=== PATIENT | female | born 1970 | race Caucasian/White ===

== ENCOUNTER → 2017-04-27 | Day surgery (SDC) | payer MEDICAID ==
[2017-04-17 12:41] VITALS: Ht 156.2 cm; Wt 89.8 kg
[~2017-04-27] VITALS: Ht 156.2 cm; Wt 89.8 kg
[~2017-04-27] MED LIST: AA/A14DR7 OT; ACE3 PO; ACET-1966 PO; ACET-3017 PO; ACY200L PO; ACYC-58 PO; ALBL; ALBU0.636 IH; ALBU2.5V36 INH; ALBU8.5H IH; ALBU8.5H12 IH; ALP25 PO; ALP5 PO; ALPR-429 PO; AMO250 PO; AMO500 PO; AMO875 PO; AMOX-359 PO; AMOX-362 PO; AMOX-559 PO; AMOX500T10 PO; AMOXICILLIN; ANTI10DR13 OT; ANTI15DR29 OT; APIX5TAB PO; ARIP10TA4 PO; ARIP20TA11 PO; ARIP30TA10 PO; ATEN-1 PO; ATOR-1 PO; ATOR40TA24 PO; ATR80PT PO; AUG500 PO; AUG875 PO; AURALGAN EACH EAR; AZI250 PO; AZIT-1 PO; AZIT-17 PO; AZIT-18 PO; AZIT500T47 PO; AZIT600T13 PO; BACITRACIN OINT 15 GM TUBE TP ONE; BACL-1 PO; BENZ100C4 PO; BENZ200C15 PO; BENZ200C38 PO; BLOO-1775 MC; BLOO1STR16 MC; BUPIV/EPI 0.25% 1:200,000 50ML INFIL ONE; BUS5 PO; BUSP7.5T7 PO; BUTA-324 PO; CARB100O7 PO; CARI-1 PO; CEPH500C24 PO; CHOL500016 PO; CIP500 PO; CIPHCO OT; CIPR-326 PO; CIT20 PO; CITA-157 PO; CLAR-1 PO; CLINDAMYCIN 900 MG/6 ML 900 MG in NS(*) 0.9% 100 ML BAG 100 ML IVPB ONE; CLO1 PO; CLO30T TOP; CLON-303 PO; CLOT15CR63 TP; CODE118S5 PO; CYC10 PO; CYCL-332 PO; CYCL10TA29 PO; DEXAMETHASONE SOD 4 MG/ML VIAL ONE; DEXL60CA6 PO; DIA5 PO; DIAZ-308 PO; DICL100G39 TOP; DIP25 PO; DIV500 PO; DIV500ER PO; DIVA-1 PO; DIVA250T84 PO; DOC100 PO; DOCU-416 PO; DOCU240C84 PO; DOCU50CA8; DON PO; DOXE150C7 PO; DOXE50CA46 PO; DOXY-179 PO; DOXY150T6 PO; DOXY50SY2 PO; DUL20 PO; DUL30 PO; EPIN0.3P15 IM; ERY250 PO; ESOM40CA42 PO; ESTR2TAB26 PO; EUCT TOP; FAM20 PO; FAMO20TA28 PO; FLU150 PO; FLUT16SP19 NS; GAB300 PO; GABA-1 PO; GLY25 PO; GUAI-334 PO; GUAI120L3 PO; HEPA100D58 IV; HYD2 PO; HYDR-2966 PO; HYDR-3083 PO; HYDR-3724 PO; HYDR-385 PO; HYDR-4225; HYDR-4309 PO; HYDR115S2 PO; HYDR1TAB PO; HYDR2TAB4 PO; HYDR2TAB41 PO; HYDR2TAB42; HYDR2TAB42 PO; HYDR473S4 PO; IBPROFEN; IBU800 PO; IBUP-1618 PO; IBUP200C71 PO; IBUP400T13 PO; IBUP800T37 PO; IMITREX; INSU100C12 SQ; INSU100C14 SQ; INSU100I28 SQ; INSU100I30 SQ; INSU100I30 SUBQ; INSU100V24 SQ; KET10 PO; KET200 PO; LANC-1295 MC; LANC-648 ASDIRECTED; LANI SQ; LANI SUBQ; LEV175 PO; LEV500 PO; LEVO125T77; LEVO175T37 PO; LEVO175T38 PO; LEVO200T50 PO; LEVO250T37 PO; LEVO25TA56 PO; LEVO300T31 PO; LEVO50TA86 PO; LEVO750T27 PO; LEVO75TA73 PO; LIDO700A19 TP; LIDOCAINE MPF 1% 5 ML VIAL ONE; LIDOCAINE/SOD BICARB 8.4% SYR ID ONE; LISI-355 PO; LISI-362 PO; LISI-368 PO; LISI-374 PO; LISI20TA29 PO; LOM PO; LOR05 PO; LOR5 PO; LOR5/325 PO; LOR75 PO; LORA-1456 PO; LORA-630 PO; LORA-802 PO; LORA10CA3 PO; LOV20 PO; MAG-156 PO; MAGIC PO; MAGN400C PO; MEC25 PO; MECL12.5 PO; MEL3 PO; MES400 PO; MET10 FT; MET500 PO; METF-1 PO; METF-420 PO; METH-543 PO; METO-218 PO; METO-221 PO; METO-566 PO; METO-734 PO; METO25TA93 PO; METOCLOPRAMIDE 10 MG/2 ML SDV ONE; METXR500 PO; MID PO; MIDAZOLAM 2 MG/2 ML VIAL IVP PRN; MINIPRESS PO; MOMR NS; MULT-865 PO; MUP2T TOP; MVM PO; NAL50 PO; NAP250 PO; NAP500 PO; NAPR-724 PO; NAPR500T75 PO; NIT100 PO; NIT50 PO; NITR50CA2 GT; NOR25 PO; NOR5/325 PO; NORMOSOL R SOLN(*) 1000 ML BAG 1,000 ML IV PRN; NS(*) 0.9% 1000 ML BAG 1,000 ML ONE; OFLO5DRO38 OP; OMEP-218 PO; OMEP40CA79 PO; OND4 PO; ONDA-2 PO; ONDA4TAB PO; ONDA4TAB9 PO; ONDA4TAB97 PO; ONDA8TAB94 PO; ONDANSETRON 4 MG/2 ML VIAL ONE; ORP100 PO; ORPH1TAB PO; OSE75 PO; OXAP-1 PO; OXC300 PO; OXCA300T44 PO; OXCA600T30 PO; OXYC-717 PO; OXYC-823 PO; OXYC-865 PO; OXYC-866 PO; OXYC1TAB54 GT; OXYC1TAB54 PO; OXYC5CAP21 PO; Oxygen NS; PAN20 PO; PANT40TA65 PO; PARO-243 PO; PARO10OR PO; PARO30TA71 PO; PARO40TA88 PO; PER PO; PHEN118S56 PO; PHEN120S16 PO; PHEN200T32 PO; PHENA100 PO; PHENA200 PO; POTA20TA94 PO; POTT20 PO; PRAV20TA66 PO; PRAZ1CAP25 PO; PRAZ2CAP26 PO; PRE10 PO; PRE20 PO; PRE5 PO; PRE50 PO; PRED20TA6 PO; PREG150C33 PO; PREG50CA48 PO; PREPH PR; PRO20 PO; PRO25 PO; PRO25I IV; PRO5 PO; PROCHLORPERAZINE; PROM-110 PO; PROM12.546 PO; PROM25S PR; PROM25SU61 RC; PROM25SU9 RC; PROM5SYR PO; PROMETHAZINE 25 MG/ML 1 ML AMP ONE; PROP10TA58 PO; PROP20TA56 PO; PROPANOLOL PO; PROPOFOL EMUL(*) 10MG/ML 20 ML 20 ML ONE; QUET100T29 PO; QUET200T29 PO; RAM8 PO; RANI-324 PO; RANI150C17 PO; RIZA10 PO; RIZA10TA22 PO; RIZA5TAB15 PO; ROBC PO; ROCURONIUM BROM 10 MG/ML 10 ML ONE; ROCURONIUM BROM 10 MG/ML 5 ML ONE; ROPIVACAINE 0.2% 20 ML VIAL ONE; ROPIVACAINE 0.5% 20 ML VIAL ONE; ROSU40TA18 PO; SILV20CR2 TP; SUGAMMADEX SOD 200 MG/2 ML SDV ONE; SUM25 PO; SUMA100T32 PO; SUMA100T33 PO; SUMA50TA34 PO; SUMA6CAR SQ; SUMA6PEN SQ; TAMS0.4C25 PO; TEMA-1 PO; TIZ4 PO; TIZA-128 PO; TIZA2CAP3 PO; TIZA4CAP3 PO; TIZA4CAP6 PO; TIZA6CAP3 PO; TOBOO OS; TOBR5DRO OP; TOBR5DRO43 OD; TOBROD OS; TOP25 PO; TOPI-23 PO; TOPI-75 PO; TOPI25TA3 PO; TOPI50TA99 PO; TRA50 GT; TRA50 PO; TRAM-420 PO; TRAM-625 PO; TRAM-627 PO; TRAM100T22 PO; TRAZ-156 PO; TRAZ150T61 PO; TRAZ150T8 PO; TRAZ50 PO; TRIA0.2597 PO; VAL500 PO; VAR05PT PO; VEN375 PO; VENL100T21 PO; VERA240T84 PO; ZOL5 PO; ZOLP-1 PO; ZOLP-358; [UNRECOGNIZED DRUG - CODE]; [UNRECOGNIZED DRUG - CODE] IVF; [UNRECOGNIZED DRUG - CODE] IVF; [UNRECOGNIZED DRUG - CODE] MM; [UNRECOGNIZED DRUG - CODE] PO; [UNRECOGNIZED DRUG - CODE] PO; [UNRECOGNIZED DRUG - CODE] PO; [UNRECOGNIZED DRUG - CODE] RC; [UNRECOGNIZED DRUG - CODE] TOP; [UNRECOGNIZED DRUG - CODE] TOP; [UNRECOGNIZED DRUG - OTHER]; [UNRECOGNIZED DRUG - OTHER] PO; ePHEDrine 25 MG/5 ML DISP.SYR IVP ONE; fentaNYL CITR 100 MCG/2 ML AMP IVP ONE; fentaNYL CITR 100 MCG/2 ML AMP IVP PRN; fentaNYL CITR 100 MCG/2 ML AMP ONE; omnicef PO; oxyCODONE HCL 5 MG CAP ONE
[2017-04-27 10:47] VITALS: BP 111/79
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
== END ==
LOC: OR 08:00
PROVIDERS: ATTEND Orthopaedic Surgery
DX: S82.832A Other fracture of upper and lower end of left fibula, initial encounter for closed fracture (principal); S02.2XXA Fracture of nasal bones, initial encounter for closed fracture
CPT/HCPCS: 76000; C1713; J1100; J2001; J2250; J2405; J2550; J2704; J2765; J2795; J3010; J3490; J7030; J7050

== ENCOUNTER 2017-06-06 16:10 | Emergency (ER) | payer MEDICAID ==
[2017-04-17 12:41] VITALS: Wt 86.2 kg
[~2017-06-06 16:10] MED LIST changes: -ATOR40TA24 PO; -BACITRACIN OINT 15 GM TUBE TP ONE; -BUPIV/EPI 0.25% 1:200,000 50ML INFIL ONE; -CLINDAMYCIN 900 MG/6 ML 900 MG in NS(*) 0.9% 100 ML BAG 100 ML IVPB ONE; -DEXAMETHASONE SOD 4 MG/ML VIAL ONE; -LIDOCAINE MPF 1% 5 ML VIAL ONE; -LIDOCAINE/SOD BICARB 8.4% SYR ID ONE; -METOCLOPRAMIDE 10 MG/2 ML SDV ONE; -MIDAZOLAM 2 MG/2 ML VIAL IVP PRN; -NORMOSOL R SOLN(*) 1000 ML BAG 1,000 ML IV PRN; -NS(*) 0.9% 1000 ML BAG 1,000 ML ONE; -ONDANSETRON 4 MG/2 ML VIAL ONE; -PROMETHAZINE 25 MG/ML 1 ML AMP ONE; -PROPOFOL EMUL(*) 10MG/ML 20 ML 20 ML ONE; -ROCURONIUM BROM 10 MG/ML 10 ML ONE; -ROCURONIUM BROM 10 MG/ML 5 ML ONE; -ROPIVACAINE 0.2% 20 ML VIAL ONE; -ROPIVACAINE 0.5% 20 ML VIAL ONE; -SUGAMMADEX SOD 200 MG/2 ML SDV ONE; -ePHEDrine 25 MG/5 ML DISP.SYR IVP ONE; -fentaNYL CITR 100 MCG/2 ML AMP IVP ONE; -fentaNYL CITR 100 MCG/2 ML AMP IVP PRN; -fentaNYL CITR 100 MCG/2 ML AMP ONE; -oxyCODONE HCL 5 MG CAP ONE
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
[2017-06-06] MEDS ORDERED: PROMETHAZINE 25 MG/ML 1 ML AMP IM ONE (16:25)
[2017-06-06] MEDS ORDERED: diphenhydrAMINE 50 MG/ML VIAL IM ONE (16:25)
[2017-06-06] MEDS ORDERED: KETOROLAC 60 MG/2 ML VIAL IM ONE (16:25)
[2017-06-06] MEDS ORDERED: SUMAtriptan SUCC 6MG/0.5ML VL SUBQ ONE (16:25)
[2017-06-06] MEDS ORDERED: ORPHENADRINE 60MG/2ML INJ IM ONE (16:25)
[2017-06-06] MEDS ORDERED: WATER STERILE 10 ML VIAL IM ONLY ONE (17:35)
[2017-06-06] MEDS ORDERED: OLANZapine 10 MG VIAL IM ONLY ONE (17:35)
[2017-06-06 18:00] VITALS: BP 170/85
[2017-06-06] MEDS ORDERED: PROM-110 PO (18:49)
[2017-06-06] MEDS ORDERED: PROMETHAZINE HCL 25 MG TAB TH 2 TAB/BOTTLE PO ONE (18:55)
[2017-06-10] MEDS ORDERED: ATOR40TA24 PO (11:24)
== END 2017-06-06 19:11 | disposition home or self-care (01) ==
LOC: ER 16:19
DX: R51 Headache (principal)
CPT/HCPCS: 87502; 96372; 99284; A4216; J1200; J1885; J2360; J2550; J3490; J3030

== ENCOUNTER 2017-06-24 07:49 | Emergency (ER) | payer MEDICAID ==
[2017-04-17 12:41] VITALS: Ht 154.9 cm; Wt 84.4 kg
[~2017-06-24] VITALS: Ht 154.9 cm; Wt 84.4 kg
[~2017-06-24 07:49] MED LIST changes: +ATOR40TA24 PO
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
--- NOTE | 2017-06-24 08:40 | RADIOLOGY IMAGING REPORT ---
FACILITY: [facility] PATIENT NAME: Yesy Mccracken : 1970 MR: [id number] V: [id number] EXAM DATE: ORDERING PHYSICIAN: CONNIE SWENSON TECHNOLOGIST: Location: [facility] Patient: Yesy Mccracken : 1970 Visit/Account:[id number] Date of Sevice: 06/24/2017 Exam type: ANKLE 3 VIEW MIN LEFT History: Fractured ankle eight weeks ago with pain Comparison: April 15, 2017. Findings: Since the prior study there has been open reduction internal fixation of the fracture dislocation of the left ankle. Sideplate and screws transfix the distal left fibular fracture which appears in a re latively good anatomic alignment. There is a small amount of new cortical bone. Orthopedic screws a lso traverse the distal left fibula and tibia with ankle mortise appearing in good anatomic alignment .. A small well-corticated bony density projects just posterior to the tibiotalar joint. There is m ild soft tissue swelling about the left ankle. Small left calcaneal spur and small osteophyte insert ion the Achilles tendon IMPRESSION: 1. Post surgical changes from open reduction internal fixation of the previous described fracture di slocation of the left ankle which appears to be healing in good anatomic alignment. If further bony detail is desired CT may be helpful for further evaluation. Report Dictated By: Angle Meléndez MD at 06/24/2017 8:29 AM Report E-Signed By: Angle Meléndez MD at 06/24/2017 8:36 AM WSN:JUSTIN
[2017-06-24 09:02] VITALS: BP 117/99
== END 2017-06-24 09:08 | disposition home or self-care (01) ==
LOC: ER 08:03
DX: S93.401A Sprain of unspecified ligament of right ankle, initial encounter (principal)
CPT/HCPCS: 99283

== ENCOUNTER 2017-07-09 12:35 | Emergency (ER) | payer MEDICAID ==
[2017-04-17 12:41] VITALS: Ht 154.9 cm; Wt 84.6 kg
[~2017-07-09] VITALS: Ht 154.9 cm; Wt 84.6 kg
[~2017-07-09 12:35] MED LIST changes: +KETO30CA16 IM
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
[2017-07-09] MEDS ORDERED: MELO-205 PO (12:53)
[2017-07-09] MEDS ORDERED: ORPHENADRINE 60MG/2ML INJ IM ONE (12:55)
[2017-07-09] MEDS ORDERED: diphenhydrAMINE 50 MG/ML VIAL IM ONE (12:55)
[2017-07-09] MEDS ORDERED: KETOROLAC 60 MG/2 ML VIAL IM ONE (12:55)
[2017-07-09] MEDS ORDERED: PROMETHAZINE 25 MG/ML 1 ML AMP IM ONE (12:55)
[2017-07-09 13:42] VITALS: BP 117/98
[2017-07-09] MEDS ORDERED: PROM-110 PO (13:44)
== END 2017-07-09 13:46 | disposition home or self-care (01) ==
LOC: ER 12:53
DX: G43.909 Migraine, unspecified, not intractable, without status migrainosus (principal)
CPT/HCPCS: 96372; 99283; J1200; J1885; J2360; J2550

== ENCOUNTER 2017-07-29 09:08 | Emergency (ER) | payer MEDICAID ==
[2017-04-17 12:41] VITALS: Ht 154.9 cm; Wt 87.1 kg
[~2017-07-29] VITALS: Ht 154.9 cm; Wt 87.1 kg
[~2017-07-29 09:08] MED LIST changes: -ALBL; +ALBU2SYR19; +MELO-205 PO; -NAPR-724 PO; +NAPR500T31 PO
[2017-07-29] MEDS ORDERED: NS(*) 0.9% 1000 ML BAG 1,000 ML IV ONE ×2 (09:24)
--- NOTE | 2017-07-29 09:27 | ER Report ---
History and Physical Time Seen By MD: 09:20 Hx. of Stated Complaint: pt presents with a multitude of complaints including n/v/d, cough, chest congestion, fever, pain with urination, low back pain. HPI/ROS CHIEF COMPLAINT: Vomiting diarrhea nonspecific abdominal pain cough HISTORY OF PRESENT ILLNESS: 46-year-old female frequent visitor to the emergency department returns today with a complaint of 3-4 days of diarrhea vomiting since she had a brother who had recently expresses similar symptoms in addition that she is also describing a nonproductive cough and some mild chest congestion. Patient says the pain in her abdomen is nonlocalized not primarily in the periumbilical area comes and goes dull and aching cramping in nature associated primarily with the diarrhea. Patient describes the diarrhea and the vomiting is nonbloody nonbilious. Patient denies any chest pain shortness of breath she is a pack to pack and half a day smoker she said she quit 3 weeks ago says her cough is also nonproductive. Patient has no additional complaints at this time. REVIEW OF SYSTEMS: Respiratory: Cough no shortness of breath Cardiovascular: No chest pain, no palpitations. Gastrointestinal: Vomiting diarrhea nonspecific abdominal pain Musculoskeletal: No back pain. Remainder of the 14 system rev: Yes Allergies: Coded Allergies: Nitrofurantoin Macrocrystal (Verified Allergy, Severe, HIVES, 07/29/17) aspirin (Verified Allergy, Severe, ANAPHYLAXIS, 07/29/17) chlorpromazine (Verified Allergy, Severe, ANAPHYLAXIS, 07/29/17) hydroxyzine (Verified Allergy, Severe, AIRWAY OBSTRUCTION, 07/29/17) varenicline (Verified Allergy, Severe, anxiety, 07/29/17) venom-wasp (Verified Allergy, Severe, ANAPHYLAXIS, 07/29/17) Sulfa (Sulfonamide Antibiotics) (Verified Allergy, Intermediate, HIVES, ) albuterol (Verified Allergy, Intermediate, itching, hives, 07/29/17) cephalexin (Verified Allergy, Intermediate, HIVES, 07/29/17) ciprofloxacin (Verified Allergy, Intermediate, "feels like I'm going inasne", 07/29/17) droperidol (Verified Allergy, Intermediate, DELUSIONS, 07/29/17) Pt states her reaction as, "I become psychotic". latex (Verified Allergy, Intermediate, RASH, SWELLING, 2/21/18) ondansetron (Verified Adverse Reaction, Severe, TACHYCARDIA, 07/29/17) dexamethasone (Verified Adverse Reaction, Intermediate, ITCHING, 07/29/17) haloperidol (Verified Adverse Reaction, Intermediate, "MAKES ME JUMPY", ) Uncoded Allergies: Inhaled medication propelant (Allergy, Intermediate, HIVES, 10/07/14) Home Meds Active Scripts Promethazine Hcl (PROMETHAZINE HCL) 25 Mg Tablet, 25 MG PO Q8H Y for NAUSEA/ VOMITING, #12 TAB Prov:DEISY DURBIN [facility] 07/09/17 Pregabalin (LYRICA) 150 Mg Capsule, 1 TAB PO BID, #60 CAPSULE 0 Refills Prov:POPPY SANCHEZ DNP [facility] 06/16/17 Atorvastatin Calcium (LIPITOR) 40 Mg Tablet, 1 TAB PO QDAY, #90 TAB Prov:POPPY SANCHEZ DNP [facility] 06/10/17 Baclofen (BACLOFEN) 10 Mg Tablet, 1 TAB PO TID Y for MUSCLE SPASMS, #90 TAB 2 Refills Prov:POPPY SANCHEZ DNP [facility] 05/29/17 Sumatriptan Succinate (SUMATRIPTAN SUCCINATE) 6 Mg/0.5 Ml Pen.injctr, 6 MG SQ ONCE Y for MIGRAINE, #1 BOX 6 Refills May repeat dose x1 after 1 hour, if needed. Do not exceed maximum of 12mg/24h. Prov:POPPY SANCHEZ DNP [facility] 05/29/17 Sumatriptan Succinate (SUMATRIPTAN SUCCINATE) 100 Mg Tablet, 1 TAB PO ONCE Y for MIGRAINE, #9 TAB 6 Refills Prov:POPPY SANCHEZ DNP [facility] 05/29/17 Ranitidine Hcl (RANITIDINE HCL) 150 Mg Capsule, 1 TAB PO BID, #180 CAPSULE 3 Refills Prov:POPPY SANCHEZ DNP [facility] 05/29/17 Esomeprazole Magnesium (NEXIUM) 40 Mg Capsule.dr, 1 CAP PO BID, #180 CAP 3 Refills Prov:POPPY SANCHEZ DNP [facility] 05/29/17 Levothyroxine Sodium (LEVOTHYROXINE SODIUM) 50 Mcg Tablet, 1 TAB PO QDAY, #90 TAB 0 Refills Take along with 200mcg tablet for a total of 250mcg daily. Prov:POPPY SANCHEZ DNP, FNP-BC 05/29/17 Levothyroxine Sodium (LEVOTHYROXINE SODIUM) 200 Mcg Tablet, 200 MCG PO QDAY, # 90 TAB 0 Refills Take with 50mcg tablet for a total of 250mcg daily Prov:POPPY SANCHEZ DNP, FNP-BC 05/29/17 Insulin Lispro 3 Ml Prefilled (HUMALOG 3 ML PEN) 100 Unit/1 Ml Insuln.pen, 5-8 UNIT SQ TID, #2 DIS.SYR 6 Refills Take per sliding scale. Prov:POPPY SANCHEZ DNP, FNP-BC 05/29/17 Insulin Glargine,Hum.rec.anlog (LANTUS SOLOSTAR) 100 Unit/1 Ml Insuln.pen, 35 UNIT SUBQ BID, #1 BOX Prov:EVELINA MONSIVAIS MD 05/06/17 Buspirone Hcl (BUSPIRONE HCL) 7.5 Mg Tablet, 30 MG PO BID, #60 TAB Prov:EVELINA MONSIVAIS MD 03/14/17 Albuterol Sulfate 0.083% (ALBUTEROL SULFATE 0.083%) 2.5 Mg/3 Ml Vial.neb, 2.5 MG INH Q4H Y for WHEEZING, #1 BOX 0 Refills Prov:HILDA THORNE MD 02/22/17 Epinephrine (EPIPEN 2-TUCKER) 0.3 Mg/0.3 Ml Pen.injctr, 0.3 MG IM ONCE, #1 CART Prov:POPPY SANCHEZ DNP, FNP-BC 02/17/17 Diclofenac Sodium 1% Gel (VOLTAREN 1% GEL) 100 Gm Gel..gram., 1 DEMETRIS TOP QID Y for PAIN, #1 TUBE 0 Refills Prov:POPPY SANCHEZ DNP, FNP-BC 01/19/17 Blood-Glucose Meter (FREESTYLE LITE METER) 1 Each Kit, 1 [facility] ONCE, #1 Prov:POPPY SANCHEZ DNP, FNP-BC 09/15/16 Reported Medications Meloxicam (MELOXICAM) 7.5 Mg Tablet, 7.5 MG PO BID 07/09/17 Aripiprazole (ABILIFY) 20 Mg Tablet, 20 MG PO QDAY, TAB 03/14/17 Prazosin Hcl (PRAZOSIN HCL) 2 Mg Capsule, 2 CAP PO QHS, CAPSULE 01/26/17 Zolpidem Tartrate (AMBIEN) 5 Mg Tablet, 1 TAB PO QHS, TAB 05/19/16 Reviewed Nurses Notes: Yes Old Medical Records Reviewed: Yes Hx Smoking: Yes Smoking Status: Former Smoker Exposure to Second Hand Smoke?: Yes Hx Substance Use Disorder: No ("Years ago") Hx Alcohol Use: No Constitutional Vital Sign - Last 24 Hours 07/29/17 09:12 Temp 97.2 Pulse 102 Resp 20 B/P (MAP) 148/109 Pulse Ox 90 O2 Delivery Room Air Physical Exam General Appearance: The patient is alert, has no immediate need for airway protection and no current signs of toxicity. [ ] Eyes: Pupils equal and round no injection. Respiratory: Chest is non tender, lungs are clear to auscultation. Cardiac: regular rate and rhythm [ ] Gastrointestinal: Abdomen is soft and non tender, no masses, bowel sounds normal. Musculoskeletal: Neck: Neck is supple and non tender. Extremities have full range of motion and are non tender. Skin: No rashes or lesions. [ ] DIFFERENTIAL DIAGNOSIS: After history and physical exam differential diagnosis was considered for enteritis gastroenteritis diverticulitis diverticulosis influenza upper respiratory infection bronchitis pneumonia Medical Decision Making Data Points Result Diagram: 07/29/1792707/29/17927 Laboratory Hematology Test 07/29/17 09:28 Red Blood Count 6.32 M/uL (4.17-5.56) Mean Corpuscular Volume 77.4 fL (80.0-96.0) Mean Corpuscular Hemoglobin 26.1 pg (26.0-33.0) Mean Corpuscular Hemoglobin Concent 33.8 g/dL (32.0-36.0) Red Cell Distribution Width 15.0 % (11.5-14.5) Mean Platelet Volume 8.4 fL (7.2-11.1) Neutrophils (%) (Auto) 45.2 % (39.4-72.5) Lymphocytes (%) (Auto) 44.1 % (17.6-49.6) Monocytes (%) (Auto) 9.2 % (4.1-12.4) Eosinophils (%) (Auto) 0.3 % (0.4-6.7) Basophils (%) (Auto) 1.2 % (0.3-1.4) Nucleated RBC Relative Count (auto) 0.1 /100WBC Neutrophils # (Auto) 1.9 K/uL (2.0-7.4) Lymphocytes # (Auto) 1.9 K/uL (1.3-3.6) Monocytes # (Auto) 0.4 K/uL (0.3-1.0) Eosinophils # (Auto) 0.0 K/uL (0.0-0.5) Basophils # (Auto) 0.0 K/uL (0.0-0.1) Nucleated RBC Absolute Count (auto) 0.01 K/uL Sodium Level 131 mmol/L (137-145) Potassium Level 3.5 mmol/L (3.5-5.0) Chloride Level 93 mmol/L (98-107) Carbon Dioxide Level 22 mmol/L (22-31) Blood Urea Nitrogen 6 mg/dl (7-18) Creatinine 0.60 mg/dl (0.52-1.04) Glomerular Filtration Rate Calc > 60.0 Random Glucose 413 mg/dl (75-110) Calcium Level 9.4 mg/dl (8.4-10.2) Total Bilirubin 0.5 mg/dl (0.2-1.3) Aspartate Amino Transf (AST/SGOT) 17 U/L (0-35) Alanine Aminotransferase (ALT/SGPT) 33 U/L (0-56) Alkaline Phosphatase 158 U/L (0-126) Total Protein 8.4 gm/dl (6.3-8.2) Albumin 4.4 g/dl (3.5-5.0) Lipase 290 U/L (23-300) Influenza Virus Type A (PCR) Negative (NEGATIVE) Influenza Virus Type B (PCR) Negative (NEGATIVE) Chemistry Test 07/29/17 09:28 White Blood Count 4.2 k/uL (4.5-11.0) Red Blood Count 6.32 M/uL (4.17-5.56) Hemoglobin 16.5 g/dL (12.0-16.0) Hematocrit 48.9 % (34.0-47.0) Mean Corpuscular Volume 77.4 fL (80.0-96.0) Mean Corpuscular Hemoglobin 26.1 pg (26.0-33.0) Mean Corpuscular Hemoglobin Concent 33.8 g/dL (32.0-36.0) Red Cell Distribution Width 15.0 % (11.5-14.5) Platelet Count 193 K/uL (150-450) Mean Platelet Volume 8.4 fL (7.2-11.1) Neutrophils (%) (Auto) 45.2 % (39.4-72.5) Lymphocytes (%) (Auto) 44.1 % (17.6-49.6) Monocytes (%) (Auto) 9.2 % (4.1-12.4) Eosinophils (%) (Auto) 0.3 % (0.4-6.7) Basophils (%) (Auto) 1.2 % (0.3-1.4) Nucleated RBC Relative Count (auto) 0.1 /100WBC Neutrophils # (Auto) 1.9 K/uL (2.0-7.4) Lymphocytes # (Auto) 1.9 K/uL (1.3-3.6) Monocytes # (Auto) 0.4 K/uL (0.3-1.0) Eosinophils # (Auto) 0.0 K/uL (0.0-0.5) Basophils # (Auto) 0.0 K/uL (0.0-0.1) Nucleated RBC Absolute Count (auto) 0.01 K/uL Glomerular Filtration Rate Calc > 60.0 Calcium Level 9.4 mg/dl (8.4-10.2) Total Bilirubin 0.5 mg/dl (0.2-1.3) Aspartate Amino Transf (AST/SGOT) 17 U/L (0-35) Alanine Aminotransferase (ALT/SGPT) 33 U/L (0-56) Alkaline Phosphatase 158 U/L (0-126) Total Protein 8.4 gm/dl (6.3-8.2) Albumin 4.4 g/dl (3.5-5.0) Lipase 290 U/L (23-300) Influenza Virus Type A (PCR) Negative (NEGATIVE) Influenza Virus Type B (PCR) Negative (NEGATIVE) ED Course/Re-evaluation ED Course ED clinical course medical decision-making 46-year-old female with diarrhea vomiting or cough x-ray was negative lab show time depletion we resuscitated with fluids given antiemetics and low-dose anti-narcotic for pain she is on a care plan patient was diagnosed with gastroenteritis Decision to Disposition Date: Jul 29, 2017 Decision to Disposition Time: 10:51 Depart Departure Latest Vital Signs Vital Signs Date Time Temp Pulse Resp B/P (MAP) Pulse Ox O2 Delivery O2 Flow Rate FiO2 07/29/17 09:12 97.2 102 20 148/109 90 Room Air Core Temperature (Celsius): 36.73 Impression: Primary Impression: Gastroenteritis Condition: Improved Disposition: HOME OR SELF-CARE Referrals: POPPY SANCHEZ DNP, RISK CONTROL MANAGER-BC (PCP) 10 Days Patient Instructions: Gastritis (GEN), Gastroenteritis (DC) CONNIE SWENSON MD Jul 29, 2017 09:27
[2017-07-29 09:56] LABS: PLATELET COUNT, AUTOMATED 193 K/uL (150-450)
[2017-07-29] MEDS ORDERED: INSU HUM REG 100 U/ML(ER ONLY) 10 ML VIAL SUBQ ONE (10:15)
[2017-07-29] MEDS ORDERED: KETOROLAC 30 MG/ML VIAL IVP ONE (10:25)
[2017-07-29] MEDS ORDERED: METOCLOPRAMIDE 10 MG/2 ML SDV IVP ONE (10:25)
[2017-07-29] MEDS ORDERED: PROMETHAZINE 25 MG/ML 1 ML AMP IVP ONE (10:30)
--- NOTE | 2017-07-29 10:46 | RADIOLOGY IMAGING REPORT ---
FACILITY: [facility] PATIENT NAME: Yesy Mccracken : 1970 MR: [id number] V: [id number] EXAM DATE: ORDERING PHYSICIAN: CONNIE SWENSON TECHNOLOGIST: Location: [facility] Patient: Yesy Mccracken : 1970 Visit/Account:[id number] Date of Sevice: 07/29/2017 Exam type: CHEST PA AND LAT History: cough Comparison: March 31, 2017. Findings: The lungs are free of acute effusions, infiltrates or edema. The cardiac silhouette is normal in siz e. No evidence of a pneumothorax or pneumomediastinum. The trachea is in midline. IMPRESSION: 1. No acute cardiopulmonary process is seen Report Dictated By: Angle Meléndez MD at 07/29/2017 10:41 AM Report E-Signed By: Angle Meléndez MD at 07/29/2017 10:42 AM WSN:[email or web address]
[2017-07-29 11:30] VITALS: BP 137/82
[2017-07-31] MEDS ORDERED: PREG150C33 PO (10:50)
== END 2017-07-29 11:55 | disposition home or self-care (01) ==
LOC: ER 09:21
DX: K52.9 Noninfective gastroenteritis and colitis, unspecified (principal)
CPT/HCPCS: 71046; 81001; 83690; 85025; 87502; 96361; 96372; 96374; 96375; 99284; J1815; J1885; J2550; J7030; 82040; 82247; 82310; 82374; 82435; 82565; 82947; 84075; 84132; 84155; 84295; 84450; 84460; 84520

== ENCOUNTER → 2017-08-11 | Outpatient (CLI) | payer MEDICAID ==
[2017-04-17 12:41] VITALS: BMI 34.0
[~2017-08-11] MED LIST changes: +NEED-931 MC
[2017-08-11 09:56] LABS: PLATELET COUNT, AUTOMATED 297 K/uL (150-450)
== END ==
LOC: LAB 09:28
PROVIDERS: ATTEND Nurse Practitioner Primary Care
DX: E11.9 Type 2 diabetes mellitus without complications (principal); E78.00 Pure hypercholesterolemia, unspecified; E03.9 Hypothyroidism, unspecified; I10 Essential (primary) hypertension
CPT/HCPCS: 36415; 82040; 82247; 82310; 82374; 82435; 82465; 82565; 82947; 83036; 83718; 84075; 84132; 84155; 84295; 84443; 84450; 84460; 84478; 84520; 85025

== ENCOUNTER → 2017-08-12 | Outpatient (CLI) | payer MEDICAID ==
[2017-04-17 12:41] VITALS: BMI 34.0
[2017-08-12 17:37] LABS: PLATELET COUNT, AUTOMATED 237 K/uL (150-450)
== END ==
LOC: LAB 16:18
PROVIDERS: ATTEND Nurse Practitioner Primary Care
DX: R30.0 Dysuria (principal); R10.11 Right upper quadrant pain
CPT/HCPCS: 36415; 81001; 82040; 82150; 82247; 82310; 82374; 82435; 82565; 82947; 83690; 84075; 84132; 84155; 84295; 84450; 84460; 84520; 85025

== ENCOUNTER 2017-08-13 09:59 | Emergency (ER) | payer MEDICAID ==
[2017-04-17 12:41] VITALS: Wt 87.3 kg
--- NOTE | 2017-08-13 10:18 | ER Report ---
History and Physical Time Seen By MD: 10:17 Hx. of Stated Complaint: Right upper quadrant abdominal pain, vomitting, high blood sugar HPI/ROS CHIEF COMPLAINT: high blood sugar. Abdominal pain HISTORY OF PRESENT ILLNESS: This is a 46 year old female. She is having abdominal pain. Several days worsening. Right upper quadrant mainly, with some in the epigastric area as well. Nausea and vomiting. Having some diarrhea. Poor appetite. Eating seems to make the pain worse. Worsens with movement as well. Also with elevated blood sugars recently, reading 'hi' on the glucose monitor. Having subjective fevers and chills. Denies dysuria. Having some shortness of breath as well. REVIEW OF SYSTEMS: Constitutional: As above. Eyes: No vision changes. ENT: No sore throat. No congestion. Cardiovascular: No chest pain. Respiratory: As above. Gastrointestinal: As above. Genitourinary: As above. Musculoskeletal: Diffuse muscle and joint aches. Skin: No rashes. Neurological: No numbness. No weakness. Mild headache. Allergies: Coded Allergies: Nitrofurantoin Macrocrystal (Verified Allergy, Severe, HIVES, 08/14/17) aspirin (Verified Allergy, Severe, ANAPHYLAXIS, 08/14/17) chlorpromazine (Verified Allergy, Severe, ANAPHYLAXIS, 08/14/17) hydroxyzine (Verified Allergy, Severe, AIRWAY OBSTRUCTION, 08/14/17) varenicline (Verified Allergy, Severe, anxiety, 08/14/17) venom-wasp (Verified Allergy, Severe, ANAPHYLAXIS, 08/14/17) Sulfa (Sulfonamide Antibiotics) (Verified Allergy, Intermediate, HIVES, 08/14/17) albuterol (Verified Allergy, Intermediate, itching, hives, 08/14/17) cephalexin (Verified Allergy, Intermediate, HIVES, 08/14/17) ciprofloxacin (Verified Allergy, Intermediate, "feels like I'm going inasne", 08/14/17) droperidol (Verified Allergy, Intermediate, DELUSIONS, 08/14/17) Pt states her reaction as, "I become psychotic". latex (Verified Allergy, Intermediate, RASH, SWELLING, 08/14/17) ondansetron (Verified Adverse Reaction, Severe, TACHYCARDIA, 08/14/17) dexamethasone (Verified Adverse Reaction, Intermediate, ITCHING, 08/14/17) haloperidol (Verified Adverse Reaction, Intermediate, "MAKES ME JUMPY", 08/14/17) Uncoded Allergies: Inhaled medication propelant (Allergy, Intermediate, HIVES, 10/07/14) Home Meds Active Scripts Meclizine Hcl (MECLIZINE HCL) 12.5 Mg Tablet, 1 TAB PO BID Y for DIZZINESS, #10 TAB 0 Refills Prov:POPPY SANCHEZ DNP, FNP-YVETTE 08/14/17 Promethazine Hcl (PROMETHAZINE HCL) 25 Mg Tablet, 1 TAB PO Q8H Y for nausea, # 12 TAB 0 Refills Prov:POPPY SANCHEZ DNP, FNP-BC 08/12/17 [place], Insulin Disposable (PEN NEEDLES) 1 Each Dis.needle, BOX MC QDAY, #1 9 Refills Prov:POPPY SANCHEZ DNP, FNP-YVETTE 08/11/17 Blood-Glucose Meter (FREESTYLE LITE METER) 1 Each Kit, 1 [facility] ONCE, #1 Prov:POPPY SANCHEZ DNP, FNP-YVETTE 08/11/17 Baclofen (BACLOFEN) 10 Mg Tablet, 1 TAB PO TID Y for MUSCLE SPASMS, #90 TAB 2 Refills Prov:POPPY SANCHEZ DNP, FNP-YVETTE 08/07/17 Pregabalin (LYRICA) 150 Mg Capsule, 1 TAB PO BID, #60 CAPSULE 0 Refills Prov:POPPY SANCHEZ DNP, FNP-BC 07/31/17 Promethazine Hcl (PROMETHAZINE HCL) 25 Mg Tablet, 25 MG PO Q8H Y for NAUSEA/ VOMITING, #12 TAB Prov:DEISY DURBIN 07/09/17 Atorvastatin Calcium (LIPITOR) 40 Mg Tablet, 1 TAB PO QDAY, #90 TAB Prov:POPPY SANCHEZ DNP, FNP-BC 06/10/17 Sumatriptan Succinate (SUMATRIPTAN SUCCINATE) 6 Mg/0.5 Ml Pen.injctr, 6 MG SQ ONCE Y for MIGRAINE, #1 BOX 6 Refills May repeat dose x1 after 1 hour, if needed. Do not exceed maximum of 12mg/24h. Prov:POPPY SANCHEZ DNP, FNP-BC 05/29/17 Sumatriptan Succinate (SUMATRIPTAN SUCCINATE) 100 Mg Tablet, 1 TAB PO ONCE Y for MIGRAINE, #9 TAB 6 Refills Prov:[facility] 05/29/17 Ranitidine Hcl (RANITIDINE HCL) 150 Mg Capsule, 1 TAB PO BID, #180 CAPSULE 3 Refills Prov:POPPY SANCHEZ [facility]NP[facility] 05/29/17 Esomeprazole Magnesium (NEXIUM) 40 Mg Capsule.dr, 1 CAP PO BID, #180 CAP 3 Refills Prov:POPPY SANCHEZ [facility]NP[facility] 05/29/17 Levothyroxine Sodium (LEVOTHYROXINE SODIUM) 50 Mcg Tablet, 1 TAB PO QDAY, #90 TAB 0 Refills Take along with 200mcg tablet for a total of 250mcg daily. Prov:POPPY SANCHEZ [facility]NP[facility] 05/29/17 Levothyroxine Sodium (LEVOTHYROXINE SODIUM) 200 Mcg Tablet, 200 MCG PO QDAY, # 90 TAB 0 Refills Take with 50mcg tablet for a total of 250mcg daily Prov:POPPY SANCHEZ [facility]NP[facility] 05/29/17 Insulin Lispro 3 Ml Prefilled (HUMALOG 3 ML PEN) 100 Unit/1 Ml Insuln.pen, 5-8 UNIT SQ TID, #2 DIS.SYR 6 Refills Take per sliding scale. Prov:POPPY SANCHEZ DNP[facility] 05/29/17 Insulin Glargine,Hum.rec.anlog (LANTUS SOLOSTAR) 100 Unit/1 Ml Insuln.pen, 35 UNIT SUBQ BID, #1 BOX Prov:EVELINA MONSIVAIS MD 05/06/17 Buspirone Hcl (BUSPIRONE HCL) 7.5 Mg Tablet, 30 MG PO BID, #60 TAB Prov:EVELINA MONSIVAIS MD 03/14/17 Albuterol Sulfate 0.083% (ALBUTEROL SULFATE 0.083%) 2.5 Mg/3 Ml Vial.neb, 2.5 MG INH Q4H Y for WHEEZING, #1 BOX 0 Refills Prov:HILDA THORNE MD 02/22/17 Epinephrine (EPIPEN 2-TUCKER) 0.3 Mg/0.3 Ml Pen.injctr, 0.3 MG IM ONCE, #1 CART Prov:POPPY SANCHEZ Machelle CORNELL, RISK INVESTIGATOR-BC 02/17/17 Diclofenac Sodium 1% Gel (VOLTAREN 1% GEL) 100 Gm Gel..gram., 1 DEMETRIS TOP QID Y for PAIN, #1 TUBE 0 Refills Prov:POPPY SANCHEZ ANETA, RISK INVESTIGATOR- 01/19/17 Reported Medications Meloxicam (MELOXICAM) 7.5 Mg Tablet, 7.5 MG PO BID 07/09/17 Aripiprazole (ABILIFY) 20 Mg Tablet, 20 MG PO QDAY, TAB 03/14/17 Prazosin Hcl (PRAZOSIN HCL) 2 Mg Capsule, 2 CAP PO QHS, CAPSULE 01/26/17 Zolpidem Tartrate (AMBIEN) 5 Mg Tablet, 1 TAB PO QHS, TAB 05/19/16 Reviewed Nurses Notes: Yes Hx Smoking: Yes Smoking Status: Former Smoker Exposure to Second Hand Smoke?: Yes Hx Substance Use Disorder: No ("Years ago") Hx Alcohol Use: No Constitutional Vital Sign - Last 24 Hours 08/13/17 08/13/17 08/13/17 08/13/17 10:00 10:09 10:10 10:15 Temp 98.0 Pulse ??? 94 92 Resp 20 B/P (MAP) 141/101 (114) 141/101 Pulse Ox 95 94 08/13/17 08/13/17 08/13/17 08/13/17 10:30 10:35 10:38 10:45 Pulse 89 91 B/P (MAP) 151/101 (118) Pulse Ox 93 90 O2 Flow Rate 2.0 08/13/17 08/13/17 08/13/17 08/13/17 11:00 11:15 11:30 11:45 Pulse 92 89 87 99 B/P (MAP) 142/91 (108) 133/97 (109) Pulse Ox 90 94 95 95 08/13/17 08/13/17 08/13/17 08/13/17 12:15 12:30 12:45 13:00 Pulse 101 89 89 90 B/P (MAP) 150/101 (117) 142/97 (112) Pulse Ox 92 91 92 Physical Exam General Appearance: The patient is alert. No acute distress. Eyes: Pupils are equal, round. No pallor, injection or icterus. ENT: Mucous membranes are moist. Normal oral mucosa. Posterior oropharynx is normal. Neck: Supple and non tender. Respiratory: Lungs are clear to auscultation. Cardiovascular: Regular rate and rhythm. No murmurs, gallops or rubs. Normal capillary refill. Trace edema. Gastrointestinal: Abdomen is very tender in the right upper quadrant. And somewhat in epigastric area. Other areas of the abdomen are non-tender. Nondistended. Guarding present. Normal active bowel sounds. No costovertebral angle tenderness with percussion. Neurological: Alert and oriented x3. No focal neurologic deficits Skin: Warm and dry. Musculoskeletal: Extremities are nontender. Full range of motion. DIFFERENTIAL DIAGNOSIS: After history and physical exam, differential diagnosis was considered for abdominal pain including but not limited to cholecystitis, colitis, gastroenteritis and urinary tract infection or stone. Concern for the elevated blood glucoses well. Worry about diabetic ketoacidosis or blood sugar being elevated from other problems. Medical Decision Making Data Points Result Diagram: 08/13/17 1030 08/13/17 1030 Laboratory Hematology Test 08/13/17 10:07 08/13/17 10:30 08/13/17 10:32 Urine Color Yellow Urine Clarity Clear Urine pH 6.0 pH (4.8-9.5) Urine Specific [place] 1.036 Urine Protein Negative mg/dL (NEGATIVE) Urine Glucose (UA) 500 mg/dL (NEGATIVE) Urine Ketones Negative mg/dL (NEGATIVE) Urine Blood Negative (NEGATIVE) Urine Nitrite Negative (NEGATIVE) Urine Bilirubin Negative (NEGATIVE) Urine Urobilinogen Negative mg/dL (0.2-1.9) Urine Leukocyte Esterase Negative (NEGATIVE) Urine RBC 1 /HPF (0-2/HPF) Urine WBC 1 /HPF (0-5/HPF) Urine Squamous Epithelial Cells Many /LPF (</=FEW) Urine Bacteria Few /HPF (NONE-FEW) Urine Mucus None /HPF (NONE-FEW) Red Blood Count 5.80 M/uL (4.17-5.56) Mean Corpuscular Volume 77.8 fL (80.0-96.0) Mean Corpuscular Hemoglobin 26.6 pg (26.0-33.0) Mean Corpuscular Hemoglobin Concent 34.1 g/dL (32.0-36.0) Red Cell Distribution Width 15.4 % (11.5-14.5) Mean Platelet Volume 8.8 fL (7.2-11.1) Neutrophils (%) (Auto) 70.5 % (39.4-72.5) Lymphocytes (%) (Auto) 21.9 % (17.6-49.6) Monocytes (%) (Auto) 4.1 % (4.1-12.4) Eosinophils (%) (Auto) 2.4 % (0.4-6.7) Basophils (%) (Auto) 1.1 % (0.3-1.4) Nucleated RBC Relative Count (auto) 0.0 /100WBC Neutrophils # (Auto) 5.2 K/uL (2.0-7.4) Lymphocytes # (Auto) 1.6 K/uL (1.3-3.6) Monocytes # (Auto) 0.3 K/uL (0.3-1.0) Eosinophils # (Auto) 0.2 K/uL (0.0-0.5) Basophils # (Auto) 0.1 K/uL (0.0-0.1) Nucleated RBC Absolute Count (auto) 0.00 K/uL Sodium Level 132 mmol/L (137-145) Potassium Level 3.4 mmol/L (3.5-5.0) Chloride Level 95 mmol/L (98-107) Carbon Dioxide Level 24 mmol/L (22-31) Blood Urea Nitrogen 7 mg/dl (7-18) Creatinine 0.60 mg/dl (0.52-1.04) Glomerular Filtration Rate Calc > 60.0 Random Glucose 400 mg/dl (75-110) Lactate 3.1 mmol/L (0.7-2.1) Calcium Level 9.2 mg/dl (8.4-10.2) Total Bilirubin 0.6 mg/dl (0.2-1.3) Aspartate Amino Transf (AST/SGOT) 18 U/L (0-35) Alanine Aminotransferase (ALT/SGPT) 26 U/L (0-56) Alkaline Phosphatase 135 U/L (0-126) Total Protein 7.6 gm/dl (6.3-8.2) Albumin 4.4 g/dl (3.5-5.0) Amylase Level 74 U/L (0-110) Lipase 144 U/L (23-300) Acetone, Qualitative Negative Whole Blood Glucose 391 mg/DL (75-110) Chemistry Test 08/13/17 10:07 08/13/17 10:30 08/13/17 10:32 Urine Color Yellow Urine Clarity Clear Urine pH 6.0 pH (4.8-9.5) Urine Specific [place] 1.036 Urine Protein Negative mg/dL (NEGATIVE) Urine Glucose (UA) 500 mg/dL (NEGATIVE) Urine Ketones Negative mg/dL (NEGATIVE) Urine Blood Negative (NEGATIVE) Urine Nitrite Negative (NEGATIVE) Urine Bilirubin Negative (NEGATIVE) Urine Urobilinogen Negative mg/dL (0.2-1.9) Urine Leukocyte Esterase Negative (NEGATIVE) Urine RBC 1 /HPF (0-2/HPF) Urine WBC 1 /HPF (0-5/HPF) Urine Squamous Epithelial Cells Many /LPF (</=FEW) Urine Bacteria Few /HPF (NONE-FEW) Urine Mucus None /HPF (NONE-FEW) White Blood Count 7.4 k/uL (4.5-11.0) Red Blood Count 5.80 M/uL (4.17-5.56) Hemoglobin 15.4 g/dL (12.0-16.0) Hematocrit 45.1 % (34.0-47.0) Mean Corpuscular Volume 77.8 fL (80.0-96.0) Mean Corpuscular Hemoglobin 26.6 pg (26.0-33.0) Mean Corpuscular Hemoglobin Concent 34.1 g/dL (32.0-36.0) Red Cell Distribution Width 15.4 % (11.5-14.5) Platelet Count 233 K/uL (150-450) Mean Platelet Volume 8.8 fL (7.2-11.1) Neutrophils (%) (Auto) 70.5 % (39.4-72.5) Lymphocytes (%) (Auto) 21.9 % (17.6-49.6) Monocytes (%) (Auto) 4.1 % (4.1-12.4) Eosinophils (%) (Auto) 2.4 % (0.4-6.7) Basophils (%) (Auto) 1.1 % (0.3-1.4) Nucleated RBC Relative Count (auto) 0.0 /100WBC Neutrophils # (Auto) 5.2 K/uL (2.0-7.4) Lymphocytes # (Auto) 1.6 K/uL (1.3-3.6) Monocytes # (Auto) 0.3 K/uL (0.3-1.0) Eosinophils # (Auto) 0.2 K/uL (0.0-0.5) Basophils # (Auto) 0.1 K/uL (0.0-0.1) Nucleated RBC Absolute Count (auto) 0.00 K/uL Glomerular Filtration Rate Calc > 60.0 Lactate 3.1 mmol/L (0.7-2.1) Calcium Level 9.2 mg/dl (8.4-10.2) Total Bilirubin 0.6 mg/dl (0.2-1.3) Aspartate Amino Transf (AST/SGOT) 18 U/L (0-35) Alanine Aminotransferase (ALT/SGPT) 26 U/L (0-56) Alkaline Phosphatase 135 U/L (0-126) Total Protein 7.6 gm/dl (6.3-8.2) Albumin 4.4 g/dl (3.5-5.0) Amylase Level 74 U/L (0-110) Lipase 144 U/L (23-300) Acetone, Qualitative Negative Whole Blood Glucose 391 mg/DL (75-110) Toxicology Test 08/13/17 10:30 Acetone, Qualitative Negative Urinalysis Test 08/13/17 10:07 Urine Color Yellow Urine Clarity Clear Urine pH 6.0 pH (4.8-9.5) Urine Specific [place] 1.036 Urine Protein Negative mg/dL (NEGATIVE) Urine Glucose (UA) 500 mg/dL (NEGATIVE) Urine Ketones Negative mg/dL (NEGATIVE) Urine Blood Negative (NEGATIVE) Urine Nitrite Negative (NEGATIVE) Urine Bilirubin Negative (NEGATIVE) Urine Urobilinogen Negative mg/dL (0.2-1.9) Urine Leukocyte Esterase Negative (NEGATIVE) Urine RBC 1 /HPF (0-2/HPF) Urine WBC 1 /HPF (0-5/HPF) Urine Squamous Epithelial Cells Many /LPF (</=FEW) Urine Bacteria Few /HPF (NONE-FEW) Urine Mucus None /HPF (NONE-FEW) EKG/Imaging Imaging ABDOMEN/PELVIS WITH CONTRAST HISTORY: ruq abd pain TECHNIQUE: Following administration of IV contrast contiguous axial images acquired through the abdomen/pelvis. Coronal and sagittal reformatting also performed. Dose Lowering Technique One of the following dose optimization techniques was utilized in the performance of this exam: Automated exposure control; adjustment of the mA and/ or kV according to the patient's size; or use of an iterative reconstruction technique. Specific details can be referenced in the facility's radiology CT exam operational policy. CONTRAST: 75 mL Isovue-370 COMPARISON: April 15, 2017 FINDINGS: Visualized lung bases: Negative. Hepatobiliary: There is hepatomegaly and diffuse hepatic steatosis Spleen: Negative. Adrenals: Negative Pancreas: Negative. Kidneys ureters or bladder: There are nonobstructing calculi in the left renal collecting system. There is a small subcentimeter hypodensity midpole left kidney which is too small to characterize Genitalia: Uterus not identified GI: There are several nonspecific negative Vessels/spaces/nodes: There are several nonspecific nonenlarged lymph nodes in the right lower quadrant. There are mild vascular calcifications in the abdomen and pelvis Bones/soft tissues: There are mild spondylotic changes in the lumbar spine. A small sclerotic focus in the right sacrum appears stable likely an incidental bone island Additional findings: None pertinent. IMPRESSION: There are nonobstructing calculi in the left renal collecting system. Hepatomegaly with diffuse hepatic steatosis There are several nonspecific nonenlarged lymph nodes the right lower quadrant Report Dictated By: Angle Meléndez MD at 08/13/2017 12:13 PM GALLBLADDER HISTORY: ruq abd pain COMPARISON: None. FINDINGS: Gallbladder: Unremarkable; no stones or sludge. Liver: 21.3 cm. No parenchymal mass lesions. Mild fatty infiltrative changes within the liver. Common duct: Normal, 3.7 mm diameter. Pancreas: Normal where visualized Right kidney: 11.8 x 5.4 x 5.1 cm. No hydronephrosis. No cortical mass lesions Upper abdominal aorta and IVC: Patent. Ascites: None visualized. IMPRESSION: 1. Negative abdominal ultrasound. Report Dictated By: Alejandro Ortiz MD at 08/13/2017 11:57 AM ED Course/Re-evaluation Clinical Indication for ER IV: Hydration, IV Access ED Course After the initial evaluation, the patient was given a liter of normal saline, Pantoprazole, and Promethazine. Labs obtained and blood sugar is elevated, but better than in the outpatient office earlier. Serum acetone negative. Mild decrease in Sodium and potassium. Otherwise labs unremarkable. Imaging negative on both CT and ultrasound. Patient given Ketamine 0.5mg/kg IV prior to CT for complaints of pain. She is on a care plan for no narcotics. Reviewed labs and imaging results with the patient after everything was available. See instructions below. Decision to Disposition Date: Aug 13, 2017 Decision to Disposition Time: 12:57 Depart Departure Latest Vital Signs Vital Signs Date Time Temp Pulse Resp B/P (MAP) Pulse Ox O2 Delivery O2 Flow Rate FiO2 08/13/17 13:00 90 142/97 (112) 92 08/13/17 10:38 2.0 08/13/17 10:10 98.0 20 Core Temperature (Celsius): 36.73 Impression: Primary Impression: Abdominal pain Additional Impression: Hyperglycemia due to type 2 diabetes mellitus Condition: Improved Disposition: HOME OR SELF-CARE Referrals: POPPY SANCHEZ DNP, RISK INVESTIGATOR-BC (PCP) Patient Instructions: Abdominal Pain (ED), Diabetic Hyperglycemia (ED) Additional Instructions: Abdominal pain likely due to gastroenteritis and pain from vomiting. No problems were noted on labs or imaging other than slightly low potassium and sodium. Increase fluid intake at home. Your blood sugars were also high. Keep taking your Lantus insulin. You may be a little more aggressive with your sliding scale insulin, increasing each step by 1 unit and see how this works for you. Follow-up with your doctor for further instructions on you insulin use. 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
[2017-08-13] MEDS ORDERED: NS(*) 0.9% 1000 ML BAG 1,000 ML IV ONE (10:23)
[2017-08-13] MEDS ORDERED: PROMETHAZINE 25 MG/ML 1 ML AMP IVP ONE (10:25)
[2017-08-13] MEDS ORDERED: PANTOPRAZOLE SOD 40 MG IV VIAL IVP ONE (10:25)
[2017-08-13 10:50] LABS: PLATELET COUNT, AUTOMATED 233 K/uL (150-450)
[2017-08-13] MEDS ORDERED: KETAMINE HCL 500 MG/5 ML VIAL IVP ONE (11:45)
[2017-08-13] MEDS ORDERED: IOPAMIDOL 76% 75 ML INFUS BTL 75 ML ONE (11:52)
[2017-08-13] MEDS ORDERED: INS HUM LISPRO 100U/ML (ER ONLY) 10 ML VIAL SUBQ ONE (11:55)
--- NOTE | 2017-08-13 12:06 | RADIOLOGY IMAGING REPORT ---
FACILITY: [facility] [place] PATIENT NAME: Yesy Mccracken : 1970 MR: [id number] V: [id number] EXAM DATE: ORDERING PHYSICIAN: KARMA MCCLENDON TECHNOLOGIST: Location: [facility] Patient: Yesy Mccracken : 1970 Visit/Account:[id number] Date of Sevice: 08/13/2017 GALLBLADDER HISTORY: ruq abd pain COMPARISON: None. FINDINGS: Gallbladder: Unremarkable; no stones or sludge. Liver: 21.3 cm. No parenchymal mass lesions. Mild fatty infiltrative changes within the liver. Common duct: Normal, 3.7 mm diameter. Pancreas: Normal where visualized Right kidney: 11.8 x 5.4 x 5.1 cm. No hydronephrosis. No cortical mass lesions Upper abdominal aorta and IVC: Patent. Ascites: None visualized. IMPRESSION: 1. Negative abdominal ultrasound. Report Dictated By: Alejandro Ortiz MD at 08/13/2017 11:57 AM Report E-Signed By: Alejandro Ortiz MD at 08/13/2017 12:02 PM WSN:[id number]
--- NOTE | 2017-08-13 12:26 | RADIOLOGY IMAGING REPORT ---
FACILITY: [facility] PATIENT NAME: Yesy Mccracken : 1970 MR: [id number] V: [id number] EXAM DATE: ORDERING PHYSICIAN: KARMA MCCLENDON TECHNOLOGIST: [place] [facility] [place] Yesy Mccracken : 1970 Visit/Account:[id number] Date of Sevice: 08/13/2017 ABDOMEN/PELVIS WITH CONTRAST HISTORY: ruq abd pain TECHNIQUE: Following administration of IV contrast contiguous axial images acquired through the abdom en/pelvis. Coronal and sagittal reformatting also performed. Dose Lowering Technique One of the following dose optimization techniques was utilized in the performance of this exam: Autom ated exposure control; adjustment of the mA and/or kV according to the patient's size; or use of an i terative reconstruction technique. Specific details can be referenced in the facility's radiology C T exam operational policy. CONTRAST: 75 mL Isovue-370 COMPARISON: April 15, 2017 FINDINGS: Visualized lung bases: Negative. Hepatobiliary: There is hepatomegaly and diffuse hepatic steatosis Spleen: Negative. Adrenals: Negative Pancreas: Negative. Kidneys ureters or bladder: There are nonobstructing calculi in the left renal collecting system. Th ere is a small subcentimeter hypodensity midpole left kidney which is too small to characterize Genitalia: Uterus not identified GI: There are several nonspecific negative Vessels/spaces/nodes: There are several nonspecific nonenlarged lymph nodes in the right lower quadr ant. There are mild vascular calcifications in the abdomen and pelvis Bones/soft tissues: There are mild spondylotic changes in the lumbar spine. A small sclerotic focus in the right sacrum appears stable likely an incidental bone island Additional findings: None pertinent. IMPRESSION: There are nonobstructing calculi in the left renal collecting system. Hepatomegaly with diffuse hepatic steatosis There are several nonspecific nonenlarged lymph nodes the right lower quadrant Report Dictated By: Angle Meléndez MD at 08/13/2017 12:13 PM Report E-Signed By: Angle Meléndez MD at 08/13/2017 12:24 PM WSN:[id number]
[2017-08-13 13:00] VITALS: BP 142/97
[2017-08-14] MEDS ORDERED: MECL12.5 PO (13:25)
== END 2017-08-13 13:10 | disposition home or self-care (01) ==
LOC: ER 10:11
DX: E11.65 Type 2 diabetes mellitus with hyperglycemia (principal); R10.11 Right upper quadrant pain
CPT/HCPCS: 36415; 36416; 74177; 76705; 81001; 82009; 82150; 82948; 83605; 83690; 85025; 96361; 96372; 96374; 96375; 99284; C9113; J1815; J2550; J7030; Q9967; 82040; 82247; 82310; 82374; 82435; 82565; 82947; 84075; 84132; 84155; 84295; 84450; 84460; 84520

== ENCOUNTER 2017-08-14 12:00 | Emergency (ER) | payer MEDICAID ==
[2017-04-17 12:41] VITALS: Wt 87.1 kg
--- NOTE | 2017-08-14 12:13 | ER Report ---
History and Physical Time Seen By MD: 12:12 Hx. of Stated Complaint: patient has been having abd pain, nausea, vomiting and diarrhea since yesterday. patient was seen in ER yesterday for same thing. patient states pain is a stabbing pain, mostly on the right side. HPI/ROS CHIEF COMPLAINT: Abdominal pain HISTORY OF PRESENT ILLNESS: 46-year-old female patient presents to emergency room with complaint of abdominal pain. Patient states that she's been having abdominal pain with nausea, vomiting and diarrhea since yesterday. Patient states she was seen here in the emergency room yesterday when she was referred by her primary care provider. She states that they evaluated her and then discharge her with Phenergan. She states that she has had persistent pain. She currently rates it a 9 out of 10. She denies having anything that seems to help with the pain. She states that she has eaten some crackers as well as had water and Gatorade but is not been able to keep anything down. She denies having any improvement with pain. She states that she did have the diarrhea seemed slowdown yesterday but has recurred today. She states is currently pleasantly every 30 minutes. REVIEW OF SYSTEMS: Respiratory: No cough, no dyspnea. Cardiovascular: No chest pain, no palpitations. Gastrointestinal: As noted above Musculoskeletal: No back pain. Allergies: Coded Allergies: Nitrofurantoin Macrocrystal (Verified Allergy, Severe, HIVES, 08/14/17) aspirin (Verified Allergy, Severe, ANAPHYLAXIS, 08/14/17) chlorpromazine (Verified Allergy, Severe, ANAPHYLAXIS, 08/14/17) hydroxyzine (Verified Allergy, Severe, AIRWAY OBSTRUCTION, 08/14/17) varenicline (Verified Allergy, Severe, anxiety, 08/14/17) venom-wasp (Verified Allergy, Severe, ANAPHYLAXIS, 08/14/17) Sulfa (Sulfonamide Antibiotics) (Verified Allergy, Intermediate, HIVES, 08/14/17) albuterol (Verified Allergy, Intermediate, itching, hives, 08/14/17) cephalexin (Verified Allergy, Intermediate, HIVES, 08/14/17) ciprofloxacin (Verified Allergy, Intermediate, "feels like I'm going inasne", 08/14/17) droperidol (Verified Allergy, Intermediate, DELUSIONS, 08/14/17) Pt states her reaction as, "I become psychotic". latex (Verified Allergy, Intermediate, RASH, SWELLING, 08/14/17) ondansetron (Verified Adverse Reaction, Severe, TACHYCARDIA, 08/14/17) dexamethasone (Verified Adverse Reaction, Intermediate, ITCHING, 08/14/17) haloperidol (Verified Adverse Reaction, Intermediate, "MAKES ME JUMPY", 08/14/17) Uncoded Allergies: Inhaled medication propelant (Allergy, Intermediate, HIVES, 10/07/14) Home Meds Active Scripts Meclizine Hcl (MECLIZINE HCL) 12.5 Mg Tablet, 1 TAB PO BID Y for DIZZINESS, #10 TAB 0 Refills Prov:POPPY SANCHEZ DNP, [facility] 08/14/17 Promethazine Hcl (PROMETHAZINE HCL) 25 Mg Tablet, 1 TAB PO Q8H Y for nausea, # 12 TAB 0 Refills Prov:POPPY SANCHEZ DNP, [facility] 08/12/17 [place], Insulin Disposable (PEN NEEDLES) 1 Each Dis.needle, BOX MC QDAY, #1 9 Refills Prov:POPPY SANCHEZ DNP, [facility] 08/11/17 Blood-Glucose Meter (FREESTYLE LITE METER) 1 Each Kit, 1 [facility] ONCE, #1 Prov:POPPY SANCHEZ DNP, [facility] 08/11/17 Baclofen (BACLOFEN) 10 Mg Tablet, 1 TAB PO TID Y for MUSCLE SPASMS, #90 TAB 2 Refills Prov:POPPY SANCHEZ DNP, [facility] 08/07/17 Pregabalin (LYRICA) 150 Mg Capsule, 1 TAB PO BID, #60 CAPSULE 0 Refills Prov:POPPY SANCHEZ DNP, [facility] 07/31/17 Promethazine Hcl (PROMETHAZINE HCL) 25 Mg Tablet, 25 MG PO Q8H Y for NAUSEA/ VOMITING, #12 TAB Prov:DEISY DURBINP 07/09/17 Atorvastatin Calcium (LIPITOR) 40 Mg Tablet, 1 TAB PO QDAY, #90 TAB Prov:POPPY SANCHEZ DNP, [facility] 06/10/17 Sumatriptan Succinate (SUMATRIPTAN SUCCINATE) 6 Mg/0.5 Ml Pen.injctr, 6 MG SQ ONCE Y for MIGRAINE, #1 BOX 6 Refills May repeat dose x1 after 1 hour, if needed. Do not exceed maximum of 12mg/24h. Prov:[facility] 05/29/17 Sumatriptan Succinate (SUMATRIPTAN SUCCINATE) 100 Mg Tablet, 1 TAB PO ONCE Y for MIGRAINE, #9 TAB 6 Refills Prov:[facility] 05/29/17 Ranitidine Hcl (RANITIDINE HCL) 150 Mg Capsule, 1 TAB PO BID, #180 CAPSULE 3 Refills Prov:[facility] 05/29/17 Esomeprazole Magnesium (NEXIUM) 40 Mg Capsule.dr, 1 CAP PO BID, #180 CAP 3 Refills Prov:[facility] 05/29/17 Levothyroxine Sodium (LEVOTHYROXINE SODIUM) 50 Mcg Tablet, 1 TAB PO QDAY, #90 TAB 0 Refills Take along with 200mcg tablet for a total of 250mcg daily. Prov:[facility] 05/29/17 Levothyroxine Sodium (LEVOTHYROXINE SODIUM) 200 Mcg Tablet, 200 MCG PO QDAY, # 90 TAB 0 Refills Take with 50mcg tablet for a total of 250mcg daily Prov:[facility] 05/29/17 Insulin Lispro 3 Ml Prefilled (HUMALOG 3 ML PEN) 100 Unit/1 Ml Insuln.pen, 5-8 UNIT SQ TID, #2 DIS.SYR 6 Refills Take per sliding scale. Prov:[facility] 05/29/17 Insulin Glargine,Hum.rec.anlog (LANTUS SOLOSTAR) 100 Unit/1 Ml Insuln.pen, 35 UNIT SUBQ BID, #1 BOX Prov:EVELINA MONSIVAIS MD 05/06/17 Buspirone Hcl (BUSPIRONE HCL) 7.5 Mg Tablet, 30 MG PO BID, #60 TAB Prov:EVELINA MONSIVAIS MD 03/14/17 Albuterol Sulfate 0.083% (ALBUTEROL SULFATE 0.083%) 2.5 Mg/3 Ml Vial.neb, 2.5 MG INH Q4H Y for WHEEZING, #1 BOX 0 Refills Prov:HILDA THORNE MD 02/22/17 Epinephrine (EPIPEN 2-TUCKER) 0.3 Mg/0.3 Ml Pen.injctr, 0.3 MG IM ONCE, #1 CART Prov:POPPY SANCHEZ DNP, [facility]- 02/17/17 Diclofenac Sodium 1% Gel (VOLTAREN 1% GEL) 100 Gm Gel..gram., 1 DEMETRIS TOP QID Y for PAIN, #1 TUBE 0 Refills Prov:POPPY SANCHEZ DNP, [facility]- 01/19/17 Reported Medications Meloxicam (MELOXICAM) 7.5 Mg Tablet, 7.5 MG PO BID 07/09/17 Aripiprazole (ABILIFY) 20 Mg Tablet, 20 MG PO QDAY, TAB 03/14/17 Prazosin Hcl (PRAZOSIN HCL) 2 Mg Capsule, 2 CAP PO QHS, CAPSULE 01/26/17 Zolpidem Tartrate (AMBIEN) 5 Mg Tablet, 1 TAB PO QHS, TAB 05/19/16 Past Medical/Surgical History Patient has a past medical history of migraines, angina, irregular heartbeat, DVT, hypertension, hyperlipidemia, asthma, pneumonia, reflux, cholecystitis, enlarged liver, pancreatitis, kidney stones, frequent UTIs, endometriosis, ovarian cysts, arthritis, fractures, back pain, ear infections, type 2 diabetes , hypothyroidism, substance abuse, bipolar, depression, suicide attempt, thyroid cancer, uterine cancer, breast cancer, large intestine cancer. Patient has a surgical history of eye surgery, tonsillectomy, sinus surgery, right ankle surgery, right wrist, nose, right-sided jaw, right knee, tubal ligation, hysterectomy, cystoscopy, renal stent, colonoscopy, appendectomy. Patient has a family medical history of cancer, CAD, stroke, diabetes, psychiatric problems. Reviewed Nurses Notes: Yes Hx Smoking: Yes Smoking Status: Former Smoker Exposure to Second Hand Smoke?: Yes Hx Substance Use Disorder: No ("Years ago") Hx Alcohol Use: No Constitutional Vital Sign - Last 24 Hours 08/14/17 08/14/17 08/14/17 08/14/17 12:05 12:15 12:30 12:32 Temp 97.6 Pulse 99 97 89 Resp 24 B/P (MAP) 144/101 Pulse Ox 91 88 92 O2 Flow Rate 2.0 08/14/17 08/14/17 08/14/17 08/14/17 12:35 12:50 13:00 13:05 Pulse 87 90 86 Resp 19 12 19 B/P (MAP) 146/96 (113) Pulse Ox 91 94 90 08/14/17 08/14/17 08/14/17 13:20 13:30 13:35 Pulse 89 88 Resp 26 34 B/P (MAP) 124/95 (105) Pulse Ox 96 97 Intake and Output 08/14/17 08/14/17 08/15/17 15:00 23:00 07:00 Intake Total 1000 ml Balance 1000 ml Physical Exam General Appearance: The patient is alert, has no immediate need for airway protection and no current signs of toxicity. ENT: Tympanic membranes are pearly-medina, auditory canals are patent, mucous membranes are moist. Respiratory: Chest is non tender, lungs are clear to auscultation. Cardiac: regular rate and rhythm Gastrointestinal: Abdomen is soft and tender in the right lower quadrant, no masses, bowel sounds normal. Musculoskeletal: Neck: Neck is supple and non tender. Extremities have full range of motion and are non tender. Skin: No rashes or lesions. DIFFERENTIAL DIAGNOSIS: After history and physical exam differential diagnosis was considered for abdominal pain including but not limited to appendicitis, cholecystitis, gastritis and urinary tract infection. Medical Decision Making Data Points Result Diagram: 08/14/17 1211 08/14/17 1211 Laboratory Hematology Test 08/14/17 12:11 08/14/17 12:12 08/14/17 13:00 Red Blood Count 5.91 M/uL (4.17-5.56) Mean Corpuscular Volume 78.6 fL (80.0-96.0) Mean Corpuscular Hemoglobin 26.5 pg (26.0-33.0) Mean Corpuscular Hemoglobin Concent 33.7 g/dL (32.0-36.0) Red Cell Distribution Width 15.4 % (11.5-14.5) Mean Platelet Volume 8.5 fL (7.2-11.1) Neutrophils (%) (Auto) 68.2 % (39.4-72.5) Lymphocytes (%) (Auto) 25.5 % (17.6-49.6) Monocytes (%) (Auto) 3.9 % (4.1-12.4) Eosinophils (%) (Auto) 1.3 % (0.4-6.7) Basophils (%) (Auto) 1.1 % (0.3-1.4) Nucleated RBC Relative Count (auto) 0.0 /100WBC Neutrophils # (Auto) 4.9 K/uL (2.0-7.4) Lymphocytes # (Auto) 1.8 K/uL (1.3-3.6) Monocytes # (Auto) 0.3 K/uL (0.3-1.0) Eosinophils # (Auto) 0.1 K/uL (0.0-0.5) Basophils # (Auto) 0.1 K/uL (0.0-0.1) Nucleated RBC Absolute Count (auto) 0.00 K/uL Sodium Level 132 mmol/L (137-145) Potassium Level 3.2 mmol/L (3.5-5.0) Chloride Level 94 mmol/L (98-107) Carbon Dioxide Level 22 mmol/L (22-31) Blood Urea Nitrogen 8 mg/dl (7-18) Creatinine 0.60 mg/dl (0.52-1.04) Glomerular Filtration Rate Calc > 60.0 Random Glucose 318 mg/dl (75-110) Osmolality 285 mOSM/K (275-295) Calcium Level 8.9 mg/dl (8.4-10.2) Total Bilirubin 0.6 mg/dl (0.2-1.3) Aspartate Amino Transf (AST/SGOT) 23 U/L (0-35) Alanine Aminotransferase (ALT/SGPT) 27 U/L (0-56) Alkaline Phosphatase 115 U/L (0-126) Total Protein 7.8 gm/dl (6.3-8.2) Albumin 4.3 g/dl (3.5-5.0) Amylase Level 72 U/L (0-110) Lipase 141 U/L (23-300) Acetone, Qualitative Negative Whole Blood Glucose 302 mg/DL (75-110) Blood Gas Puncture Site Left radial Blood Gas Patient Temperature 98.6 DEGREES Arterial Blood pH 7.49 (7.35-7.45) Arterial Blood Partial Pressure CO2 28 mmHg (32-37) Arterial Blood Partial Pressure O2 68 mmHg (60-80) Arterial Blood HCO3 22 mmol/L (20-26) Arterial Blood Oxygen Saturation 95 % (92-100) Arterial Blood Base Excess -2.0 mmol/L Lance Test Acceptable Oxygen Liters/Minute 92 on 2 l Chemistry Test 08/14/17 12:11 08/14/17 12:12 08/14/17 13:00 White Blood Count 7.2 k/uL (4.5-11.0) Red Blood Count 5.91 M/uL (4.17-5.56) Hemoglobin 15.6 g/dL (12.0-16.0) Hematocrit 46.4 % (34.0-47.0) Mean Corpuscular Volume 78.6 fL (80.0-96.0) Mean Corpuscular Hemoglobin 26.5 pg (26.0-33.0) Mean Corpuscular Hemoglobin Concent 33.7 g/dL (32.0-36.0) Red Cell Distribution Width 15.4 % (11.5-14.5) Platelet Count 238 K/uL (150-450) Mean Platelet Volume 8.5 fL (7.2-11.1) Neutrophils (%) (Auto) 68.2 % (39.4-72.5) Lymphocytes (%) (Auto) 25.5 % (17.6-49.6) Monocytes (%) (Auto) 3.9 % (4.1-12.4) Eosinophils (%) (Auto) 1.3 % (0.4-6.7) Basophils (%) (Auto) 1.1 % (0.3-1.4) Nucleated RBC Relative Count (auto) 0.0 /100WBC Neutrophils # (Auto) 4.9 K/uL (2.0-7.4) Lymphocytes # (Auto) 1.8 K/uL (1.3-3.6) Monocytes # (Auto) 0.3 K/uL (0.3-1.0) Eosinophils # (Auto) 0.1 K/uL (0.0-0.5) Basophils # (Auto) 0.1 K/uL (0.0-0.1) Nucleated RBC Absolute Count (auto) 0.00 K/uL Glomerular Filtration Rate Calc > 60.0 Osmolality 285 mOSM/K (275-295) Calcium Level 8.9 mg/dl (8.4-10.2) Total Bilirubin 0.6 mg/dl (0.2-1.3) Aspartate Amino Transf (AST/SGOT) 23 U/L (0-35) Alanine Aminotransferase (ALT/SGPT) 27 U/L (0-56) Alkaline Phosphatase 115 U/L (0-126) Total Protein 7.8 gm/dl (6.3-8.2) Albumin 4.3 g/dl (3.5-5.0) Amylase Level 72 U/L (0-110) Lipase 141 U/L (23-300) Acetone, Qualitative Negative Whole Blood Glucose 302 mg/DL (75-110) Blood Gas Puncture Site Left radial Blood Gas Patient Temperature 98.6 DEGREES Arterial Blood pH 7.49 (7.35-7.45) Arterial Blood Partial Pressure CO2 28 mmHg (32-37) Arterial Blood Partial Pressure O2 68 mmHg (60-80) Arterial Blood HCO3 22 mmol/L (20-26) Arterial Blood Oxygen Saturation 95 % (92-100) Arterial Blood Base Excess -2.0 mmol/L Lance Test Acceptable Oxygen Liters/Minute 92 on 2 l Toxicology Test 08/14/17 12:11 Acetone, Qualitative Negative ED Course/Re-evaluation ED Course Patient was admitted to exam room, history and physical were obtained. Differential diagnoses were considered. On examination patient did have some tenderness in the right lower quadrant. Patient had been seen yesterday for the same complaint. I reviewed the lab results as well as the imaging. She had a negative gallbladder ultrasound as well as a negative CT scan. CT scan did show some nonspecific lymphadenopathy in the right lower quadrant of the abdomen. I did repeat the labs today. A CBC, CMP, amylase, lipase, acetone, ABG, osmolality. Lab results were unremarkable. I discussed the findings with the patient. We will go ahead and discharge patient home at this time. She is to take her medication she has at home for her nausea. She is follow-up with her primary care provider on Thursday. Patient verbalized understanding and agreement with plan. Decision to Disposition Date: Aug 14, 2017 Decision to Disposition Time: 13:19 Depart Departure Latest Vital Signs Vital Signs Date Time Temp Pulse Resp B/P (MAP) Pulse Ox O2 Delivery O2 Flow Rate FiO2 08/14/17 13:35 88 34 97 3/9/18 13:30 124/95 (105) 08/14/17 12:32 2.0 08/14/17 12:05 97.6 Core Temperature (Celsius): 36.73 Impression: Primary Impression: Abdominal pain Additional Impression: Mesenteric adenitis Condition: Improved Disposition: HOME OR SELF-CARE Referrals: POPPY SANCHEZ DNP, [facility] (PCP) Patient Instructions: Mesenteric Adenitis (ED) Additional Instructions: Increase fluid intake. Get plenty of rest. Follow up with your primary care provider on Thursday. Clear liquid diet for the next 24 hours. Limit activity by pain. Return to the ER if condition worsens. Problem Qualifiers Primary Impression: Abdominal pain Abdominal location: right lower quadrant Qualified Codes: R10.31 - Right lower quadrant pain DEISY DURBIN Aug 14, 2017 12:13
[2017-08-14] MEDS ORDERED: NS(*) 0.9% 1000 ML BAG 1,000 ML IV ONE (12:19)
[2017-08-14] MEDS ORDERED: PROMETHAZINE 25 MG/ML 1 ML AMP IVP ONE (12:25)
[2017-08-14 12:26] LABS: PLATELET COUNT, AUTOMATED 238 K/uL (150-450)
[2017-08-14] MEDS ORDERED: MECL12.5 PO (13:25)
[2017-08-14 13:30] VITALS: BP 124/95
[2017-08-19] MEDS ORDERED: INSU100I30 SUBQ (17:16)
[2017-08-19] MEDS ORDERED: INSU100I28 SQ (17:17)
[2017-08-26] MEDS ORDERED: PREG150C33 PO (08:45)
== END 2017-08-14 13:58 | disposition home or self-care (01) ==
LOC: ER 12:05
DX: I88.0 Nonspecific mesenteric lymphadenitis (principal)
CPT/HCPCS: 36416; 36600; 82009; 82150; 82803; 82948; 83690; 83930; 85025; 96361; 96374; 99284; J2550; J7030; 82040; 82247; 82310; 82374; 82435; 82565; 82947; 84075; 84132; 84155; 84295; 84450; 84460; 84520

== ENCOUNTER 2017-08-17 17:17 | Emergency (ER) | payer MEDICAID ==
[2017-04-17 12:41] VITALS: Wt 87.3 kg
--- NOTE | 2017-08-17 17:50 | EKG ---
FACILITY: [facility] PATIENT NAME: DON LOUIS : [id number] MR: [id number] V: [id number] EXAM DATE: ORDERING PHYSICIAN: DEISY DURBIN TECHNOLOGIST: ALEXANDRA Test Reason : CP Blood Pressure : / mmHG Vent. Rate : 091 BPM Atrial Rate : 091 BPM P-R Int : 142 ms QRS Dur : 086 ms QT Int : 374 ms P-R-T Axes : 046 015 029 degrees QTc Int : 460 ms Sinus rhythm Poor R wave progression anteriorly Nonspecific ST findings No previous ECGs available Confirmed by JUANITO MONSIVAIS ([id number]) on 08/18/2017 6:28:12 AM Referred By: Confirmed By:JUANITO MONSIVAIS
--- NOTE | 2017-08-17 18:44 | ER Report ---
History and Physical Time Seen By MD: 18:43 Hx. of Stated Complaint: Chest pain radiating down both arms for a couple of days. Worse one hour ago HPI/ROS CHIEF COMPLAINT: chest pain HISTORY OF PRESENT ILLNESS: This is a 46 year old female. She is having chest pain and trouble breathing. She has been seen twice in the ER recently, abdominal pain, thought to be viral syndrome. She has been under alot of stress the last few days and thinks that may be playing in to her chest pain. Found to be a little hypoxic in triage today. Pain into both arms. States she is having some swelling in the left arm/hand. No more abdominal pain. No nausea or vomiting. Rates her pain about 8 on a 1-10 scale. Cough with no hemoptysis. REVIEW OF SYSTEMS: Constitutional: No fever or chills. Eyes: No vision changes. ENT: Some sore throat and congestion. Cardiovascular: As above. Respiratory: As above. Gastrointestinal: No nausea or vomiting. Genitourinary: No dysuria or problems with urination. Musculoskeletal: No back pain or extremity pain. Skin: No rashes. Neurological: No numbness. Has a headache. Allergies: Coded Allergies: Nitrofurantoin Macrocrystal (Verified Allergy, Severe, HIVES, 08/14/17) aspirin (Verified Allergy, Severe, ANAPHYLAXIS, 08/14/17) chlorpromazine (Verified Allergy, Severe, ANAPHYLAXIS, 08/14/17) hydroxyzine (Verified Allergy, Severe, AIRWAY OBSTRUCTION, 08/14/17) varenicline (Verified Allergy, Severe, anxiety, 08/14/17) venom-wasp (Verified Allergy, Severe, ANAPHYLAXIS, 08/14/17) Sulfa (Sulfonamide Antibiotics) (Verified Allergy, Intermediate, HIVES, 08/14/17) albuterol (Verified Allergy, Intermediate, itching, hives, 08/14/17) cephalexin (Verified Allergy, Intermediate, HIVES, 08/14/17) ciprofloxacin (Verified Allergy, Intermediate, "feels like I'm going inasne", 08/14/17) droperidol (Verified Allergy, Intermediate, DELUSIONS, 08/14/17) Pt states her reaction as, "I become psychotic". latex (Verified Allergy, Intermediate, RASH, SWELLING, 08/14/17) ondansetron (Verified Adverse Reaction, Severe, TACHYCARDIA, 08/14/17) dexamethasone (Verified Adverse Reaction, Intermediate, ITCHING, 08/14/17) haloperidol (Verified Adverse Reaction, Intermediate, "MAKES ME JUMPY", 08/14/17) Uncoded Allergies: Inhaled medication propelant (Allergy, Intermediate, HIVES, 10/07/14) Home Meds Active Scripts Meclizine Hcl (MECLIZINE HCL) 12.5 Mg Tablet, 1 TAB PO BID Y for DIZZINESS, #10 TAB 0 Refills Prov:POPPY SANCHEZ DNP, FNP-BC 08/14/17 Promethazine Hcl (PROMETHAZINE HCL) 25 Mg Tablet, 1 TAB PO Q8H Y for nausea, # 12 TAB 0 Refills Prov:POPPY SANCHEZ DNP, FNP-BC 08/12/17 [place], Insulin Disposable (PEN NEEDLES) 1 Each Dis.needle, BOX MC QDAY, #1 9 Refills Prov:POPPY SANCHEZ DNP, FNP-YVETTE 08/11/17 Blood-Glucose Meter (FREESTYLE LITE METER) 1 Each Kit, 1 [facility] MC ONCE, #1 Prov:POPPY SANCHEZ DNP, FNP-BC 08/11/17 Baclofen (BACLOFEN) 10 Mg Tablet, 1 TAB PO TID Y for MUSCLE SPASMS, #90 TAB 2 Refills Prov:POPPY SANCHEZ DNP [employer] C[employer]-BC 08/07/17 Pregabalin (LYRICA) 150 Mg Capsule, 1 TAB PO BID, #60 CAPSULE 0 Refills Prov:POPPY SANCHEZ DNP, FNP-BC 07/31/17 Promethazine Hcl (PROMETHAZINE HCL) 25 Mg Tablet, 25 MG PO Q8H Y for NAUSEA/ VOMITING, #12 TAB Prov:DEISY DURBIN 07/09/17 Atorvastatin Calcium (LIPITOR) 40 Mg Tablet, 1 TAB PO QDAY, #90 TAB Prov:POPPY SANCHEZ DNP [employer]-BC 06/10/17 Sumatriptan Succinate (SUMATRIPTAN SUCCINATE) 6 Mg/0.5 Ml Pen.injctr, 6 MG SQ ONCE Y for MIGRAINE, #1 BOX 6 Refills May repeat dose x1 after 1 hour, if needed. Do not exceed maximum of 12mg/24h. Prov:POPPY SANCHEZ DNP [facility] 05/29/17 Sumatriptan Succinate (SUMATRIPTAN SUCCINATE) 100 Mg Tablet, 1 TAB PO ONCE Y for MIGRAINE, #9 TAB 6 Refills Prov[facility] 05/29/17 Ranitidine Hcl (RANITIDINE HCL) 150 Mg Capsule, 1 TAB PO BID, #180 CAPSULE 3 Refills Prov:[facility] 05/29/17 Esomeprazole Magnesium (NEXIUM) 40 Mg Capsule.dr, 1 CAP PO BID, #180 CAP 3 Refills Prov:POPPY SANCHEZ DNP [facility] 05/29/17 Levothyroxine Sodium (LEVOTHYROXINE SODIUM) 50 Mcg Tablet, 1 TAB PO QDAY, #90 TAB 0 Refills Take along with 200mcg tablet for a total of 250mcg daily. Prov:[facility] 05/29/17 Levothyroxine Sodium (LEVOTHYROXINE SODIUM) 200 Mcg Tablet, 200 MCG PO QDAY, # 90 TAB 0 Refills Take with 50mcg tablet for a total of 250mcg daily Prov:[facility]PY [facility] 05/29/17 Insulin Lispro 3 Ml Prefilled (HUMALOG 3 ML PEN) 100 Unit/1 Ml Insuln.pen, 5-8 UNIT SQ TID, #2 DIS.SYR 6 Refills Take per sliding scale. Prov:[facility] 05/29/17 Insulin Glargine,Hum.rec.anlog (LANTUS SOLOSTAR) 100 Unit/1 Ml Insuln.pen, 35 UNIT SUBQ BID, #1 BOX Prov:EVELINA MONSIVAIS MD 05/06/17 Buspirone Hcl (BUSPIRONE HCL) 7.5 Mg Tablet, 30 MG PO BID, #60 TAB Prov:EVELINA MONSIVAIS MD 03/14/17 Albuterol Sulfate 0.083% (ALBUTEROL SULFATE 0.083%) 2.5 Mg/3 Ml Vial.neb, 2.5 MG INH Q4H Y for WHEEZING, #1 BOX 0 Refills Prov:HILDA THORNE MD 02/22/17 Epinephrine (EPIPEN 2-TUCKER) 0.3 Mg/0.3 Ml Pen.injctr, 0.3 MG IM ONCE, #1 CART Prov:POPPY SANCHEZ DNP, FNP-BC 02/17/17 Diclofenac Sodium 1% Gel (VOLTAREN 1% GEL) 100 Gm Gel..gram., 1 DEMETRIS TOP QID Y for PAIN, #1 TUBE 0 Refills Prov:POPPY SANCHEZ DNP, FNP-BC 01/19/17 Reported Medications Meloxicam (MELOXICAM) 7.5 Mg Tablet, 7.5 MG PO BID 07/09/17 Aripiprazole (ABILIFY) 20 Mg Tablet, 20 MG PO QDAY, TAB 03/14/17 Prazosin Hcl (PRAZOSIN HCL) 2 Mg Capsule, 2 CAP PO QHS, CAPSULE 01/26/17 Zolpidem Tartrate (AMBIEN) 5 Mg Tablet, 1 TAB PO QHS, TAB 05/19/16 Reviewed Nurses Notes: Yes Hx Smoking: Yes Smoking Status: Former Smoker Exposure to Second Hand Smoke?: Yes Hx Substance Use Disorder: No ("Years ago") Hx Alcohol Use: No Constitutional Vital Sign - Last 24 Hours 08/17/17 08/17/17 08/17/17 08/17/17 17:23 18:31 18:33 18:45 Temp 98.7 Pulse 98 98 Resp 16 B/P (MAP) 159/90 142/87 (105) 139/95 (110) Pulse Ox 89 O2 Delivery Room Air 08/17/17 08/17/17 08/17/17 08/17/17 19:00 19:15 19:30 19:42 Pulse 93 92 101 B/P (MAP) 147/95 (112) Pulse Ox 93 94 86 O2 Flow Rate 2.0 08/17/17 08/17/17 08/17/17 19:45 20:00 20:15 Pulse 95 98 99 B/P (MAP) 140/87 (104) Pulse Ox 93 90 89 Physical Exam General Appearance: The patient is alert. No acute distress. Eyes: Pupils are equal, round. No pallor, injection or icterus. ENT: Mucous membranes are moist. Normal oral mucosa. Posterior oropharynx is normal. Neck: Supple and non tender. Respiratory: Lungs have rhonchi at bases, no rales or wheezing. There are no retractions or accessory muscle use. Cardiovascular: Regular rate and rhythm. No murmurs, gallops or rubs. Normal capillary refill. Gastrointestinal: Abdomen is soft and non tender. Nondistended. Normal active bowel sounds. Neurological: Alert and oriented x3. No focal neurologic deficits Skin: Warm and dry. No rashes. Musculoskeletal: Chest is tender, reproducible chest pain with palpation and into the shoulders. DIFFERENTIAL DIAGNOSIS: After history and physical exam, differential diagnosis was considered for chest pain including but not limited to myocardial ischemia, pericarditis, pulmonary embolus, chest wall pain, pleural inflammation and pulmonary infectious causes. Medical Decision Making Data Points Result Diagram: 08/17/17190308/17/[id number] Laboratory Hematology Test 08/17/17 19:04 Red Blood Count 5.08 M/uL (4.17-5.56) Mean Corpuscular Volume 79.2 fL (80.0-96.0) Mean Corpuscular Hemoglobin 26.7 pg (26.0-33.0) Mean Corpuscular Hemoglobin Concent 33.7 g/dL (32.0-36.0) Red Cell Distribution Width 15.3 % (11.5-14.5) Mean Platelet Volume 8.8 fL (7.2-11.1) Neutrophils (%) (Auto) 58.9 % (39.4-72.5) Lymphocytes (%) (Auto) 30.2 % (17.6-49.6) Monocytes (%) (Auto) 6.6 % (4.1-12.4) Eosinophils (%) (Auto) 3.7 % (0.4-6.7) Basophils (%) (Auto) 0.6 % (0.3-1.4) Nucleated RBC Relative Count (auto) 0.0 /100WBC Neutrophils # (Auto) 5.8 K/uL (2.0-7.4) Lymphocytes # (Auto) 3.0 K/uL (1.3-3.6) Monocytes # (Auto) 0.6 K/uL (0.3-1.0) Eosinophils # (Auto) 0.4 K/uL (0.0-0.5) Basophils # (Auto) 0.1 K/uL (0.0-0.1) Nucleated RBC Absolute Count (auto) 0.00 K/uL D-Dimer Quantitative (PE/DVT) 0.34 ug/ml (0-0.50) Sodium Level 139 mmol/L (137-145) Potassium Level 3.1 mmol/L (3.5-5.0) Chloride Level 99 mmol/L (98-107) Carbon Dioxide Level 29 mmol/L (22-31) Blood Urea Nitrogen 5 mg/dl (7-18) Creatinine 0.60 mg/dl (0.52-1.04) Glomerular Filtration Rate Calc > 60.0 Random Glucose 119 mg/dl (75-110) Calcium Level 9.2 mg/dl (8.4-10.2) Total Bilirubin 0.4 mg/dl (0.2-1.3) Aspartate Amino Transf (AST/SGOT) 28 U/L (0-35) Alanine Aminotransferase (ALT/SGPT) 31 U/L (0-56) Alkaline Phosphatase 105 U/L (0-126) Troponin I < 0.012 ng/ml B-Type Natriuretic Peptide 31 pg/ml (0-100) Total Protein 7.6 gm/dl (6.3-8.2) Albumin 4.2 g/dl (3.5-5.0) Influenza Virus Type A (PCR) Negative (NEGATIVE) Influenza Virus Type B (PCR) Negative (NEGATIVE) Chemistry Test 08/17/17 19:04 White Blood Count 9.8 k/uL (4.5-11.0) Red Blood Count 5.08 M/uL (4.17-5.56) Hemoglobin 13.6 g/dL (12.0-16.0) Hematocrit 40.3 % (34.0-47.0) Mean Corpuscular Volume 79.2 fL (80.0-96.0) Mean Corpuscular Hemoglobin 26.7 pg (26.0-33.0) Mean Corpuscular Hemoglobin Concent 33.7 g/dL (32.0-36.0) Red Cell Distribution Width 15.3 % (11.5-14.5) Platelet Count 219 K/uL (150-450) Mean Platelet Volume 8.8 fL (7.2-11.1) Neutrophils (%) (Auto) 58.9 % (39.4-72.5) Lymphocytes (%) (Auto) 30.2 % (17.6-49.6) Monocytes (%) (Auto) 6.6 % (4.1-12.4) Eosinophils (%) (Auto) 3.7 % (0.4-6.7) Basophils (%) (Auto) 0.6 % (0.3-1.4) Nucleated RBC Relative Count (auto) 0.0 /100WBC Neutrophils # (Auto) 5.8 K/uL (2.0-7.4) Lymphocytes # (Auto) 3.0 K/uL (1.3-3.6) Monocytes # (Auto) 0.6 K/uL (0.3-1.0) Eosinophils # (Auto) 0.4 K/uL (0.0-0.5) Basophils # (Auto) 0.1 K/uL (0.0-0.1) Nucleated RBC Absolute Count (auto) 0.00 K/uL D-Dimer Quantitative (PE/DVT) 0.34 ug/ml (0-0.50) Glomerular Filtration Rate Calc > 60.0 Calcium Level 9.2 mg/dl (8.4-10.2) Total Bilirubin 0.4 mg/dl (0.2-1.3) Aspartate Amino Transf (AST/SGOT) 28 U/L (0-35) Alanine Aminotransferase (ALT/SGPT) 31 U/L (0-56) Alkaline Phosphatase 105 U/L (0-126) Troponin I < 0.012 ng/ml B-Type Natriuretic Peptide 31 pg/ml (0-100) Total Protein 7.6 gm/dl (6.3-8.2) Albumin 4.2 g/dl (3.5-5.0) Influenza Virus Type A (PCR) Negative (NEGATIVE) Influenza Virus Type B (PCR) Negative (NEGATIVE) Coagulation Test 08/17/17 19:04 D-Dimer Quantitative (PE/DVT) 0.34 ug/ml EKG/Imaging EKG Interpretation 12 lead EKG: Rhythm: normal sinus rhythm, rate 91 [place]: normal QRS: normal ST segments: normal Imaging CHEST PA AND LAT COMPARISONS: Views of the chest dated July 29, 2017 ADDITIONAL PERTINENT HISTORY: Chest pain FINDINGS: Cardiomediastinal silhouette: Negative. Pulmonary vasculature: Negative. Lung perez: Negative. Pleural spaces: Negative. Osseous structures: Negative. Surrounding soft tissues: Negative. IMPRESSION: No evidence of acute cardiopulmonary disease. Report Dictated By: Lebron Carpio MD at 08/17/2017 7:48 PM ED Course/Re-evaluation Clinical Indication for ER IV: IV Access ED Course Patient asked for pain control. Gave Ketamine 50mg IM. Labs, imaging and EKG unremarkable and reviewed results with the patient. Suspect inflammatory and chest wall pain. See instructions below. Did provide a note to be off work tomorrow. Decision to Disposition Date: Aug 17, 2017 Decision to Disposition Time: 20:13 Depart Departure Latest Vital Signs Vital Signs Date Time Temp Pulse Resp B/P (MAP) Pulse Ox O2 Delivery O2 Flow Rate FiO2 08/17/17 20:15 99 89 08/17/17 20:00 140/87 (104) 08/17/17 19:42 2.0 08/17/17 17:23 98.7 16 Room Air Core Temperature (Celsius): 36.73 Impression: Primary Impression: Chest wall pain Additional Impression: Pleuritic pain Condition: Improved Disposition: HOME OR SELF-CARE Referrals: POPPY SANCHEZ DNP, MACHINE II CUTTER-BC (PCP) Patient Instructions: Chest Wall Pain (ED) Additional Instructions: Your pain in your chest is likely a combination of factors. The pain appears to be mainly in the chest wall and likely due to inflammation from you viral infection. Your recent anxiety and stress can add to this. Rest and increase fluid intake. Problem Qualifiers KARMA MCCLENDON MD Aug 17, 2017 18:43
[2017-08-17] MEDS ORDERED: KETAMINE HCL 500 MG/5 ML VIAL IVP ONE (18:50)
[2017-08-17] MEDS ORDERED: KETAMINE HCL 500 MG/5 ML VIAL IM ONE (19:20)
[2017-08-17 19:27] LABS: PLATELET COUNT, AUTOMATED 219 K/uL (150-450)
--- NOTE | 2017-08-17 19:54 | RADIOLOGY IMAGING REPORT ---
FACILITY: [facility] [place] PATIENT NAME: Yesy Mccracken : 1970 MR: [id number] V: [id number] EXAM DATE: ORDERING PHYSICIAN: KARMA MCCLENDON TECHNOLOGIST: Location[place] [facility] [place] Patient: Yesy Mccracken : 1970 Visit/Account:[id number] Date of Sevice: 08/17/2017 CHEST PA AND LAT COMPARISONS: Views of the chest dated July 29, 2017 ADDITIONAL PERTINENT HISTORY: Chest pain FINDINGS: Cardiomediastinal silhouette: Negative. Pulmonary vasculature: Negative. Lung perez: Negative. Pleural spaces: Negative. Osseous structures: Negative. Surrounding soft tissues: Negative. IMPRESSION: No evidence of acute cardiopulmonary disease. Report Dictated By: Lebron Carpio MD at 08/17/2017 7:48 PM Report E-Signed By: Lebron Carpio MD at 08/17/2017 7:49 PM WSN:[id number]
[2017-08-17 20:00] VITALS: BP 140/87
[2017-08-19] MEDS ORDERED: INSU100I30 SUBQ (17:16)
[2017-08-19] MEDS ORDERED: INSU100I28 SQ (17:17)
== END 2017-08-17 20:28 | disposition home or self-care (01) ==
LOC: ER 17:30
DX: R07.89 Other chest pain (principal); R07.81 Pleurodynia; R06.00 Dyspnea, unspecified
CPT/HCPCS: 71046; 82040; 82247; 82310; 82374; 82435; 82565; 82947; 83880; 84075; 84132; 84155; 84295; 84450; 84460; 84484; 84520; 85025; 85379; 87502; 93005; 96372; 99284

== ENCOUNTER 2017-09-06 15:48 | Emergency (ER) | payer MEDICAID ==
[2017-04-17 12:41] VITALS: Wt 87.3 kg
--- NOTE | 2017-09-06 15:57 | ER Report ---
History and Physical Time Seen By MD: 15:56 HPI/ROS CHIEF COMPLAINT: Right shoulder pain HISTORY OF PRESENT ILLNESS: This is a 46-year-old female who presents to the emergency department for right shoulder pain. The patient is well-known to the emergency department. She states that she was out walking her dog this morning about 5 AM and her dog went running off towards the street she ran towards the street chasing her dog and grabbed a post was in the ground and wasn't able to go in time and it stretched her right shoulder out. Patient states that she's been trying ice and heat all day took some baclofen at home with little to no relief. Patient is hypersensitive to any sort of touch. CMS is intact. Patient has no other concerns, shortness of breath, chest pain. REVIEW OF SYSTEMS: Respiratory: No cough, no dyspnea. Cardiovascular: No chest pain, no palpitations. Gastrointestinal: No vomiting, no abdominal pain. Musculoskeletal: As above. Allergies: Coded Allergies: Nitrofurantoin Macrocrystal (Verified Allergy, Severe, HIVES, 08/14/17) aspirin (Verified Allergy, Severe, ANAPHYLAXIS, 08/14/17) chlorpromazine (Verified Allergy, Severe, ANAPHYLAXIS, 08/14/17) hydroxyzine (Verified Allergy, Severe, AIRWAY OBSTRUCTION, 08/14/17) varenicline (Verified Allergy, Severe, anxiety, 08/14/17) venom-wasp (Verified Allergy, Severe, ANAPHYLAXIS, 08/14/17) Sulfa (Sulfonamide Antibiotics) (Verified Allergy, Intermediate, HIVES, 08/14/17) albuterol (Verified Allergy, Intermediate, itching, hives, 08/14/17) cephalexin (Verified Allergy, Intermediate, HIVES, 08/14/17) ciprofloxacin (Verified Allergy, Intermediate, "feels like I'm going inasne", 08/14/17) droperidol (Verified Allergy, Intermediate, DELUSIONS, 08/14/17) Pt states her reaction as, "I become psychotic". latex (Verified Allergy, Intermediate, RASH, SWELLING, 08/14/17) ondansetron (Verified Adverse Reaction, Severe, TACHYCARDIA, 08/14/17) dexamethasone (Verified Adverse Reaction, Intermediate, ITCHING, 08/14/17) haloperidol (Verified Adverse Reaction, Intermediate, "MAKES ME JUMPY", 08/14/17) Uncoded Allergies: Inhaled medication propelant (Allergy, Intermediate, HIVES, 10/07/14) Home Meds Active Scripts Lidocaine (Lidocaine) 5 % Adh..patch, 1 ADH.PATCH TOP Q72H Y for prn, #5 PATCH 0 Refills Prov:ANATSHANNANNICKSHI Ivan SMITH 09/06/17 Esomeprazole Magnesium (NEXIUM) 40 Mg Capsule.dr, 1 CAP PO BID, #180 CAP 3 Refills Prov:POPPY SANCHEZ DNP, FNP-BC 08/31/17 Pregabalin (LYRICA) 150 Mg Capsule, 1 TAB PO BID, #60 CAPSULE 0 Refills Prov:POPPY SANCHEZ DNP, FNP-BC 08/26/17 Insulin Lispro 3 Ml Prefilled (HUMALOG 3 ML PEN) 100 Unit/1 Ml Insuln.pen, 5-8 UNIT SQ TID, #2 DIS.SYR 6 Refills Take per sliding scale. Prov:POPPY SANCHEZ DNP, FNP-BC 08/19/17 Insulin Glargine,Hum.rec.anlog (LANTUS SOLOSTAR) 100 Unit/1 Ml Insuln.pen, 35 UNIT SUBQ BID, #1 BOX 3 Refills Prov:POPPY SANCHEZ DNP, FNP-BC 08/19/17 [place], Insulin Disposable (PEN NEEDLES) 1 Each Dis.needle, BOX MC QDAY, #1 9 Refills Prov:POPPY SANCHEZ DNP, FNP-BC 08/11/17 Blood-Glucose Meter (FREESTYLE LITE METER) 1 Each Kit, 1 [facility] MC ONCE, #1 Prov:POPPY SANCHEZ DNP, FNP-BC 08/11/17 Baclofen (BACLOFEN) 10 Mg Tablet, 1 TAB PO TID Y for MUSCLE SPASMS, #90 TAB 2 Refills Prov:POPPY SANCHEZ DNP, FNP-BC 08/07/17 Sumatriptan Succinate (SUMATRIPTAN SUCCINATE) 6 Mg/0.5 Ml Pen.injctr, 6 MG SQ ONCE Y for MIGRAINE, #1 BOX 6 Refills May repeat dose x1 after 1 hour, if needed. Do not exceed maximum of 12mg/24h. Prov:POPPY SANCHEZ DNP, FNP-BC 05/29/17 Sumatriptan Succinate (SUMATRIPTAN SUCCINATE) 100 Mg Tablet, 1 TAB PO ONCE Y for MIGRAINE, #9 TAB 6 Refills Prov:POPPY SANCHEZ DNP, [facility] 05/29/17 Ranitidine Hcl (RANITIDINE HCL) 150 Mg Capsule, 1 TAB PO BID, #180 CAPSULE 3 Refills Prov:POPPY SANCHEZ DNP, [facility] 05/29/17 Levothyroxine Sodium (LEVOTHYROXINE SODIUM) 50 Mcg Tablet, 1 TAB PO QDAY, #90 TAB 0 Refills Take along with 200mcg tablet for a total of 250mcg daily. Prov:POPPY SANCHEZ DNP, FNPMu 05/29/17 Levothyroxine Sodium (LEVOTHYROXINE SODIUM) 200 Mcg Tablet, 200 MCG PO QDAY, # 90 TAB 0 Refills Take with 50mcg tablet for a total of 250mcg daily Prov:POPPY SANCHEZ DNP [facility] 05/29/17 Buspirone Hcl (BUSPIRONE HCL) 7.5 Mg Tablet, 30 MG PO BID, #60 TAB Prov:EVELINA MONSIVAIS MD 03/14/17 Albuterol Sulfate 0.083% (ALBUTEROL SULFATE 0.083%) 2.5 Mg/3 Ml Vial.neb, 2.5 MG INH Q4H Y for WHEEZING, #1 BOX 0 Refills Prov:HILDA THORNE MD 02/22/17 Epinephrine (EPIPEN 2-TUCKER) 0.3 Mg/0.3 Ml Pen.injctr, 0.3 MG IM ONCE, #1 CART Prov:POPPY SANCHEZ DNP [facility] 02/17/17 Diclofenac Sodium 1% Gel (VOLTAREN 1% GEL) 100 Gm Gel..gram., 1 DEMETRIS TOP QID Y for PAIN, #1 TUBE 0 Refills Prov:POPPY SANCHEZ DNP [facility] 01/19/17 Reported Medications Atorvastatin Calcium (LIPITOR) 40 Mg Tablet, 2 TAB PO QDAY, TAB 4 Meloxicam (MELOXICAM) 7.5 Mg Tablet, 7.5 MG PO BID 07/09/17 Aripiprazole (ABILIFY) 20 Mg Tablet, 20 MG PO QDAY, TAB 03/14/17 Prazosin Hcl (PRAZOSIN HCL) 2 Mg Capsule, 2 CAP PO QHS, CAPSULE 01/26/17 Zolpidem Tartrate (AMBIEN) 5 Mg Tablet, 1 TAB PO QHS, TAB 05/19/16 Discontinued Scripts Meclizine Hcl (MECLIZINE HCL) 12.5 Mg Tablet, 1 TAB PO BID Y for DIZZINESS, #10 TAB 0 Refills Prov:[facility] 08/14/17 Promethazine Hcl (PROMETHAZINE HCL) 25 Mg Tablet, 1 TAB PO Q8H Y for nausea, # 12 TAB 0 Refills Prov:POPPY SANCHEZ DNP [facility] 08/12/17 Promethazine Hcl (PROMETHAZINE HCL) 25 Mg Tablet, 25 MG PO Q8H Y for NAUSEA/ VOMITING, #12 TAB Prov:DEISY DURBIN [facility] 07/09/17 Atorvastatin Calcium (LIPITOR) 40 Mg Tablet, 1 TAB PO QDAY, #90 TAB Prov:[facility] 06/10/17 Esomeprazole Magnesium (NEXIUM) 40 Mg Capsule.dr, 1 CAP PO BID, #180 CAP 3 Refills Prov:[facility]ANC[facility]Z [facility] 05/29/17 Past Medical/Surgical History Patient has a past medical and surgical history of migraines, angina, prolonged QT, DVT, hypertension, hypercholesterolemia, seasonal allergies, smokes, uses oxygen at night, asthma, pneumonia, acid reflux, pancreatitis, UTIs, endometriosis, ovarian cysts, right breast lumpectomy, multiple fractures, back pain, wears dentures, pressure glasses and contacts, type II diabetes, bipolar, depression, suicide attempt, breast cancer, radiation and chemotherapy, appendectomy, sinusitis, sinus surgery, thyroidectomy, eye surgery. Reviewed Nurses Notes: Yes Hx Smoking: Yes Smoking Status: Former Smoker Exposure to Second Hand Smoke?: Yes Hx Substance Use Disorder: No ("Years ago") Hx Alcohol Use: No Constitutional Vital Sign - Last 24 Hours 09/06/17 09/06/17 09/06/17 09/06/17 15:54 16:00 16:15 16:30 Temp 99.4 Pulse 98 98 ??? 95 Resp 18 28 20 B/P (MAP) 150/98 Pulse Ox 94 91 90 O2 Delivery Room Air 09/06/17 09/06/17 09/06/17 09/06/17 16:45 17:00 17:11 17:11 Pulse 93 ??? Resp 18 B/P (MAP) 155/106 (122) 155/106 (122) Pulse Ox 89 09/06/17 17:15 Pulse 91 Pulse Ox 90 Physical Exam General Appearance: The patient is alert, has no immediate need for airway protection and no current signs of toxicity. Eyes: Pupils equal and round no injection. Respiratory: Chest is non tender, lungs are clear to auscultation. Cardiac: regular rate and rhythm. Gastrointestinal: Abdomen is soft and non tender, no masses, bowel sounds normal. Musculoskeletal: Neck: Neck is supple and non tender. Extremities right shoulder tenderness all over with light palpation. No crepitus, step-offs, Oblong deformities. Patient is unable to to the back scratch maneuver due to pain. Armstrong test does elicit pain. CMS intact distal to the injury. Skin: No rashes or lesions. DIFFERENTIAL DIAGNOSIS: After history and physical exam differential diagnosis was considered for contusion, strain, dislocation and fracture. Medical Decision Making EKG/Imaging Imaging Location: [facility] Patient: Yesy Mccracken : 1970 Visit/Account:[id number] Date of Sevice: 09/06/2017 SHOULDER MIN 2 VIEWS RIGHT HISTORY: Injury. Pain. COMPARISON: None FINDINGS: Right shoulder: Questionable focus of calcific tendinitis only seen on one view. Alternatively this could be within the soft tissues. This does not have the typical appearance of fracture or avulsion. Glenohumeral joint is normal. The acromioclavicular joint is normal in appearance. IMPRESSION: 1. Questionable focus of calcific tendinitis only seen on one image. Doubtful to represent avulsion. Report Dictated By: Wesley Givens MD at 09/06/2017 4:38 PM Report E-Signed By: Wesley Givens MD at 09/06/2017 4:39 PM [id number] ED Course/Re-evaluation ED Course The patient was admitted to room. A history and physical were obtained. Diagnoses considered. A right shoulder x-ray was negative for any acute findings. I did review these results with the patient. Patient was given a lidocaine patch for her right shoulder. Patient was also given a prescription for lidocaine patch. Patient was given an injection of Toradol. Patient was also given a sling for comfort. Patient was instructed to [facility] for further evaluation of the right shoulder. Patient had no other questions or concerns and was discharged home. Decision to Disposition Date: Sep 06, 2017 Decision to Disposition Time: 17:09 Depart Departure Latest Vital Signs Vital Signs Date Time Temp Pulse Resp B/P (MAP) Pulse Ox O2 Delivery O2 Flow Rate FiO2 09/06/17 17:15 91 90 09/06/17 17:11 155/106 (122) 09/06/17 16:45 18 09/06/17 15:54 99.4 Room Air Core Temperature (Celsius): 36.73 Impression: Primary Impression: Right shoulder injury Additional Impression: Right shoulder pain Condition: Improved Disposition: HOME OR SELF-CARE Referrals: POPPY SANCHEZ DNP, DEDICATED OWNER OPERATOR-BC (PCP) [facility] Week follow up evaluation on the right shoulder injury and pain. New Scripts Lidocaine (Lidocaine) 5 % Adh..patch 1 ADH.PATCH TOP Q72H Y for prn, #5 PATCH 0 Refills Prov: SHI VARGAS-BC 09/06/17 Patient Instructions: Shoulder Pain (ED) Additional Instructions: Drink plenty of fluids. Get plenty of rest. Take your medications as prescribed. Be [facility] shoulder. Continue to wear sling for comfort. May return to the ED for any other concerns or worsening symptoms. Problem Qualifiers Primary Impression: Right shoulder injury Encounter type: initial encounter Qualified Codes: S49.91XA - Unspecified injury of right shoulder and upper arm, initial encounter Additional Impression: Right shoulder pain Chronicity: acute Qualified Codes: M25.511 - Pain in right shoulder SHI VARGAS DEDICATED OWNER OPERATOR-BC Sep 06, 2017 15:57
[2017-09-06] MEDS ORDERED: ATOR40TA24 PO (16:03)
[2017-09-06] MEDS ORDERED: LIDOCAINE 5% PATCH TP SCH (16:45)
--- NOTE | 2017-09-06 16:47 | RADIOLOGY IMAGING REPORT ---
FACILITY: [facility] PATIENT NAME: Yesy Mccracken : 1970 MR: [id number] V: [id number] EXAM DATE: ORDERING PHYSICIAN: SHI VARGAS TECHNOLOGIST: Location: [facility] Patient: Yesy Mccracken : 1970 Visit/Account:[id number] Date of Sevice: 09/06/2017 SHOULDER MIN 2 VIEWS RIGHT HISTORY: Injury. Pain. COMPARISON: None FINDINGS: Right shoulder: Questionable focus of calcific tendinitis only seen on one view. Alternatively this c ould be within the soft tissues. This does not have the typical appearance of fracture or avulsion. G lenohumeral joint is normal. The acromioclavicular joint is normal in appearance. IMPRESSION: 1. Questionable focus of calcific tendinitis only seen on one image. Doubtful to represent avulsion. Report Dictated By: Wesley Givens MD at 09/06/2017 4:38 PM Report E-Signed By: Wesley Givens MD at 09/06/2017 4:39 PM [id number]
[2017-09-06] MEDS ORDERED: KETOROLAC 60 MG/2 ML VIAL IM ONE (16:50)
[2017-09-06] MEDS ORDERED: LIDO700A19 TOP (16:55)
[2017-09-06 17:11] VITALS: BP 155/106
[2017-09-06] MEDS ORDERED: PATCH REMOVAL 1 EA TOP SCH (21:00)
[2017-09-07] MEDS ORDERED: KETO30CA16 IM (16:29)
[2017-09-07] MEDS ORDERED: LEVO50TA86 PO (16:57)
[2017-09-07] MEDS ORDERED: LEVO200T50 PO (16:57)
[2017-09-07] MEDS ORDERED: SUMA6PEN SQ (16:57)
[2017-09-07] MEDS ORDERED: SUMA100T33 PO (16:57)
[2017-09-07] MEDS ORDERED: LISI-374 PO (16:57)
[2017-09-07] MEDS ORDERED: ATR80PT PO (16:57)
[2017-09-07] MEDS ORDERED: OXYC-865 PO (16:58)
[2017-09-08] MEDS ORDERED: SUMA100T33 PO (14:20)
== END 2017-09-06 17:21 | disposition home or self-care (01) ==
LOC: ER 15:54
DX: S49.91XA Unspecified injury of right shoulder and upper arm, initial encounter (principal); W18.30XA Fall on same level, unspecified, initial encounter; Y93.K1 Activity, walking an animal
CPT/HCPCS: 73030; 96372; 99282; A4565; J1885

== ENCOUNTER → 2017-09-07 | Outpatient (CLI) | payer MEDICAID ==
[2017-04-17 12:41] VITALS: BMI 34.0
[~2017-09-07] MED LIST changes: +LIDO700A19 TOP
== END ==
LOC: LAB 16:23
PROVIDERS: ATTEND Nurse Practitioner Primary Care
DX: E11.9 Type 2 diabetes mellitus without complications (principal); E03.9 Hypothyroidism, unspecified
CPT/HCPCS: 36415; 82040; 82247; 82310; 82374; 82435; 82565; 82947; 84075; 84132; 84155; 84295; 84443; 84450; 84460; 84520

== ENCOUNTER 2017-09-14 00:26 | Emergency (ER) | payer MEDICAID ==
[2017-04-17 12:41] VITALS: Wt 92.5 kg
--- NOTE | 2017-09-14 00:57 | ER Report ---
History and Physical Time Seen By MD: 00:56 Hx. of Stated Complaint: PT FELL CHASING A DOG, AND "RIPPED" HER SHOULDER ON THURSDAY. SHE HAD AN MRI, BUT FEELS LIKE IT IS GETTING WORSE. PT HAS A MIGRANE, AND MUSCLE SPASMS. HPI/ROS CHIEF COMPLAINT: right shoulder pain HISTORY OF PRESENT ILLNESS: This is a 46 year old female. She has a history of shoulder injury last week. She was seen subsequently by [facility] and had an MRI. By patient report, she has a rotator cuff tear and needs to do physical therapy. She is waiting to get this started this coming week. She has been taking Percocet, prescribed by her primary care provider. Tonight the pain has gotten worse. No re-injury. She has muscle spasms that go up to her neck and head, causing a migraine headache. She took her regular meloxicam and her baclofen tonight without relief. She is using lidocaine patches. She has been using heating pads and ice packs. Nothing seems to give her relief. She feels that the shoulder is swelling more as well. She denies shortness of breath or cough. At times the pain radiates down to her chest. REVIEW OF SYSTEMS: Constitutional: No fever or chills. Eyes: No vision changes. ENT: No sore throat. No congestion. Cardiovascular: As above. Respiratory: As above. Gastrointestinal: No abdominal pain. Genitourinary: No dysuria or problems with urination. Musculoskeletal: Chronic back and musculoskeletal pain. Skin: No rashes. Neurological: Normal sensation in arm. Allergies: Coded Allergies: Nitrofurantoin Macrocrystal (Verified Allergy, Severe, HIVES, 08/14/17) aspirin (Verified Allergy, Severe, ANAPHYLAXIS, 08/14/17) chlorpromazine (Verified Allergy, Severe, ANAPHYLAXIS, 08/14/17) hydroxyzine (Verified Allergy, Severe, AIRWAY OBSTRUCTION, 08/14/17) varenicline (Verified Allergy, Severe, anxiety, 08/14/17) venom-wasp (Verified Allergy, Severe, ANAPHYLAXIS, 08/14/17) Sulfa (Sulfonamide Antibiotics) (Verified Allergy, Intermediate, HIVES, 08/14/17) albuterol (Verified Allergy, Intermediate, itching, hives, 08/14/17) cephalexin (Verified Allergy, Intermediate, HIVES, 08/14/17) ciprofloxacin (Verified Allergy, Intermediate, "feels like I'm going inasne", 08/14/17) droperidol (Verified Allergy, Intermediate, DELUSIONS, 08/14/17) Pt states her reaction as, "I become psychotic". latex (Verified Allergy, Intermediate, RASH, SWELLING, 08/14/17) ondansetron (Verified Adverse Reaction, Severe, TACHYCARDIA, 08/14/17) dexamethasone (Verified Adverse Reaction, Intermediate, ITCHING, 08/14/17) haloperidol (Verified Adverse Reaction, Intermediate, "MAKES ME JUMPY", 08/14/17) Uncoded Allergies: Inhaled medication propelant (Allergy, Intermediate, HIVES, 10/07/14) Home Meds Active Scripts Sumatriptan Succinate (SUMATRIPTAN SUCCINATE) 100 Mg Tablet, 1 TAB PO QDAY Y for MIGRAINE, #9 TAB 6 Refills Prov:POPPY SANCHEZ DNP, FNP-BC 09/08/17 Oxycodone Hcl/Acetaminophen (PERCOCET 5-325 MG TABLET) 1 Each Tablet, 1-2 TAB PO Q6-8H Y for PAIN, #15 TAB 0 Refills Prov:POPPY SANCHEZ DNP, FNP-BC 09/07/17 Lisinopril (LISINOPRIL) 40 Mg Tablet, 1 TAB PO QDAY for 90 Days, #90 TAB 1 Refill Prov:POPPY SANCHEZ DNP, FNP-BC 09/07/17 Atorvastatin (LIPITOR) 80 Mg Tab, 1 TAB PO QDAY for 90 Days, #90 TAB 1 Refill Prov:POPPY SANCHEZ DNP, FNP-BC 09/07/17 Sumatriptan Succinate (SUMATRIPTAN SUCCINATE) 6 Mg/0.5 Ml Pen.injctr, 6 MG SQ ONCE Y for MIGRAINE, #1 BOX 6 Refills May repeat dose x1 after 1 hour, if needed. Do not exceed maximum of 12mg/24h. Prov:POPPY SANCHEZ DNP, FNP-BC 09/07/17 Levothyroxine Sodium (LEVOTHYROXINE SODIUM) 50 Mcg Tablet, 1 TAB PO QDAY, #90 TAB 1 Refill Take along with 200mcg tablet for a total of 250mcg daily. Prov:POPPY SANCHZE DNP [facility]- 09/07/17 Levothyroxine Sodium (LEVOTHYROXINE SODIUM) 200 Mcg Tablet, 200 MCG PO QDAY, # 90 TAB 1 Refill Take with 50mcg tablet for a total of 250mcg daily Prov:POPPY SANCHEZ DNP [facility] 09/07/17 Lidocaine (Lidocaine) 5 % Adh..patch, 1 ADH.PATCH TOP Q72H Y for prn, #5 PATCH 0 Refills [facility] 09/06/17 Esomeprazole Magnesium (NEXIUM) 40 Mg Capsule.dr, 1 CAP PO BID, #180 CAP 3 Refills Prov:POPPY SANCHEZ DNP, FNPMu 08/31/17 Pregabalin (LYRICA) 150 Mg Capsule, 1 TAB PO BID, #60 CAPSULE 0 Refills Prov:POPPY SANCHEZ DNP, FNPMu 08/26/17 Insulin Lispro 100 Un/Ml Pen (HUMALOG 3 ML PEN) 100 Unit/1 Ml Insuln.pen, 5-8 UNIT SQ TID, #2 DIS.SYR 6 Refills Take per sliding scale. Prov:POPPY SANCHEZ DNP, FNP- 08/19/17 Insulin Glargine 100 Un/Ml Pen (LANTUS SOLOSTAR PEN) 100 Unit/1 Ml Insuln.pen, 35 UNIT SUBQ BID, #1 BOX 3 Refills Prov:POPPY SANCHEZ DNP, FNP- 08/19/17 Mcdaniels, Insulin Disposable (PEN NEEDLES) 1 Each Dis.needle, BOX MC QDAY, #1 9 Refills Prov:POPPY SANCHEZ DNP [employer] DIRECT[employer] COMBAT PLANS OFFICERMu 08/11/17 Blood-Glucose Meter (FREESTYLE LITE METER) 1 Each Kit, 1 [facility] ONCE, #1 Prov:[facility] 08/11/17 Baclofen (BACLOFEN) 10 Mg Tablet, 1 TAB PO TID Y for MUSCLE SPASMS, #90 TAB 2 Refills Prov:[facility] 08/07/17 Ranitidine Hcl (RANITIDINE HCL) 150 Mg Capsule, 1 TAB PO BID, #180 CAPSULE 3 Refills Prov:POPPY SANCHEZ DNP, FNP-BC 05/29/17 Buspirone Hcl (BUSPIRONE HCL) 7.5 Mg Tablet, 30 MG PO BID, #60 TAB Prov:EVELINA MONSIVAIS MD 03/14/17 Albuterol Sulfate 0.083% (ALBUTEROL SULFATE 0.083%) 2.5 Mg/3 Ml Vial.neb, 2.5 MG INH Q4H Y for WHEEZING, #1 BOX 0 Refills Prov:HILDA THORNE MD 02/22/17 Epinephrine (EPIPEN 2-TUCKER) 0.3 Mg/0.3 Ml Pen.injctr, 0.3 MG IM ONCE, #1 CART Prov:POPPY SANCHEZ DNP, FNP-BC 02/17/17 Diclofenac Sodium 1% Gel (VOLTAREN 1% GEL) 100 Gm Gel..gram., 1 DEMETRIS TOP QID Y for PAIN, #1 TUBE 0 Refills Prov:POPPY SANCHEZ DNP, FNP-BC 01/19/17 Reported Medications Meloxicam (MELOXICAM) 7.5 Mg Tablet, 7.5 MG PO BID 07/09/17 Aripiprazole (ABILIFY) 20 Mg Tablet, 20 MG PO QDAY, TAB 03/14/17 Prazosin Hcl (PRAZOSIN HCL) 2 Mg Capsule, 2 CAP PO QHS, CAPSULE 01/26/17 Zolpidem Tartrate (AMBIEN) 5 Mg Tablet, 1 TAB PO QHS, TAB 05/19/16 Discontinued Reported Medications Atorvastatin Calcium (LIPITOR) 40 Mg Tablet, 2 TAB PO QDAY, TAB 09/06/17 Discontinued Scripts Sumatriptan Succinate (SUMATRIPTAN SUCCINATE) 100 Mg Tablet, 1 TAB PO ONCE Y for MIGRAINE, #9 TAB 6 Refills Prov:POPPY SANCHEZ DNP, FNP-BC 05/29/17 Reviewed Nurses Notes: Yes Hx Smoking: Yes Smoking Status: Former Smoker Exposure to Second Hand Smoke?: Yes Hx Substance Use Disorder: No ("Years ago") Hx Alcohol Use: No Constitutional Vital Sign - Last 24 Hours 09/14/17 09/14/17 09/14/17 09/14/17 00:33 00:35 00:41 00:49 Temp 99.9 Pulse 107 106 Resp 18 B/P (MAP) 154/88 (110) 154/88 149/97 (114) Pulse Ox 90 89 O2 Delivery Room Air Room Air 09/14/17 09/14/17 09/14/17 09/14/17 01:11 01:26 01:41 01:45 Pulse 101 97 98 B/P (MAP) 149/91 (110) Pulse Ox 92 94 93 09/14/17 09/14/17 09/14/17 09/14/17 01:50 02:00 02:05 02:15 Pulse 101 108 B/P (MAP) 116/103 (107) 147/90 (109) Pulse Ox 94 92 O2 Delivery Nasal Cannula Nasal Cannula O2 Flow Rate 1 1 09/14/17 09/14/17 09/14/17 09/14/17 02:20 02:30 02:35 02:45 Pulse ??? 106 B/P (MAP) 146/90 (108) 160/92 (114) Pulse Ox 91 95 O2 Delivery Nasal Cannula Nasal Cannula O2 Flow Rate 1 1 09/14/17 09/14/17 09/14/17 09/14/17 02:50 02:55 03:00 03:15 Pulse 97 95 B/P (MAP) 147/93 (111) 171/95 (120) Pulse Ox 93 93 O2 Delivery Nasal Cannula O2 Flow Rate 1 09/14/17 09/14/17 09/14/17 09/14/17 03:30 03:45 04:00 04:10 Pulse 97 B/P (MAP) 144/93 (110) 144/100 (115) 157/91 (113) Pulse Ox 89 09/14/17 09/14/17 09/14/17 09/14/17 05:00 05:09 05:11 05:15 Pulse 91 91 B/P (MAP) 144/123 (130) 145/97 (113) 148/92 (110) Pulse Ox 90 89 Physical Exam General Appearance: The patient is alert. No acute distress. Eyes: Pupils are equal, round. No pallor, injection or icterus. ENT: Mucous membranes are moist. Normal oral mucosa. Neck: Supple. No lymphadenopathy. Has tenderness in the muscles of the neck, posterior and sternocleidomastoid. Respiratory: Lungs are clear to auscultation. Cardiovascular: Tachycardia with a regular rhythm. No murmurs, gallops or rubs. Normal capillary refill. No edema. Gastrointestinal: Abdomen is soft and non tender. Nondistended. Normal active bowel sounds. Neurological: Alert and oriented x3. She has normal sensation in the right arm. Normal motor function. Any movement of the shoulder joint itself causes pain but no change in sensation or strength. Skin: Warm and dry Musculoskeletal: Patient has pain throughout the right shoulder, anterior lateral and posterior. She has tightening of the muscles up into the rhomboids and levator scapula, and also anteriorly sternocleidomastoids. DIFFERENTIAL DIAGNOSIS: After history and physical exam, differential diagnosis was considered for shoulder pain with pain radiating up into the neck and causing headache. This all appears to be related to her rotator cuff tear, inflammation, causing a migraine headache and muscle spasms. Medical Decision Making Data Points Result Diagram: 09/14/1721909/14/17219 Laboratory Hematology Test 09/14/17 02:20 Red Blood Count 4.47 M/uL (4.17-5.56) Mean Corpuscular Volume 81.9 fL (80.0-96.0) Mean Corpuscular Hemoglobin 27.4 pg (26.0-33.0) Mean Corpuscular Hemoglobin Concent 33.5 g/dL (32.0-36.0) Red Cell Distribution Width 17.5 % (11.5-14.5) Mean Platelet Volume 8.8 fL (7.2-11.1) Neutrophils (%) (Auto) 61.8 % (39.4-72.5) Lymphocytes (%) (Auto) 26.3 % (17.6-49.6) Monocytes (%) (Auto) 8.7 % (4.1-12.4) Eosinophils (%) (Auto) 2.7 % (0.4-6.7) Basophils (%) (Auto) 0.5 % (0.3-1.4) Nucleated RBC Relative Count (auto) 0.0 /100WBC Neutrophils # (Auto) 5.5 K/uL (2.0-7.4) Lymphocytes # (Auto) 2.3 K/uL (1.3-3.6) Monocytes # (Auto) 0.8 K/uL (0.3-1.0) Eosinophils # (Auto) 0.2 K/uL (0.0-0.5) Basophils # (Auto) 0.0 K/uL (0.0-0.1) Nucleated RBC Absolute Count (auto) 0.00 K/uL Erythrocyte Sedimentation Rate 27 mm/HOUR (0-20) D-Dimer Quantitative (PE/DVT) 0.48 ug/ml (0-0.50) Sodium Level 142 mmol/L (137-145) Potassium Level 3.6 mmol/L (3.5-5.0) Chloride Level 105 mmol/L (98-107) Carbon Dioxide Level 26 mmol/L (22-31) Blood Urea Nitrogen 12 mg/dl (7-18) Creatinine 1.10 mg/dl (0.52-1.04) Glomerular Filtration Rate Calc 53.2 Random Glucose 121 mg/dl (75-110) Calcium Level 8.9 mg/dl (8.4-10.2) Total Bilirubin 0.4 mg/dl (0.2-1.3) Aspartate Amino Transf (AST/SGOT) 18 U/L (0-35) Alanine Aminotransferase (ALT/SGPT) 31 U/L (0-56) Alkaline Phosphatase 92 U/L (0-126) Troponin I < 0.012 ng/ml C-Reactive Protein 0.7 mg/dl (<1.0) Total Protein 6.8 gm/dl (6.3-8.2) Albumin 3.7 g/dl (3.5-5.0) Chemistry Test 09/14/17 02:20 White Blood Count 8.9 k/uL (4.5-11.0) Red Blood Count 4.47 M/uL (4.17-5.56) Hemoglobin 12.3 g/dL (12.0-16.0) Hematocrit 36.6 % (34.0-47.0) Mean Corpuscular Volume 81.9 fL (80.0-96.0) Mean Corpuscular Hemoglobin 27.4 pg (26.0-33.0) Mean Corpuscular Hemoglobin Concent 33.5 g/dL (32.0-36.0) Red Cell Distribution Width 17.5 % (11.5-14.5) Platelet Count 186 K/uL (150-450) Mean Platelet Volume 8.8 fL (7.2-11.1) Neutrophils (%) (Auto) 61.8 % (39.4-72.5) Lymphocytes (%) (Auto) 26.3 % (17.6-49.6) Monocytes (%) (Auto) 8.7 % (4.1-12.4) Eosinophils (%) (Auto) 2.7 % (0.4-6.7) Basophils (%) (Auto) 0.5 % (0.3-1.4) Nucleated RBC Relative Count (auto) 0.0 /100WBC Neutrophils # (Auto) 5.5 K/uL (2.0-7.4) Lymphocytes # (Auto) 2.3 K/uL (1.3-3.6) Monocytes # (Auto) 0.8 K/uL (0.3-1.0) Eosinophils # (Auto) 0.2 K/uL (0.0-0.5) Basophils # (Auto) 0.0 K/uL (0.0-0.1) Nucleated RBC Absolute Count (auto) 0.00 K/uL Erythrocyte Sedimentation Rate 27 mm/HOUR (0-20) D-Dimer Quantitative (PE/DVT) 0.48 ug/ml (0-0.50) Glomerular Filtration Rate Calc 53.2 Calcium Level 8.9 mg/dl (8.4-10.2) Total Bilirubin 0.4 mg/dl (0.2-1.3) Aspartate Amino Transf (AST/SGOT) 18 U/L (0-35) Alanine Aminotransferase (ALT/SGPT) 31 U/L (0-56) Alkaline Phosphatase 92 U/L (0-126) Troponin I < 0.012 ng/ml C-Reactive Protein 0.7 mg/dl (<1.0) Total Protein 6.8 gm/dl (6.3-8.2) Albumin 3.7 g/dl (3.5-5.0) Coagulation Test 09/14/17 02:20 D-Dimer Quantitative (PE/DVT) 0.48 ug/ml EKG/Imaging EKG Interpretation 12 lead EKG: Rhythm: Sinus tachycardia, rate 102 [place]: normal QRS: normal ST segments: normal Imaging CHEST PA AND LAT HISTORY: Right shoulder and upper chest pain. COMPARISON: 08/17/2017 and studies dating to 12/19/2005. TECHNIQUE: PA and lateral views of the chest. FINDINGS: Pulmonary: Lungs are clear. There is no pneumothorax or pleural effusion. Cardiomediastinal: Cardiac and mediastinal silhouettes are within normal limits. Bones/soft tissues: No acute osseous abnormality. The visible abdomen is normal. IMPRESSION: 1. No acute cardiopulmonary process. Report Dictated By: Isis Trejo at 09/14/2017 2:54 AM ED Course/Re-evaluation Clinical Indication for ER IV: Hydration, IV Access ED Course Conservative management initially, IV started and pain medicines with Toradol 30 mg IV, Phenergan 12.5 mg IV, and oral dose of 5 mg of Valium were given. Patient had no relief in pain. On reevaluation, she is describing pain now in her chest. Because of these changes went ahead and did a further workup including EKG as noted above, chest x-ray, and labs. Also gave ketamine IV for pain. Seemed to improve, although still with pain. Recommended follow[facility] with [facility] today. Decision to Disposition Date: Sep 14, 2017 Decision to Disposition Time: 03:55 Depart Departure Latest Vital Signs Vital Signs Date Time Temp Pulse Resp B/P (MAP) Pulse Ox O2 Delivery O2 Flow Rate FiO2 09/14/17 05:15 91 148/92 (110) 89 09/14/17 02:50 Nasal Cannula 1 09/14/17 00:35 99.9 18 Core Temperature (Celsius): 36.73 Impression: Primary Impression: Right shoulder pain Condition: Improved Disposition: HOME OR SELF-CARE Referrals: POPPY SANCHEZ DNP, AOC DIRECTOR COMBAT PLANS OFFICER-BC (PCP) Patient Instructions: Rotator Cuff Injury (ED) Additional Instructions: Please continue to use your medicines given to you by your regular provider for your shoulder injury. Call and arrane follow-up with [facility] today. Problem Qualifiers Primary Impression: Right shoulder pain Chronicity: acute Qualified Codes: M25.511 - Pain in right shoulder KARMA MCCLENDON MD Sep 14, 2017 00:57
[2017-09-14] MEDS ORDERED: KETOROLAC 30 MG/ML VIAL IVP ONE (01:10)
[2017-09-14] MEDS ORDERED: DIAZEPAM 5 MG TAB PO ONE (01:10)
[2017-09-14] MEDS ORDERED: PROMETHAZINE 25 MG/ML 1 ML AMP IVP ONE (01:10)
[2017-09-14] MEDS ORDERED: KETAMINE HCL 500 MG/5 ML VIAL IVP ONE (02:10)
[2017-09-14 02:28] LABS: PLATELET COUNT, AUTOMATED 186 K/uL (150-450)
--- NOTE | 2017-09-14 02:36 | EKG ---
[facility] PATIENT NAME: DON LOUIS : [id number] MR: [id number] V: [id number] EXAM DATE: ORDERING PHYSICIAN: KARMA MCCLENDON TECHNOLOGIST: ROSALIND Test Reason : NECK PAIN Blood Pressure : / mmHG Vent. Rate : 102 BPM Atrial Rate : 102 BPM P-R Int : 126 ms QRS Dur : 084 ms QT Int : 350 ms P-R-T Axes : 028 049 053 degrees QTc Int : 456 ms Sinus tachycardia Otherwise normal ECG When compared with ECG of 17-AUG-2017 17:31, Previous ECG has undetermined rhythm, needs review Confirmed by ANDER CASTAÑEDA ([id number]) on 09/14/2017 6:39:09 AM Referred By: Confirmed By:ANDER CASTAÑEDA
--- NOTE | 2017-09-14 03:20 | RADIOLOGY IMAGING REPORT ---
FACILITY: [facility] PATIENT NAME: Yesy Mccracken : 1970 MR: [id number] V: [id number] EXAM DATE: ORDERING PHYSICIAN: KARMA MCCLENDON TECHNOLOGIST: Location: [facility] [place] Patient: Yesy Mccracken : 1970 Visit/Account:[id number] Date of Sevice: 09/14/2017 CHEST PA AND LAT HISTORY: Right shoulder and upper chest pain. COMPARISON: 08/17/2017 and studies dating to 12/19/2005. TECHNIQUE: PA and lateral views of the chest. FINDINGS: Pulmonary: Lungs are clear. There is no pneumothorax or pleural effusion. Cardiomediastinal: Cardiac and mediastinal silhouettes are within normal limits. Bones/soft tissues: No acute osseous abnormality. The visible abdomen is normal. IMPRESSION: 1. No acute cardiopulmonary process. Report Dictated By: Isis Trejo at 09/14/2017 2:54 AM Report E-Signed By: Isis Trejo at 09/14/2017 2:56 AM [id number]
[2017-09-14 05:15] VITALS: BP 148/92
== END 2017-09-14 05:42 | disposition home or self-care (01) ==
LOC: ER 00:44
DX: M25.511 Pain in right shoulder (principal); R07.89 Other chest pain
CPT/HCPCS: 71046; 84484; 85025; 85379; 85651; 86140; 93005; 96374; 96375; 99283; J1885; J2550; 82040; 82247; 82310; 82374; 82435; 82565; 82947; 84075; 84132; 84155; 84295; 84450; 84460; 84520

== ENCOUNTER 2017-09-30 01:36 | Emergency (ER) | payer MEDICAID ==
[2017-04-17 12:41] VITALS: Wt 85.7 kg
[~2017-09-30 01:36] MED LIST changes: -RANI-324 PO; +RANI-366 PO
--- NOTE | 2017-09-30 01:39 | ER Report ---
History and Physical Time Seen By MD: 01:39 HPI/ROS CHIEF COMPLAINT: cut left thumb HISTORY OF PRESENT ILLNESS: Awoke, hungry, making sandwich, cut thumb while cutting tomatoes. Small painful cut, bleeding edge of nail onto pad. Allergies: Coded Allergies: Nitrofurantoin Macrocrystal (Verified Allergy, Severe, HIVES, 09/30/17) aspirin (Verified Allergy, Severe, ANAPHYLAXIS, 09/30/17) chlorpromazine (Verified Allergy, Severe, ANAPHYLAXIS, 09/30/17) hydroxyzine (Verified Allergy, Severe, AIRWAY OBSTRUCTION, 09/30/17) varenicline (Verified Allergy, Severe, anxiety, 09/30/17) venom-wasp (Verified Allergy, Severe, ANAPHYLAXIS, 09/30/17) Sulfa (Sulfonamide Antibiotics) (Verified Allergy, Intermediate, HIVES, ) albuterol (Verified Allergy, Intermediate, itching, hives, 09/30/17) cephalexin (Verified Allergy, Intermediate, HIVES, 09/30/17) ciprofloxacin (Verified Allergy, Intermediate, "feels like I'm going inasne", 09/30/17) droperidol (Verified Allergy, Intermediate, DELUSIONS, 09/30/17) Pt states her reaction as, "I become psychotic". latex (Verified Allergy, Intermediate, RASH, SWELLING, 09/30/17) ondansetron (Verified Adverse Reaction, Severe, TACHYCARDIA, 09/30/17) dexamethasone (Verified Adverse Reaction, Intermediate, ITCHING, 09/30/17) haloperidol (Verified Adverse Reaction, Intermediate, "MAKES ME JUMPY", ) Uncoded Allergies: Inhaled medication propelant (Allergy, Intermediate, HIVES, 10/07/14) Home Meds Active Scripts Pregabalin (LYRICA) 150 Mg Capsule, 1 TAB PO BID, #60 CAPSULE 0 Refills Prov:POPPY SANCHEZ DNP, FNP-BC 09/28/17 Sumatriptan Succinate (SUMATRIPTAN SUCCINATE) 100 Mg Tablet, 1 TAB PO QDAY Y for MIGRAINE, #9 TAB 6 Refills Prov:POPPY SANCHEZ DNP, FNP-BC 09/08/17 Oxycodone Hcl/Acetaminophen (PERCOCET 5-325 MG TABLET) 1 Each Tablet, 1-2 TAB PO Q6-8H Y for PAIN, #15 TAB 0 Refills Prov:POPPY SANCHEZ DNP [facility] 09/07/17 Lisinopril (LISINOPRIL) 40 Mg Tablet, 1 TAB PO QDAY for 90 Days, #90 TAB 1 Refill Prov:POPPY SANCHEZ DNP [facility] 09/07/17 Atorvastatin (LIPITOR) 80 Mg Tab, 1 TAB PO QDAY for 90 Days, #90 TAB 1 Refill Prov:POPPY SANCHEZ DNP [facility] 09/07/17 Sumatriptan Succinate (SUMATRIPTAN SUCCINATE) 6 Mg/0.5 Ml Pen.injctr, 6 MG SQ ONCE Y for MIGRAINE, #1 BOX 6 Refills May repeat dose x1 after 1 hour, if needed. Do not exceed maximum of 12mg/24h. Prov:POPPY SANCHEZ DNP [facility] 09/07/17 Levothyroxine Sodium (LEVOTHYROXINE SODIUM) 50 Mcg Tablet, 1 TAB PO QDAY, #90 TAB 1 Refill Take along with 200mcg tablet for a total of 250mcg daily. Prov:POPPY SANCHEZ DNP [facility] 09/07/17 Levothyroxine Sodium (LEVOTHYROXINE SODIUM) 200 Mcg Tablet, 200 MCG PO QDAY, # 90 TAB 1 Refill Take with 50mcg tablet for a total of 250mcg daily Prov:POPPY SANCHEZ DNP [facility] 09/07/17 Lidocaine (Lidocaine) 5 % Adh..patch, 1 ADH.PATCH TOP Q72H Y for prn, #5 PATCH 0 Refills Prov:SHI VARGAS [facility] 09/06/17 Esomeprazole Magnesium (NEXIUM) 40 Mg Capsule.dr, 1 CAP PO BID, #180 CAP 3 Refills Prov:POPPY SANCHEZ DNP [facility] 08/31/17 Insulin Lispro 100 Un/Ml Pen (HUMALOG 3 ML PEN) 100 Unit/1 Ml Insuln.pen, 5-8 UNIT SQ TID, #2 DIS.SYR 6 Refills Take per sliding scale. Prov:POPPY SANCHEZ DNP [facility] 08/19/17 Insulin Glargine 100 Un/Ml Pen (LANTUS SOLOSTAR PEN) 100 Unit/1 Ml Insuln.pen, 35 UNIT SUBQ BID, #1 BOX 3 Refills Prov:POPPY SANCHEZ DNP, FNP- 08/19/17 Adamant, Insulin Disposable (PEN NEEDLES) 1 Each Dis.needle, BOX MC QDAY, #1 9 Refills Prov:POPPY SANCHEZ DNP, FNP-BC 08/11/17 Blood-Glucose Meter (FREESTYLE LITE METER) 1 Each Kit, 1 [facility] ONCE, #1 Prov:POPPY SANCHEZ DNP, FNP-BC 08/11/17 Baclofen (BACLOFEN) 10 Mg Tablet, 1 TAB PO TID Y for MUSCLE SPASMS, #90 TAB 2 Refills Prov:POPPY SANCHEZ DNP, FNP- 08/07/17 Ranitidine Hcl (RANITIDINE HCL) 150 Mg Capsule, 1 TAB PO BID, #180 CAPSULE 3 Refills Prov:POPPY SANCHEZ DNP, FNP- 05/29/17 Buspirone Hcl (BUSPIRONE HCL) 7.5 Mg Tablet, 30 MG PO BID, #60 TAB Prov:EVELINA MONSIVAIS MD 03/14/17 Albuterol Sulfate 0.083% (ALBUTEROL SULFATE 0.083%) 2.5 Mg/3 Ml Vial.neb, 2.5 MG INH Q4H Y for WHEEZING, #1 BOX 0 Refills Prov:HILDA THORNE MD 02/22/17 Epinephrine (EPIPEN 2-TUCKER) 0.3 Mg/0.3 Ml Pen.injctr, 0.3 MG IM ONCE, #1 CART Prov:POPPY SANCHEZ DNP, FNP- 02/17/17 Diclofenac Sodium 1% Gel (VOLTAREN 1% GEL) 100 Gm Gel..gram., 1 DEMETRIS TOP QID Y for PAIN, #1 TUBE 0 Refills Prov:POPPY SANCHEZ DNP, FNP- 01/19/17 Reported Medications Meloxicam (MELOXICAM) 7.5 Mg Tablet, 7.5 MG PO BID 07/09/17 Aripiprazole (ABILIFY) 20 Mg Tablet, 20 MG PO QDAY, TAB 03/14/17 Prazosin Hcl (PRAZOSIN HCL) 2 Mg Capsule, 2 CAP PO QHS, CAPSULE 01/26/17 Zolpidem Tartrate (AMBIEN) 5 Mg Tablet, 1 TAB PO QHS, TAB 05/19/16 Reviewed Nurses Notes: Yes Hx Smoking: Yes Smoking Status: Former Smoker Exposure to Second Hand Smoke?: Yes Hx Substance Use Disorder: No ("Years ago") Hx Alcohol Use: No Constitutional Vital Sign - Last 24 Hours 09/30/17 01:42 Temp 97.9 Pulse 112 Resp 14 B/P (MAP) 134/82 Pulse Ox 91 O2 Delivery Room Air Physical Exam General: Alert, no acute distress. Skin: Small about 2-3mm shallow flap at side of thumb pad next to nail. Normal cap refill. Normal sensation. Normal motor. Medical Decision Making ED Course/Re-evaluation ED Course Procedure: Adhesive wound repair Verbal consent was obtained from the patient. The 2 mm laceration on the thumb will be repaired with Dermabond. The wound was scrubbed and explored. There were no deep structures involved. The tissue adhesive was applied and has closed the wound adequately. The procedure was performed by myself. The patient did request some lidocaine so about 0.5 cc of 1% lidocaine without epinephrine was used at the wound site Decision to Disposition Date: Sep 30, 2017 Decision to Disposition Time: 01:51 Depart Departure Latest Vital Signs Vital Signs Date Time Temp Pulse Resp B/P (MAP) Pulse Ox O2 Delivery O2 Flow Rate FiO2 09/30/17 01:42 97.9 112 14 134/82 91 Room Air Core Temperature (Celsius): 36.73 Impression: Primary Impression: Thumb laceration Condition: Improved Disposition: HOME OR SELF-CARE Referrals: POPPY SANCHEZ DNP, [employer] (PCP) Patient Instructions: Skin Adhesive Care (ED) Problem Qualifiers Primary Impression: Thumb laceration Encounter type: initial encounter Damage to nail status: without damage Foreign body presence: without foreign body Laterality: left Qualified Codes : S61.012A - Laceration without foreign body of left thumb without damage to nail, initial encounter KARMA MCCLENDON MD Sep 30, 2017 01:39
[2017-09-30 01:42] VITALS: BP 134/82
[2017-09-30] MEDS ORDERED: OCTYL CYANOACRYLATE 1 APP APPL TP ONE (01:45)
[2017-09-30] MEDS ORDERED: TRAM-420 PO (10:13)
== END 2017-09-30 01:56 | disposition home or self-care (01) ==
LOC: ER 01:42
DX: S61.012A Laceration without foreign body of left thumb without damage to nail, initial encounter (principal)
CPT/HCPCS: 99282

== ENCOUNTER 2017-10-03 19:45 | Emergency (ER) | payer MEDICAID ==
[2017-04-17 12:41] VITALS: Wt 96.2 kg
--- NOTE | 2017-10-03 19:47 | ER Report ---
History and Physical Time Seen By MD: 19:46 HPI/ROS CHIEF COMPLAINT: Left ear fluttering 2 days HISTORY OF PRESENT ILLNESS: 46-year-old female presents ambulatory to the ER complaining of cold symptoms for 3-4 days. She's been having fluttering and pain in her left ear. She notes popping and clicking.'s had no fever or chills. She notes no drainage from her ear. Patient notes radiation of the pain down her neck almost to her clavicle. REVIEW OF SYSTEMS: Respiratory: No cough, no dyspnea. Cardiovascular: No chest pain, no palpitations. Gastrointestinal: No vomiting, no abdominal pain. Musculoskeletal: No back pain. Allergies: Coded Allergies: Nitrofurantoin Macrocrystal (Verified Allergy, Severe, HIVES, 10/03/17) aspirin (Verified Allergy, Severe, ANAPHYLAXIS, 10/03/17) chlorpromazine (Verified Allergy, Severe, ANAPHYLAXIS, 10/03/17) hydroxyzine (Verified Allergy, Severe, AIRWAY OBSTRUCTION, 10/03/17) varenicline (Verified Allergy, Severe, anxiety, 10/03/17) venom-wasp (Verified Allergy, Severe, ANAPHYLAXIS, 10/03/17) Sulfa (Sulfonamide Antibiotics) (Verified Allergy, Intermediate, HIVES, ) albuterol (Verified Allergy, Intermediate, itching, hives, 10/03/17) cephalexin (Verified Allergy, Intermediate, HIVES, 10/03/17) ciprofloxacin (Verified Allergy, Intermediate, "feels like I'm going inasne", 10/03/17) droperidol (Verified Allergy, Intermediate, DELUSIONS, 10/03/17) Pt states her reaction as, "I become psychotic". latex (Verified Allergy, Intermediate, RASH, SWELLING, 10/03/17) ondansetron (Verified Adverse Reaction, Severe, TACHYCARDIA, 10/03/17) dexamethasone (Verified Adverse Reaction, Intermediate, ITCHING, 10/03/17) haloperidol (Verified Adverse Reaction, Intermediate, "MAKES ME JUMPY", ) Uncoded Allergies: Inhaled medication propelant (Allergy, Intermediate, HIVES, 10/07/14) Home Meds Active Scripts Tramadol Hcl (TRAMADOL HCL) 50 Mg Tablet, 1-2 TAB PO Q8H Y for PAIN, #10 TAB 0 Refills Prov:LAURA,POPPY A DNP, [facility] 09/30/17 Pregabalin (LYRICA) 150 Mg Capsule, 1 TAB PO BID, #60 CAPSULE 0 Refills Prov:POPPY SANCHEZ DNP [facility] 09/28/17 Sumatriptan Succinate (SUMATRIPTAN SUCCINATE) 100 Mg Tablet, 1 TAB PO QDAY Y for MIGRAINE, #9 TAB 6 Refills Prov:POPPY SANCHEZ DNP [facility] 09/08/17 Lisinopril (LISINOPRIL) 40 Mg Tablet, 1 TAB PO QDAY for 90 Days, #90 TAB 1 Refill Prov:POPPY SANCHEZ DNP, FNP- 09/07/17 Atorvastatin (LIPITOR) 80 Mg Tab, 1 TAB PO QDAY for 90 Days, #90 TAB 1 Refill Prov:POPPY SANCHEZ DNP, [facility] 09/07/17 Sumatriptan Succinate (SUMATRIPTAN SUCCINATE) 6 Mg/0.5 Ml Pen.injctr, 6 MG SQ ONCE Y for MIGRAINE, #1 BOX 6 Refills May repeat dose x1 after 1 hour, if needed. Do not exceed maximum of 12mg/24h. Prov:POPPY SANCHEZ DNP, FNP-BC 09/07/17 Levothyroxine Sodium (LEVOTHYROXINE SODIUM) 50 Mcg Tablet, 1 TAB PO QDAY, #90 TAB 1 Refill Take along with 200mcg tablet for a total of 250mcg daily. Prov:POPPY SANCHEZ DNP, FNP-BC 09/07/17 Levothyroxine Sodium (LEVOTHYROXINE SODIUM) 200 Mcg Tablet, 200 MCG PO QDAY, # 90 TAB 1 Refill Take with 50mcg tablet for a total of 250mcg daily Prov:POPPY SANCHEZ DNP [facility] 09/07/17 Lidocaine (Lidocaine) 5 % Adh..patch, 1 ADH.PATCH TOP Q72H Y for prn, #5 PATCH 0 Refills Prov:SHI VARGAS 09/06/17 Esomeprazole Magnesium (NEXIUM) 40 Mg Capsule.dr, 1 CAP PO BID, #180 CAP 3 Refills Prov:POPPY SANCHEZ DNP [facility] 08/31/17 Insulin Lispro 100 Un/Ml Pen (HUMALOG 3 ML PEN) 100 Unit/1 Ml Insuln.pen, 5-8 UNIT SQ TID, #2 DIS.SYR 6 Refills Take per sliding scale. Prov:POPPY SANCHEZ DNP, FNP-BC 08/19/17 Insulin Glargine 100 Un/Ml Pen (LANTUS SOLOSTAR PEN) 100 Unit/1 Ml Insuln.pen, 35 UNIT SUBQ BID, #1 BOX 3 Refills Prov:POPPY SANCHEZ DNP, FNP-BC 08/19/17 [place], Insulin Disposable (PEN NEEDLES) 1 Each Dis.needle, BOX MC QDAY, #1 9 Refills Prov:POPPY SANCHEZ DNP, FNP-BC 08/11/17 Blood-Glucose Meter (FREESTYLE LITE METER) 1 Each Kit, 1 [facility] MC ONCE, #1 Prov:POPPY SANCHEZ DNP, FNP-BC 08/11/17 Baclofen (BACLOFEN) 10 Mg Tablet, 1 TAB PO TID Y for MUSCLE SPASMS, #90 TAB 2 Refills Prov:POPPY SANCHEZ DNP, FNP-BC 08/07/17 Ranitidine Hcl (RANITIDINE HCL) 150 Mg Capsule, 1 TAB PO BID, #180 CAPSULE 3 Refills Prov:POPPY SANCHEZ DNP, FNP-BC 05/29/17 Buspirone Hcl (BUSPIRONE HCL) 7.5 Mg Tablet, 30 MG PO BID, #60 TAB Prov:EVELINA MONSIVAIS MD 03/14/17 Albuterol Sulfate 0.083% (ALBUTEROL SULFATE 0.083%) 2.5 Mg/3 Ml Vial.neb, 2.5 MG INH Q4H Y for WHEEZING, #1 BOX 0 Refills Prov:HILDA THORNE MD 02/22/17 Epinephrine (EPIPEN 2-TUCKER) 0.3 Mg/0.3 Ml Pen.injctr, 0.3 MG IM ONCE, #1 CART Prov:POPPY SANCHEZ DNP, FNP- 02/17/17 Diclofenac Sodium 1% Gel (VOLTAREN 1% GEL) 100 Gm Gel..gram., 1 DEMETRIS TOP QID Y for PAIN, #1 TUBE 0 Refills Prov:POPPY SANCHEZ DNP, [facility] 01/19/17 Reported Medications Meloxicam (MELOXICAM) 7.5 Mg Tablet, 7.5 MG PO BID 07/09/17 Aripiprazole (ABILIFY) 20 Mg Tablet, 20 MG PO QDAY, TAB 03/14/17 Prazosin Hcl (PRAZOSIN HCL) 2 Mg Capsule, 2 CAP PO QHS, CAPSULE 01/26/17 Zolpidem Tartrate (AMBIEN) 5 Mg Tablet, 1 TAB PO QHS, TAB 05/19/16 Discontinued Scripts Oxycodone Hcl/Acetaminophen (PERCOCET 5-325 MG TABLET) 1 Each Tablet, 1-2 TAB PO Q6-8H Y for PAIN, #15 TAB 0 Refills Prov:POPPY SANCHEZ DNP, [facility]- 09/07/17 Reviewed Nurses Notes: Yes Old Medical Records Reviewed: Yes Hx Smoking: Yes Smoking Status: Former Smoker Exposure to Second Hand Smoke?: Yes Hx Substance Use Disorder: No ("Years ago") Hx Alcohol Use: No Constitutional Vital Sign - Last 24 Hours 10/03/17 19:49 Temp 98.9 Pulse 108 Resp 16 B/P (MAP) 155/88 Pulse Ox 91 O2 Delivery Room Air Physical Exam General Appearance: The patient is alert, has no immediate need for airway protection and no current signs of toxicity. Vital signs stable, afebrile, pulse ox normal HEENT: Pupils equal and round no injection. TMs normal. The left TM shows healed perforation from the distant past. There is also a otosclerosis at the 9 o'clock position. There is no erythema, bulging or fluid noted. There is tenderness in the ear canal. On insertion of the speculum. There is no tenderness on palpation of the tragus. TMJs nontender bilaterally Respiratory: Chest is non tender, lungs are clear to auscultation. No wheezing or rails Cardiac: regular rate and rhythm Gastrointestinal: Abdomen is soft and non tender, no masses, bowel sounds normal. Musculoskeletal: Neck: Neck is supple and non tender. There is some fullness to the tissues on the left anterior cervical chain region. There are no discrete lymphadenopathy Extremities have full range of motion and are non tender. Skin: No rashes or lesions. DIFFERENTIAL DIAGNOSIS: After history and physical exam differential diagnosis was considered for otitis media otitis externa, TMJ disorder, dental pain, eustachian tube dysfunction Medical Decision Making ED Course/Re-evaluation ED Course Patient was admitted to an examination room. H&P was done. The differential diagnosis was considered. Patient with viral URI symptoms and now eustachian tube dysfunction from the description of her symptoms of fluttering. Patient's had no fever. Patient notes no drainage from her ears. She denies ear pain. On clinical examination. Patient has normal-appearing TM. Patient advised to conservative treatment plan for eustachian tube dysfunction. She is advised Mucinex D, Nasonex and ibuprofen for pain relief. Decision to Disposition Date: Oct 03, 2017 Decision to Disposition Time: 19:57 Depart Departure Latest Vital Signs Vital Signs Date Time Temp Pulse Resp B/P (MAP) Pulse Ox O2 Delivery O2 Flow Rate FiO2 10/03/17 19:49 98.9 108 16 155/88 91 Room Air Core Temperature (Celsius): 36.73 Impression: Primary Impression: Viral syndrome Additional Impression: Eustachian tube dysfunction Condition: Improved Disposition: HOME OR SELF-CARE Referrals: POPPY SANCHEZ DNP, [facility] [facility] (PCP) Patient Instructions: Eustachian Tube Dysfunction (GEN), Viral Syndrome (ED) Additional Instructions: Use Mucinex D twice daily to unclog your eustachian tube You can use Nasonex cortisone spray for your nose Continue to take ibuprofen and Tylenol as needed for pain relief Apply heating pad to the left side of her neck and ear You can use meclizine 25 mg 3 times daily for motion sickness or dizziness Follow-up with primary care if unimproved in 3-5 days Problem Qualifiers Additional Impression: Eustachian tube dysfunction Laterality: left Qualified Codes: H69.82 - Other specified disorders of eustachian tube, left ear RICARDO QUEZADA DO Oct 03, 2017 19:47
[2017-10-03 19:49] VITALS: BP 155/88
== END 2017-10-03 20:06 | disposition home or self-care (01) ==
LOC: ER 20:01
DX: B34.9 Viral infection, unspecified (principal); H69.92 Unspecified Eustachian tube disorder, left ear
CPT/HCPCS: 99282

== ENCOUNTER 2017-11-13 20:55 | Emergency (ER) | payer MEDICAID ==
[2017-04-17 12:41] VITALS: Wt 91.2 kg
[2017-11-13] MEDS ORDERED: LANI SUBQ (21:11)
--- NOTE | 2017-11-13 21:33 | ER Report ---
History and Physical Time Seen By MD: 21:32 Hx. of Stated Complaint: Pt is reporting severe bilateral lower back pain after twisting to plate eggs while cooking dinner. Pt does report a fall in her garden earlier today but onset of pain does not coorelate with this fall according to patient. HPI/ROS CHIEF COMPLAINT: BACK PAIN HISTORY OF PRESENT ILLNESS: Pt today at 430pm tripped on a beam in her lawn and twisted her back. Did not hit her head. Pt felt okay after it happened but then when making dinner and plating she twisted and had immediate pain in her lower back. Now has some radiation down the back of her legs to her knees. Pt is unable to get comfortable. Pt states that since she has been lying on the stretcher her r shoulder has also been hurting her. Pt states that it feels like musclespasms. Pt has not taken any medication at home for the pain. Did take her molaxicam at 3pm.PT has no problem with bowel or bladder. REVIEW OF SYSTEMS: Constitutional: No fever, no chills. Eyes: No discharge. ENT: No sore throat. Cardiovascular: No chest pain, no palpitations. Respiratory: No cough, no shortness of breath. Gastrointestinal: No abdominal pain, no vomiting. Genitourinary: No hematuria. Musculoskeletal: + back pain, + shoulder pain Skin: No rashes. Neurological: No headache. Allergies: Coded Allergies: Nitrofurantoin Macrocrystal (Verified Allergy, Severe, HIVES, 10/03/17) aspirin (Verified Allergy, Severe, ANAPHYLAXIS, 10/03/17) chlorpromazine (Verified Allergy, Severe, ANAPHYLAXIS, 10/03/17) hydroxyzine (Verified Allergy, Severe, AIRWAY OBSTRUCTION, 10/03/17) varenicline (Verified Allergy, Severe, anxiety, 10/03/17) venom-wasp (Verified Allergy, Severe, ANAPHYLAXIS, 10/03/17) Sulfa (Sulfonamide Antibiotics) (Verified Allergy, Intermediate, HIVES, ) albuterol (Verified Allergy, Intermediate, itching, hives, 10/03/17) cephalexin (Verified Allergy, Intermediate, HIVES, 10/03/17) ciprofloxacin (Verified Allergy, Intermediate, "feels like I'm going inasne", 10/03/17) droperidol (Verified Allergy, Intermediate, DELUSIONS, 10/03/17) Pt states her reaction as, "I become psychotic". latex (Verified Allergy, Intermediate, RASH, SWELLING, 10/03/17) ondansetron (Verified Adverse Reaction, Severe, TACHYCARDIA, 10/03/17) dexamethasone (Verified Adverse Reaction, Intermediate, ITCHING, 10/03/17) haloperidol (Verified Adverse Reaction, Intermediate, "MAKES ME JUMPY", ) Uncoded Allergies: Inhaled medication propelant (Allergy, Intermediate, HIVES, 10/07/14) Home Meds Active Scripts Methocarbamol (ROBAXIN-750) 750 Mg Tablet, 1500 MG PO Q6-8H Y for MUSCLE SPASMS , #21 TAB Prov:EDWARD SCHMIDT DO 11/13/17 Pregabalin (LYRICA) 150 Mg Capsule, 1 TAB PO BID, #60 CAPSULE 0 Refills Prov:POPPY SANCHEZ DNP, FNP-BC 10/20/17 Lidocaine (Lidocaine) 5 % Adh..patch, 1 ADH.PATCH TOP Q72H Y for prn, #5 PATCH 1 Refill Prov:POPPY SANCHEZ DNP, FNP-BC 10/14/17 [place], Insulin Disposable (PEN NEEDLES) 1 Each Dis.needle, BOX MC QDAY, #1 9 Refills Prov:POPPY SANCHEZ DNP, FNP-YVETTE 10/14/17 Baclofen (BACLOFEN) 10 Mg Tablet, 1 TAB PO TID Y for MUSCLE SPASMS, #90 TAB 5 Refills Prov:POPPY SANCHEZ DNP, FNP-YVETTE 10/14/17 Ranitidine Hcl (RANITIDINE HCL) 150 Mg Capsule, 1 TAB PO BID, #180 CAPSULE 3 Refills Prov:POPPY SANCHEZ DNP, FNP-BC 10/14/17 Epinephrine (EPIPEN 2-TUCKER) 0.3 Mg/0.3 Ml Pen.injctr, 0.3 MG IM ONCE, #1 CART Prov:POPPY SANCHEZ DNP, FNP-BC 10/14/17 Sumatriptan Succinate (SUMATRIPTAN SUCCINATE) 100 Mg Tablet, 1 TAB PO QDAY Y for MIGRAINE, #9 TAB 6 Refills Prov:POPPY SANCHEZ DNP, FNP-BC 09/08/17 Lisinopril (LISINOPRIL) 40 Mg Tablet, 1 TAB PO QDAY for 90 Days, #90 TAB 1 Refill Prov:POPPY SANCHEZ DNP, FNP-BC 09/07/17 Atorvastatin (LIPITOR) 80 Mg Tab, 1 TAB PO QDAY for 90 Days, #90 TAB 1 Refill Prov:POPPY SANCHEZ DNP, FNP-BC 09/07/17 Sumatriptan Succinate (SUMATRIPTAN SUCCINATE) 6 Mg/0.5 Ml Pen.injctr, 6 MG SQ ONCE Y for MIGRAINE, #1 BOX 6 Refills May repeat dose x1 after 1 hour, if needed. Do not exceed maximum of 12mg/24h. Prov:POPPY SANCHEZ DNP, FNP-BC 09/07/17 Levothyroxine Sodium (LEVOTHYROXINE SODIUM) 50 Mcg Tablet, 1 TAB PO QDAY, #90 TAB 1 Refill Take along with 200mcg tablet for a total of 250mcg daily. Prov:POPPY SANCHEZ DNP, FNP-BC 09/07/17 Levothyroxine Sodium (LEVOTHYROXINE SODIUM) 200 Mcg Tablet, 200 MCG PO QDAY, # 90 TAB 1 Refill Take with 50mcg tablet for a total of 250mcg daily Prov:POPPY SANCHEZ DNP, FNP-BC 09/07/17 Esomeprazole Magnesium (NEXIUM) 40 Mg Capsule.dr, 1 CAP PO BID, #180 CAP 3 Refills Prov:POPPY SANCHEZ DNP, FNP-BC 08/31/17 Insulin Lispro 100 Un/Ml Pen (HUMALOG 3 ML PEN) 100 Unit/1 Ml Insuln.pen, 5-8 UNIT SQ TID, #2 DIS.SYR 6 Refills Take per sliding scale. Prov:POPPY SANCHEZ DNP, FNP-BC 08/19/17 Blood-Glucose Meter (FREESTYLE LITE METER) 1 Each Kit, 1 [facility] ONCE, #1 Prov:POPPY SANCHEZ DNP, FNP-BC 08/11/17 Buspirone Hcl (BUSPIRONE HCL) 7.5 Mg Tablet, 30 MG PO BID, #60 TAB Prov:EVELINA MONSIVAIS MD 03/14/17 Albuterol Sulfate 0.083% (ALBUTEROL SULFATE 0.083%) 2.5 Mg/3 Ml Vial.neb, 2.5 MG INH Q4H Y for WHEEZING, #1 BOX 0 Refills Prov:HILDA THORNE MD 02/22/17 Diclofenac Sodium 1% Gel (VOLTAREN 1% GEL) 100 Gm Gel..gram., 1 DEMETRIS TOP QID Y for PAIN, #1 TUBE 0 Refills Prov:POPPY SANCHEZ DNP, [facility] 01/19/17 Reported Medications Insulin Glargine (LANTUS) 100 Unit/Ml Soln, 65 UNIT SUBQ BID, ML 11/13/17 Meloxicam (MELOXICAM) 7.5 Mg Tablet, 7.5 MG PO BID 07/09/17 Aripiprazole (ABILIFY) 20 Mg Tablet, 20 MG PO QDAY, TAB 03/14/17 Prazosin Hcl (PRAZOSIN HCL) 2 Mg Capsule, 2 CAP PO QHS, CAPSULE 01/26/17 Zolpidem Tartrate (AMBIEN) 5 Mg Tablet, 1 TAB PO QHS, TAB 05/19/16 Discontinued Scripts Insulin Glargine 100 Un/Ml Pen (LANTUS SOLOSTAR PEN) 100 Unit/1 Ml Insuln.pen, 35 UNIT SUBQ BID, #1 BOX 3 Refills Prov:POPPY SANCHEZ DNP, [employer] [facility] 10/14/17 Tramadol Hcl (TRAMADOL HCL) 50 Mg Tablet, 1-2 TAB PO Q8H Y for PAIN, #10 TAB 0 Refills Prov:POPPY SANCHEZ DNP, [facility] 09/30/17 Past Medical/Surgical History Pmhx: colitis, hyperlipid, htn, mi, asthma, pud, kidney stones, carpel tunnel, suicide attempts, depresion, bipolar, anxiety, carpal tunnel Pshx: TA, appy, hernia repair, hyster, tubal, carpal tunnel release, thyroidectomy, total r knee Reviewed Nurses Notes: Yes Old Medical Records Reviewed: Yes Hx Smoking: Yes Smoking Status: Former Smoker Exposure to Second Hand Smoke?: Yes Hx Substance Use Disorder: No ("Years ago") Hx Alcohol Use: No Constitutional Vital Sign - Last 24 Hours 11/13/17 11/13/17 11/13/1718 21:03 21:04 21:10 21:11 Temp 98.1 Pulse 99 96 Resp 16 B/P (MAP) 142/93 (109) 142/93 142/87 (105) Pulse Ox 91 90 O2 Delivery Room Air 11/13/17 11/13/17 11/13/17 11/13/17 21:20 21:25 21:40 21:54 Pulse 91 93 B/P (MAP) 138/88 (105) 153/89 (110) Pulse Ox 87 88 O2 Flow Rate 1.0 11/13/17 11/13/17 11/13/17 11/13/17 21:55 22:00 22:05 22:34 Pulse 92 86 B/P (MAP) 139/97 (111) 157/101 (119) Pulse Ox 91 94 11/13/17 11/13/17 11/13/17 11/13/17 22:35 22:40 22:45 23:00 Pulse 92 88 89 90 B/P (MAP) 144/85 (104) 148/94 (112) Pulse Ox 93 89 90 11/13/17 11/13/17 11/13/17 11/13/17 23:15 23:20 23:27 23:30 Pulse 91 88 B/P (MAP) 152/93 (112) 138/69 (92) 118/71 (87) Pulse Ox 89 89 11/13/17 11/13/17 11/13/17 23:35 23:45 23:50 Pulse 88 92 B/P (MAP) 135/75 (95) Pulse Ox 90 87 Physical Exam General Appearance: The patient is alert, has no immediate need for airway protection and no signs of toxicity. Eyes: Pupils equal and round no pallor or injection, EOMI ENT: no pharyngeal erythema or exudates, Mucous membranes are moist Respiratory: There are no retractions, lungs are clear to auscultation. Cardiovascular: Regular rate and rhythm. pulses are equal and symmetrical Gastrointestinal: Abdomen is soft and non tender, no masses, bowel sounds normal, no guarding, no rigidity or rebound Neurological: Cranial nerves II-XII grossly intact, no sensory or motor loss Skin: Warm and dry, no rashes. Musculoskeletal: Neck is supple non tender, no vertebral step offs; + paravertebral tenderness T11-L4 + tenderness over ac joint and humeral head on right, no deformity noted on upper or lower extremities. Pt does c/o of pain in back with elevation of b/l lower extremities Reflexes 2/4 upper and lower DIFFERENTIAL DIAGNOSIS: After history and physical exam differential diagnosis was considered for muscleskeletal contusion, muscle spasms, lumbar radiculopathy , herniated disc, ac sepration, anxiety Medical Decision Making EKG/Imaging Imaging no acute fx noted ED Course/Re-evaluation ED Course 11/13/2017 11:14:49 pm Pt still in pain after the musclerelaxant and toradol. Pt states she got ketamine last time for pain and it helped. reviewing prior dosages she received a total fo 50mg IM last time with good effect. Will monitor and then d/c with muscle relaxant. 11/14/2017 12:15:40 am PT was asking to go home however I was with a trauma transfer patient. Pt was d/c nurses per her request prior to my reevaluation after the ketamine. 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 Decision to Disposition Date: Nov 13, 2017 Decision to Disposition Time: 00:05 Depart Departure Latest Vital Signs Vital Signs Date Time Temp Pulse Resp B/P (MAP) Pulse Ox O2 Delivery O2 Flow Rate FiO2 11/13/17 23:50 92 87 11/13/17 23:45 135/75 (95) 11/13/17 21:54 1.0 11/13/17 21:04 98.1 16 Room Air Core Temperature (Celsius): 36.73 Impression: Primary Impression: Lumbar radiculopathy, acute Additional Impression: Muscle spasm Condition: Improved Disposition: HOME OR SELF-CARE Referrals: POPPY SANCHEZ DNP, [facility] (PCP) [facility] 2 Days New Scripts Methocarbamol (ROBAXIN-750) 750 Mg Tablet 1500 MG PO Q6-8H Y for MUSCLE SPASMS, #21 TAB Prov: EDWARD SCHMIDT DO 11/13/17 Patient Instructions: Back Pain (GEN), Lumbar Radiculopathy (GEN) Additional Instructions: Continue your current medications. Robaxin 1500mg every 8 hours as needed for muscle spasms. Follow up with Orthopedics if not improving. Problem Qualifiers EDWARD SCHMIDT DO Nov 13, 2017 21:33
[2017-11-13] MEDS ORDERED: ORPHENADRINE 60MG/2ML INJ IM ONE (21:40)
[2017-11-13] MEDS ORDERED: KETOROLAC 60 MG/2 ML VIAL IM ONE (21:45)
--- NOTE | 2017-11-13 22:59 | RADIOLOGY IMAGING REPORT ---
FACILITY: [facility] [place] PATIENT NAME: Yesy Mccracken : 1970 MR: [id number] V: [id number] EXAM DATE: ORDERING PHYSICIAN: EDWARD SCHMIDT TECHNOLOGIST: Location: [facility] Patient: Yesy Mccracken : 1970 Visit/Account:[id number] Date of Sevice: 11/13/2017 SHOULDER MIN 2 VIEWS RIGHT HISTORY: Fell on lawn this afternoon. Now with pain. COMPARISON: 09/06/2017 and studies dating to 03/15/2014. TECHNIQUE: AP internal and scapular Y views of the right shoulder. FINDINGS: There is no fracture or dislocation. There is narrowing of the acromioclavicular joint, com patible with degenerative changes. The visible right thorax is normal. IMPRESSION: 1. No acute osseous abnormality of the right shoulder. Report Dictated By: Isis Trejo at 11/13/2017 10:52 PM Report E-Signed By: Isis Trejo at 11/13/2017 10:55 PM WSN:[id number]
--- NOTE | 2017-11-13 23:01 | RADIOLOGY IMAGING REPORT ---
FACILITY: [facility] PATIENT NAME: Yesy Mccracken : 1970 MR: [id number] V: [id number] EXAM DATE: ORDERING PHYSICIAN: EDWARD SCHMIDT TECHNOLOGIST: Location: [facility] [place] Patient: Yesy Mccracken : 1970 Visit/Account:[id number] Date of Sevice: 11/13/2017 THORACIC SPINE 3 VIEWS HISTORY: Fell on lawn this afternoon. Now with pain. COMPARISON: No prior thoracic spine x-rays. Most recent chest x-rays 09/14/2017 and studies dating to . TECHNIQUE: AP and lateral views of the thoracic spine. FINDINGS: There is no fracture or dislocation. There is mild wedging of T7, unchanged. The remainder of the vertebral body heights are maintained. There is mild degenerative disc disease, unchanged. IMPRESSION: 1. No acute osseous abnormality of the thoracic spine. Report Dictated By: Isis Trejo at 11/13/2017 10:55 PM Report E-Signed By: Isis Trejo at 11/13/2017 10:57 PM WSN:[id number]
--- NOTE | 2017-11-13 23:03 | RADIOLOGY IMAGING REPORT ---
FACILITY: [facility] [place] PATIENT NAME: Yesy Mccracken : 1970 MR: [id number] V: [id number] EXAM DATE: ORDERING PHYSICIAN: EDWARD SCHMIDT TECHNOLOGIST: Location: [facility] - [place], [place] Patient: Yesy Mccracken : 1970 Visit/Account:[id number] Date of Sevice: 11/13/2017 LUMBAR SPINE 2 OR 3 VIEW HISTORY: Fell on lawn this afternoon. Now with pain. COMPARISON: 10/25/2016 and studies dating to 12/12/2014. TECHNIQUE: AP, lateral, and coned lateral views of the lumbar spine. FINDINGS: There are 5 nonrib-bearing lumbar type vertebral bodies. Vertebral body heights are maintai chery. There is 1-2 mm anterolisthesis of L4 on L5, unchanged. There is mild to moderate degenerative f acet disease of the lower lumbar spine, unchanged. The sacroiliac joints are patent without widening. There is no pubic diastases. There are mild vascular calcifications. IMPRESSION: 1. Stable appearance of the lumbar spine without acute osseous abnormality. Report Dictated By: Isis Trejo at 11/13/2017 10:57 PM Report E-Signed By: Isis Trejo at 11/13/2017 11:00 PM WSN:[id number]
[2017-11-13] MEDS ORDERED: KETAMINE HCL 500 MG/5 ML VIAL IM ONE (23:15)
[2017-11-13] MEDS ORDERED: METH-543 PO (23:44)
[2017-11-14] VITALS: BP 140/80
== END 2017-11-14 00:18 | disposition home or self-care (01) ==
LOC: ER 21:11
DX: M54.16 Radiculopathy, lumbar region (principal); M62.830 Muscle spasm of back
CPT/HCPCS: 72072; 72100; 73030; 96372; 99284; J1885; J2360

== ENCOUNTER → 2017-12-11 | Outpatient (CLI) | payer MEDICAID ==
[2017-04-17 12:41] VITALS: BMI 34.0
== END ==
LOC: LAB 08:14
PROVIDERS: ATTEND Nurse Practitioner Primary Care
DX: E78.00 Pure hypercholesterolemia, unspecified (principal); E03.9 Hypothyroidism, unspecified
CPT/HCPCS: 36415; 82040; 82247; 82310; 82374; 82435; 82465; 82565; 82947; 83036; 83718; 84075; 84132; 84155; 84295; 84443; 84450; 84460; 84478; 84520

== ENCOUNTER 2018-01-03 11:31 | Emergency (ER) | payer MEDICAID ==
[2017-04-17 12:41] VITALS: Wt 85.7 kg
[~2018-01-03 11:31] MED LIST changes: +IBUP-136 PO; -IBUP200C71 PO; -TRAZ-156 PO; +TRAZ50TA34 PO; +[UNRECOGNIZED DRUG - CODE]; -[UNRECOGNIZED DRUG - CODE]
--- NOTE | 2018-01-03 11:55 | ER Report ---
History and Physical Time Seen By MD: 11:39 Hx. of Stated Complaint: PT STATES THAT SHE LANDED ON HER LEFT ANKLE AND IT "POPPED" AND MOVED IN [place] HPI/ROS CHIEF COMPLAINT: Left ankle pain HISTORY OF PRESENT ILLNESS: Patient presents to the emergency department with her for left ankle pain. Patient states that about 45 minutes to an hour prior to arrival she was at latter-day and twisted her left ankle, heard a "pop " develop some swelling and pain. Patient states it's painful to ambulate. There is a small amount of swelling noted to the left lateral and medial malleolus. CMS intact distal to the injury. No other injuries, no falls, no chest pain or shortness of breath. REVIEW OF SYSTEMS: Respiratory: No cough, no dyspnea. Cardiovascular: No chest pain, no palpitations. Gastrointestinal: No vomiting, no abdominal pain. Musculoskeletal: As above. Allergies: Coded Allergies: Nitrofurantoin Macrocrystal (Verified Allergy, Severe, HIVES, 10/03/17) aspirin (Verified Allergy, Severe, ANAPHYLAXIS, 10/03/17) chlorpromazine (Verified Allergy, Severe, ANAPHYLAXIS, 10/03/17) hydroxyzine (Verified Allergy, Severe, AIRWAY OBSTRUCTION, 10/03/17) varenicline (Verified Allergy, Severe, anxiety, 10/03/17) venom-wasp (Verified Allergy, Severe, ANAPHYLAXIS, 10/03/17) Sulfa (Sulfonamide Antibiotics) (Verified Allergy, Intermediate, HIVES, ) albuterol (Verified Allergy, Intermediate, itching, hives, 10/03/17) cephalexin (Verified Allergy, Intermediate, HIVES, 10/03/17) ciprofloxacin (Verified Allergy, Intermediate, "feels like I'm going inasne", 10/03/17) droperidol (Verified Allergy, Intermediate, DELUSIONS, 10/03/17) Pt states her reaction as, "I become psychotic". latex (Verified Allergy, Intermediate, RASH, SWELLING, 10/03/17) ondansetron (Verified Adverse Reaction, Severe, TACHYCARDIA, 10/03/17) dexamethasone (Verified Adverse Reaction, Intermediate, ITCHING, 10/03/17) haloperidol (Verified Adverse Reaction, Intermediate, "MAKES ME JUMPY", ) Uncoded Allergies: Inhaled medication propelant (Allergy, Intermediate, HIVES, 10/07/14) Home Meds Active Scripts Promethazine Hcl (PROMETHAZINE HCL) 25 Mg Tablet, 25 MG PO Q8H, #8 TAB 0 Refills Prov:ALICIACORAZONSHI L [facility] 01/03/18 Metaxalone (SKELAXIN) 800 Mg Tablet, 800 MG PO TID, #12 TAB 0 Refills Prov:SHI VARGAS [facility] 01/03/18 Pregabalin (LYRICA) 150 Mg Capsule, 1 TAB PO BID, #60 CAPSULE 0 Refills Prov:POPPY SANCHEZ DNP [facility]- 12/25/17 Sumatriptan Succinate (SUMATRIPTAN SUCCINATE) 100 Mg Tablet, 1 TAB PO QDAY Y for MIGRAINE, #9 TAB 6 Refills Prov:POPPY SANCHEZ DNP [facility]- 12/15/17 Sumatriptan Succinate (SUMATRIPTAN SUCCINATE) 6 Mg/0.5 Ml Pen.injctr, 6 MG SQ ONCE Y for MIGRAINE, #1 BOX 6 Refills May repeat dose x1 after 1 hour, if needed. Do not exceed maximum of 12mg/24h. Prov:POPPY SANCHEZ DNP [facility]- 12/15/17 Methocarbamol (ROBAXIN-750) 750 Mg Tablet, 1500 MG PO Q6-8H Y for MUSCLE SPASMS , #21 TAB Prov:EDWARD SCHMIDT DO 11/13/17 Lidocaine (Lidocaine) 5 % Adh..patch, 1 ADH.PATCH TOP Q72H Y for prn, #5 PATCH 1 Refill Prov:POPPY SANCHEZ DNP [facility]- 10/14/17 [place], Insulin Disposable (PEN NEEDLES) 1 Each Dis.needle, BOX MC QDAY, #1 9 Refills Prov:POPPY SANCHEZ DNP [employer]CTURE SPECIALIST-BC 10/14/17 Baclofen (BACLOFEN) 10 Mg Tablet, 1 TAB PO TID Y for MUSCLE SPASMS, #90 TAB 5 Refills Prov:POPPY SANCHEZ DNP [facility]- 10/14/17 Ranitidine Hcl (RANITIDINE HCL) 150 Mg Capsule, 1 TAB PO BID, #180 CAPSULE 3 Refills Prov:POPPY SANCHEZ DNP [facility] 10/14/17 Epinephrine (EPIPEN 2-TUCKER) 0.3 Mg/0.3 Ml Pen.injctr, 0.3 MG IM ONCE, #1 CART Prov:POPPY SANCHEZ DNP, FNP-BC 10/14/17 Lisinopril (LISINOPRIL) 40 Mg Tablet, 1 TAB PO QDAY for 90 Days, #90 TAB 1 Refill Prov:POPPY SANCHEZ DNP, FNP-BC 09/07/17 Atorvastatin (LIPITOR) 80 Mg Tab, 1 TAB PO QDAY for 90 Days, #90 TAB 1 Refill Prov:POPPY SANCHEZ DNP, FNP-BC 09/07/17 Levothyroxine Sodium (LEVOTHYROXINE SODIUM) 50 Mcg Tablet, 1 TAB PO QDAY, #90 TAB 1 Refill Take along with 200mcg tablet for a total of 250mcg daily. Prov:POPPY SANCHEZ DNP, FNP-BC 09/07/17 Levothyroxine Sodium (LEVOTHYROXINE SODIUM) 200 Mcg Tablet, 200 MCG PO QDAY, # 90 TAB 1 Refill Take with 50mcg tablet for a total of 250mcg daily Prov:POPPY SANCHEZ DNP, FNP-BC 09/07/17 Esomeprazole Magnesium (NEXIUM) 40 Mg Capsule.dr, 1 CAP PO BID, #180 CAP 3 Refills Prov:POPPY SANCHEZ DNP, FNP-BC 08/31/17 Insulin Lispro 100 Un/Ml Pen (HUMALOG 3 ML PEN) 100 Unit/1 Ml Insuln.pen, 5-8 UNIT SQ TID, #2 DIS.SYR 6 Refills Take per sliding scale. Prov:POPPY SANCHEZ DNP, FNP-BC 08/19/17 Blood-Glucose Meter (FREESTYLE LITE METER) 1 Each Kit, 1 [facility] ONCE, #1 Prov:POPPY SANCHEZ DNP, FNP-BC 08/11/17 Buspirone Hcl (BUSPIRONE HCL) 7.5 Mg Tablet, 30 MG PO BID, #60 TAB Prov:EVELINA MONSIVAIS MD 03/14/17 Albuterol Sulfate 0.083% (ALBUTEROL SULFATE 0.083%) 2.5 Mg/3 Ml Vial.neb, 2.5 MG INH Q4H Y for WHEEZING, #1 BOX 0 Refills Prov:HILDA THORNE MD 02/22/17 Diclofenac Sodium 1% Gel (VOLTAREN 1% GEL) 100 Gm Gel..gram., 1 DEMETRIS TOP QID Y for PAIN, #1 TUBE 0 Refills Prov:POPPY SANCHEZ DNP, IT [employer]STRUCTURE SPECIALIST-BC 01/19/17 Reported Medications Insulin Glargine (LANTUS) 100 Unit/Ml Soln, 65 UNIT SUBQ BID, ML 11/13/17 Meloxicam (MELOXICAM) 7.5 Mg Tablet, 7.5 MG PO BID 07/09/17 Aripiprazole (ABILIFY) 20 Mg Tablet, 20 MG PO QDAY, TAB 03/14/17 Prazosin Hcl (PRAZOSIN HCL) 2 Mg Capsule, 2 CAP PO QHS, CAPSULE 01/26/17 Zolpidem Tartrate (AMBIEN) 5 Mg Tablet, 1 TAB PO QHS, TAB 05/19/16 Hx Smoking: Yes Smoking Status: Former Smoker Exposure to Second Hand Smoke?: Yes Hx Substance Use Disorder: No ("Years ago") Hx Alcohol Use: No Constitutional Vital Sign - Last 24 Hours 01/03/18 01/03/18 01/03/18 01/03/18 11:37 11:37 12:00 12:01 Temp 98.2 Pulse 103 100 Resp 18 B/P (MAP) 126/88 126/88 (101) 114/92 (99) Pulse Ox 90 92 O2 Delivery Room Air 01/03/18 01/03/18 12:30 12:31 Pulse 99 B/P (MAP) 136/88 (104) Pulse Ox 90 Physical Exam General Appearance: The patient is alert, has no immediate need for airway protection and no current signs of toxicity. Eyes: Pupils equal and round no injection. Respiratory: Chest is non tender, lungs are clear to auscultation. Cardiac: regular rate and rhythm. Gastrointestinal: Abdomen is soft and non tender, no masses, bowel sounds normal. Musculoskeletal: Neck: Neck is supple and non tender. Extremities pain to the left lateral and medial malleolus. Small amount of swelling to the lateral and medial malleolus. No crepitus, no obvious deformities, no step-offs. CMS intact distal to the injury. Skin: No rashes or lesions. [ ] DIFFERENTIAL DIAGNOSIS: After history and physical exam differential diagnosis was considered for ankle sprain, ankle strain, ankle fracture and hardware failure. Medical Decision Making EKG/Imaging Imaging Location: [facility] Patient: Yesy Mccracken : 1970 Visit/Account:[id number] Date of Sevice: 01/03/2018 3 views left ankle Indication: Posterior left ankle. Comparison: June 24, 2017. Findings: No definitive acute abnormality. There is stable plate and screw fixation hardware along the distal fibula including 2 distal syndesmotic screws. No visualized hardware complication. There is mild irregularity of the underlying fibula and posterior tibia, similar to prior radiograph and likely related to subacute/chronic fracture. The ankle mortise is symmetric. There is no significant ankle joint effusion. Mild soft tissue swelling surrounding the ankle. No evidence of radiopaque foreign body. Note is made of a chronic healed fifth metatarsal fracture. Small plantar calcaneal spur and small Achilles insertional enthesophyte. IMPRESSION: 1. No acute osseous abnormality of the left ankle. 2. Chronic findings, as above. Report Dictated By: Chan North MD at 01/03/2018 12:12 PM Report E-Signed By: Chan North MD at 01/03/2018 12:14 PM WSN:[id number] ED Course/Re-evaluation ED Course The patient was admitted a to room. A history physical obtained. Differential diagnoses were considered. A left ankle x-ray was negative for any acute osseous abnormalities. No changes from her previous x-rays. I did review these results with the patient. Patient was given one Phenergan and Skelaxin in the emergency department patient for her pain and nausea, she was sent home with a prescription for tizanidine and Phenergan. Patient was instructed to follow-up with her primary care provider and/or [facility] for reevaluation of her ankle within 5-7 days. Patient was agreeable with this plan of care and discharged home. 01/03/2018 12:56:06 pm The patients pharmacy called, her insurance would not pay for the Skelaxin, I discussed this with the patient, she will just continue the Robaxin she was just prescribed. 01/03/2018 1:22:37 pm The patient called reqeusting an alternative to Skelaxin , I did send an Rx in for 4 tablets of Tizanidine. Decision to Disposition Date: Jan 03, 2018 Decision to Disposition Time: 12:37 Depart Departure Latest Vital Signs Vital Signs Date Time Temp Pulse Resp B/P (MAP) Pulse Ox O2 Delivery O2 Flow Rate FiO2 01/03/18 12:31 99 90 01/03/18 12:30 136/88 (104) 01/03/18 11:37 98.2 18 Room Air Core Temperature (Celsius): 36.73 Impression: Primary Impression: Left ankle sprain Condition: Improved Disposition: HOME OR SELF-CARE Referrals: POPPY SANCHEZ DNP, IT INFRASTRUCTURE SPECIALIST-BC (PCP) 5 Days New Scripts Tizanidine Hcl (TIZANIDINE HCL) 2 Mg Tablet 2 MG PO TID, #4 TAB 0 Refills Prov: SHI VARGASP-YVETTE 01/03/18 Promethazine Hcl (PROMETHAZINE HCL) 25 Mg Tablet 25 MG PO Q8H, #8 TAB 0 Refills Prov: SHI VARGAS [facility]- 01/03/18 Patient Instructions: Ankle Sprain (ED) Additional Instructions: There is no sign of fracture on x-ray. Use the walking boot for comfort. [facility] if no improvement within the next 7 days. Follow-up with your primary care provider in 5 days for reevaluation. Take the Skelaxin and Phenergan as directed. Return to the emergency department for any other concerns or worsening symptoms. Problem Qualifiers Primary Impression: Left ankle sprain Encounter type: initial encounter Involved ligament of ankle: unspecified ligament Qualified Codes: S93.402A - Sprain of unspecified ligament of left ankle, initial encounter SHI VARGAS [facility]- Jan 03, 2018 11:55
--- NOTE | 2018-01-03 12:18 | RADIOLOGY IMAGING REPORT ---
FACILITY: [facility] PATIENT NAME: Yesy Mccracken : 1970 MR: [id number] V: [id number] EXAM DATE: ORDERING PHYSICIAN: SHI VARGAS TECHNOLOGIST: Location: [facility] [place] Patient: Yesy Mccracken : 1970 Visit/Account:[id number] Date of Sevice: 01/03/2018 3 views left ankle Indication: Posterior left ankle. Comparison: June 24, 2017. Findings: No definitive acute abnormality. There is stable plate and screw fixation hardware along the distal f ibula including 2 distal syndesmotic screws. No visualized hardware complication. There is mild irreg ularity of the underlying fibula and posterior tibia, similar to prior radiograph and likely related to subacute/chronic fracture. The ankle mortise is symmetric. There is no significant ankle joint effusion. Mild soft tissue swelling surrounding the ankle. No evidence of radiopaque foreign body. Note is made of a chronic healed fifth metatarsal fracture. Small plantar calcaneal spur and small Achilles insertional enthesophyte. IMPRESSION: 1. No acute osseous abnormality of the left ankle. 2. Chronic findings, as above. Report Dictated By: Chan North MD at 01/03/2018 12:12 PM Report E-Signed By: Chan North MD at 01/03/2018 12:14 PM WSN:[id number]
[2018-01-03 12:30] VITALS: BP 136/88
[2018-01-03] MEDS ORDERED: PROMETHAZINE HCL 25 MG TAB PO ONE (12:35)
[2018-01-03] MEDS ORDERED: PROM-110 PO (12:39)
[2018-01-03] MEDS ORDERED: META800T18 PO (12:39)
[2018-01-03] MEDS ORDERED: TIZA-1 PO (13:20)
[2018-01-03] MEDS ORDERED: METAXALONE 800 MG TAB PO SCH (14:00)
== END 2018-01-03 12:51 | disposition home or self-care (01) ==
LOC: ER 11:33
DX: R11.0 Nausea (principal)
CPT/HCPCS: 73610; 99283; Q0169

== ENCOUNTER 2018-02-11 13:10 | Emergency (ER) | payer MEDICAID ==
[2017-04-17 12:41] VITALS: Wt 86.0 kg
[~2018-02-11 13:10] MED LIST changes: +META800T18 PO; +OXCA600T39 PO; +TIZA-1 PO
--- NOTE | 2018-02-11 13:17 | ER Report ---
History and Physical Time Seen By MD: 13:18 HPI/ROS CHIEF COMPLAINT: Headache HISTORY OF PRESENT ILLNESS: 47-year-old female patient presents to emergency room with complaint of a headache. Patient states she has been having this headache for the past 2 days. She states that is a significant headache. She states she's taken some oral Toradol, Imitrex all with no improvement. Patient states she has been nauseous and vomiting. She states last time she vomited was just prior to arrival. She denies having any fevers, chills, shortness of breath or cough. Patient states that this is not the worse headache of her life. She denies having any weakness. She states that light and sound seems to make the headache worse. She states the headache feels like he is starting in the back of her head wrapping up over the top to the front. REVIEW OF SYSTEMS: Respiratory: No cough, no dyspnea. Cardiovascular: No chest pain, no palpitations. Gastrointestinal: No vomiting, no abdominal pain. Musculoskeletal: No back pain. Allergies: Coded Allergies: Nitrofurantoin Macrocrystal (Verified Allergy, Severe, HIVES, 02/11/18) aspirin (Verified Allergy, Severe, ANAPHYLAXIS, 02/11/18) chlorpromazine (Verified Allergy, Severe, ANAPHYLAXIS, 02/11/18) hydroxyzine (Verified Allergy, Severe, AIRWAY OBSTRUCTION, 02/11/18) varenicline (Verified Allergy, Severe, anxiety, 02/11/18) venom-wasp (Verified Allergy, Severe, ANAPHYLAXIS, 02/11/18) Sulfa (Sulfonamide Antibiotics) (Verified Allergy, Intermediate, HIVES, 02/11/18) albuterol (Verified Allergy, Intermediate, itching, hives, 02/11/18) cephalexin (Verified Allergy, Intermediate, HIVES, 02/11/18) ciprofloxacin (Verified Allergy, Intermediate, "feels like I'm going inasne", 02/11/18) droperidol (Verified Allergy, Intermediate, DELUSIONS, 02/11/18) Pt states her reaction as, "I become psychotic". latex (Verified Allergy, Intermediate, RASH, SWELLING, 02/11/18) ondansetron (Verified Adverse Reaction, Severe, TACHYCARDIA, 02/11/18) dexamethasone (Verified Adverse Reaction, Intermediate, ITCHING, 02/11/18) haloperidol (Verified Adverse Reaction, Intermediate, "MAKES ME JUMPY", 02/11/18) Uncoded Allergies: Inhaled medication propelant (Allergy, Intermediate, HIVES, 10/07/14) Home Meds Active Scripts Pregabalin (LYRICA) 150 Mg Capsule, 1 TAB PO BID, #60 CAPSULE 0 Refills Prov:POPPY SANCHEZ DNP [facility]- 02/01/18 Tizanidine Hcl (TIZANIDINE HCL) 2 Mg Tablet, 2 MG PO TID, #4 TAB 0 Refills Prov:SHI VARGAS [facility] 01/03/18 Promethazine Hcl (PROMETHAZINE HCL) 25 Mg Tablet, 25 MG PO Q8H, #8 TAB 0 Refills Prov:SHI VARGAS [facility] 01/03/18 Sumatriptan Succinate (SUMATRIPTAN SUCCINATE) 100 Mg Tablet, 1 TAB PO QDAY PRN for MIGRAINE, #9 TAB 6 Refills Prov:POPPY SANCHEZ DNP [facility] 12/15/17 Sumatriptan Succinate (SUMATRIPTAN SUCCINATE) 6 Mg/0.5 Ml Pen.injctr, 6 MG SQ ONCE PRN for MIGRAINE, #1 BOX 6 Refills May repeat dose x1 after 1 hour, if needed. Do not exceed maximum of 12mg/24h. Prov:POPPY SANCHEZ DNP [facility] 12/15/17 Methocarbamol (ROBAXIN-750) 750 Mg Tablet, 1500 MG PO Q6-8H PRN for MUSCLE SPASMS, #21 TAB Prov:EDWARD SCHMIDT DO 11/13/17 Lidocaine (Lidocaine) 5 % Adh..patch, 1 ADH.PATCH TOP Q72H PRN for prn, #5 PATCH 1 Refill Prov:POPPY SANCHEZ DNP [facility] 10/14/17 [place], Insulin Disposable (PEN NEEDLES) 1 Each Dis.needle, BOX MC QDAY, #1 9 Refills Prov:POPPY SANCHEZ DNP [facility]- 10/14/17 Baclofen (BACLOFEN) 10 Mg Tablet, 1 TAB PO TID PRN for MUSCLE SPASMS, #90 TAB 5 Refills Prov:POPPY SANCHEZ DNP [facility] 10/14/17 Ranitidine Hcl (RANITIDINE HCL) 150 Mg Capsule, 1 TAB PO BID, #180 CAPSULE 3 Refills Prov:POPPY SANCHEZ DNP [facility] 10/14/17 Epinephrine (EPIPEN 2-TUCKER) 0.3 Mg/0.3 Ml Pen.injctr, 0.3 MG IM ONCE, #1 CART Prov:POPPY SANCHEZ DNP, [facility] 10/14/17 Lisinopril (LISINOPRIL) 40 Mg Tablet, 1 TAB PO QDAY for 90 Days, #90 TAB 1 Refill Prov:POPPY SANCHEZ DNP [facility] 09/07/17 Atorvastatin (LIPITOR) 80 Mg Tab, 1 TAB PO QDAY for 90 Days, #90 TAB 1 Refill Prov:POPPY SANCHEZ DNP [facility] 09/07/17 Levothyroxine Sodium (LEVOTHYROXINE SODIUM) 50 Mcg Tablet, 1 TAB PO QDAY, #90 TAB 1 Refill Take along with 200mcg tablet for a total of 250mcg daily. Prov:POPPY SANCHEZ DNP [facility] 09/07/17 Levothyroxine Sodium (LEVOTHYROXINE SODIUM) 200 Mcg Tablet, 200 MCG PO QDAY, #90 TAB 1 Refill Take with 50mcg tablet for a total of 250mcg daily Prov:POPPY SANCHEZ DNP [facility] 09/07/17 Esomeprazole Magnesium (NEXIUM) 40 Mg Capsule.dr, 1 CAP PO BID, #180 CAP 3 Refills Prov:POPPY SANCHEZ DNP, FNP- 08/31/17 Insulin Lispro 100 Un/Ml Pen (HUMALOG 3 ML PEN) 100 Unit/1 Ml Insuln.pen, 5-8 UNIT SQ TID, #2 DIS.SYR 6 Refills Take per sliding scale. Prov:[facility] 08/19/17 Blood-Glucose Meter (FREESTYLE LITE METER) 1 Each Kit, 1 [facility] ONCE, #1 Prov:POPPY SANCHEZ DNP [facility] 08/11/17 Buspirone Hcl (BUSPIRONE HCL) 7.5 Mg Tablet, 30 MG PO BID, #60 TAB Prov:EVELINA MONSIVAIS MD 03/14/17 Albuterol Sulfate 0.083% (ALBUTEROL SULFATE 0.083%) 2.5 Mg/3 Ml Vial.neb, 2.5 MG INH Q4H PRN for WHEEZING, #1 BOX 0 Refills Prov:HILDA THORNE MD 02/22/17 Diclofenac Sodium 1% Gel (VOLTAREN 1% GEL) 100 Gm Gel..gram., 1 DEMETRIS TOP QID PRN for PAIN, #1 TUBE 0 Refills Prov:POPPY SANCHEZ DNP, [facility] 01/19/17 Reported Medications Insulin Glargine (LANTUS) 100 Unit/Ml Soln, 65 UNIT SUBQ BID, ML 11/13/17 Meloxicam (MELOXICAM) 7.5 Mg Tablet, 7.5 MG PO BID 07/09/17 Aripiprazole (ABILIFY) 20 Mg Tablet, 20 MG PO QDAY, TAB 03/14/17 Prazosin Hcl (PRAZOSIN HCL) 2 Mg Capsule, 2 CAP PO QHS, CAPSULE 01/26/17 Zolpidem Tartrate (AMBIEN) 5 Mg Tablet, 1 TAB PO QHS, TAB 05/19/16 Past Medical/Surgical History Patient has a past medical history of migraines, angina, prolonged QT, DVT, hypertension, hyperlipidemia, asthma, pneumonia, reflux, pancreatitis, enlarged liver, kidney stones, frequent UTI, endometriosis, back pain, dentures, ear infections, type 2 diabetes, hypothyroidism, substance abuse, depression, bipolar, anxiety, thyroid cancer, breast cancer, uterine cancer, colon cancer. Patient has a past surgical history of eye surgery, tonsillectomy, sinus surgery, thyroidectomy, right ankle surgery, right wrist surgery, no surgery, right side of the jaw, right knee, tubal ligation, hysterectomy, cystoscopy, colonoscopy, appendectomy. Reviewed Nurses Notes: Yes Hx Smoking: Yes Smoking Status: Former Smoker Exposure to Second Hand Smoke?: Yes Hx Substance Use Disorder: No ("Years ago") Hx Alcohol Use: No Constitutional Vital Sign - Last 24 Hours 02/11/18 02/11/18 02/11/18 02/11/18 13:14 13:16 13:24 13:45 Temp 99.0 Pulse 105 95 Resp 16 B/P (MAP) 140/88 140/88 (105) Pulse Ox 83 94 O2 Delivery Room Air O2 Flow Rate 2.0 02/11/18 02/11/18 02/11/18 14:00 14:15 14:30 Pulse 93 91 90 B/P (MAP) 127/89 (102) 122/90 (101) Pulse Ox 94 94 96 Physical Exam General Appearance: The patient is alert, has no immediate need for airway protection and no current signs of toxicity. Eyes: Pupils equal and round no injection. Respiratory: Chest is non tender, lungs are clear to auscultation. Cardiac: regular rate and rhythm. Gastrointestinal: Abdomen is soft and non tender, no masses, bowel sounds normal. Musculoskeletal: Neck: Neck is supple and non tender. Extremities have full range of motion and are non tender. Skin: No rashes or lesions. DIFFERENTIAL DIAGNOSIS: After history and physical exam differential diagnosis was considered for headache including but not limited to subarachnoid hemorrhage, migraine headache, tension headache and infectious causes such as meningitis, pharyngitis and sinusitis. Included in the differential is hypoxia. Medical Decision Making ED Course/Re-evaluation ED Course Patient was admitted to an examine from, history and physical were obtained. Differential diagnoses were considered. On examination lungs are clear, heart is regular, abdomen soft nontender. Patient does have a normal neuro exam. Patient states this is not the worse headache she's ever had. We will go ahead and treat her with 60 mg of Toradol IM, 50 mg of Benadryl IM, 25 mg of Phenergan IM, 60 mg of Norflex IM. On reevaluation patient states she's had only a mild improvement in her headache. Patient requests ketamine at that time. I did go ahead and try 5 mg of Zyprexa. On reevaluation patient states she has not had any improvement in her headache. She states she would like to go home as we are not going to give her any thing else. We discussed why was not going to do ketamine as well as narcotic. Patient will be discharged at this time. Patient verbalized understanding and agreement. Decision to Disposition Date: Feb 11, 2018 Decision to Disposition Time: 15:12 Depart Departure Latest Vital Signs Vital Signs Date Time Temp Pulse Resp B/P (MAP) Pulse Ox O2 Delivery O2 Flow Rate FiO2 02/11/18 14:30 90 122/90 (101) 96 02/11/18 13:24 2.0 9/6/18 13:14 99.0 16 Room Air Core Temperature (Celsius): 36.73 Impression: Primary Impression: Migraines Condition: Improved Disposition: HOME OR SELF-CARE Referrals: POPPY SANCHEZ DNP, [employer] [facility] (PCP) Patient Instructions: Migraine Headache (ED) Additional Instructions: Increase fluid intake. Get plenty of rest. Follow up with your primary care provider in the next 2-3 days. Return to the ER if condition worsens. Continue with your current medications. Problem Qualifiers Primary Impression: Migraines Migraine type: with aura Status migrainosus presence: without status migrainosus Intractability: not intractable Qualified Codes: G43.109 - Migraine with aura, not intractable, without status migrainosus DEISY DURBIN Feb 11, 2018 13:17
[2018-02-11] MEDS ORDERED: ORPHENADRINE 60MG/2ML INJ IM ONE (13:25)
[2018-02-11] MEDS ORDERED: PROMETHAZINE 25 MG/ML 1 ML AMP IM ONE (13:25)
[2018-02-11] MEDS ORDERED: diphenhydrAMINE 50 MG/ML VIAL IM ONE (13:25)
[2018-02-11] MEDS ORDERED: KETOROLAC 60 MG/2 ML VIAL IM ONE (13:25)
--- NOTE | 2018-02-11 13:56 | RADIOLOGY IMAGING REPORT ---
FACILITY: [facility] PATIENT NAME: Yesy Mccracken : 1970 MR: [id number] V: [id number] EXAM DATE: ORDERING PHYSICIAN: DEISY DURBIN TECHNOLOGIST: Location: [facility] - [place], [place] Patient: Yesy Mccracken : 1970 Visit/Account:[id number] Date of Sevice: 02/11/2018 Technique: CHEST PA AND LAT HISTORY: low oxygen COMPARISON: None available Findings: The lungs are clear. No pleural effusion or pneumothorax. The cardiomediastinal silhouett e is normal. Impression: 1. No acute cardiopulmonary process. Report Dictated By: Natan Leon DO at 02/11/2018 1:52 PM Report E-Signed By: Natan Leon DO at 02/11/2018 1:53 PM WSN:[id number]
[2018-02-11 14:30] VITALS: BP 122/90
[2018-02-11] MEDS ORDERED: OLANZapine 10 MG VIAL IM ONLY ONE (14:30)
[2018-02-11] MEDS ORDERED: WATER STERILE 10 ML VIAL IM ONLY ONE (14:30)
== END 2018-02-11 15:18 | disposition home or self-care (01) ==
LOC: ER 13:13
DX: G43.109 Migraine with aura, not intractable, without status migrainosus (principal)
CPT/HCPCS: 71046; 96372; 99283; A4216; J1200; J1885; J2360; J2550; J3490

== ENCOUNTER 2018-03-18 07:35 | Emergency (ER) | payer MEDICAID ==
[2017-04-17 12:41] VITALS: Wt 86.0 kg
[~2018-03-18 07:35] MED LIST changes: +LANC-165 MC
[2018-03-18 07:39] VITALS: BP 134/89
--- NOTE | 2018-03-18 08:27 | RADIOLOGY IMAGING REPORT ---
FACILITY: [facility] [place] PATIENT NAME: Yesy Mccracken : 1970 MR: [id number] V: [id number] EXAM DATE: ORDERING PHYSICIAN: GREGORIO TOSCANO TECHNOLOGIST: Location: [facility] [place] Patient: Yesy Mccracken : 1970 Visit/Account:[id number] Date of Sevice: 03/18/2018 FOOT 3 VIEW LEFT, ANKLE 3 VIEW MIN LEFT Indication: Fall with left ankle pain. Comparison: January 03, 2018. Findings: No visualized acute osseous abnormality of the ankle or foot. Redemonstration of distal fibular plate and screw fixation hardware with irregularity of the underlying distal fibula which is likely relate d to a subacute/chronic fracture. No significant change in appearance since prior exam. Note is made of a chronic healed fifth metatarsal fracture. The ankle mortise is symmetric. There is no significant ankle joint effusion. There is no focal soft tissue abnormality. No evidence of radiopaque foreign body. Small plantar calcaneal spur and Achilles insertional enthesophyte. IMPRESSION: 1. No acute osseous abnormality of the left ankle or foot. Report Dictated By: Chan North MD at 03/18/2018 8:19 AM Report E-Signed By: Chan North MD at 03/18/2018 8:22 AM WSN:[id number]
--- NOTE | 2018-03-18 08:27 | RADIOLOGY IMAGING REPORT ---
FACILITY: [facility] - [place], [place] PATIENT NAME: Yesy Mccracken : 1970 MR: [id number] V: [id number] EXAM DATE: ORDERING PHYSICIAN: GRGEORIO TOSCANO TECHNOLOGIST: Location: [facility] Patient: Yesy Mccracken : 1970 Visit/Account:[id number] Date of Sevice: 03/18/2018 FOOT 3 VIEW LEFT, ANKLE 3 VIEW MIN LEFT Indication: Fall with left ankle pain. Comparison: January 03, 2018. Findings: No visualized acute osseous abnormality of the ankle or foot. Redemonstration of distal fibular plate and screw fixation hardware with irregularity of the underlying distal fibula which is likely relate d to a subacute/chronic fracture. No significant change in appearance since prior exam. Note is made of a chronic healed fifth metatarsal fracture. The ankle mortise is symmetric. There is no significant ankle joint effusion. There is no focal soft tissue abnormality. No evidence of radiopaque foreign body. Small plantar calcaneal spur and Achilles insertional enthesophyte. IMPRESSION: 1. No acute osseous abnormality of the left ankle or foot. Report Dictated By: Chan North MD at 03/18/2018 8:19 AM Report E-Signed By: Chan North MD at 03/18/2018 8:22 AM WSN:[id number]
--- NOTE | 2018-03-18 08:33 | ER Report ---
History and Physical Time Seen By MD: 08:33 Hx. of Stated Complaint: LEFT FOOT PAIN AFTER FALL FROM STANDING. HPI/ROS 47-year-old female with a history of left ankle ORIF. She sustained an inversion injury of her left ankle at 0200 this morning when she got out of bed to use the restroom. She is able to walk with some mild discomfort. She has no other injuries. Allergies: Coded Allergies: Nitrofurantoin Macrocrystal (Verified Allergy, Severe, HIVES, 03/18/18) aspirin (Verified Allergy, Severe, ANAPHYLAXIS, 03/18/18) chlorpromazine (Verified Allergy, Severe, ANAPHYLAXIS, 03/18/18) hydroxyzine (Verified Allergy, Severe, AIRWAY OBSTRUCTION, 03/18/18) varenicline (Verified Allergy, Severe, anxiety, 03/18/18) venom-wasp (Verified Allergy, Severe, ANAPHYLAXIS, 03/18/18) Sulfa (Sulfonamide Antibiotics) (Verified Allergy, Intermediate, HIVES, 03/18/18) albuterol (Verified Allergy, Intermediate, itching, hives, 03/18/18) cephalexin (Verified Allergy, Intermediate, HIVES, 03/18/18) ciprofloxacin (Verified Allergy, Intermediate, "feels like I'm going inasne", 03/18/18) droperidol (Verified Allergy, Intermediate, DELUSIONS, 03/18/18) Pt states her reaction as, "I become psychotic". latex (Verified Allergy, Intermediate, RASH, SWELLING, 03/18/18) ondansetron (Verified Adverse Reaction, Severe, TACHYCARDIA, 03/18/18) dexamethasone (Verified Adverse Reaction, Intermediate, ITCHING, 03/18/18) haloperidol (Verified Adverse Reaction, Intermediate, "MAKES ME JUMPY", 03/18/18) Uncoded Allergies: Inhaled medication propelant (Allergy, Intermediate, HIVES, 10/07/14) Home Meds Active Scripts Baclofen (BACLOFEN) 10 Mg Tablet, 1 TAB PO TID PRN for MUSCLE SPASMS, #90 TAB 5 Refills Prov:POPPY SANCHEZ DNP, FNP-BC 03/16/18 Pregabalin (LYRICA) 150 Mg Capsule, 1 TAB PO BID, #60 CAPSULE 0 Refills Prov:POPPY SANCHEZ DNP, FNP-YVETTE 03/10/18 Lancets (Blood Lancets) 30 Gauge Each, [facility] EVERY 90 DAYS, #300 4 Refills Prov:POPPY SANCHEZ DNP [facility] 03/09/18 Levothyroxine Sodium (LEVOTHYROXINE SODIUM) 50 Mcg Tablet, 1 TAB PO QDAY, #90 TAB 4 Refills Take along with 200mcg tablet for a total of 250mcg daily. Prov:POPPY SANCHEZ DNP [facility] 03/09/18 Levothyroxine Sodium (LEVOTHYROXINE SODIUM) 200 Mcg Tablet, 200 MCG PO QDAY, #90 TAB 4 Refills Take with 50mcg tablet for a total of 250mcg daily Prov:POPPY SANCHEZ DNP [facility] 03/09/18 Tizanidine Hcl (TIZANIDINE HCL) 2 Mg Tablet, 2 MG PO TID, #4 TAB 0 Refills Prov:SHI VARGAS [facility] 01/03/18 Promethazine Hcl (PROMETHAZINE HCL) 25 Mg Tablet, 25 MG PO Q8H, #8 TAB 0 Refills Prov:SHI VARGAS [facility] 01/03/18 Sumatriptan Succinate (SUMATRIPTAN SUCCINATE) 100 Mg Tablet, 1 TAB PO QDAY PRN for MIGRAINE, #9 TAB 6 Refills Prov:POPPY SANCHEZ DNP [facility] 12/15/17 Sumatriptan Succinate (SUMATRIPTAN SUCCINATE) 6 Mg/0.5 Ml Pen.injctr, 6 MG SQ ONCE PRN for MIGRAINE, #1 BOX 6 Refills May repeat dose x1 after 1 hour, if needed. Do not exceed maximum of 12mg/24h. Prov:POPPY SANCHEZ DNP [facility] 12/15/17 Methocarbamol (ROBAXIN-750) 750 Mg Tablet, 1500 MG PO Q6-8H PRN for MUSCLE SPASMS, #21 TAB Prov:EDWARD SCHMIDT DO 11/13/17 Lidocaine (Lidocaine) 5 % Adh..patch, 1 ADH.PATCH TOP Q72H PRN for prn, #5 PATCH 1 Refill Prov:POPPY SANCHEZ DNP [facility] 10/14/17 [place], Insulin Disposable (PEN NEEDLES) 1 Each Dis.needle, BOX MC QDAY, #1 9 Refills Prov:POPPY SANCHEZ DNP, FNP-BC 10/14/17 Ranitidine Hcl (RANITIDINE HCL) 150 Mg Capsule, 1 TAB PO BID, #180 CAPSULE 3 Refills Prov:POPPY SANCHEZ DNP, FNP-BC 10/14/17 Epinephrine (EPIPEN 2-TUCKER) 0.3 Mg/0.3 Ml Pen.injctr, 0.3 MG IM ONCE, #1 CART Prov:POPPY SANCHEZ DNP, FNP-BC 10/14/17 Lisinopril (LISINOPRIL) 40 Mg Tablet, 1 TAB PO QDAY for 90 Days, #90 TAB 1 Refill Prov:POPPY SANCHEZ DNP, FNP-BC 09/07/17 Atorvastatin (LIPITOR) 80 Mg Tab, 1 TAB PO QDAY for 90 Days, #90 TAB 1 Refill Prov:POPPY SANCHEZ DNP, FNP-BC 09/07/17 Esomeprazole Magnesium (NEXIUM) 40 Mg Capsule.dr, 1 CAP PO BID, #180 CAP 3 Refills Prov:POPPY SANCHEZ DNP, FNP-BC 08/31/17 Insulin Lispro 100 Un/Ml Pen (HUMALOG 3 ML PEN) 100 Unit/1 Ml Insuln.pen, 5-8 UNIT SQ TID, #2 DIS.SYR 6 Refills Take per sliding scale. Prov:POPPY SANCHEZ DNP, FNP-BC 08/19/17 Blood-Glucose Meter (FREESTYLE LITE METER) 1 Each Kit, 1 [facility] ONCE, #1 Prov:POPPY SANCHEZ DNP, FNP-BC 08/11/17 Buspirone Hcl (BUSPIRONE HCL) 7.5 Mg Tablet, 30 MG PO BID, #60 TAB Prov:EVELINA MONSIVAIS MD 03/14/17 Albuterol Sulfate 0.083% (ALBUTEROL SULFATE 0.083%) 2.5 Mg/3 Ml Vial.neb, 2.5 MG INH Q4H PRN for WHEEZING, #1 BOX 0 Refills Prov:HILDA THORNE MD 02/22/17 Diclofenac Sodium 1% Gel (VOLTAREN 1% GEL) 100 Gm Gel..gram., 1 DEMETRIS TOP QID PRN for PAIN, #1 TUBE 0 Refills Prov:POPPY ASNCHEZ DNP, [facility]- 01/19/17 Reported Medications Insulin Glargine (LANTUS) 100 Unit/Ml Soln, 65 UNIT SUBQ BID, ML 11/13/17 Meloxicam (MELOXICAM) 7.5 Mg Tablet, 7.5 MG PO BID 07/09/17 Aripiprazole (ABILIFY) 20 Mg Tablet, 20 MG PO QDAY, TAB 03/14/17 Prazosin Hcl (PRAZOSIN HCL) 2 Mg Capsule, 2 CAP PO QHS, CAPSULE 01/26/17 Zolpidem Tartrate (AMBIEN) 5 Mg Tablet, 1 TAB PO QHS, TAB 05/19/16 Discontinued Scripts Baclofen (BACLOFEN) 10 Mg Tablet, 1 TAB PO TID PRN for MUSCLE SPASMS, #90 TAB 5 Refills Prov:POPPY SANCHEZ DNP, [facility]- 10/14/17 Hx Smoking: Yes Smoking Status: Former Smoker Exposure to Second Hand Smoke?: Yes Hx Substance Use Disorder: No ("Years ago") Hx Alcohol Use: No Constitutional Vital Sign - Last 24 Hours 03/18/18 07:39 Temp 98.0 Pulse 96 Resp 20 B/P (MAP) 134/89 Pulse Ox 92 O2 Delivery Nasal Cannula Physical Exam General appearance: Alert no distress. Left LE: No TTP of the left knee or proximal tib/fib. Mild soft tissue swelling to lateral malleolus DIFFERENTIAL DIAGNOSIS: After history and physical exam differential diagnosis was considered for fracture, dislocation, hardware dislodged, sprain Medical Decision Making EKG/Imaging Imaging X-ray: left ankle was obtained. I viewed the images myself on the PACS system. My interpretation of the images is: hardware in place. No acute fracture or dislocatio. The radiologist interpretation had no clinically significant variation from this interpretation. ED Course/Re-evaluation ED Course Uncomplicated left ankle sprain. No evidence of acute fracture or dislocation. Hardware appears intact. No other traumatic injuries or complaints. Given an osmel wrap and walking boot. Decision to Disposition Date: Mar 18, 2018 Decision to Disposition Time: 09:52 Depart Departure Latest Vital Signs Vital Signs Date Time Temp Pulse Resp B/P (MAP) Pulse Ox O2 Delivery O2 Flow Rate FiO2 03/18/18 07:39 98.0 96 20 134/89 92 Nasal Cannula Core Temperature (Celsius): 36.73 Impression: Primary Impression: Left ankle sprain Condition: Improved Disposition: HOME OR SELF-CARE Referrals: POPPY SANCHEZ DNP, [facility] (PCP) Patient Instructions: Ankle Sprain (ED) Problem Qualifiers Primary Impression: Left ankle sprain Encounter type: initial encounter Involved ligament of ankle: unspecified ligament Qualified Codes: S93.402A - Sprain of unspecified ligament of left ankle, initial encounter GREGORIO TOSCANO MD Mar 18, 2018 08:33
== END 2018-03-18 10:06 | disposition home or self-care (01) ==
LOC: ER 08:41
DX: S93.402A Sprain of unspecified ligament of left ankle, initial encounter (principal)
CPT/HCPCS: 99284

== ENCOUNTER 2018-04-02 17:10 | Emergency (ER) | payer MEDICAID ==
[2017-04-17 12:41] VITALS: Wt 89.8 kg
[~2018-04-02 17:10] MED LIST changes: -HYDR-4309 PO; +HYDR-653 PO
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
[2018-04-02] MEDS ORDERED: ORPHENADRINE 60MG/2ML INJ IM ONE (17:35)
[2018-04-02] MEDS ORDERED: KETOROLAC 60 MG/2 ML VIAL IM ONE (17:35)
[2018-04-02] MEDS ORDERED: PROMETHAZINE 25 MG/ML 1 ML AMP IM ONE (17:40)
[2018-04-02] MEDS ORDERED: diphenhydrAMINE 50 MG/ML VIAL IM ONE (17:40)
[2018-04-02] MEDS ORDERED: WATER STERILE 10 ML VIAL IM ONLY ONE (18:50)
[2018-04-02] MEDS ORDERED: OLANZapine 10 MG VIAL IM ONLY ONE (18:50)
[2018-04-02 20:37] LABS: PLATELET COUNT, AUTOMATED 167 K/uL (150-450)
--- NOTE | 2018-04-02 20:48 | RADIOLOGY IMAGING REPORT ---
FACILITY: [facility] - [place] PATIENT NAME: Yesy Mccracken : 1970 MR: [id number] V: [id number] EXAM DATE: ORDERING PHYSICIAN: DEISY DURBIN TECHNOLOGIST: Location: [facility] - [place] Patient: Yesy Mccracken : 1970 Visit/Account:[id number] Date of Sevice: 04/02/2018 CHEST PA AND LAT INDICATION: Hypoxia COMPARISON: 02/11/2018 FINDINGS: Heart size within normal limits. There is no focal infiltrate or lobar consolidation. There is no pneumothorax or pleural effusion. IMPRESSION: 1. No acute cardiopulmonary process. Report Dictated By: Zaki Barnett at 04/02/2018 8:44 PM Report E-Signed By: Zaki Barnett at 04/02/2018 8:45 PM WSN:[id number]
[2018-04-02] MEDS ORDERED: INSU HUM REG 100 U/ML(ER ONLY) 10 ML VIAL IV ONE (20:55)
[2018-04-02] MEDS ORDERED: NS(*) 0.9% 1000 ML BAG 1,000 ML IV ONE (20:55)
[2018-04-02] MEDS ORDERED: IPRATROPIUM 0.5MG/2.5ML NEB NEB ONE (21:30)
--- NOTE | 2018-04-02 21:39 | EKG ---
[place] [facility] [place] DON LOUIS : [id number] MR: [id number] V: [id number] EXAM DATE: ORDERING PHYSICIAN: DEISY DURBIN TECHNOLOGIST: JUAN A Cho Reason : HYPOXIA Blood Pressure : / mmHG Vent. Rate : 093 BPM Atrial Rate : 093 BPM P-R Int : 150 ms QRS Dur : 094 ms QT Int : 382 ms P-R-T Axes : 053 008 085 degrees QTc Int : 474 ms Normal sinus rhythm Nonspecific T wave abnormality Abnormal ECG When compared with ECG of 14-SEP-2017 02:20, Nonspecific T wave abnormality now evident in Lateral leads and inferior leads Confirmed by HE WILD ([id number]) on 04/03/2018 6:47:46 AM Referred By: Confirmed By:HE WILD
== END 2018-04-02 23:36 | disposition home or self-care (01) ==
LOC: ER 17:15
DX: G43.009 Migraine without aura, not intractable, without status migrainosus (principal); R09.02 Hypoxemia; E11.65 Type 2 diabetes mellitus with hyperglycemia
CPT/HCPCS: 36416; 36600; 71046; 80305; 81001; 82009; 82803; 82948; 83930; 84484; 85025; 85379; 93005; 94640; 96360; 96361; 96372; 99284; A4216; J1200; J1815; J1885; J2360; J2550; J3490; J7030; J7644; 82040; 82247; 82310; 82374; 82435; 82565; 82947; 84075; 84132; 84155; 84295; 84450; 84460; 84520

== ENCOUNTER → 2018-04-20 | Outpatient (CLI) | payer MEDICAID ==
[2017-04-17 12:41] VITALS: BMI 34.0
[~2018-04-20] MED LIST changes: +BUSP30TA18 PO; +DOXE25CA45 PO; +OXYC-373 PO; +PRAZ5CAP16 PO
[2018-04-20 08:57] LABS: PLATELET COUNT, AUTOMATED 212 K/uL (150-450)
== END ==
LOC: LAB 08:34
PROVIDERS: ATTEND Nurse Practitioner Primary Care
DX: I10 Essential (primary) hypertension (principal); E78.5 Hyperlipidemia, unspecified; E11.9 Type 2 diabetes mellitus without complications; E03.9 Hypothyroidism, unspecified; E55.9 Vitamin D deficiency, unspecified
CPT/HCPCS: 36415; 82040; 82247; 82306; 82310; 82374; 82435; 82465; 82565; 82947; 83036; 83718; 84075; 84132; 84155; 84295; 84443; 84450; 84460; 84478; 84520; 85025

== ENCOUNTER → 2018-05-26 | Outpatient (CLI) | payer MEDICAID ==
[2017-04-17 12:41] VITALS: BMI 34.0
[~2018-05-26] MED LIST changes: +ONDA8TAB98 PO
[2018-05-26 12:29] LABS: LDL CHOLESTEROL 157 mg/dl
== END ==
LOC: LAB 11:35
PROVIDERS: ATTEND Nurse Practitioner Primary Care
DX: E11.9 Type 2 diabetes mellitus without complications (principal); E78.5 Hyperlipidemia, unspecified; E03.9 Hypothyroidism, unspecified; E87.1 Hypo-osmolality and hyponatremia; I10 Essential (primary) hypertension
CPT/HCPCS: 36415; 82040; 82247; 82310; 82374; 82435; 82465; 82565; 82947; 83036; 83718; 84075; 84132; 84155; 84295; 84443; 84450; 84460; 84478; 84520

== ENCOUNTER 2018-07-04 08:23 | Emergency (ER) | payer MEDICAID ==
[2017-04-17 12:41] VITALS: Wt 94.8 kg
[~2018-07-04 08:23] MED LIST changes: +Magic Mouthwash PO
[2018-07-04] MEDS ORDERED: ACETAMINOPHEN 500 MG TAB PO ONE (09:00)
--- NOTE | 2018-07-04 09:43 | RADIOLOGY IMAGING REPORT ---
FACILITY: [facility] PATIENT NAME: Yesy Mccracken : 1970 MR: [id number] V: [id number] EXAM DATE: ORDERING PHYSICIAN: GREGORIO TOSCANO TECHNOLOGIST: Location: [facility] - [place] Patient: Yesy Mccracken : 1970 Visit/Account:[id number] Date of Sevice: 07/04/2018 XR THORACIC SPINE AP & LAT, L-SPINE 2 OR 3 VIEW History: Upper and lower back pain. Evaluate thoracic and lumbar spine. Comparison study: None. Findings: Thoracic spine: The thoracic spine has normal curvature. There is no finding of a fracture . The ribs and mediastinum so far as visualized are unremarkable. Lumbar spine: The lumbar spine has normal lordotic curvature. There is no fracture, spondylolisthesis or spondylolysis. The disc space height at L4-5 and L5-S1 suggesting discogenic discogenic degenerat david disease. The sacroiliac joints are unremarkable. IMPRESSION: 1. No fracture in the lumbar spine. Discogenic degenerative changes at L4-5 and L5-S1. 2. Unremarkable thoracic spine. Report Dictated By: Jd Gunter MD at 07/04/2018 9:38 AM Report E-Signed By: Jd Gunter MD at 07/04/2018 9:39 AM WSN:[id number]
--- NOTE | 2018-07-04 09:44 | RADIOLOGY IMAGING REPORT ---
FACILITY: [facility] - [place], [place] PATIENT NAME: Yesy Mccracken : 1970 MR: [id number] V: [id number] EXAM DATE: ORDERING PHYSICIAN: GREGORIO TOSCANO TECHNOLOGIST: Location: [facility] Patient: Yesy Mccracken : 1970 Visit/Account:[id number] Date of Sevice: 07/04/2018 XR THORACIC SPINE AP & LAT, L-SPINE 2 OR 3 VIEW History: Upper and lower back pain. Evaluate thoracic and lumbar spine. Comparison study: None. Findings: Thoracic spine: The thoracic spine has normal curvature. There is no finding of a fracture . The ribs and mediastinum so far as visualized are unremarkable. Lumbar spine: The lumbar spine has normal lordotic curvature. There is no fracture, spondylolisthesis or spondylolysis. The disc space height at L4-5 and L5-S1 suggesting discogenic discogenic degenerat david disease. The sacroiliac joints are unremarkable. IMPRESSION: 1. No fracture in the lumbar spine. Discogenic degenerative changes at L4-5 and L5-S1. 2. Unremarkable thoracic spine. Report Dictated By: Jd Gunter MD at 07/04/2018 9:38 AM Report E-Signed By: Jd Gunter MD at 07/04/2018 9:39 AM WSN:[id number]
[2018-07-04] MEDS ORDERED: CYCLOBENZAPRINE HCL 10 MG TAB PO ONE (10:00)
[2018-07-04 10:02] VITALS: BP 138/95
--- NOTE | 2018-07-04 10:09 | ER Report ---
History and Physical Time Seen By MD: 09:00 Hx. of Stated Complaint: back pain HPI/ROS fell onto back 2 weeks ago. has seen chiropractor and been taking tylenol and ibuprofen without relief. no bowel or bladder changes. able to ambulate and perform ADLs with minimal pain. no neuro deficits. has pcm appointment on Thursday. Remainder of the 14 system rev: Yes Allergies: Coded Allergies: Nitrofurantoin Macrocrystal (Verified Allergy, Severe, HIVES, 07/04/18) aspirin (Verified Allergy, Severe, ANAPHYLAXIS, 07/04/18) chlorpromazine (Verified Allergy, Severe, ANAPHYLAXIS, 07/04/18) hydroxyzine (Verified Allergy, Severe, AIRWAY OBSTRUCTION, 07/04/18) varenicline (Verified Allergy, Severe, anxiety, 07/04/18) venom-wasp (Verified Allergy, Severe, ANAPHYLAXIS, 07/04/18) Sulfa (Sulfonamide Antibiotics) (Verified Allergy, Intermediate, HIVES, 07/04/18) albuterol (Verified Allergy, Intermediate, itching, hives, 07/04/18) cephalexin (Verified Allergy, Intermediate, HIVES, 07/04/18) ciprofloxacin (Verified Allergy, Intermediate, "feels like I'm going inasne", 07/04/18) droperidol (Verified Allergy, Intermediate, DELUSIONS, 07/04/18) Pt states her reaction as, "I become psychotic". latex (Verified Allergy, Intermediate, RASH, SWELLING, 07/04/18) ondansetron (Verified Adverse Reaction, Severe, TACHYCARDIA, 07/04/18) dexamethasone (Verified Adverse Reaction, Intermediate, ITCHING, 07/04/18) haloperidol (Verified Adverse Reaction, Intermediate, "MAKES ME JUMPY", 07/04/18) Uncoded Allergies: Inhaled medication propelant (Allergy, Intermediate, HIVES, 10/07/14) Home Meds Active Scripts Doxepin Hcl (DOXEPIN HCL) 25 Mg Capsule, 2 CAP PO BID PRN for ANXIETY, #120 CAPSULE 0 Refills Prov:POPPY SANCHEZ DNP, FNP-BC 06/22/18 Buspirone Hcl (BUSPIRONE HCL) 30 Mg Tablet, 1 TAB PO BID, #60 TAB 0 Refills Prov:POPPY SANCHEZ DNP, FNP- 06/22/18 Prazosin Hcl (PRAZOSIN HCL) 5 Mg Capsule, 1 CAP PO QHS, #30 CAPSULE 0 Refills Prov:ASHLEY SANCHEZA [facility]achelle [facility] 06/22/18 Aripiprazole (ABILIFY) 20 Mg Tablet, 1 TAB PO QDAY, #30 TAB 0 Refills Prov:POPPY SANCHEZ [facility] 06/22/18 Fluticasone Prop 50 Mcg Ns (FLONASE 50 MCG NS) 16 Gm [place].susp, 2 SPRAYS NS QDAY for 10 Days, #1 BOT 0 Refills Prov:POPPY SANCHEZ [facility] 06/15/18 Insulin Glargine 100 Un/Ml Pen (LANTUS SOLOSTAR PEN) 100 Unit/1 Ml Insuln.pen, 65 UNIT SQ BID, #1 BOX 3 Refills Prov:POPPY SANCHEZ [facility] 06/09/18 Blood Sugar Diagnostic (FREESTYLE LITE TEST STRIPS) 1 Each Strip, 500 EACH MC 5XD for 90 Days, #500 STRIP 2 Refills Prov:POPPY SANCHEZ [facility] 06/02/18 [place], Insulin Disposable (PEN NEEDLES) 1 Each Dis.needle, BOX MC QDAY, #1 9 Refills Prov:POPPY SANCHEZ [facility] 06/02/18 Zolpidem Tartrate (AMBIEN) 5 Mg Tablet, 1 TAB PO QHS PRN for INSOMNIA, #30 TAB 0 Refills Prov:POPPY SANCHEZ [facility] 05/28/18 Ranitidine Hcl (RANITIDINE HCL) 150 Mg Capsule, 1 TAB PO BID, #180 CAPSULE 3 Refills Prov:POPPY SANCHEZ [facility] 05/28/18 Pregabalin (LYRICA) 150 Mg Capsule, 1 TAB PO BID, #60 CAPSULE 0 Refills Prov:POPPY SANCHEZ [facility] 05/07/18 Albuterol Sulfate 90 Mcg/Act (PROAIR HFA 90 MCG/ACT) 8.5 Gm Hfa.aer.ad, 2 PUFF IH Q4-6H PRN for WHEEZING, #1 INHALER 0 Refills Prov:POPPY SANCHEZ DNP, [facility] 04/13/18 Lisinopril (LISINOPRIL) 40 Mg Tablet, 1 TAB PO QDAY for 90 Days, #90 TAB 1 Refill Prov:LAURAASHLEYA Machelle [facility] 04/13/18 Atorvastatin (LIPITOR) 80 Mg Tab, 1 TAB PO QDAY for 90 Days, #90 TAB 1 Refill Prov:POPPY SANCHEZ DNP [facility] 04/13/18 Esomeprazole Magnesium (NEXIUM) 40 Mg Capsule.dr, 1 CAP PO BID, #180 CAP 3 Refills Prov:LAURAPOPPY CABEZAS DNP [facility] 04/13/18 Insulin Lispro 100 Un/Ml Pen (HUMALOG 3 ML PEN) 100 Unit/1 Ml Insuln.pen, 5-8 UNIT SQ TID, #2 DIS.SYR 6 Refills Take per sliding scale. Prov:POPPY SANCHEZ DNP [facility] 04/13/18 Baclofen (BACLOFEN) 10 Mg Tablet, 1 TAB PO TID PRN for MUSCLE SPASMS, #90 TAB 5 Refills Prov:POPPY SANCHEZ DNP [facility] 03/16/18 Lancets (Blood Lancets) 30 Gauge Each, EA MC EVERY 90 DAYS, #300 4 Refills Prov:POPPY SANCHEZ DNP [facility] 03/09/18 Levothyroxine Sodium (LEVOTHYROXINE SODIUM) 50 Mcg Tablet, 1 TAB PO QDAY, #90 TAB 4 Refills Take along with 200mcg tablet for a total of 250mcg daily. Prov:POPPY SANCHEZ DNP [facility] 03/09/18 Levothyroxine Sodium (LEVOTHYROXINE SODIUM) 200 Mcg Tablet, 200 MCG PO QDAY, #90 TAB 4 Refills Take with 50mcg tablet for a total of 250mcg daily Prov:POPPY SANCHEZ DNP [facility] 03/09/18 Sumatriptan Succinate (SUMATRIPTAN SUCCINATE) 100 Mg Tablet, 1 TAB PO QDAY PRN for MIGRAINE, #9 TAB 6 Refills Prov:POPPY SANCHEZ DNP [facility] 12/15/17 Sumatriptan Succinate (SUMATRIPTAN SUCCINATE) 6 Mg/0.5 Ml Pen.injctr, 6 MG SQ ONCE PRN for MIGRAINE, #1 BOX 6 Refills May repeat dose x1 after 1 hour, if needed. Do not exceed maximum of 12mg/24h. Prov:POPPY SANCHEZ DNP, FNP-BC 12/15/17 Epinephrine (EPIPEN 2-TUCKER) 0.3 Mg/0.3 Ml Pen.injctr, 0.3 MG IM ONCE, #1 CART Prov:POPPY SANCHEZ DNP, FNP-BC 10/14/17 Blood-Glucose Meter (FREESTYLE LITE METER) 1 Each Kit, 1 [facility] [place]CE, #1 Prov:POPPY SANCHEZ DNP, FNP-BC 08/11/17 Diclofenac Sodium 1% Gel (VOLTAREN 1% GEL) 100 Gm Gel..gram., 1 DEMETRIS TOP QID PRN for PAIN, #1 TUBE 0 Refills Prov:POPPY SANCHEZ DNP, FNP-BC 01/19/17 Reported Medications Insulin Glargine (LANTUS) 100 Unit/Ml Soln, 65 UNIT SUBQ BID, ML 11/13/17 Discontinued Scripts [Magic Mouthwash] No Conflict Check, 5 ML PO Q4H PRN for throat pain, #120 ML 0 Refills Swish and swallow 5 mL every 4 hours as needed for throat pain. Prov:POPPY SANCHEZ DNP, FNP- 06/15/18 Amoxicillin/Pot Clav 875-125 Mg Tab (AUGMENTIN 875-125 TABLET) 1 Each Tablet, 1 TAB PO Q12H for 10 Days, #20 TAB 0 Refills Prov:POPPY SANCHEZ DNP, FNP- 06/15/18 Ondansetron (ONDANSETRON ODT) 8 Mg Tab.rapdis, 1 TAB PO Q12H PRN for NAUSEA/VOMITING, #8 TAB 0 Refills Prov:POPPY SANCHEZ DNP, FNP-BC 05/28/18 Reviewed Nurses Notes: Yes Old Medical Records Reviewed: Yes Hx Smoking: Yes Smoking Status: Former Smoker Exposure to Second Hand Smoke?: Yes Hx Substance Use Disorder: No ("Years ago") Hx Alcohol Use: No Constitutional Vital Sign - Last 24 Hours 07/04/18 07/04/18 07/04/18 1/27/19 08:23 08:28 08:30 08:53 Temp 98.9 Pulse 90 90 89 Resp 17 B/P (MAP) 149/100 (116) 149/100 Pulse Ox 85 90 88 O2 Delivery Room Air Room Air Room Air 07/04/18 07/04/18 07/04/18 07/04/18 09:00 09:23 09:30 09:53 Pulse 88 89 B/P (MAP) 124/93 (103) 122/90 (101) Pulse Ox 88 87 O2 Delivery Room Air Room Air Physical Exam General Appearance: The patient is alert, has no immediate need for airway protection and no current signs of toxicity. Eyes: Pupils equal and round no injection. Respiratory: Chest is non tender, lungs are clear to auscultation. Cardiac: regular rate and rhythm Gastrointestinal: Abdomen is soft and non tender, no masses, bowel sounds normal. Musculoskeletal: TTP of the lower T-spine and upper l-spine. No stepoffs. No external evidence of trauma. TTP at the right paraspinal region of the lower t- spine c/w muscle spasm. No ecchymoses or abrasions. no external signs of trauma. Neck: Neck is supple and non tender. Extremities have full range of motion and are non tender. Skin: No rashes or lesions. Neuro: ambulates well, normal strength and sensation DIFFERENTIAL DIAGNOSIS: After history and physical exam differential diagnosis was considered for back pain including but not limited to muscular pain, herniated disc, spine fracture, intra-abdominal causes and urinary tract infec tion. Medical Decision Making EKG/Imaging Imaging X-ray: t nd l-spine was obtained. I viewed the images myself on the PACS system. My interpretation of the images is: no acute fractures. The radiologist interpretation had no clinically significant variation from this interpretation. ED Course/Re-evaluation ED Course Uncomplicated fall 2 weeks ago. No external signs of trauma. Normal neuro exam. No fractures seen on x-ray. Pain mostly from muscle spasm. Patient has appointment with both her PCM in her chiropractor this upcoming week. I gave her 1 g of Tylenol and one Flexeril in the emergency department. Will not discharge her with any medications. Counseled her to use lidocaine patch and continue heating pad at home, and follow-up with her primary physicians this week. Decision to Disposition Date: Jul 04, 2018 Decision to Disposition Time: 10:07 Depart Departure Latest Vital Signs Vital Signs Date Time Temp Pulse Resp B/P (MAP) Pulse Ox O2 Delivery O2 Flow Rate FiO2 07/04/18 09:53 89 87 Room Air 07/04/18 09:30 122/90 (101) 07/04/18 08:30 98.9 17 Core Temperature (Celsius): 36.73 Impression: Primary Impression: Muscle spasm Condition: Improved Disposition: HOME OR SELF-CARE Referrals: POPPY SANCHEZ DNP, ASSOCIATE COUNSEL-BC (PCP) Patient Instructions: Back Pain (ED) GREGORIO TOSCANO MD Jul 04, 2018 10:08
== END 2018-07-04 10:20 | disposition home or self-care (01) ==
LOC: ER 09:09
DX: M62.830 Muscle spasm of back (principal)
CPT/HCPCS: 72070; 72100; 99284

== ENCOUNTER → 2018-07-06 | Outpatient (CLI) | payer MEDICAID ==
[2017-04-17 12:41] VITALS: BMI 34.0
[~2018-07-06] MED LIST changes: +ONDA8TAB91 PO
[2018-07-06 09:41] LABS: LDL CHOLESTEROL 212 mg/dl
== END ==
LOC: LAB 07:27
PROVIDERS: ATTEND Nurse Practitioner Primary Care
DX: E11.9 Type 2 diabetes mellitus without complications (principal); E78.2 Mixed hyperlipidemia; E03.9 Hypothyroidism, unspecified
CPT/HCPCS: 36415; 82040; 82247; 82310; 82374; 82435; 82465; 82565; 82947; 83718; 84075; 84132; 84155; 84295; 84443; 84450; 84460; 84478; 84520

== ENCOUNTER 2018-07-24 17:12 | Emergency (ER) | payer MEDICAID ==
[2017-04-17 12:41] VITALS: Wt 95.1 kg
[~2018-07-24 17:12] MED LIST changes: -PROM12.556 PO
[2018-07-24] MEDS ORDERED: LR IV ONE (17:30)
--- NOTE | 2018-07-24 17:39 | ER Report ---
History and Physical Time Seen By MD: 17:20 Hx. of Stated Complaint: pt lethargic, has not been taking her insulin (JILL TOSCANO MD) Time Seen By MD: 18:49 (KARMA JACOME MD) HPI/ROS CHIEF COMPLAINT: Altered mental status, fever HISTORY OF PRESENT ILLNESS: 47-year-old female diabetic reports she didn't take her medications yesterday because she ran out, but otherwise states she has been taking her medications, ambulance was called due to altered mental status and hallucinations. Patient states that she has been feeling "out of it", and fatigued, like when her blood sugar is high. Per EMS, blood sugar was in the 200s. Patient was recently on amoxicillin for a "cold" that she finished last week and has been doing well until 2 days ago when she started to feel fatigued. She denies vomiting, chest pain, trouble breathing, abdominal pain, UTI symptoms, rash, leg swelling, change in diet though she does admit that she has not been able to hydrate as much recently. She denies alcohol and drugs. She denies suicidal thoughts and adamantly states that she is surrounded by love and would not want to harm herself. She denies potential overdose of medications. REVIEW OF SYSTEMS: Constitutional: pt does not report fever though this is noted on arrival Eyes: occasional blurred vision ENT: No sore throat. Cardiovascular: No chest pain, no palpitations. Respiratory: No cough, no shortness of breath. Gastrointestinal: No abdominal pain, no vomiting. Genitourinary: no dysuria Musculoskeletal: No back pain. Skin: No rashes. Neurological: mild headache Remainder of the 14 system rev: Yes (JILL TOSCANO MD) Allergies: Coded Allergies: Nitrofurantoin Macrocrystal (Verified Allergy, Severe, HIVES, 07/04/18) aspirin (Verified Allergy, Severe, ANAPHYLAXIS, 07/04/18) chlorpromazine (Verified Allergy, Severe, ANAPHYLAXIS, 07/04/18) hydroxyzine (Verified Allergy, Severe, AIRWAY OBSTRUCTION, 07/04/18) varenicline (Verified Allergy, Severe, anxiety, 07/04/18) venom-wasp (Verified Allergy, Severe, ANAPHYLAXIS, 07/04/18) Sulfa (Sulfonamide Antibiotics) (Verified Allergy, Intermediate, HIVES, 07/04/18) albuterol (Verified Allergy, Intermediate, itching, hives, 07/04/18) cephalexin (Verified Allergy, Intermediate, HIVES, 07/04/18) ciprofloxacin (Verified Allergy, Intermediate, "feels like I'm going inasne", 07/04/18) droperidol (Verified Allergy, Intermediate, DELUSIONS, 07/04/18) Pt states her reaction as, "I become psychotic". latex (Verified Allergy, Intermediate, RASH, SWELLING, 07/04/18) ondansetron (Verified Adverse Reaction, Severe, TACHYCARDIA, 07/04/18) dexamethasone (Verified Adverse Reaction, Intermediate, ITCHING, 07/04/18) haloperidol (Verified Adverse Reaction, Intermediate, "MAKES ME JUMPY", 07/04/18) Uncoded Allergies: Inhaled medication propelant (Allergy, Intermediate, HIVES, 10/07/14) Home Meds Active Scripts Prazosin Hcl (PRAZOSIN HCL) 5 Mg Capsule, 1 CAP PO QHS, #30 CAPSULE 0 Refills Prov:POPPY SANCHEZ DNP [facility] 07/21/18 Doxepin Hcl (DOXEPIN HCL) 25 Mg Capsule, 2 CAP PO BID PRN for ANXIETY, #120 CAPSULE 0 Refills Prov:POPPY SANCHEZ DNP [facility] 07/21/18 Buspirone Hcl (BUSPIRONE HCL) 30 Mg Tablet, 1 TAB PO BID, #60 TAB 0 Refills Prov:POPPY SANCHEZ DNP [facility] 07/21/18 Aripiprazole (ABILIFY) 20 Mg Tablet, 1 TAB PO QDAY, #30 TAB 0 [facility]18 Zolpidem Tartrate (AMBIEN) 5 Mg Tablet, 1 TAB PO QHS PRN for INSOMNIA, #30 TAB 0 Refills Prov:POPPY SANCHEZ DNP [facility] 07/21/18 Pregabalin (LYRICA) 150 Mg Capsule, 1 TAB PO BID, #60 CAPSULE 0 Refills Prov:POPPY SANCHEZ DNP [facility] 07/14/18 Ondansetron Hcl (ZOFRAN) 8 Mg Tablet, 1 TAB PO Q12H PRN for NAUSEA, #8 TAB 0 Refills Prov:[facility], [facility] 07/07/18 Hydrocodone Bit/Acetaminophen (HYDROCODON-ACETAMINOPHEN 5-325) 1 Each Tablet, 1- 2 EACH PO Q6-8H PRN for PAIN, #8 TAB 0 Refills Prov:[facility], [facility] 07/07/18 Fluticasone Prop 50 Mcg Ns (FLONASE 50 MCG NS) 16 Gm [place].susp, 2 SPRAYS NS QDAY for 10 Days, #1 BOT 0 Refills Prov:POPPY SANCHEZ DNP, [facility] 06/15/18 Insulin Glargine 100 Un/Ml Pen (LANTUS SOLOSTAR PEN) 100 Unit/1 Ml Insuln.pen, 65 UNIT SQ BID, #1 BOX 3 Refills Prov:POPPY SANCHEZ DNP, FNP-BC 06/09/18 Blood Sugar Diagnostic (FREESTYLE LITE TEST STRIPS) 1 Each Strip, 500 EACH MC 5XD for 90 Days, #500 STRIP 2 Refills [facility] 06/02/18 Cosmos, Insulin Disposable (PEN NEEDLES) 1 Each Dis.needle, BOX MC QDAY, #1 9 Refills Prov:[facility] 06/02/18 Ranitidine Hcl (RANITIDINE HCL) 150 Mg Capsule, 1 TAB PO BID, #180 CAPSULE 3 Refills Prov:POPPY SANCHEZ DNP [facility] 05/28/18 Albuterol Sulfate 90 Mcg/Act (PROAIR HFA 90 MCG/ACT) 8.5 Gm Hfa.aer.ad, 2 PUFF IH Q4-6H PRN for WHEEZING, #1 INHALER 0 Refills Prov:POPPY SANCHEZ DNP [facility] 04/13/18 Lisinopril (LISINOPRIL) 40 Mg Tablet, 1 TAB PO QDAY for 90 Days, #90 TAB 1 Refill Prov:POPPY SANCHEZ DNP [facility] 04/13/18 Atorvastatin (LIPITOR) 80 Mg Tab, 1 TAB PO QDAY for 90 Days, #90 TAB 1 Refill Prov:POPPY SANCHEZ DNP [facility] 04/13/18 Esomeprazole Magnesium (NEXIUM) 40 Mg Capsule.dr, 1 CAP PO BID, #180 CAP 3 Refills Prov:[facility]OP[facility] S[facility]Z [facility], [facility] 04/13/18 Insulin Lispro 100 Un/Ml Pen (HUMALOG 3 ML PEN) 100 Unit/1 Ml Insuln.pen, 5-8 UNIT SQ TID, #2 DIS.SYR 6 Refills Take per sliding scale. Prov:POPPY SANCHEZ DNP [facility] 04/13/18 Baclofen (BACLOFEN) 10 Mg Tablet, 1 TAB PO TID PRN for MUSCLE SPASMS, #90 TAB 5 Refills Prov:POPPY SANCHEZ DNP, [facility] 03/16/18 Lancets (Blood Lancets) 30 Gauge Each, [facility] EVERY 90 DAYS, #300 4 Refills Prov:POPPY SANCHEZ DNP, [facility] 03/09/18 Levothyroxine Sodium (LEVOTHYROXINE SODIUM) 50 Mcg Tablet, 1 TAB PO QDAY, #90 TAB 4 Refills Take along with 200mcg tablet for a total of 250mcg daily. Prov:POPPY SANCHEZ DNP [facility] 03/09/18 Levothyroxine Sodium (LEVOTHYROXINE SODIUM) 200 Mcg Tablet, 200 MCG PO QDAY, #90 TAB 4 Refills Take with 50mcg tablet for a total of 250mcg daily Prov:POPPY SANCHEZ DNP [facility] 03/09/18 Sumatriptan Succinate (SUMATRIPTAN SUCCINATE) 100 Mg Tablet, 1 TAB PO QDAY PRN for MIGRAINE, #9 TAB 6 Refills Prov:POPPY SANCHEZ DNP [facility] 12/15/17 Sumatriptan Succinate (SUMATRIPTAN SUCCINATE) 6 Mg/0.5 Ml Pen.injctr, 6 MG SQ ONCE PRN for MIGRAINE, #1 BOX 6 Refills May repeat dose x1 after 1 hour, if needed. Do not exceed maximum of 12mg/24h. Prov:POPPY SANC[facility]Z [facility], [facility] 12/15/17 Epinephrine (EPIPEN 2-TUCKER) 0.3 Mg/0.3 Ml Pen.injctr, 0.3 MG IM ONCE, #1 CART Prov:POPPY SANCHEZ DNP, FNP-BC 10/14/17 Blood-Glucose Meter (FREESTYLE LITE METER) 1 Each Kit, 1 [facility] ONCE, #1 Prov:POPPY SANCHEZ DNP, FNP-BC 08/11/17 Diclofenac Sodium 1% Gel (VOLTAREN 1% GEL) 100 Gm Gel..gram., 1 DEMETRIS TOP QID PRN for PAIN, #1 TUBE 0 Refills Prov:POPPY SANCHEZ DNP, FNP-BC 01/19/17 Reported Medications Insulin Glargine (LANTUS) 100 Unit/Ml Soln, 65 UNIT SUBQ BID, ML 11/13/17 Past Medical/Surgical History Hypertension, hyperlipidemia, asthma, migraine headaches, GERD, pancreatitis, arthritis, chronic musculoskeletal pain, kidney stones, type 2 diabetes on insulin, hypothyroidism, depression. Surgical history includes appendectomy, hysterectomy, thyroidectomy, breast lumpectomy, renal stent, tubal ligation, multiple orthopedic surgeries, sinus surgery, tonsillectomy, eye surgery as a child for amblyopia. (KARMA JACOME MD) Reviewed Nurses Notes: Yes Old Medical Records Reviewed: Yes (JILL TOSCANO MD) Hx Smoking: Yes Smoking Status: Former Smoker Exposure to Second Hand Smoke?: Yes Hx Substance Use Disorder: No ("Years ago") Hx Alcohol Use: No (JILL TOSCANO MD) Constitutional Vital Sign - Last 24 Hours 07/24/18 07/24/18 07/24/18 07/24/18 17:13 17:14 17:27 17:30 Temp 102.0 Pulse 110 107 Resp 25 19 B/P (MAP) 125/96 (106) 125/96 ???/??? (2865) Pulse Ox 90 89 O2 Delivery Nasal Cannula 07/24/18 07/24/18 07/24/18 07/24/18 17:42 17:49 17:57 18:00 Pulse 106 104 Resp 24 11 B/P (MAP) 143/88 (106) 144/91 (108) Pulse Ox 94 90 O2 Flow Rate 4.0 07/24/18 07/24/18 07/24/18 07/24/18 18:12 18:27 18:42 19:00 Pulse 101 104 102 Resp 22 34 26 B/P (MAP) 147/109 (122) Pulse Ox 91 90 93 2/16/19 2/16/19 2/16/19 2/16/19 19:05 19:20 19:30 19:35 Pulse 102 99 97 Resp 25 8 22 B/P (MAP) 154/101 (118) Pulse Ox 95 93 95 07/24/18 07/24/18 07/24/18 07/24/18 19:40 19:54 19:55 20:00 Pulse 100 105 Resp 21 B/P (MAP) 154/95 (114) 161/106 (124) Pulse Ox 92 07/24/18 07/24/18 07/24/18 07/24/18 20:10 20:25 20:30 20:40 Pulse ? B/P (MAP) 143/88 (106) 07/24/18 07/24/18 07/24/18 07/24/18 20:55 21:00 21:10 21:25 Pulse 98 98 96 Resp 22 24 B/P (MAP) 142/96 (111) Pulse Ox 94 93 92 07/24/18 07/24/18 07/24/18 07/24/18 21:30 21:35 21:50 22:00 Pulse 98 95 Resp 31 21 B/P (MAP) 145/91 (109) 140/69 (92) Pulse Ox 82 91 07/24/18 07/24/18 07/24/18 07/24/18 22:05 22:20 22:30 22:35 Pulse 95 98 98 Resp 40 43 23 B/P (MAP) 148/101 (117) Pulse Ox 93 92 88 07/24/18 07/24/18 22:50 22:54 Temp 99.2 Pulse 96 Resp 18 Pulse Ox 95 ([facility]) Physical Exam General Appearance: The patient is awake though somnolent, opens eyes to follow commands. Slighlty slurred speech and slight psychomotor agitation Eyes: Pupils equal and round no pallor or injection. ENT, Mouth: mucous membranes slightly dry Respiratory: There are no retractions, lungs are clear to auscultation. Cardiovascular: tachycardic to 130's, no murmur Gastrointestinal: Abdomen is soft and non tender, no masses, bowel sounds normal. Neurological: awake, follows commands, no focal deficit, oriented x 3, slight slurred speech Skin: Warm and dry, no rashes. Musculoskeletal: Extremities are nontender, nonswollen and have full range of motion. DIFFERENTIAL DIAGNOSIS: After history and physical exam differential diagnosis was considered for altered mental status including but not limited to hypoglycemia, infectious process, electrolyte abnormality, head injury and intoxicants., DKA, sepsis (JILL TOSCANO MD) Medical Decision Making Data Points Result Diagram: 07/24/18 18207/24/18 182 Laboratory Hematology Test 07/24/18 17:29 07/24/18 17:58 07/24/18 18:20 07/24/18 19:44 Human Chorionic Gonadotropin, Qual Negative (NEGATIVE) Influenza Virus Type A (PCR) Negative (NEGATIVE) Influenza Virus Type B (PCR) Negative (NEGATIVE) Whole Blood Glucose 267 mg/DL (75-110) Red Blood Count 4.74 M/uL (4.17-5.56) Mean Corpuscular Volume 78.7 fL (80.0-96.0) Mean Corpuscular Hemoglobin 25.1 pg (26.0-33.0) Mean Corpuscular Hemoglobin Concent 31.9 g/dL (32.0-36.0) Red Cell Distribution Width 17.7 % (11.5-14.5) Mean Platelet Volume 8.8 fL (7.2-11.1) Neutrophils (%) (Auto) 75.2 % (39.4-72.5) Lymphocytes (%) (Auto) 16.7 % (17.6-49.6) Monocytes (%) (Auto) 6.1 % (4.1-12.4) Eosinophils (%) (Auto) 1.2 % (0.4-6.7) Basophils (%) (Auto) 0.8 % (0.3-1.4) Nucleated RBC Relative Count (auto) 0.0 /100WBC Neutrophils # (Auto) 9.3 K/uL (2.0-7.4) Lymphocytes # (Auto) 2.1 K/uL (1.3-3.6) Monocytes # (Auto) 0.8 K/uL (0.3-1.0) Eosinophils # (Auto) 0.1 K/uL (0.0-0.5) Basophils # (Auto) 0.1 K/uL (0.0-0.1) Nucleated RBC Absolute Count (auto) 0.00 K/uL Blood Gas Patient Temperature Unknown DEGREES Venous Blood pH 7.41 (7.31-7.41) Venous Blood Partial Pressure CO2 48 mmHg Venous Blood Partial Pressure O2 64 mmHg Venous Blood HCO3 30 mmol/L Venous Blood Oxygen Saturation 92 % Venous Blood Base Excess 6 mmol/L Oxygen Liters/Minute Unknown Sodium Level 136 mmol/L (137-145) Potassium Level 3.2 mmol/L (3.5-5.0) Chloride Level 98 mmol/L (98-107) Carbon Dioxide Level 32 mmol/L (22-31) Blood Urea Nitrogen 8 mg/dl (7-18) Creatinine 0.60 mg/dl (0.52-1.04) Glomerular Filtration Rate Calc > 60.0 Random Glucose 267 mg/dl (75-110) Lactate 1.9 mmol/L (0.7-2.1) Calcium Level 9.2 mg/dl (8.4-10.2) Total Bilirubin 0.8 mg/dl (0.2-1.3) Aspartate Amino Transf (AST/SGOT) 590 U/L (0-35) Alanine Aminotransferase (ALT/SGPT) 671 U/L (0-56) Alkaline Phosphatase 90 U/L (0-126) Troponin I 0.848 ng/ml Total Protein 6.6 g/dl (6.3-8.2) Albumin 4.0 g/dl (3.5-5.0) Lipase 58 U/L (23-300) Salicylates Level < 10 mg/L Salicylate Last Dose Date unk Acetaminophen Level < 10 ug/ml Acetone, Qualitative Negative Test 07/24/18 22:20 Urine Color Yellow Urine Clarity Clear Urine pH 7.0 pH (4.8-9.5) Urine Specific [place] 1.045 Urine Protein Negative mg/dL (NEGATIVE) Urine Glucose (UA) 150 mg/dL (NEGATIVE) Urine Ketones Negative mg/dL (NEGATIVE) Urine Blood Negative (NEGATIVE) Urine Nitrite Negative (NEGATIVE) Urine Bilirubin Negative (NEGATIVE) Urine Urobilinogen 4.0 mg/dL (0.2-1.9) Urine Leukocyte Esterase Small (NEGATIVE) Urine RBC 2 /HPF (0-2/HPF) Urine WBC 16 /HPF (0-5/HPF) Urine Squamous Epithelial Cells Many /LPF (</=FEW) Urine Bacteria Few /HPF (NONE-FEW) Urine Mucus None /HPF (NONE-FEW) Urine Opiates Screen Positive Urine Barbiturates Screen Negative Ur Tricyclic Antidepressants Screen Positive Urine Phencyclidine Screen Negative Urine Amphetamines Screen Negative Urine Benzodiazepines Screen Negative Urine Cocaine Screen Negative Urine Cannabinoids Screen Negative Chemistry Test 07/24/18 17:29 07/24/18 17:58 07/24/18 18:20 07/24/18 19:44 Human Chorionic Gonadotropin, Qual Negative (NEGATIVE) Influenza Virus Type A (PCR) Negative (NEGATIVE) Influenza Virus Type B (PCR) Negative (NEGATIVE) Whole Blood Glucose 267 mg/DL (75-110) White Blood Count 12.3 k/uL (4.5-11.0) Red Blood Count 4.74 M/uL (4.17-5.56) Hemoglobin 11.9 g/dL (12.0-16.0) Hematocrit 37.3 % (34.0-47.0) Mean Corpuscular Volume 78.7 fL (80.0-96.0) Mean Corpuscular Hemoglobin 25.1 pg (26.0-33.0) Mean Corpuscular Hemoglobin Concent 31.9 g/dL (32.0-36.0) Red Cell Distribution Width 17.7 % (11.5-14.5) Platelet Count 227 K/uL (150-450) Mean Platelet Volume 8.8 fL (7.2-11.1) Neutrophils (%) (Auto) 75.2 % (39.4-72.5) Lymphocytes (%) (Auto) 16.7 % (17.6-49.6) Monocytes (%) (Auto) 6.1 % (4.1-12.4) Eosinophils (%) (Auto) 1.2 % (0.4-6.7) Basophils (%) (Auto) 0.8 % (0.3-1.4) Nucleated RBC Relative Count (auto) 0.0 /100WBC Neutrophils # (Auto) 9.3 K/uL (2.0-7.4) Lymphocytes # (Auto) 2.1 K/uL (1.3-3.6) Monocytes # (Auto) 0.8 K/uL (0.3-1.0) Eosinophils # (Auto) 0.1 K/uL (0.0-0.5) Basophils # (Auto) 0.1 K/uL (0.0-0.1) Nucleated RBC Absolute Count (auto) 0.00 K/uL Blood Gas Patient Temperature Unknown DEGREES Venous Blood pH 7.41 (7.31-7.41) Venous Blood Partial Pressure CO2 48 mmHg Venous Blood Partial Pressure O2 64 mmHg Venous Blood HCO3 30 mmol/L Venous Blood Oxygen Saturation 92 % Venous Blood Base Excess 6 mmol/L Oxygen Liters/Minute Unknown Glomerular Filtration Rate Calc > 60.0 Lactate 1.9 mmol/L (0.7-2.1) Calcium Level 9.2 mg/dl (8.4-10.2) Total Bilirubin 0.8 mg/dl (0.2-1.3) Aspartate Amino Transf (AST/SGOT) 590 U/L (0-35) Alanine Aminotransferase (ALT/SGPT) 671 U/L (0-56) Alkaline Phosphatase 90 U/L (0-126) Troponin I 0.848 ng/ml Total Protein 6.6 g/dl (6.3-8.2) Albumin 4.0 g/dl (3.5-5.0) Lipase 58 U/L (23-300) Salicylates Level < 10 mg/L Salicylate Last Dose Date unk Acetaminophen Level < 10 ug/ml Acetone, Qualitative Negative Test 07/24/18 22:20 Urine Color Yellow Urine Clarity Clear Urine pH 7.0 pH (4.8-9.5) Urine Specific [place] 1.045 Urine Protein Negative mg/dL (NEGATIVE) Urine Glucose (UA) 150 mg/dL (NEGATIVE) Urine Ketones Negative mg/dL (NEGATIVE) Urine Blood Negative (NEGATIVE) Urine Nitrite Negative (NEGATIVE) Urine Bilirubin Negative (NEGATIVE) Urine Urobilinogen 4.0 mg/dL (0.2-1.9) Urine Leukocyte Esterase Small (NEGATIVE) Urine RBC 2 /HPF (0-2/HPF) Urine WBC 16 /HPF (0-5/HPF) Urine Squamous Epithelial Cells Many /LPF (</=FEW) Urine Bacteria Few /HPF (NONE-FEW) Urine Mucus None /HPF (NONE-FEW) Urine Opiates Screen Positive Urine Barbiturates Screen Negative Ur Tricyclic Antidepressants Screen Positive Urine Phencyclidine Screen Negative Urine Amphetamines Screen Negative Urine Benzodiazepines Screen Negative Urine Cocaine Screen Negative Urine Cannabinoids Screen Negative Toxicology Test 07/24/18 18:20 07/24/18 19:44 07/24/18 22:20 Salicylates Level < 10 mg/L Salicylate Last Dose Date unk Acetaminophen Level < 10 ug/ml Acetone, Qualitative Negative Urine Opiates Screen Positive Urine Barbiturates Screen Negative Ur Tricyclic Antidepressants Screen Positive Urine Phencyclidine Screen Negative Urine Amphetamines Screen Negative Urine Benzodiazepines Screen Negative Urine Cocaine Screen Negative Urine Cannabinoids Screen Negative Urinalysis Test 07/24/18 22:20 Urine Color Yellow Urine Clarity Clear Urine pH 7.0 pH (4.8-9.5) Urine Specific [place] 1.045 Urine Protein Negative mg/dL (NEGATIVE) Urine Glucose (UA) 150 mg/dL (NEGATIVE) Urine Ketones Negative mg/dL (NEGATIVE) Urine Blood Negative (NEGATIVE) Urine Nitrite Negative (NEGATIVE) Urine Bilirubin Negative (NEGATIVE) Urine Urobilinogen 4.0 mg/dL (0.2-1.9) Urine Leukocyte Esterase Small (NEGATIVE) Urine RBC 2 /HPF (0-2/HPF) Urine WBC 16 /HPF (0-5/HPF) Urine Squamous Epithelial Cells Many /LPF (</=FEW) Urine Bacteria Few /HPF (NONE-FEW) Urine Mucus None /HPF (NONE-FEW) (DANELLEKARMA GRIFFIN MD) EKG/Imaging EKG Interpretation 12 lead EKG: Rhythm: sinus tachycardia [place]: normal QRS: normal ST segments: normal sinus tachcyardia without widened qrs or st changes. Monitor Interpretation: Sinus Tachycardia (JILL TOSCANO MD) EKG Interpretation 12 lead EKG: Rhythm: Sinus tachycardia, rate 106 [place]: normal QRS: normal ST segments: No ST elevation or depression noted. She does have him do some diffuse T-wave flattening and poor R-wave progression throughout the anterior leads. Imaging X-ray: Chest was obtained. I viewed the images myself on the PACS system. My interpretation of the images is: Some increased haziness in the bases, looks like atelectasis in the left lower lobe, possible mild congestion, slight perihilar changes suggesting possible viral etiology. Radiologist interpretation is pending at the time Chest x-ray report from radiology was later reviewed and is added here: CHEST SINGLE AP Additional pertinent History: Dyspnea COMPARISON STUDIES: 04/02/2018 FINDINGS: Support lines and catheters: Oxygen tubing Lungs and Pleura: There is increased central bronchovascular and perihilar interstitial lung changes symmetrically seen in both lung perez. Areas of atelectasis at the left base. Heart and vasculature: Heart is enlarged. Central vasculature is engorged Alexandra and Mediastinum: Negative. Bones and Chest wall: Negative. Upper Abdomen: Negative. IMPRESSION: 1. Changes suggesting mild cardiomegaly with central vascular engorgement and perihilar interstitial pulmonary edema. Left lower lung atelectasis. Report Dictated By: Alejandro Ortiz MD at 07/24/2018 6:[address]: Indication: Altered mental status. Technique: Contiguous axial sections were obtained from the base to the vertex without contrast enhancement. One of the following dose optimization techniques was utilized in the performance of this exam: Automated exposure control; adjustment of the mA and/or kV according to the patient's size; or use of an iterative reconstruction technique. Specific details can be referenced in the facility's radiology CT exam operational policy. Comparison: 04/15/2017 Findings: There is no evidence of intra-axial or extra-axial hemorrhage. No focal areas of decreased or increased attenuation are identified. There is no evidence of mass, edema, or shift of the midline structures. The size, shape, and configuration of the ventricular system are normal. There is an old fracture of the nasal bones. No acute skeletal deformity is identified. The visualized paranasal sinuses and mastoid air cells are clear. Impression: Unremarkable unenhanced head CT. No acute deformity. Report Dictated By: Jacob Soto MD at 07/24/2018 9:[address] angiogram of the chest: Indication: Dyspnea and altered mental status. Technique: Helical CT was performed through the chest following IV contrast enhancement with 75 cc of Isovue 370. Multiplanar reconstructions and MIP images are reviewed. Evaluation is somewhat limited by respiratory motion artifact. One of the following dose optimization techniques was utilized in the performanc e of this exam: Automated exposure control; adjustment of the mA and/or kV according to the patient's size; or use of an iterative reconstruction technique. Specific details can be referenced in the facility's radiology CT exam operational policy. Comparison: 04/15/2017 Pulmonary arteries: There is moderate-sized filling defect at the bifurcation of segmental branches in the right lower lobe, compatible with acute pulmonary embolus. No additional emboli are clearly identified in the right lung. No emboli are clearly identified in the left lung. The large central pulmonary arteries are normally patent and appear unremarkable. Aorta and great vessels: Unremarkable, as visualized. There are no signs of aneurysm or significant atherosclerosis. Heart and pericardial soft tissues: There is mild atherosclerotic calcification in the coronary arteries. The heart size is normal. There are no signs of RV dilatation. No pericardial fluid or soft tissue abnormality is identified. Mediastinal soft tissues: A few unenlarged lymph nodes are present. There is no evidence of mass or fluid. Lung perez: There are diffuse groundglass opacities in the the lung perez, suggesting edema. A small focal area of consolidation is present in the left upper lobe, compatible with inflammation or atelectasis. Pleural spaces: No evidence of effusion, focal pleural thickening, or pneumothorax. Skeletal structures: There are chronic mild degenerative changes in the spine. No acute skeletal deformity is identified. Upper abdomen: There is a tiny nonobstructing calculus in the left kidney. Ot herwise unremarkable. IMPRESSION: Moderate-sized acute pulmonary embolus in the right lower lobe. Other findings, as described above. A [place] [facility] [place] Report Dictated By: Jacob Soto MD at 07/24/2018 9:20 PM (KARMA JACOME MD) ED Course/Re-evaluation ED Course 47-year-old female presents altered and febrile and has not been taking insulin 1 day. Will evaluate for sepsis, dka, and other potential etiologies. Workup initiated prior to t/o to Dr. Jacome at 1800 awaiting for initial results. (JILL TOSCANO MD) Clinical Indication for ER IV: Hydration, IV Access ED Course I assumed care of this patient from Dr. Toscano at shift change. I went in and reevaluated the patient. She continues to have some slurred speech and altered mental status. She is able answer questions appropriately at this time although somewhat slowed in her thought process. She uses oxygen chronically at home, is currently on 4 L and becomes very short of breath with minimal activity. She continues to have nausea and is requesting some Phenergan to help with her nausea at this time. She is not having any chest pain. She denies any headache. She has generalized weakness but is able to get up and walk with the shortness of breath as noted. Continues to have chest congestion and upper respiratory symptoms for several weeks now. I reviewed the EKG and the chest x-ray as noted above. IV was placed but blood work was unable to be obtained at that time so lab is currently in the room finishing acquisition of her blood to run labs. Laboratory studies were reviewed. She has some mild electrolyte changes as noted above. White count is mildly elevated. Received a call from the lab indicating critically elevated troponin of 0.8. Reviewed with the patient her past cardiac history. She does have a history of heart problems but never had any stents or heart attack. She does have nonobstructive coronary artery disease with a heart catheter about 3 or 4 years ago and currently watching this with medical management of her other risk factors including her hypertension, hyperlipidemia, and type 2 diabetes. Discussed the case with Dr. Welsh, hospitalist. Got CT scan of head - negative, and CTA chest - positive for PE, after our conversation. Discussed with him again, and started Lovenox 100mg SC prior to transfer for care at [facility]. Decision to Disposition Date: Jul 24, 2018 Decision to Disposition Time: 21:44 Transfer Facility Patient was transferred to [facility] [place] via ambulance. The transfer was non-emergent, and was required because the capabilities of the receiving hospital. Consent for transfer was obtained from the patient. See EMTALA for transfer orders. (KARMA JACOME MD) Depart Departure Latest Vital Signs Vital Signs Date Time Temp Pulse Resp B/P (MAP) Pulse Ox O2 Delivery O2 Flow Rate FiO2 07/24/18 22:54 99.2 07/24/18 22:50 96 18 95 07/24/18 22:30 148/101 (117) 07/24/18 17:49 4.0 07/24/18 17:14 Nasal Cannula (KARMA JACOME MD) Core Temperature (Celsius): 36.73 (JILL TOSCANO MD) Impression: Primary Impression: Pulmonary embolism Additional Impression: Elevated troponin Condition: Condition Unchanged Disposition: XFER TO ACUTE CARE [facility]OSPITAL Referrals: POPPY SANCHEZ DNP, [employer] (PCP) Problem Qualifiers Primary Impression: Pulmonary embolism Pulmonary embolism type: other Chronicity: acute Acute cor pulmonale presence: without acute cor pulmonale Qualified Codes: I26.99 - Other pulmonary embolism without acute cor pulmonale JILL TOSCANO MD Jul 24, 2018 17:39 KARMA JACOME MD Jul 24, 2018 18:06
--- NOTE | 2018-07-24 18:34 | EKG ---
FACILITY: [facility] [place] PATIENT NAME: DON LOUIS : [id number] MR: [id number] V: [id number] EXAM DATE: ORDERING PHYSICIAN: JILL TOSCANO TECHNOLOGIST: LIZABETH Test Reason : ALTERED MENTAL STAT Blood Pressure : / mmHG Vent. Rate : 106 BPM Atrial Rate : 106 BPM P-R Int : 128 ms QRS Dur : 082 ms QT Int : 344 ms P-R-T Axes : 011 017 032 degrees QTc Int : 456 ms Sinus tachycardia Otherwise normal ECG When compared with ECG of 02-APR-2018 20:22, Nonspecific T wave abnormality no longer evident in Lateral leads Confirmed by ANDER CASTAÑEDA ([id number]) on 07/24/2018 7:08:54 PM Referred By: EVERTON Confirmed By:ANDER CASTAÑEDA
[2018-07-24 18:36] LABS: PLATELET COUNT, AUTOMATED 227 K/uL (150-450)
--- NOTE | 2018-07-24 18:55 | RADIOLOGY IMAGING REPORT ---
FACILITY: [facility] - [place], [place] PATIENT NAME: Yesy Mccracken : 1970 MR: [id number] V: [id number] EXAM DATE: ORDERING PHYSICIAN: JILL TOSCANO TECHNOLOGIST: Location: [facility] Patient: Yesy Mccracken : 1970 Visit/Account:[id number] Date of Sevice: 07/24/2018 CHEST SINGLE AP Additional pertinent History: Dyspnea COMPARISON STUDIES: 04/02/2018 FINDINGS: Support lines and catheters: Oxygen tubing Lungs and Pleura: There is increased central bronchovascular and perihilar interstitial lung changes symmetrically seen in both lung perez. Areas of atelectasis at the left base. Heart and vasculature: Heart is enlarged. Central vasculature is engorged Alexandra and Mediastinum: Negative. Bones and Chest wall: Negative. Upper Abdomen: Negative. IMPRESSION: 1. Changes suggesting mild cardiomegaly with central vascular engorgement and perihilar interstitial pulmonary edema. Left lower lung atelectasis. Report Dictated By: Alejandro Ortiz MD at 07/24/2018 6:50 PM Report E-Signed By: Alejandro Ortiz MD at 07/24/2018 6:52 PM [id number]
[2018-07-24] MEDS ORDERED: PROMETHAZINE 25 MG/ML 1 ML AMP IVP ONE (19:35)
[2018-07-24] MEDS ORDERED: IOPAMIDOL 76% 75 ML INFUS BTL 75 ML ONE (20:10)
[2018-07-24] MEDS ORDERED: NS(*) 0.9% 50 ML BAG 50 ML ONE (20:10)
[2018-07-24] MEDS ORDERED: LR(*) 1000 ML BAG 1,000 ML ONE (21:00)
--- NOTE | 2018-07-24 21:24 | RADIOLOGY IMAGING REPORT ---
FACILITY: [facility] PATIENT NAME: Yesy Mccracken : 1970 MR: [id number] V: [id number] EXAM DATE: ORDERING PHYSICIAN: KARMA MCCLENDON TECHNOLOGIST: [place] [facility] [place] Yesy Mccracken : 1970 Visit/Account:[id number] Date of Sevice: 07/24/[address]: Indication: Altered mental status. Technique: Contiguous axial sections were obtained from the base to the vertex without contrast enhan cement. One of the following dose optimization techniques was utilized in the performance of this exam: Autom ated exposure control; adjustment of the mA and/or kV according to the patient's size; or use of an i terative reconstruction technique. Specific details can be referenced in the facility's radiology CT exam operational policy. Comparison: 04/15/2017 Findings: There is no evidence of intra-axial or extra-axial hemorrhage. No focal areas of decreased or increased attenuation are identified. There is no evidence of mass, edema, or shift of the midline structures. The size, shape, and configuration of the ventricular system are normal. There is an old fracture of the nasal bones. No acute skeletal deformity is identified. The visualized paranasal sin uses and mastoid air cells are clear. Impression: Unremarkable unenhanced head CT. No acute deformity. Report Dictated By: Jacob Soto MD at 07/24/2018 9:16 PM Report E-Signed By: Jacob Soto MD at 07/24/2018 9:20 PM WSN:[id number]
--- NOTE | 2018-07-24 21:42 | RADIOLOGY IMAGING REPORT ---
FACILITY: [facility] [place] PATIENT NAME: Yesy Mccracken : 1970 MR: [id number] V: [id number] EXAM DATE: ORDERING PHYSICIAN: KARMA JACOME TECHNOLOGIST: Location: [facility] Patient: Yesy Mccracken : 1970 Visit/Account:[id number] Date of Sevice: 07/24/2018 CT angiogram of the chest: Indication: Dyspnea and altered mental status. Technique: Helical CT was performed through the chest following IV contrast enhancement with 75 cc of Isovue 370. Multiplanar reconstructions and MIP images are reviewed. Evaluation is somewhat limited by respiratory motion artifact. One of the following dose optimization techniques was utilized in the performance of this exam: Autom ated exposure control; adjustment of the mA and/or kV according to the patient's size; or use of an i terative reconstruction technique. Specific details can be referenced in the facility's radiology CT exam operational policy. Comparison: 04/15/2017 Pulmonary arteries: There is moderate-sized filling defect at the bifurcation of segmental branches i n the right lower lobe, compatible with acute pulmonary embolus. No additional emboli are clearly robert ntified in the right lung. No emboli are clearly identified in the left lung. The large central pulmo nary arteries are normally patent and appear unremarkable. Aorta and great vessels: Unremarkable, as visualized. There are no signs of aneurysm or significant a therosclerosis. Heart and pericardial soft tissues: There is mild atherosclerotic calcification in the coronary arter ies. The heart size is normal. There are no signs of RV dilatation. No pericardial fluid or soft tiss ue abnormality is identified. Mediastinal soft tissues: A few unenlarged lymph nodes are present. There is no evidence of mass or f luid. Lung perez: There are diffuse groundglass opacities in the the lung perez, suggesting edema. A smal l focal area of consolidation is present in the left upper lobe, compatible with inflammation or atel ectasis. Pleural spaces: No evidence of effusion, focal pleural thickening, or pneumothorax. Skeletal structures: There are chronic mild degenerative changes in the spine. No acute skeletal defo rmity is identified. Upper abdomen: There is a tiny nonobstructing calculus in the left kidney. Otherwise unremarkable. IMPRESSION: Moderate-sized acute pulmonary embolus in the right lower lobe. Other findings, as described above. A preliminary report was called to Dr. Jacome at [facility] at 2130 hours. Report Dictated By: Jacob Soto MD at 07/24/2018 9:20 PM Report E-Signed By: Jacob Soto MD at 07/24/2018 9:38 PM WSN:[id number]
[2018-07-24] MEDS ORDERED: ENOXAPARIN 100 MG/ML SYR SC ONE (21:45)
[2018-07-24 22:30] VITALS: BP 148/101
== END 2018-07-24 23:16 | disposition short-term general hospital (02) ==
LOC: ER 17:32
DX: I26.99 Other pulmonary embolism without acute cor pulmonale (principal); R79.89 Other specified abnormal findings of blood chemistry
CPT/HCPCS: 36415; 36416; 70450; 71045; 71275; 80305; 81001; 82009; 82803; 82948; 83605; 83690; 84484; 84703; 85025; 87040; 87502; 93005; 96361; 96374; 99285; G0480; J1650; J2550; J7050; J7120; Q9967; 80329; 82040; 82247; 82310; 82374; 82435; 82565; 82947; 84075; 84132; 84155; 84295; 84450; 84460; 84520

== ENCOUNTER → 2018-07-24 | Outpatient (CLI) | payer MEDICAID ==
[2017-04-17 12:41] VITALS: BMI 34.0
[~2018-07-24] MED LIST changes: +PROM12.556 PO
== END ==
LOC: AMB 22:42
PROVIDERS: ATTEND Nurse Practitioner
DX: I26.99 Other pulmonary embolism without acute cor pulmonale (principal); R07.9 Chest pain, unspecified; E11.9 Type 2 diabetes mellitus without complications; R79.89 Other specified abnormal findings of blood chemistry; R53.83 Other fatigue; R11.0 Nausea; R50.9 Fever, unspecified
CPT/HCPCS: A0425; A0426

== ENCOUNTER → 2018-07-24 | Outpatient (CLI) | payer MEDICAID ==
[2017-04-17 12:41] VITALS: BMI 34.0
== END ==
LOC: AMB 16:37
PROVIDERS: ATTEND Nurse Practitioner
DX: R41.82 Altered mental status, unspecified (principal); E10.65 Type 1 diabetes mellitus with hyperglycemia; R53.1 Weakness; R09.02 Hypoxemia
CPT/HCPCS: A0425; A0427

== ENCOUNTER → 2018-08-02 | Outpatient (CLI) | payer MEDICAID ==
[2017-04-17 12:41] VITALS: BMI 34.0
[~2018-08-02] MED LIST changes: +PROM12.556 PO
[2018-08-02 11:46] LABS: PLATELET COUNT, AUTOMATED 220 K/uL (150-450)
== END ==
LOC: LAB 10:55
PROVIDERS: ATTEND Nurse Practitioner Primary Care
DX: I26.99 Other pulmonary embolism without acute cor pulmonale (principal)
CPT/HCPCS: 36415; 82040; 82247; 82310; 82374; 82435; 82565; 82947; 84075; 84132; 84155; 84295; 84450; 84460; 84520; 85025

== ENCOUNTER 2018-08-10 10:16 | Emergency (ER) | payer MEDICAID ==
[2017-04-17 12:41] VITALS: Wt 98.2 kg
--- NOTE | 2018-08-10 10:25 | ER Report ---
History and Physical Time Seen By MD: 10:25 HPI/ROS CHIEF COMPLAINT: chest pain HISTORY OF PRESENT ILLNESS: This is a 47-year-old female. She has a history of coronary artery disease as well as pulmonary embolism. Last week she was at the hospital in [place], transferred after finding a new pulmonary embolism. She is currently on Eliquis. She was told at that visit that she had nonobstructive coronary artery disease and they would be reevaluating this week, delay in evaluation was because of her current PE and treatment for this. She started having left-sided chest pain, somewhat worse with inspiration, and associated nausea. This started earlier today. Pain is not being relieved. Does worsen with exertion. She was seen at primary care doctor office who sent her here for evaluation given the history recently in her chest pain. No fevers or chills or current infectious illnesses. She is not having any blood in the urine or blood in the stool. Some increased bruising on the blood thinner. Allergies: Coded Allergies: Nitrofurantoin Macrocrystal (Verified Allergy, Severe, HIVES, 07/04/18) aspirin (Verified Allergy, Severe, ANAPHYLAXIS, 07/04/18) chlorpromazine (Verified Allergy, Severe, ANAPHYLAXIS, 07/04/18) hydroxyzine (Verified Allergy, Severe, AIRWAY OBSTRUCTION, 07/04/18) varenicline (Verified Allergy, Severe, anxiety, 07/04/18) venom-wasp (Verified Allergy, Severe, ANAPHYLAXIS, 07/04/18) Sulfa (Sulfonamide Antibiotics) (Verified Allergy, Intermediate, HIVES, 07/04/18) albuterol (Verified Allergy, Intermediate, itching, hives, 07/04/18) cephalexin (Verified Allergy, Intermediate, HIVES, 07/04/18) ciprofloxacin (Verified Allergy, Intermediate, "feels like I'm going inasne", 07/04/18) droperidol (Verified Allergy, Intermediate, DELUSIONS, 07/04/18) Pt states her reaction as, "I become psychotic". latex (Verified Allergy, Intermediate, RASH, SWELLING, 07/04/18) ondansetron (Verified Adverse Reaction, Severe, TACHYCARDIA, 07/04/18) dexamethasone (Verified Adverse Reaction, Intermediate, ITCHING, 07/04/18) haloperidol (Verified Adverse Reaction, Intermediate, "MAKES ME JUMPY", 07/04/18) Uncoded Allergies: Inhaled medication propelant (Allergy, Intermediate, HIVES, 10/07/14) Home Meds Active Scripts Ondansetron Hcl (ZOFRAN) 8 Mg Tablet, 1 TAB PO Q12H PRN for NAUSEA, #8 TAB 0 Refills Prov:POPPY SANCHEZ DNP, [facility]- 08/10/18 Hydrocodone Bit/Acetaminophen (HYDROCODON-ACETAMINOPHEN 5-325) 1 Each Tablet, 1- 2 EACH PO Q6H PRN for PAIN, #15 TAB 0 Refills Prov:POPPY SANCHEZ DNP, [facility] 08/06/18 Baclofen (BACLOFEN) 10 Mg Tablet, 1 TAB PO TID PRN for MUSCLE SPASMS, #90 TAB 5 Refills Prov:POPPY SANCHEZ DNP [facility] 08/04/18 Promethazine Hcl (PROMETHAZINE HCL) 12.5 Mg Tablet, 1-2 TAB PO Q8H PRN for NAUSEA, #12 TAB 0 Refills Prov:POPPY SANCHEZ DNP [facility] 07/31/18 Prazosin Hcl (PRAZOSIN HCL) 5 Mg Capsule, 1 CAP PO QHS, #30 CAPSULE 0 Refills Prov:POPPY SANCHEZ DNP [facility] 07/21/18 Doxepin Hcl (DOXEPIN HCL) 25 Mg Capsule, 2 CAP PO BID PRN for ANXIETY, #120 CAPSULE 0 Refills Prov:POPPY SANCHEZ DNP [facility] 07/21/18 Buspirone Hcl (BUSPIRONE HCL) 30 Mg Tablet, 1 TAB PO BID, #60 TAB 0 Refills Prov:POPPY SANCHEZ DNP [facility] 07/21/18 Aripiprazole (ABILIFY) 20 Mg Tablet, 1 TAB PO QDAY, #30 TAB 0 Refills Prov:POPPY SANCHEZ DNP [facility] 07/21/18 Zolpidem Tartrate (AMBIEN) 5 Mg Tablet, 1 TAB PO QHS PRN for INSOMNIA, #30 TAB 0 Refills Prov:POPPY SANCHEZ DNP [facility] 07/21/18 Pregabalin (LYRICA) 150 Mg Capsule, 1 TAB PO BID, #60 CAPSULE 0 Refills Prov:POPPY SANCHEZ DNP, FNP- 07/14/18 Fluticasone Prop 50 Mcg Ns (FLONASE 50 MCG NS) 16 Gm [place].susp, 2 SPRAYS NS QDAY for 10 Days, #1 BOT 0 Refills Prov:POPPY SANCHEZ DNP, FNP- 06/15/18 Insulin Glargine 100 Un/Ml Pen (LANTUS SOLOSTAR PEN) 100 Unit/1 Ml Insuln.pen, 65 UNIT SQ BID, #1 BOX 3 Refills Prov:POPPY SANCHEZ DNP, FNP-BC 06/09/18 Blood Sugar Diagnostic (FREESTYLE LITE TEST STRIPS) 1 Each Strip, 500 EACH MC 5XD for 90 Days, #500 STRIP 2 Refills Prov:POPPY SANCHEZ DNP, FNP-BC 06/02/18 [place], Insulin Disposable (PEN NEEDLES) 1 Each Dis.needle, BOX MC QDAY, #1 9 Refills Prov:POPPY SANCHEZ DNP, FNP-BC 06/02/18 Ranitidine Hcl (RANITIDINE HCL) 150 Mg Capsule, 1 TAB PO BID, #180 CAPSULE 3 Refills Prov:POPPY SANCHEZ DNP, FNP- 05/28/18 Albuterol Sulfate 90 Mcg/Act (PROAIR HFA 90 MCG/ACT) 8.5 Gm Hfa.aer.ad, 2 PUFF I H Q4-6H PRN for WHEEZING, #1 INHALER 0 Refills Prov:POPPY SANCHEZ DNP, FNP-BC 04/13/18 Lisinopril (LISINOPRIL) 40 Mg Tablet, 1 TAB PO QDAY for 90 Days, #90 TAB 1 Refill Prov:POPPY SANCHEZ DNP, FNPuM 04/13/18 Atorvastatin (LIPITOR) 80 Mg Tab, 1 TAB PO QDAY for 90 Days, #90 TAB 1 Refill Prov:POPPY SANCHEZ DNP [facility] 04/13/18 Esomeprazole Magnesium (NEXIUM) 40 Mg Capsule.dr, 1 CAP PO BID, #180 CAP 3 Refills Prov:POPPY SANCHEZ DNP, FNP-BC 04/13/18 Insulin Lispro 100 Un/Ml Pen (HUMALOG 3 ML PEN) 100 Unit/1 Ml Insuln.pen, 5-8 UNIT SQ TID, #2 DIS.SYR 6 Refills Take per sliding scale. Prov:POPPY SANCHEZ DNP, FNP-BC 04/13/18 Lancets (Blood Lancets) 30 Gauge Each, [facility] EVERY 90 DAYS, #300 4 Refills Prov:POPPY SANCHEZ DNP, FNP-BC 03/09/18 Levothyroxine Sodium (LEVOTHYROXINE SODIUM) 50 Mcg Tablet, 1 TAB PO QDAY, #90 TAB 4 Refills Take along with 200mcg tablet for a total of 250mcg daily. Prov:POPPY SANCHEZ DNP, FNP-BC 03/09/18 Levothyroxine Sodium (LEVOTHYROXINE SODIUM) 200 Mcg Tablet, 200 MCG PO QDAY, #90 TAB 4 Refills Take with 50mcg tablet for a total of 250mcg daily Prov:POPPY SANCHEZ DNP, FNP-BC 03/09/18 Sumatriptan Succinate (SUMATRIPTAN SUCCINATE) 100 Mg Tablet, 1 TAB PO QDAY PRN for MIGRAINE, #9 TAB 6 Refills Prov:POPPY SANCHEZ DNP, FNP-BC 12/15/17 Sumatriptan Succinate (SUMATRIPTAN SUCCINATE) 6 Mg/0.5 Ml Pen.injctr, 6 MG SQ ONCE PRN for MIGRAINE, #1 BOX 6 Refills May repeat dose x1 after 1 hour, if needed. Do not exceed maximum of 12mg/24h. Prov:POPPY SANCHEZ DNP, FNP-BC 12/15/17 Epinephrine (EPIPEN 2-TUCKER) 0.3 Mg/0.3 Ml Pen.injctr, 0.3 MG IM ONCE, #1 CART Prov:POPPY SANCHEZ DNP, FNP-BC 10/14/17 Blood-Glucose Meter (FREESTYLE LITE METER) 1 Each Kit, 1 [facility] ONCE, #1 Prov:POPPY SNACHEZ DNP, FNP-BC 08/11/17 Diclofenac Sodium 1% Gel (VOLTAREN 1% GEL) 100 Gm Gel..gram., 1 DEMETRIS TOP QID PRN for PAIN, #1 TUBE 0 Refills Prov:POPPY SANCHEZ DNP, [employer] 01/19/17 Reported Medications Apixaban (ELIQUIS) 5 Mg Tablet, 5 MG PO BID 08/10/18 Insulin Glargine (LANTUS) 100 Unit/Ml Soln, 65 UNIT SUBQ BID, ML 11/13/17 Discontinued Scripts Hydrocodone Bit/Acetaminophen (HYDROCODON-ACETAMINOPHEN 5-325) 1 Each Tablet, 1- 2 EACH PO Q6H PRN for PAIN, #20 TAB 0 Refills Prov:POPPY SANCHEZ DNP, [employer]- 08/02/18 Reviewed Nurses Notes: Yes Hx Smoking: Yes Smoking Status: Former Smoker Exposure to Second Hand Smoke?: Yes Hx Substance Use Disorder: No ("Years ago") Hx Alcohol Use: No Constitutional Vital Sign - Last 24 Hours 08/10/18 08/10/18 08/10/18 08/10/18 10:20 10:25 10:30 10:31 Temp 98.0 Pulse 92 85 Resp 18 16 B/P (MAP) 114/82 (93) 114/82 118/85 (96) Pulse Ox 88 86 O2 Delivery Room Air 08/10/18 08/10/18 08/10/18 08/10/18 10:46 11:00 11:01 11:16 Pulse 85 84 83 Resp 19 19 23 B/P (MAP) 134/81 (98) Pulse Ox 92 94 92 08/10/18 08/10/18 08/10/18 08/10/18 11:30 11:46 12:00 12:01 Pulse 79 76 Resp 15 14 B/P (MAP) ???/??? (1665) 140/109 (119) Pulse Ox 90 95 08/10/18 08/10/18 08/10/18 08/10/18 12:06 12:09 12:21 12:30 Pulse 81 80 Resp 18 19 B/P (MAP) 114/89 (97) Pulse Ox 96 91 O2 Flow Rate 3.0 08/10/18 08/10/18 08/10/18 08/10/18 12:36 12:51 13:00 13:06 Pulse 80 78 75 Resp 10 5 6 B/P (MAP) 118/83 (95) Pulse Ox 91 89 90 08/10/18 08/10/18 08/10/18 08/10/18 13:21 13:30 13:36 13:51 Pulse 81 77 79 Resp 15 18 17 B/P (MAP) 133/81 (98) Pulse Ox 93 90 90 08/10/18 14:00 B/P (MAP) 132/91 (105) Physical Exam General Appearance: The patient is alert. No acute distress. Eyes: Pupils are equal, round. No pallor, injection or icterus. ENT: Mucous membranes are moist. Neck: Supple and non tender. Respiratory: Lungs are clear to auscultation. Cardiovascular: Regular rate and rhythm. No murmurs, gallops or rubs. Normal capillary refill. Gastrointestinal: Abdomen is soft and non tender. Nondistended. Normal active bowel sounds. Neurological: Alert and oriented x3. No focal neurologic deficits Skin: Warm and dry. Musculoskeletal: Extremities are nontender. DIFFERENTIAL DIAGNOSIS: After history and physical exam, differential diagnosis was considered for chest pain, this could be pleuritic pain from her recent PE, but with nonobstructive coronary artery disease, the concern would be pain from cardiac etiology. Medical Decision Making Data Points Result Diagram: 08/10/18 1042 08/10/18 1042 Laboratory Hematology Test 08/10/18 10:42 08/10/18 14:03 Red Blood Count 5.64 M/uL (4.17-5.56) Mean Corpuscular Volume 76.9 fL (80.0-96.0) Mean Corpuscular Hemoglobin 26.2 pg (26.0-33.0) Mean Corpuscular Hemoglobin Concent 34.0 g/dL (32.0-36.0) Red Cell Distribution Width 16.9 % (11.5-14.5) Mean Platelet Volume 9.4 fL (7.2-11.1) Neutrophils (%) (Auto) 67.8 % (39.4-72.5) Lymphocytes (%) (Auto) 25.2 % (17.6-49.6) Monocytes (%) (Auto) 5.0 % (4.1-12.4) Eosinophils (%) (Auto) 1.3 % (0.4-6.7) Basophils (%) (Auto) 0.7 % (0.3-1.4) Nucleated RBC Relative Count (auto) 0.1 /100WBC Neutrophils # (Auto) 6.1 K/uL (2.0-7.4) Lymphocytes # (Auto) 2.3 K/uL (1.3-3.6) Monocytes # (Auto) 0.5 K/uL (0.3-1.0) Eosinophils # (Auto) 0.1 K/uL (0.0-0.5) Basophils # (Auto) 0.1 K/uL (0.0-0.1) Nucleated RBC Absolute Count (auto) 0.01 K/uL Sodium Level 137 mmol/L (137-145) Potassium Level 3.3 mmol/L (3.5-5.0) Chloride Level 102 mmol/L (98-107) Carbon Dioxide Level 26 mmol/L (22-31) Blood Urea Nitrogen 10 mg/dl (7-18) Creatinine 0.70 mg/dl (0.52-1.04) Glomerular Filtration Rate Calc > 60.0 Random Glucose 187 mg/dl (75-110) Calcium Level 10.3 mg/dl (8.4-10.2) Total Bilirubin 0.7 mg/dl (0.2-1.3) Aspartate Amino Transf (AST/SGOT) 14 U/L (0-35) Alanine Aminotransferase (ALT/SGPT) 31 U/L (0-56) Alkaline Phosphatase 115 U/L (0-126) Total Protein 8.7 g/dl (6.3-8.2) Albumin 5.0 g/dl (3.5-5.0) Troponin I < 0.012 ng/ml Chemistry Test 08/10/18 10:42 08/10/18 14:03 White Blood Count 9.1 k/uL (4.5-11.0) Red Blood Count 5.64 M/uL (4.17-5.56) Hemoglobin 14.8 g/dL (12.0-16.0) Hematocrit 43.4 % (34.0-47.0) Mean Corpuscular Volume 76.9 fL (80.0-96.0) Mean Corpuscular Hemoglobin 26.2 pg (26.0-33.0) Mean Corpuscular Hemoglobin Concent 34.0 g/dL (32.0-36.0) Red Cell Distribution Width 16.9 % (11.5-14.5) Platelet Count 251 K/uL (150-450) Mean Platelet Volume 9.4 fL (7.2-11.1) Neutrophils (%) (Auto) 67.8 % (39.4-72.5) Lymphocytes (%) (Auto) 25.2 % (17.6-49.6) Monocytes (%) (Auto) 5.0 % (4.1-12.4) Eosinophils (%) (Auto) 1.3 % (0.4-6.7) Basophils (%) (Auto) 0.7 % (0.3-1.4) Nucleated RBC Relative Count (auto) 0.1 /100WBC Neutrophils # (Auto) 6.1 K/uL (2.0-7.4) Lymphocytes # (Auto) 2.3 K/uL (1.3-3.6) Monocytes # (Auto) 0.5 K/uL (0.3-1.0) Eosinophils # (Auto) 0.1 K/uL (0.0-0.5) Basophils # (Auto) 0.1 K/uL (0.0-0.1) Nucleated RBC Absolute Count (auto) 0.01 K/uL Glomerular Filtration Rate Calc > 60.0 Calcium Level 10.3 mg/dl (8.4-10.2) Total Bilirubin 0.7 mg/dl (0.2-1.3) Aspartate Amino Transf (AST/SGOT) 14 U/L (0-35) Alanine Aminotransferase (ALT/SGPT) 31 U/L (0-56) Alkaline Phosphatase 115 U/L (0-126) Total Protein 8.7 g/dl (6.3-8.2) Albumin 5.0 g/dl (3.5-5.0) Troponin I < 0.012 ng/ml EKG/Imaging EKG Interpretation 12 lead EKG: Rhythm: Normal sinus rhythm, rate 85 [place]: normal QRS: normal ST segments: normal Unchanged when compared with previous EKGs Imaging EXAMINATION: CTA Chest With Contrast 08/10/2018 10:25 AM HISTORY: chest pain, recent PE TECHNIQUE: Pulmonary embolus protocol - Thin-slice axial imaging of the chest was performed during maximal pulmonary arterial opacification with intravenous nonionic iodinated contrast. 3D slab MIPs and 2D reconstructions in the coronal and sagittal planes were performed. [employer] images have been stored on PACS. Contrast: 75 mL of IV Isovue 370. One of the following dose optimization techniques was utilized in the performance of this exam: Automated exposure control; adjustment of the mA and/or kV according to the patient's size; or use of an iterative reconstruction technique. Specific details can be referenced in the facility's radiology CT exam operational policy. COMPARISON STUDIES: Positive study 07/24/2018.. FINDINGS: Angiographic Findings: Pulmonary arteries: Likely minimal residual material in the right lower lobe from the previously demonstrated moderate volume embolus. No acute intercurrent PE evident. Other vasculature: Potential mild calcification along the LAD. Additional non-angiographic findings: Lungs / pleura: Mild mosaic density in the lungs which may reflect some small airways disease in conjunction with the "stop breathing" CTA PE technique. Consolidation in the lateral left base has improved with minimal bandlike residual. No significant acute finding. Pleural spaces are clear. Mediastinum / ariadne: negative Heart / pericardium: negative Musculoskeletal / Body wall: negative Lymph node assessment: negative Lower neck: negative Upper abdomen: Small nonobstructive stone in the left kidney. IMPRESSION: 1. No acute PE. Minimal residual from previously documented right lower lung PE. 2. Potential mild LAD coronary calcifications. If real this would be premature for age and gender. Report Dictated By: Lenny Whittington MD at 08/10/2018 12:16 PM ED Course/Re-evaluation Clinical Indication for ER IV: Hydration, IV Access ED Course On patient's evaluation, she is having continued chest pain and nausea. We gave her Phenergan for the nausea. EKG unremarkable as noted. Repeated a CT angiogram which did not show any new pulmonary embolism and shows regression of the recent one. Mid LAD lesion does show some calcification. Initial troponin is negative. I called and spoke with cardiology [place]. Initially recommended outpatient stress testing. I discussed this with the patient and we are getting a repeat another troponin and then talk about what to do. I did give her some Tylenol for headache. Cardiology called back. They reviewed the case and are considering that this may be an unstable plaque so recommended transfer to their facility for cardiac catheterization. I discussed this with the patient and currently arranging transfer. Discussed with Dr. Hogan, hospitalist at [place], who accepted the patient for transfer. Since shes is allergic to aspirin, we will provide a loading dose of Plavix 300mg, and trial of SL nitro versus nitro patch. She is on atorvastatin already. Decision to Disposition Date: Aug 10, 2018 Decision to Disposition Time: 14:28 Transfer Facility Patient was transferred to [facility] [place] via ambulance. The transfer was non-emergent, and was required because the capabilities of the receiving hospital. Consent for transfer was obtained from the patient. See EMTALA for transfer orders. Depart Departure Latest Vital Signs Vital Signs Date Time Temp Pulse Resp B/P (MAP) Pulse Ox O2 Delivery O2 Flow Rate FiO2 08/10/18 14:00 132/91 (105) 08/10/18 13:51 79 17 90 08/10/18 12:09 3.0 08/10/18 10:25 98.0 Room Air Core Temperature (Celsius): 36.73 Impression: Primary Impression: Chest pain Additional Impression: Coronary artery disease Condition: Condition Unchanged Disposition: XFER TO ACUTE CARE HOSPITAL Referrals: POPPY SANCHEZ DNP, [employer]-BC (PCP) Problem Qualifiers Primary Impression: Chest pain Chest pain type: unspecified Qualified Codes: R07.9 - Chest pain, unspecified Additional Impression: Coronary artery disease Coronary Disease-Associated Artery/Lesion type: [place] artery [place] vs. transplanted heart: [place] heart Associated angina: with unspecified angina Qualified Codes: I25.119 - Atherosclerotic heart disease of [place] coronary artery with unspecified angina pectoris KARMA MCCLENDON MD Aug 10, 2018 10:25
--- NOTE | 2018-08-10 10:33 | EKG ---
FACILITY: [facility] [place] PATIENT NAME: DON LOUIS : [id number] MR: [id number] V: [id number] EXAM DATE: ORDERING PHYSICIAN: KARMA MCCLENDON TECHNOLOGIST: MED Cho Reason : CP Blood Pressure : / mmHG Vent. Rate : 085 BPM Atrial Rate : 085 BPM P-R Int : 134 ms QRS Dur : 082 ms QT Int : 380 ms P-R-T Axes : 026 -02 037 degrees QTc Int : 452 ms Normal sinus rhythm Normal ECG When compared with ECG of 24-JUL-2018 17:40, No significant change was found Confirmed by Mart Kelly ([id number]) on 08/10/2018 11:24:53 PM Referred By: DANELLE Confirmed By:Mart Carr
[2018-08-10] MEDS ORDERED: IOPAMIDOL 76% 100 ML INFUS BTL 100 ML ONE (10:46)
[2018-08-10] MEDS ORDERED: NS(*) 0.9% 50 ML BAG 50 ML ONE (10:46)
[2018-08-10 10:53] LABS: PLATELET COUNT, AUTOMATED 251 K/uL (150-450)
[2018-08-10] MEDS ORDERED: PROMETHAZINE 25 MG/ML 1 ML AMP IVP ONE ×2 (11:05→13:20)
--- NOTE | 2018-08-10 12:29 | RADIOLOGY IMAGING REPORT ---
[place] [facility] [place] Yesy Mccracken : 1970 MR: [id number] V: [id number] EXAM DATE: ORDERING PHYSICIAN: KARMA MCCLENDON TECHNOLOGIST: Location: [facility] [place] Patient: Yesy Mccracken : 1970 Visit/Account:[id number] Date of Sevice: 08/10/2018 EXAMINATION: CTA Chest With Contrast 08/10/2018 10:25 AM HISTORY: chest pain, recent PE TECHNIQUE: Pulmonary embolus protocol - Thin-slice axial imaging of the chest was performed during maximal pulmonary arterial opacification with intravenous nonionic iodinated contrast. 3D slab MIPs a nd 2D reconstructions in the coronal and sagittal planes were performed. Director Instrumentation images have b een stored on PACS. Contrast: 75 mL of IV Isovue 370. One of the following dose optimization techniques was utilized in the performance of this exam: Autom ated exposure control; adjustment of the mA and/or kV according to the patient's size; or use of an i terative reconstruction technique. Specific details can be referenced in the facility's radiology C T exam operational policy. COMPARISON STUDIES: Positive study 07/24/2018.. FINDINGS: Angiographic Findings: Pulmonary arteries: Likely minimal residual material in the right lower lobe from the previously demo nstrated moderate volume embolus. No acute intercurrent PE evident. Other vasculature: Potential mild calcification along the LAD. Additional non-angiographic findings: Lungs / pleura: Mild mosaic density in the lungs which may reflect some small airways disease in conj unction with the "stop breathing" CTA PE technique. Consolidation in the lateral left base has impro miguelina with minimal bandlike residual. No significant acute finding. Pleural spaces are clear. Mediastinum / ariadne: negative Heart / pericardium: negative Musculoskeletal / Body wall: negative Lymph node assessment: negative Lower neck: negative Upper abdomen: Small nonobstructive stone in the left kidney. IMPRESSION: 1. No acute PE. Minimal residual from previously documented right lower lung PE. 2. Potential mild LAD coronary calcifications. If real this would be premature for age and gender. Report Dictated By: Lenny Whittington MD at 08/10/2018 12:16 PM Report E-Signed By: Lenny Whittington MD at 08/10/2018 12:24 PM WSN:[id number]
[2018-08-10 14:00] VITALS: BP 132/91
[2018-08-10] MEDS ORDERED: ACETAMINOPHEN 500 MG TAB PO ONE (14:05)
[2018-08-10] MEDS ORDERED: CLOPIDOGREL BISULFATE 75MG TAB PO ONE (15:00)
[2018-08-10] MEDS ORDERED: NITROGLYCERIN 0.4 MG SUBL SL ONE (15:00)
[2018-08-10] MEDS ORDERED: APIX5TAB PO (15:26)
[2018-08-17] MEDS ORDERED: ONDA8TAB91 PO (08:10)
[2018-08-17] MEDS ORDERED: PROM12.556 PO (11:13)
== END 2018-08-10 16:00 | disposition short-term general hospital (02) ==
LOC: ER 10:50 → CANBEDREQ 14:21 → ER 16:00
DX: R07.9 Chest pain, unspecified (principal); I26.09 Other pulmonary embolism with acute cor pulmonale; I25.10 Atherosclerotic heart disease of native coronary artery without angina pectoris; Z79.01 Long term (current) use of anticoagulants; Z87.891 Personal history of nicotine dependence; Z88.8 Allergy status to other drugs, medicaments and biological substances
CPT/HCPCS: 36415; 71275; 84484; 85025; 93005; 96374; 96376; 99285; J2550; J7050; Q9967; 82040; 82247; 82310; 82374; 82435; 82565; 82947; 84075; 84132; 84155; 84295; 84450; 84460; 84520

== ENCOUNTER → 2018-08-10 | Outpatient (CLI) | payer MEDICAID ==
[2017-04-17 12:41] VITALS: BMI 34.0
== END ==
LOC: AMB 15:44
PROVIDERS: ATTEND Nurse Practitioner
DX: I21.4 Non-ST elevation (NSTEMI) myocardial infarction (principal)
CPT/HCPCS: A0425; A0426

== ENCOUNTER 2018-08-30 08:39 | Emergency (ER) | payer MEDICAID ==
[2017-04-17 12:41] VITALS: Wt 94.6 kg
[~2018-08-30 08:39] MED LIST changes: +OXYC5TAB38 PO; +TICA90TA PO
--- NOTE | 2018-08-30 09:16 | EKG ---
FACILITY: [facility] PATIENT NAME: DON LOUIS : [id number] MR: [id number] V: [id number] EXAM DATE: ORDERING PHYSICIAN: JILL PARIS TECHNOLOGIST: Test Reason : chest pain Blood Pressure : / mmHG Vent. Rate : 090 BPM Atrial Rate : 090 BPM P-R Int : 146 ms QRS Dur : 082 ms QT Int : 370 ms P-R-T Axes : 025 000 028 degrees QTc Int : 452 ms Normal sinus rhythm Normal ECG When compared with ECG of 10-AUG-2018 10:21, No significant change was found Confirmed by ANDER CASTAÑEDA ([id number]) on 08/30/2018 10:33:36 AM Referred By: Confirmed By:ANDER CASTAÑEDA
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
[2018-08-30 09:23] LABS: PLATELET COUNT, AUTOMATED 158 K/uL (150-450)
[2018-08-30 09:28] LABS: INR 1.03
[2018-08-30] MEDS ORDERED: MORPHINE 4 MG/ML SDV IVP ONE (09:45)
--- NOTE | 2018-08-30 10:10 | RADIOLOGY IMAGING REPORT ---
[place] [facility] [place] Yesy Mccracken : 1970 MR: [id number] V: [id number] EXAM DATE: ORDERING PHYSICIAN: JILL PARIS TECHNOLOGIST: Location: [facility] [place] Patient: Yesy Mccracken : 1970 Visit/Account:[id number] Date of Sevice: 08/30/2018 EXAMINATION: CT head without IV contrast HISTORY: Trauma. Fall, on Eliquis. COMPARISON: CT head from 07/24/2018. TECHNIQUE: Contiguous axial images were obtained from the skull base to the vertex without intraven ous contrast. Sagittal and coronal reformatted images are also submitted. One of the following dose optimization techniques was utilized in the performance of this exam: Autom ated exposure control; adjustment of the mA and/or kV according to the patient's size; or use of an i terative reconstruction technique. Specific details can be referenced in the facility's radiology C T exam operational policy. FINDINGS: Brain volume: Normal. Ventricles: Normal. Acute ischemic changes: None. Hemorrhage: No acute intracranial hemorrhage. Masses/edema: None. Lane-white: Negative. White matter: Normal. Vessels: Negative. Extra-axial: Negative. Calvarium/scalp: No acute fracture. Skull base/visualized face: Negative. Visualized sinuses/orbits: Mild nasal septal deviation to the right. IMPRESSION: No acute fracture, hemorrhage or intracranial mass lesion. No CT evidence of acute infarct. Report Dictated By: Lissa Solorzano MD at 08/30/2018 10:02 AM Report E-Signed By: Lissa Solorzano MD at 08/30/2018 10:05 AM WSN:[id number]
--- NOTE | 2018-08-30 10:12 | RADIOLOGY IMAGING REPORT ---
FACILITY: [facility] PATIENT NAME: Yesy Mccracken : 1970 MR: [id number] V: [id number] EXAM DATE: ORDERING PHYSICIAN: JILL PARIS TECHNOLOGIST: Location: [facility] Patient: Yesy Mccracken : 1970 Visit/Account:[id number] Date of Sevice: 08/30/2018 EXAMINATION: CT cervical spine without IV contrast HISTORY: Fall, on Eliquis. COMPARISON: CT cervical spine from 04/15/2017. TECHNIQUE: Axial images were obtained from the skull base through the upper thoracic spine without I V contrast administration. Coronal and sagittal reformatted images were obtained from the axial [facility] e data. One of the following dose optimization techniques was utilized in the performance of this exam: Autom ated exposure control; adjustment of the mA and/or kV according to the patient's size; or use of an i terative reconstruction technique. Specific details can be referenced in the facility's radiology C T exam operational policy. FINDINGS: Alignment: Straightening of the cervical spine without focal listhesis. Cranio-cervical junction: Negative. Vertebral bodies: Negative. Posterior elements: Negative. Hardware: None. Disc spaces: Mild disc space narrowing and bony spurring at C5-6 and C6-7. Soft tissues: Negative. Visualized upper chest: Negative. IMPRESSION: 1. No acute fracture of the cervical spine. 2. Straightening of the cervical spine could be positional, related to muscle spasm or a cervical co llar. 3. Mild degenerative disc disease at C5-6 and C6-7, unchanged. Report Dictated By: Lissa Solorzano MD at 08/30/2018 10:05 AM Report E-Signed By: Lissa Solorzano MD at 08/30/2018 10:08 AM WSN:[id number]
[2018-08-30 10:30] VITALS: BP 150/97
[2018-08-30] MEDS ORDERED: TRAM-625 PO (16:40)
== END 2018-08-30 10:30 | disposition home or self-care (01) ==
LOC: ER 09:03
DX: S00.83XA Contusion of other part of head, initial encounter (principal); S00.81XA Abrasion of other part of head, initial encounter; W18.30XA Fall on same level, unspecified, initial encounter
CPT/HCPCS: 70450; 72125; 85025; 85610; 85730; 93005; 96374; 99284; J2270; L0172; 82040; 82247; 82310; 82374; 82435; 82565; 82947; 84075; 84132; 84155; 84295; 84450; 84460; 84520

== ENCOUNTER 2018-09-13 16:30 | Emergency (ER) | payer MEDICAID ==
[2017-04-17 12:41] VITALS: Wt 94.6 kg
--- NOTE | 2018-09-13 16:59 | ER Report ---
History and Physical Time Seen By MD: 16:59 Hx. of Stated Complaint: PAIN IN LEFT CALF THAT GOES UP TO LEFT THIGH, PAIN IN CHEST, PT REPORTS NOT GETTING ELLIQUIS RX REFILLED ON THURSDAY AND THUS WAS OFF OF MED OVER THE WEEKEND. HPI/ROS CHIEF COMPLAINT: Left lower leg pain, right lower leg pain, left chest pain HISTORY OF PRESENT ILLNESS: 47-year-old female patient presents to the emergency room with complaint of left lower leg pain, right lower leg pain and chest pain. Patient states that she has been out of her Elaquis for the past 3 days. Patient states that she had been trying to get all of her primary care provider to get more Elaquis ordered, was not able to get a hold of them. She states that she went without her medication over the weekend. She states that she started having pain in her left lower leg and left side of the chest yesterday. She states that today she started having some pain in the right lower leg. Patient states that she has been feeling so short of breath. She is concerned that she may have a blood clot as this does feel similar to her last blood clot. Patient denies having any fevers, any cough. She states she has not taken any medication for this. REVIEW OF SYSTEMS: Respiratory: No cough, no dyspnea. Cardiovascular: As noted above Gastrointestinal: No vomiting, no abdominal pain. Musculoskeletal: No back pain. Allergies: Coded Allergies: Nitrofurantoin Macrocrystal (Verified Allergy, Severe, HIVES, 09/13/18) aspirin (Verified Allergy, Severe, ANAPHYLAXIS, 09/13/18) chlorpromazine (Verified Allergy, Severe, ANAPHYLAXIS, 09/13/18) hydroxyzine (Verified Allergy, Severe, AIRWAY OBSTRUCTION, 09/13/18) varenicline (Verified Allergy, Severe, anxiety, 09/13/18) venom-wasp (Verified Allergy, Severe, ANAPHYLAXIS, 09/13/18) Sulfa (Sulfonamide Antibiotics) (Verified Allergy, Intermediate, HIVES, 09/13/18) albuterol (Verified Allergy, Intermediate, itching, hives, 09/13/18) cephalexin (Verified Allergy, Intermediate, HIVES, 09/13/18) ciprofloxacin (Verified Allergy, Intermediate, "feels like I'm going inasn e", 09/13/18) droperidol (Verified Allergy, Intermediate, DELUSIONS, 09/13/18) Pt states her reaction as, "I become psychotic". latex (Verified Allergy, Intermediate, RASH, SWELLING, 09/13/18) ondansetron (Verified Adverse Reaction, Severe, TACHYCARDIA, 09/13/18) dexamethasone (Verified Adverse Reaction, Intermediate, ITCHING, 09/13/18) haloperidol (Verified Adverse Reaction, Intermediate, "MAKES ME JUMPY", 09/13/18) Uncoded Allergies: Inhaled medication propelant (Allergy, Intermediate, HIVES, 10/07/14) Home Meds Active Scripts Apixaban (ELIQUIS) 5 Mg Tablet, 1 TAB PO BID, #60 TAB 0 Refills Prov:GALE QUEEN APRNP-C 09/06/18 Tramadol Hcl/Acetaminophen (ULTRACET TABLET) 1 Each Tablet, 1-2 TAB PO Q6H PRN for PAIN, #20 TAB 0 Refills Prov:POPPY SANCHEZ DNP [facility]- 08/30/18 Oxycodone Hcl (OXYCODONE HCL) 5 Mg Tablet, 1-2 TAB PO Q6H PRN for PAIN, #10 TAB 0 Refills Prov:POPPY SANCHEZ DNP [facility]-BC 08/23/18 Prazosin Hcl (PRAZOSIN HCL) 5 Mg Capsule, 1 CAP PO QHS, #30 CAPSULE 0 Refills Prov:POPPY SANCHEZ DNP [facility]-BC 08/20/18 Doxepin Hcl (DOXEPIN HCL) 25 Mg Capsule, 2 CAP PO BID PRN for ANXIETY, #120 CAPSULE 0 Refills Prov:POPPY SANCHEZ DNP [facility]-BC 08/20/18 Buspirone Hcl (BUSPIRONE HCL) 30 Mg Tablet, 1 TAB PO BID, #60 TAB 0 Refills Prov:POPPY SANCHEZ DNP [facility]-BC 08/20/18 Aripiprazole (ABILIFY) 20 Mg Tablet, 1 TAB PO QDAY, #30 TAB 0 Refills Prov:POPPY SANCHEZ DNP [employer] 08/20/18 Zolpidem Tartrate (AMBIEN) 5 Mg Tablet, 1 TAB PO QHS PRN for INSOMNIA, #30 TAB 0 Refills Prov:POPPY SANCHEZ DNP [facility] 08/20/18 Pregabalin (LYRICA) 150 Mg Capsule, 1 TAB PO BID, #60 CAPSULE 0 Refills Prov:POPPY SANCHEZ ANETA [facility] 08/20/18 Promethazine Hcl (PROMETHAZINE HCL) 12.5 Mg Tablet, 1-2 TAB PO Q8H PRN for NAUSEA, #12 TAB 1 Refill Prov:POPPY SANCHEZ ANETA [facility] 08/17/18 Baclofen (BACLOFEN) 10 Mg Tablet, 1 TAB PO TID PRN for MUSCLE SPASMS, #90 TAB 5 Refills Prov:POPPY SANCHEZ Machelle CORNELL [facility] 08/04/18 Fluticasone Prop 50 Mcg Ns (FLONASE 50 MCG NS) 16 Gm [place].susp, 2 SPRAYS NS QDAY for 10 Days, #1 BOT 0 Refills Prov:POPPY SANCHEZ Machelle CORNELL [facility] 06/15/18 Insulin Glargine 100 Un/Ml Pen (LANTUS SOLOSTAR PEN) 100 Unit/1 Ml Insuln.pen, 65 UNIT SQ BID, #1 BOX 3 Refills Prov:POPPY SANCHEZ ANETA [facility] 06/09/18 Blood Sugar Diagnostic (FREESTYLE LITE TEST STRIPS) 1 Each Strip, 500 EACH MC 5XD for 90 Days, #500 STRIP 2 Refills Prov:POPPY SANCHEZ ANETA [facility] 06/02/18 [place], Insulin Disposable (PEN NEEDLES) 1 Each Dis.needle, BOX MC QDAY, #1 9 Refills Prov:POPPY SANCHEZ Machelle CORNELL [facility] 06/02/18 Ranitidine Hcl (RANITIDINE HCL) 150 Mg Capsule, 1 TAB PO BID, #180 CAPSULE 3 Refills Prov:POPYP SANCHEZ Machelle CORNELL [facility] 05/28/18 Albuterol Sulfate 90 Mcg/Act (PROAIR HFA 90 MCG/ACT) 8.5 Gm Hfa.aer.ad, 2 PUFF IH Q4-6H PRN for WHEEZING, #1 INHALER 0 Refills Prov:LAURAPOPPY DNP [facility] 04/13/18 Lisinopril (LISINOPRIL) 40 Mg Tablet, 1 TAB PO QDAY for 90 Days, #90 TAB 1 Refill Prov:POPPY SANCHEZ DNP, FNP-BC 04/13/18 Atorvastatin (LIPITOR) 80 Mg Tab, 1 TAB PO QDAY for 90 Days, #90 TAB 1 Refill Prov:POPPY SANCHEZ DNP, FNP-BC 04/13/18 Esomeprazole Magnesium (NEXIUM) 40 Mg Capsule.dr, 1 CAP PO BID, #180 CAP 3 Refills Prov:POPPY SANCHEZ DNP, FNP-BC 04/13/18 Insulin Lispro 100 Un/Ml Pen (HUMALOG 3 ML PEN) 100 Unit/1 Ml Insuln.pen, 5-8 UNIT SQ TID, #2 DIS.SYR 6 Refills Take per sliding scale. Prov:POPPY SANCHEZ DNP, FNP-BC 04/13/18 Lancets (Blood Lancets) 30 Gauge Each, EA MC EVERY 90 DAYS, #300 4 Refills Prov:POPPY SANCHEZ DNP, FNP-BC 03/09/18 Levothyroxine Sodium (LEVOTHYROXINE SODIUM) 50 Mcg Tablet, 1 TAB PO QDAY, #90 TAB 4 Refills Take along with 200mcg tablet for a total of 250mcg daily. Prov:POPPY SANCHEZ DNP, FNP-BC 03/09/18 Levothyroxine Sodium (LEVOTHYROXINE SODIUM) 200 Mcg Tablet, 200 MCG PO QDAY, #90 TAB 4 Refills Take with 50mcg tablet for a total of 250mcg daily Prov:POPPY SANCHEZ DNP, FNP-BC 03/09/18 Sumatriptan Succinate (SUMATRIPTAN SUCCINATE) 100 Mg Tablet, 1 TAB PO QDAY PRN for MIGRAINE, #9 TAB 6 Refills Prov:POPPY SANCHEZ DNP, FNP-BC 12/15/17 Sumatriptan Succinate (SUMATRIPTAN SUCCINATE) 6 Mg/0.5 Ml Pen.injctr, 6 MG SQ ONCE PRN for MIGRAINE, #1 BOX 6 Refills May repeat dose x1 after 1 hour, if needed. Do not exceed maximum of 12mg/24h. Prov:POPPY SANCHEZ DNP, FNP-BC 12/15/17 Epinephrine (EPIPEN 2-TUCKER) 0.3 Mg/0.3 Ml Pen.injctr, 0.3 MG IM ONCE, #1 CART Prov:POPPY SANCHEZ DNP [facility] 10/14/17 Blood-Glucose Meter (FREESTYLE LITE METER) 1 Each Kit, 1 [facility] MC ONCE, #1 Prov:POPPY SANCHEZ DNP [facility] 08/11/17 Diclofenac Sodium 1% Gel (VOLTAREN 1% GEL) 100 Gm Gel..gram., 1 DEMETRIS TOP QID PRN for PAIN, #1 TUBE 0 Refills Prov:POPPY SANCHEZ DNP [facility] 01/19/17 Reported Medications Ticagrelor (BRILINTA) 90 Mg Tablet, 1 TAB PO BID 08/24/18 Insulin Glargine (LANTUS) 100 Unit/Ml Soln, 65 UNIT SUBQ BID, ML 11/13/17 Discontinued Scripts Hydrocodone Bit/Acetaminophen (HYDROCODON-ACETAMINOPHEN 5-325) 1 Each Tablet, 1- 2 EACH PO Q6H PRN for PAIN, #15 TAB 0 Refills Prov:POPPY SANCHEZ DNP [facility] 08/06/18 Past Medical/Surgical History Patient has a past medical history of CVA, migraines, NV, angina, prolonged QT, DVT, hypertension, hyperlipidemia, asthma, pneumonia, multiple pulmonary emboli, reflux, cholecystitis, pancreatitis, enlarged liver, frequent UTI, endometriosis, ovarian cyst, fractures to back, hips, neck, collarbone, back pain, diabetes, hypothyroidism, substance abuse, anxiety, bipolar, suicide attempt, cancer. Patient has a surgical history of coronary stent 2, loop recorder, appendectomy, hysterectomy, colonoscopy, cystoscopy, tubal ligation, thyroidectomy, right ankle surgery, right wrist surgery, no surgery, right-sided chest surgery, right knee surgery, sinus surgery, tonsillectomy, eye surgery as a child. Patient has a family medical history of cancer, CAD, stroke, diabetes, psychiatric problems. Reviewed Nurses Notes: Yes Hx Smoking: Yes Smoking Status: Former Smoker Exposure to Second Hand Smoke?: Yes Hx Substance Use Disorder: No ("Years ago") Hx Alcohol Use: No Constitutional Vital Sign - Last 24 Hours 09/13/18 09/13/18 09/13/18 09/13/18 16:37 16:45 17:00 17:06 Temp 98.3 Pulse 108 103 105 Resp 20 43 23 B/P (MAP) 133/78 128/75 (92) Pulse Ox 88 90 89 O2 Delivery Room Air O2 Flow Rate 2.0 09/13/18 09/13/18 09/13/18 09/13/18 17:15 18:30 18:35 18:50 Pulse 104 96 96 97 Resp 25 25 23 25 Pulse Ox 91 90 89 88 09/13/18 09/13/18 09/13/18 09/13/18 19:00 19:05 19:20 19:30 Pulse 105 98 Resp 27 22 B/P (MAP) ???/??? (166) ???/??? (1664) Pulse Ox 92 91 09/13/18 09/13/18 09/13/18 09/13/18 19:35 19:50 20:05 20:20 Pulse 98 97 91 95 Resp 20 28 31 22 Pulse Ox 91 93 90 89 Physical Exam General Appearance: The patient is alert, has no immediate need for airway protection and no current signs of toxicity. Respiratory: Chest is non tender, lungs are clear to auscultation. Cardiac: regular rate and rhythm Gastrointestinal: Abdomen is soft and tender in the epigastric region, bilateral upper quadrants, no masses, bowel sounds normal. Musculoskeletal: Neck: Neck is supple and non tender. Extremities have full range of motion and are non tender. Skin: No rashes or lesions. DIFFERENTIAL DIAGNOSIS: After history and physical exam differential diagnosis was considered for DVT, PE, elevated troponin, instantly. Medical Decision Making Data Points Result Diagram: 09/13/18193909/13/181939 Laboratory Hematology Test 09/13/18 19:40 Red Blood Count 5.21 M/uL (4.17-5.56) Mean Corpuscular Volume 79.5 fL (80.0-96.0) Mean Corpuscular Hemoglobin 25.9 pg (26.0-33.0) Mean Corpuscular Hemoglobin Concent 32.6 g/dL (32.0-36.0) Red Cell Distribution Width 16.8 % (11.5-14.5) Mean Platelet Volume 8.8 fL (7.2-11.1) Neutrophils (%) (Auto) 65.6 % (39.4-72.5) Lymphocytes (%) (Auto) 26.9 % (17.6-49.6) Monocytes (%) (Auto) 5.3 % (4.1-12.4) Eosinophils (%) (Auto) 1.4 % (0.4-6.7) Basophils (%) (Auto) 0.8 % (0.3-1.4) Nucleated RBC Relative Count (auto) 0.0 /100WBC Neutrophils # (Auto) 5.6 K/uL (2.0-7.4) Lymphocytes # (Auto) 2.3 K/uL (1.3-3.6) Monocytes # (Auto) 0.5 K/uL (0.3-1.0) Eosinophils # (Auto) 0.1 K/uL (0.0-0.5) Basophils # (Auto) 0.1 K/uL (0.0-0.1) Nucleated RBC Absolute Count (auto) 0.00 K/uL Sodium Level 134 mmol/L (137-145) Potassium Level 3.7 mmol/L (3.5-5.0) Chloride Level 100 mmol/L (98-107) Carbon Dioxide Level 26 mmol/L (22-31) Blood Urea Nitrogen 10 mg/dl (7-18) Creatinine 0.70 mg/dl (0.52-1.04) Glomerular Filtration Rate Calc > 60.0 Random Glucose 104 mg/dl (75-110) Calcium Level 9.4 mg/dl (8.4-10.2) Total Bilirubin 0.2 mg/dl (0.2-1.3) Aspartate Amino Transf (AST/SGOT) 28 U/L (0-35) Alanine Aminotransferase (ALT/SGPT) 16 U/L (0-56) Alkaline Phosphatase 86 U/L (0-126) Troponin I 0.016 ng/ml Total Protein 8.0 g/dl (6.3-8.2) Albumin 4.5 g/dl (3.5-5.0) Chemistry Test 09/13/18 19:40 White Blood Count 8.6 k/uL (4.5-11.0) Red Blood Count 5.21 M/uL (4.17-5.56) Hemoglobin 13.5 g/dL (12.0-16.0) Hematocrit 41.4 % (34.0-47.0) Mean Corpuscular Volume 79.5 fL (80.0-96.0) Mean Corpuscular Hemoglobin 25.9 pg (26.0-33.0) Mean Corpuscular Hemoglobin Concent 32.6 g/dL (32.0-36.0) Red Cell Distribution Width 16.8 % (11.5-14.5) Platelet Count 201 K/uL (150-450) Mean Platelet Volume 8.8 fL (7.2-11.1) Neutrophils (%) (Auto) 65.6 % (39.4-72.5) Lymphocytes (%) (Auto) 26.9 % (17.6-49.6) Monocytes (%) (Auto) 5.3 % (4.1-12.4) Eosinophils (%) (Auto) 1.4 % (0.4-6.7) Basophils (%) (Auto) 0.8 % (0.3-1.4) Nucleated RBC Relative Count (auto) 0.0 /100WBC Neutrophils # (Auto) 5.6 K/uL (2.0-7.4) Lymphocytes # (Auto) 2.3 K/uL (1.3-3.6) Monocytes # (Auto) 0.5 K/uL (0.3-1.0) Eosinophils # (Auto) 0.1 K/uL (0.0-0.5) Basophils # (Auto) 0.1 K/uL (0.0-0.1) Nucleated RBC Absolute Count (auto) 0.00 K/uL Glomerular Filtration Rate Calc > 60.0 Calcium Level 9.4 mg/dl (8.4-10.2) Total Bilirubin 0.2 mg/dl (0.2-1.3) Aspartate Amino Transf (AST/SGOT) 28 U/L (0-35) Alanine Aminotransferase (ALT/SGPT) 16 U/L (0-56) Alkaline Phosphatase 86 U/L (0-126) Troponin I 0.016 ng/ml Total Protein 8.0 g/dl (6.3-8.2) Albumin 4.5 g/dl (3.5-5.0) EKG/Imaging EKG Interpretation 12 lead EKG: Rhythm: Sinus tachycardia with ventricular rate of 103 bpm [place]: normal QRS: normal ST segments: normal Imaging US VENOGRAM EXTREMITY, BILATERAL HISTORY: leg pain, missed eliquis over weekend COMPARISON: None. FINDINGS: Grayscale, duplex and color Doppler interrogation of the bilateral lower extremity deep veins from common femoral vein to proximal calf was completed. The greater saphenous vein in the right and left proximal thigh was evaluated using similar technique. RIGHT lower extremity: Common femoral vein - Negative. Femoral vein - Negative. Deep femoral vein - Negative. Popliteal vein - Negative. Visualized deep calf veins - Negative. Popliteal fossa: Negative. Greater saphenous vein in the proximal thigh: Negative. LEFT lower extremity: Common femoral vein - Negative. Femoral vein - Negative. Deep femoral vein - Negative. Popliteal vein - Negative. Visualized deep calf veins - Negative. Popliteal fossa: Negative. Greater saphenous vein in the proximal thigh: Negative. IMPRESSION: No evidence for DVT within the bilateral lower extremities. Report Dictated By: Chan North MD at 09/13/2018 7:21 PM Report E-Signed By: Chan North MD at 09/13/2018 7:21 PM ED Course/Re-evaluation ED Course Patient was admitted to exam room, history and physical were obtained. Differ ential diagnoses were considered. On examination lungs were clear, heart is regular, abdomen was soft and tender in the bilateral upper quadrants as well as epigastric region. Patient was concerned about possible blood clot in the legs as well as chest pain. Ultrasound was done of the bilateral lower extremities which were negative. Patient did have several days without her Eliquis. She is currently been restarted on the medication. He did take a long time to get the labs collected. When we were able to get those collected the lab results were negative for any signs of infection, any elevated troponin. EKG showed no acute changes. I discussed the findings with the patient. We will go ahead and discharge patient home at this time. She is continue taking her medication. She is to get plenty of rest. She is to follow-up with her primary care provider this week. Patient verbalized understanding and agreement with plan. Decision to Disposition Date: Sep 13, 2018 Decision to Disposition Time: 21:14 Depart Departure Latest Vital Signs Vital Signs Date Time Temp Pulse Resp B/P (MAP) Pulse Ox O2 Delivery O2 Flow Rate FiO2 09/13/18 20:20 95 22 89 09/13/18 19:30 ???/??? (5891) 09/13/18 17:06 2.0 09/13/18 16:37 98.3 Room Air Core Temperature (Celsius): 36.73 Impression: Primary Impression: Leg pain Condition: Improved Disposition: HOME OR SELF-CARE Referrals: POPPY SANCHEZ DNP, [employer]ELOPER-BC (PCP) Patient Instructions: Leg Pain (ED) Additional Instructions: Get plenty of rest. Limit activity by pain. Take Tylenol as needed for pain. Return to the ER if condition worsens. Follow up with Poppy later this week. Continue to stay active, but know your limits. Problem Qualifiers Primary Impression: Leg pain Laterality: bilateral Qualified Codes: M79.604 - Pain in right leg; M79.605 - Pain in left leg DEISY DURBIN [employer]ESS DAT[employer] DEVELOPER Sep 13, 2018 16:59
[2018-09-13] MEDS ORDERED: NS(*) 0.9% 1000 ML BAG 1,000 ML IV ONE (17:07)
--- NOTE | 2018-09-13 17:15 | EKG ---
FACILITY: [facility] - [place] PATIENT NAME: DON LOUIS : [id number] MR: [id number] V: [id number] EXAM DATE: ORDERING PHYSICIAN: DEISY DURBIN TECHNOLOGIST: DANIELE Cho Reason : CP Blood Pressure : / mmHG Vent. Rate : 103 BPM Atrial Rate : 103 BPM P-R Int : 126 ms QRS Dur : 084 ms QT Int : 344 ms P-R-T Axes : 038 010 050 degrees QTc Int : 450 ms Sinus tachycardia Borderline left axis No acute appearing findings When compared with ECG of 30-AUG-2018 09:08, No significant change was found Confirmed by JUANITO MONSIVAIS ([id number]) on 09/14/2018 6:00:44 AM Referred By: Confirmed By:JUANITO MONSIVAIS
[2018-09-13] MEDS ORDERED: IOPAMIDOL 76% 150 ML INFUS BTL 0 ML ONE (17:26)
[2018-09-13] MEDS ORDERED: NS(*) 0.9% 50 ML BAG 0 ML ONE (17:26)
--- NOTE | 2018-09-13 19:26 | RADIOLOGY IMAGING REPORT ---
FACILITY: [facility] - [place] PATIENT NAME: Yesy Mccracken : 1970 MR: [id number] V: [id number] EXAM DATE: ORDERING PHYSICIAN: DEISY DURBIN TECHNOLOGIST: Location: [facility] - [place], [place] Patient: Yesy Mccracken : 1970 Visit/Account:[id number] Date of Sevice: 09/13/2018 US VENOGRAM EXTREMITY, BILATERAL HISTORY: leg pain, missed eliquis over weekend COMPARISON: None. FINDINGS: Grayscale, duplex and color Doppler interrogation of the bilateral lower extremity deep veins from co mmon femoral vein to proximal calf was completed. The greater saphenous vein in the right and left pr oximal thigh was evaluated using similar technique. RIGHT lower extremity: Common femoral vein - Negative. Femoral vein - Negative. Deep femoral vein - Negative. Popliteal vein - Negative. Visualized deep calf veins - Negative. Popliteal fossa: Negative. Greater saphenous vein in the proximal thigh: Negative. LEFT lower extremity: Common femoral vein - Negative. Femoral vein - Negative. Deep femoral vein - Negative. Popliteal vein - Negative. Visualized deep calf veins - Negative. Popliteal fossa: Negative. Greater saphenous vein in the proximal thigh: Negative. IMPRESSION: No evidence for DVT within the bilateral lower extremities. Report Dictated By: Chan North MD at 09/13/2018 7:21 PM Report E-Signed By: Chan North MD at 09/13/2018 7:21 PM WSN:[id number]
[2018-09-13 19:48] LABS: PLATELET COUNT, AUTOMATED 201 K/uL (150-450)
== END 2018-09-13 21:20 | disposition home or self-care (01) ==
LOC: ER 16:49
DX: M79.605 Pain in left leg (principal); M79.604 Pain in right leg; R10.13 Epigastric pain; Z79.01 Long term (current) use of anticoagulants
CPT/HCPCS: 36415; 82040; 82247; 82310; 82374; 82435; 82565; 82947; 84075; 84132; 84155; 84295; 84450; 84460; 84484; 84520; 85025; 93005; 93970; 99284; J7050; Q9967

== ENCOUNTER 2018-09-22 16:13 | Emergency (ER) | payer MEDICAID ==
[2017-04-17 12:41] VITALS: Wt 91.2 kg
[~2018-09-22 16:13] MED LIST changes: +CLOP75TA PO
[2018-09-22 17:00] VITALS: BP 125/110
--- NOTE | 2018-09-22 17:02 | ER Report ---
History and Physical Time Seen By MD: 16:30 Hx. of Stated Complaint: STATES SHE SHATTERED HER LEFT ANKLE IN 2017 AND STEPPED A BIT WRONG ON IT YESTERDAY AND FELT "CRUCHY SHATTERY" FEELINGS AND A LOT OF PAIN. STATES HER PAIN IS "JUST REDICULOUS" HPI/ROS CHIEF COMPLAINT: Ankle pain HISTORY OF PRESENT ILLNESS: This is a 47 yo female who presents to the ED for left ankle pain. States that she had an ankle repair in 2017 and that she twisted her ankle yesterday while walking down the stairs. She reports increased pain since and she states that she is concerned that "the screws are coming out." States that the pain is greater than 10/10 when she stands on her foot. Denies hip or leg pain. Reports that she wears oxygen daily but denies shortness of breath. Denies chest pain, headache, fever or chills and denies any other concerns. REVIEW OF SYSTEMS: Respiratory: As above.. Cardiovascular: As above. Gastrointestinal: No vomiting, no abdominal pain. Musculoskeletal: As above. Allergies: Coded Allergies: Nitrofurantoin Macrocrystal (Verified Allergy, Severe, HIVES, 09/22/18) aspirin (Verified Allergy, Severe, ANAPHYLAXIS, 09/22/18) chlorpromazine (Verified Allergy, Severe, ANAPHYLAXIS, 09/22/18) hydroxyzine (Verified Allergy, Severe, AIRWAY OBSTRUCTION, 09/22/18) varenicline (Verified Allergy, Severe, anxiety, 09/22/18) venom-wasp (Verified Allergy, Severe, ANAPHYLAXIS, 09/22/18) Sulfa (Sulfonamide Antibiotics) (Verified Allergy, Intermediate, HIVES, 09/22/18) albuterol (Verified Allergy, Intermediate, itching, hives, 09/22/18) cephalexin (Verified Allergy, Intermediate, HIVES, 09/22/18) ciprofloxacin (Verified Allergy, Intermediate, "feels like I'm going inasne", 09/22/18) droperidol (Verified Allergy, Intermediate, DELUSIONS, 09/22/18) Pt states her reaction as, "I become psychotic". latex (Verified Allergy, Intermediate, RASH, SWELLING, 09/22/18) ondansetron (Verified Adverse Reaction, Severe, TACHYCARDIA, 09/22/18) dexamethasone (Verified Adverse Reaction, Intermediate, ITCHING, 09/22/18) haloperidol (Verified Adverse Reaction, Intermediate, "MAKES ME JUMPY", 09/22/18) Uncoded Allergies: Inhaled medication propelant (Allergy, Intermediate, HIVES, 10/07/14) Home Meds Active Scripts Clopidogrel Bisulfate (CLOPIDOGREL) 75 Mg Tablet, 1 TAB PO QDAY for 90 Days, #90 TAB 0 Refills Prov:POPPY SANCHEZ DNP [facility] 09/20/18 Hydrocodone Bit/Acetaminophen (HYDROCODON-ACETAMINOPHEN 5-325) 1 Each Tablet, 1- 2 EACH PO Q6-8H PRN for PAIN, #10 TAB 0 Refills Prov:POPPY SANCHEZ DNP [facility] 09/20/18 Prazosin Hcl (PRAZOSIN HCL) 5 Mg Capsule, 1 CAP PO QHS, #30 CAPSULE 1 Refill Prov:POPPY SANCHEZ DNP [facility] 09/17/18 Doxepin Hcl (DOXEPIN HCL) 25 Mg Capsule, 2 CAP PO BID PRN for ANXIETY, #120 CAPSULE 1 Refill Prov:POPPY SANCHEZ DNP [facility]- 09/17/18 Buspirone Hcl (BUSPIRONE HCL) 30 Mg Tablet, 1 TAB PO BID, #60 TAB 1 Refill Prov:POPPY SANCHEZ DNP [facility] 09/17/18 Aripiprazole (ABILIFY) 20 Mg Tablet, 1 TAB PO QDAY, #30 TAB 1 Refill Prov:POPPY SANCHEZ DNP [facility] 09/17/18 Zolpidem Tartrate (AMBIEN) 5 Mg Tablet, 1 TAB PO QHS PRN for INSOMNIA, #30 TAB 1 Refill Prov:POPPY SANCHEZ DNP [facility] 09/17/18 Pregabalin (LYRICA) 150 Mg Capsule, 1 TAB PO BID, #60 CAPSULE 0 Refills Prov:POPPY SANCHEZ DNP [facility] 09/17/18 Promethazine Hcl (PROMETHAZINE HCL) 12.5 Mg Tablet, 1-2 TAB PO Q8H PRN for NAUSEA, #12 TAB 1 Refill Prov:POPPY SANCHEZ DNP [facility] 09/17/18 Baclofen (BACLOFEN) 10 Mg Tablet, 1 TAB PO TID PRN for MUSCLE SPASMS, #90 TAB 5 Refills Prov:POPPY SANCHEZ DNP, [facility] 09/17/18 Insulin Glargine 100 Un/Ml Pen (LANTUS SOLOSTAR PEN) 100 Unit/1 Ml Insuln.pen, 65 UNIT SQ BID, #1 BOX 3 Refills Prov:POPPY SANCHEZ DNP, [facility] 09/17/18 Ranitidine Hcl (RANITIDINE HCL) 150 Mg Capsule, 1 TAB PO BID, #180 CAPSULE 3 Refills Prov:POPPY SANCHEZ DNP, [facility] 09/17/18 Lisinopril (LISINOPRIL) 40 Mg Tablet, 1 TAB PO QDAY for 90 Days, #90 TAB 1 Refill Prov:POPPY SANCHEZ DNP, [facility] 09/17/18 Esomeprazole Magnesium (NEXIUM) 40 Mg Capsule.dr, 1 CAP PO BID, #180 CAP 3 Refills Prov:POPPY SANCHEZ DNP, [facility] 09/17/18 Insulin Lispro 100 Un/Ml Pen (HUMALOG 3 ML PEN) 100 Unit/1 Ml Insuln.pen, 5-8 UNIT SQ TID, #2 DIS.SYR 6 Refills Take per sliding scale. Prov:POPPY SANCHEZ DNP, [facility] 09/17/18 Lancets (Blood Lancets) 30 Gauge Each, [facility] EVERY 90 DAYS, #300 4 Refills Prov:POPPY SANCHEZ DNP, [facility] 09/17/18 Sumatriptan Succinate (SUMATRIPTAN SUCCINATE) 100 Mg Tablet, 1 TAB PO QDAY PRN for MIGRAINE, #9 TAB 6 Refills Prov:POPPY SANCHEZ DNP, [facility] 09/17/18 Sumatriptan Succinate (SUMATRIPTAN SUCCINATE) 6 Mg/0.5 Ml Pen.injctr, 6 MG SQ ONCE PRN for MIGRAINE, #1 BOX 6 Refills May repeat dose x1 after 1 hour, if needed. Do not exceed maximum of 12mg/24h. Prov:POPPY SANCHEZ DNP, [facility] 09/17/18 Apixaban (ELIQUIS) 5 Mg Tablet, 1 TAB PO BID, #60 TAB 0 Refills Prov:[facility]UELG[facility] CARLEE JONES-[facility] 09/06/18 Oxycodone Hcl (OXYCODONE HCL) 5 Mg Tablet, 1-2 TAB PO Q6H PRN for PAIN, #10 TAB 0 Refills Prov:POPPY SANCHEZ DNP, [facility] 08/23/18 Blood Sugar Diagnostic (FREESTYLE LITE TEST STRIPS) 1 Each Strip, 500 EACH MC 5XD for 90 Days, #500 STRIP 2 Refills Prov:POPPY SANCHEZ DNP, [facility] 06/02/18 [place], Insulin Disposable (PEN NEEDLES) 1 Each Dis.needle, BOX MC QDAY, #1 9 Refills Prov:POPPY SANCHEZ DNP, [facility] 06/02/18 Albuterol Sulfate 90 Mcg/Act (PROAIR HFA 90 MCG/ACT) 8.5 Gm Hfa.aer.ad, 2 PUFF IH Q4-6H PRN for WHEEZING, #1 INHALER 0 Refills Prov:POPPY SANCHEZ DNP, [facility] 04/13/18 Atorvastatin (LIPITOR) 80 Mg Tab, 1 TAB PO QDAY for 90 Days, #90 TAB 1 Refill Prov:POPPY SANCHEZ DNP, [facility] 04/13/18 Levothyroxine Sodium (LEVOTHYROXINE SODIUM) 50 Mcg Tablet, 1 TAB PO QDAY, #90 TAB 4 Refills Take along with 200mcg tablet for a total of 250mcg daily. Prov:POPPY SANCHEZ DNP, [facility] 03/09/18 Levothyroxine Sodium (LEVOTHYROXINE SODIUM) 200 Mcg Tablet, 200 MCG PO QDAY, #90 TAB 4 Refills Take with 50mcg tablet for a total of 250mcg daily Prov:POPPY SANCHEZ DNP, [facility] 03/09/18 Epinephrine (EPIPEN 2-TUCKER) 0.3 Mg/0.3 Ml Pen.injctr, 0.3 MG IM ONCE, #1 CART Prov:POPPY SANCHEZ DNP, [facility] 10/14/17 Blood-Glucose Meter (FREESTYLE LITE METER) 1 Each Kit, 1 [facility] MC ONCE, #1 Prov:POPPY SANCHEZ DNP, [facility] 08/11/17 Diclofenac Sodium 1% Gel (VOLTAREN 1% GEL) 100 Gm Gel..gram., 1 DEMETRIS TOP QID PRN for PAIN, #1 TUBE 0 Refills Prov:POPPY SANCHEZ DNP, [facility] 01/19/17 Reported Medications Ticagrelor (BRILINTA) 90 Mg Tablet, 1 TAB PO BID 08/24/18 Insulin Glargine (LANTUS) 100 Unit/Ml Soln, 65 UNIT SUBQ BID, ML 11/13/17 Discontinued Scripts Tramadol Hcl/Acetaminophen (ULTRACET TABLET) 1 Each Tablet, 1-2 TAB PO Q6H PRN for PAIN, #20 TAB 0 Refills Prov:POPPY SANCHEZ DNP, [facility] 08/30/18 Fluticasone Prop 50 Mcg Ns (FLONASE 50 MCG NS) 16 Gm Venus.susp, 2 SPRAYS NS QDAY for 10 Days, #1 BOT 0 Refills Prov:POPPY SANCHEZ DNP, [facility] 06/15/18 Past Medical/Surgical History Patient has a medical and surgical history of CVA in 2018, chronic headaches, 2 stents placed in 2018, prolonged QT, history of DVT, hypercholesterolemia, seasonal allergies, smoker's cough, 2 L of oxygen, multiple pulmonary embolus, gastrointestinal disorders, GERD, pancreatitis, frequent kidney stones, fractures and back yet collar bone and ankle, type II diabetes,anxiety and bipolar disorder, thyroid cancer in 2011. Reviewed Nurses Notes: Yes Hx Smoking: Yes Smoking Status: Former Smoker Exposure to Second Hand Smoke?: Yes Hx Substance Use Disorder: No ("Years ago") Hx Alcohol Use: No Constitutional Vital Sign - Last 24 Hours 09/22/18 09/22/18 09/22/18 16:21 16:30 17:00 Temp 97.9 Pulse 97 91 91 Resp 18 B/P (MAP) 133/101 131/79 (96) 125/110 (115) Pulse Ox 90 91 91 O2 Delivery Nasal Cannula Physical Exam General Appearance: The patient is alert, has no immediate need for airway protection and no current signs of toxicity. Eyes: Pupils equal and round no injection. Respiratory: Chest is non tender, lungs are clear to auscultation. Cardiac: regular rate and rhythm, no murmurs or rubs. Gastrointestinal: Abdomen is soft and non tender, no masses, bowel sounds normal. Musculoskeletal: Neck is supple and non tender. Extremities: Generalized swelling to the left ankle, no crepitus or obvious deformities. Skin: No rashes or lesions. DIFFERENTIAL DIAGNOSIS: After history and physical exam differential diagnosis was considered for ankle sprain, ankle fracture, dislocation, hardware dysfunction. Medical Decision Making EKG/Imaging Imaging [place] [facility] [place] NAME: Yesy Mccracken : 1970 MR: [id number] V: [id number] EXAM DATE: [id number] ORDERING PHYSICIAN: SHI VARGAS TECHNOLOGIST: Location: [facility] [place] Patient: Yesy Mccracken : 1970 Visit/Account:[id number] Date of Sevice: 09/22/2018 Exam type: ANKLE 3 VIEW MIN LEFT History: Pain on lateral left ankle, history of ankle surgery Comparison: March 18, 2018. Findings: Three views were submitted Again noted is a distal fibular plate and screws with interval healing of the previously reported fracture. A well-corticated bony density projecting just posterior to the posterior aspect of the distal left tibia likely related to prior injury. The ankle mortise appears intact. There are degenerative changes at the talotibial joint and enthesopathic changes are noted at the insertion the Achilles tendon. There is a left calcaneal spur IMPRESSION: 1. Old postoperative and degenerative changes of the left ankle as described above Report Dictated By: Angle Meléndez MD at 09/22/2018 5:04 PM Report E-Signed By: Angle Meléndez MD at 09/22/2018 5:08 PM WSN:[email or web address] ED Course/Re-evaluation ED Course Patient admitted to room. History and physical obtained. Xray of left ankle revealed distal fibular plate and screws with interval healing of the previously reported fracture and degenerative changes. Discharged home with instructions to continue wearing walking boot, use crutches if needed, rest and elevate foot. Use ice as needed for swelling. Instructed to follow up with Dr Cunningham. Physical assessment completed by ROBERT Peter student, I examined the patient myself, agree with her assessment and findings, and diagnosis. Decision to Disposition Date: Sep 22, 2018 Decision to Disposition Time: 17:22 Depart Departure Latest Vital Signs Vital Signs Date Time Temp Pulse Resp B/P (MAP) Pulse Ox O2 Delivery O2 Flow Rate FiO2 09/22/18 17:00 91 125/110 (115) 91 09/22/18 16:21 97.9 18 Nasal Cannula Core Temperature (Celsius): 36.73 Impression: Primary Impression: Left ankle pain Condition: Improved Disposition: HOME OR SELF-CARE Referrals: POPPY SANCHEZ DNP, [facility] (PCP) HARRY CUNNINGHAM MD Departure Forms: Medications Reconciliation, Patient Portal Information, ER Transition Record Patient Instructions: Ankle Exercises (GEN), Crutch Instructions (ED) Additional Instructions: Rest and elevate ankle. Use ice for swelling. Use walking boot. May use crutches if needed. Take medications as prescribed. Follow up with Dr Cunningham. Return to ED for worsening or concerning symptoms. Problem Qualifiers Primary Impression: Left ankle pain Chronicity: acute Qualified Codes: M25.572 - Pain in left ankle and joints of left foot SHI VARGAS-YVETTE Sep 22, 2018 17:02
--- NOTE | 2018-09-22 17:11 | RADIOLOGY IMAGING REPORT ---
FACILITY: [facility] PATIENT NAME: Yesy Mccracken : 1970 MR: [id number] V: [id number] EXAM DATE: [id number] ORDERING PHYSICIAN: SHI VARGAS TECHNOLOGIST: Location: [facility] Patient: Yesy Mccracken : 1970 Visit/Account:[id number] Date of Sevice: 09/22/2018 Exam type: ANKLE 3 VIEW MIN LEFT History: Pain on lateral left ankle, history of ankle surgery Comparison: March 18, 2018. Findings: Three views were submitted Again noted is a distal fibular plate and screws with interval healing of the previously reported fra cture. A well-corticated bony density projecting just posterior to the posterior aspect of the dista l left tibia likely related to prior injury. The ankle mortise appears intact. There are degenerati ve changes at the talotibial joint and enthesopathic changes are noted at the insertion the Achilles tendon. There is a left calcaneal spur IMPRESSION: 1. Old postoperative and degenerative changes of the left ankle as described above Report Dictated By: Angle Meléndez MD at 09/22/2018 5:04 PM Report E-Signed By: Angle Meléndez MD at 09/22/2018 5:08 PM WSN:[email or web address]
== END 2018-09-22 17:32 | disposition home or self-care (01) ==
LOC: ER 16:26
DX: M25.572 Pain in left ankle and joints of left foot (principal)
CPT/HCPCS: 99283

== ENCOUNTER → 2018-10-04 | Outpatient (CLI) | payer MEDICAID ==
[2017-04-17 12:41] VITALS: BMI 34.0
[~2018-10-04] MED LIST changes: +LIDO15SO2 PO; +PRO25I PO
[2018-10-04 11:02] LABS: PLATELET COUNT, AUTOMATED 168 K/uL (150-450)
[2018-10-04 11:13] LABS: LDL CHOLESTEROL 108 mg/dl
== END ==
LOC: LAB 10:27
PROVIDERS: ATTEND Nurse Practitioner Primary Care
DX: E11.9 Type 2 diabetes mellitus without complications (principal); E78.2 Mixed hyperlipidemia; E03.9 Hypothyroidism, unspecified; I10 Essential (primary) hypertension
CPT/HCPCS: 36415; 82040; 82247; 82310; 82374; 82435; 82465; 82565; 82947; 83036; 83718; 84075; 84132; 84155; 84295; 84443; 84450; 84460; 84478; 84520; 85025

== ENCOUNTER → 2018-10-04 | Outpatient (CLI) | payer MEDICAID ==
[2017-04-17 12:41] VITALS: BMI 34.0
--- NOTE | 2018-10-04 16:54 | RADIOLOGY IMAGING REPORT ---
FACILITY: [facility] PATIENT NAME: Yesy Mccracken : 1970 MR: [id number] V: [id number] EXAM DATE: ORDERING PHYSICIAN: TAMIA LARKIN TECHNOLOGIST: Location: [facility] [place] Patient: Yesy Mccracken : 1970 Visit/Account:[id number] Date of Sevice: 10/04/2018 US VENOGRAM EXTREMITY, BILATERAL Bilateral lower extremity duplex venous ultrasound Indication: Previous PE. Patient on blood thinners. Surgery clearance Comparison: None Available Findings: Duplex Doppler and color flow imaging was performed. The bilateral common femoral, femoral , and popliteal veins are all patent and compressible with normal Doppler wave forms. There are norm al responses to augmentation. The visualized calf veins are patent. Impression: 1. No evidence of deep venous thrombosis of the bilateral lower extremities. Report Dictated By: Alejandro Ortiz MD at 10/04/2018 4:47 PM Report E-Signed By: Alejandro Ortiz MD at 10/04/2018 4:50 PM WSN:[email or web address]
== END ==
LOC: US 15:38
PROVIDERS: ATTEND Otolaryngology
DX: I26.99 Other pulmonary embolism without acute cor pulmonale (principal)
CPT/HCPCS: 93970

== ENCOUNTER 2018-10-30 10:31 | Emergency (ER) | payer MEDICAID ==
[2017-04-17 12:41] VITALS: BMI 34.0
--- NOTE | 2018-10-30 11:05 | ER Report ---
History and Physical Time Seen By MD: 11:05 Hx. of Stated Complaint: right heel pain for two weeks, went away and now has came back when walking; pain is 10/10 when walking HPI/ROS CHIEF COMPLAINT: Right heel pain HISTORY OF PRESENT ILLNESS: 47-year-old female patient presents to emergency room with complaint of right heel pain. Patient states that she has been having pain for the past 2 weeks. She states that the pain is worse when she starts activity, seems to improve during the activity and then worsens after rest. Patient states that over the last few days the pain has become more constant and worse with activity. She states that she has been more active over the last few months, stating that she is trying to exercise. She states that she is wearing shoes that are only approximate 4 months old but have "good support". She denies any injury to the foot. She denies any numbness or tingling. Patient states she is not taking any medication for this. REVIEW OF SYSTEMS: Respiratory: No cough, no dyspnea. Cardiovascular: No chest pain, no palpitations. Gastrointestinal: No vomiting, no abdominal pain. Musculoskeletal: As noted above Allergies: Coded Allergies: Nitrofurantoin Macrocrystal (Verified Allergy, Severe, HIVES, 09/22/18) aspirin (Verified Allergy, Severe, ANAPHYLAXIS, 09/22/18) chlorpromazine (Verified Allergy, Severe, ANAPHYLAXIS, 09/22/18) hydroxyzine (Verified Allergy, Severe, AIRWAY OBSTRUCTION, 09/22/18) varenicline (Verified Allergy, Severe, anxiety, 09/22/18) venom-wasp (Verified Allergy, Severe, ANAPHYLAXIS, 09/22/18) Sulfa (Sulfonamide Antibiotics) (Verified Allergy, Intermediate, HIVES, 09/22/18) albuterol (Verified Allergy, Intermediate, itching, hives, 09/22/18) cephalexin (Verified Allergy, Intermediate, HIVES, 09/22/18) ciprofloxacin (Verified Allergy, Intermediate, "feels like I'm going inasne", 09/22/18) droperidol (Verified Allergy, Intermediate, DELUSIONS, 09/22/18) Pt states her reaction as, "I become psychotic". latex (Verified Allergy, Intermediate, RASH, SWELLING, 09/22/18) ondansetron (Verified Adverse Reaction, Severe, TACHYCARDIA, 09/22/18) dexamethasone (Verified Adverse Reaction, Intermediate, ITCHING, 09/22/18) haloperidol (Verified Adverse Reaction, Intermediate, "MAKES ME JUMPY", 09/22/18) Uncoded Allergies: Inhaled medication propelant (Allergy, Intermediate, HIVES, 10/07/14) Home Meds Active Scripts Prednisone (PREDNISONE) 20 Mg Tablet, 40 MG PO DAILY, #10 TAB Prov:DEISY DURBIN 10/30/18 Ticagrelor (BRILINTA) 90 Mg Tablet, 90 MG PO BID, #180 TAB 1 Refill Prov:POPPY SANCHEZ DNP [facility] 10/20/18 Hydrocodone Bit/Acetaminophen (NORCO 5-325 TABLET) 1 Each Tablet, 0.5 TAB PO Q6H PRN for PAIN for 3 Days, #6 TAB Prov:TAMIA LARKIN JR, MD 10/20/18 Doxepin Hcl (DOXEPIN HCL) 25 Mg Capsule, 2 CAP PO BID PRN for ANXIETY, #120 CAPSULE 1 Refill Prov:POPPY SANCHEZ [facility]NP [facility] 10/14/18 Buspirone Hcl (BUSPIRONE HCL) 30 Mg Tablet, 1 TAB PO BID, #60 TAB 1 Refill Prov:POPPY SANCHEZ [facility]NP [facility] 10/14/18 Pregabalin (LYRICA) 150 Mg Capsule, 1 TAB PO BID, #60 CAPSULE 0 Refills Prov:POPPY SANCHEZ DNP [facility] 10/14/18 Lidocaine HCl VISCOUS 2% (Lidocaine Viscous) 2 % Solution, 15 ML PO Q2H PRN for PAIN, #450 ML 0 Refills Swish and spit 15 ml every 2 hours as needed for throat pain. Prov:POPPY SANCHEZ DNP [facility] 10/06/18 Promethazine Hcl (PROMETHAZINE HCL) 12.5 Mg Tablet, 1-2 TAB PO Q8H PRN for NAUSEA, #12 TAB 0 Refills Prov:POPPY SANCHEZ [facility] 10/05/18 Apixaban (ELIQUIS) 5 Mg Tablet, 1 TAB PO BID, #60 TAB 5 Refills Prov:POPPY SANCHEZ [facility]NP [facility] 4/23/19 Prazosin Hcl (PRAZOSIN HCL) 5 Mg Capsule, 1 CAP PO QHS, #30 CAPSULE 1 Refill Prov:POPPY SANCHEZ DNP, FNP-BC 09/17/18 Aripiprazole (ABILIFY) 20 Mg Tablet, 1 TAB PO QDAY, #30 TAB 1 Refill Prov:POPPY SANCHEZ [facility]NP [facility] 09/17/18 Zolpidem Tartrate (AMBIEN) 5 Mg Tablet, 1 TAB PO QHS PRN for INSOMNIA, #30 TAB 1 Refill Prov:POPPY SANCHEZ [facility] 09/17/18 Baclofen (BACLOFEN) 10 Mg Tablet, 1 TAB PO TID PRN for MUSCLE SPASMS, #90 TAB 5 Refills Prov:POPPY SANCHEZ DNP, FNP-BC 09/17/18 Insulin Glargine 100 Un/Ml Pen (LANTUS SOLOSTAR PEN) 100 Unit/1 Ml Insuln.pen, 65 UNIT SQ BID, #1 BOX 3 Refills Prov:POPPY SANCHEZ DNP, FNP-BC 09/17/18 Ranitidine Hcl (RANITIDINE HCL) 150 Mg Capsule, 1 TAB PO BID, #180 CAPSULE 3 Refills Prov:POPPY SANCHEZ DNP, FNP-BC 09/17/18 Lisinopril (LISINOPRIL) 40 Mg Tablet, 1 TAB PO QDAY for 90 Days, #90 TAB 1 Refill Prov:POPPY SANCHEZ [facility]NP [facility] 09/17/18 Esomeprazole Magnesium (NEXIUM) 40 Mg Capsule.dr, 1 CAP PO BID, #180 CAP 3 Refills Prov:POPPY SANCHEZ DNP [facility]- 09/17/18 Insulin Lispro 100 Un/Ml Pen (HUMALOG 3 ML PEN) 100 Unit/1 Ml Insuln.pen, 5-8 UNIT SQ TID, #2 DIS.SYR 6 Refills Take per sliding scale. Prov:POPPY SANCHEZ DNP, FNP-BC 09/17/18 Lancets (Blood Lancets) 30 Gauge Each, [facility] EVERY 90 DAYS, #300 4 Refills Prov:POPPY SANCHEZ DNP [facility]- 09/17/18 Sumatriptan Succinate (SUMATRIPTAN SUCCINATE) 100 Mg Tablet, 1 TAB PO QDAY PRN for MIGRAINE, #9 TAB 6 Refills Prov:POPPY SANCHEZ DNP, FNP-BC 09/17/18 Sumatriptan Succinate (SUMATRIPTAN SUCCINATE) 6 Mg/0.5 Ml Pen.injctr, 6 MG SQ ONCE PRN for MIGRAINE, #1 BOX 6 Refills May repeat dose x1 after 1 hour, if needed. Do not exceed maximum of 12mg/24h. Prov:POPPY SANCHEZ DNP, FNP-BC 09/17/18 Blood Sugar Diagnostic (FREESTYLE LITE TEST STRIPS) 1 Each Strip, 500 EACH MC 5XD for 90 Days, #500 STRIP 2 Refills Prov:POPPY SANCHEZ DNP, FNP-BC 06/02/18 [place], Insulin Disposable (PEN NEEDLES) 1 Each Dis.needle, BOX MC QDAY, #1 9 Refills Prov:POPPY SANCHEZ DNP, FNP-BC 06/02/18 Albuterol Sulfate 90 Mcg/Act (PROAIR HFA 90 MCG/ACT) 8.5 Gm Hfa.aer.ad, 2 PUFF IH Q4-6H PRN for WHEEZING, #1 INHALER 0 Refills Prov:POPPY SANCHEZ DNP, FNP-BC 04/13/18 Atorvastatin (LIPITOR) 80 Mg Tab, 1 TAB PO QDAY for 90 Days, #90 TAB 1 Refill Prov:POPPY SANCHEZ DNP, FNP-BC 04/13/18 Levothyroxine Sodium (LEVOTHYROXINE SODIUM) 50 Mcg Tablet, 1 TAB PO QDAY, #90 TAB 4 Refills Take along with 200mcg tablet for a total of 250mcg daily. Prov:POPPY SANCHEZ DNP, FNP-BC 03/09/18 Levothyroxine Sodium (LEVOTHYROXINE SODIUM) 200 Mcg Tablet, 200 MCG PO QDAY, #90 TAB 4 Refills Take with 50mcg tablet for a total of 250mcg daily Prov:POPPY SANCHEZ DNP, FNP-BC 03/09/18 Epinephrine (EPIPEN 2-TUCKER) 0.3 Mg/0.3 Ml Pen.injctr, 0.3 MG IM ONCE, #1 CART Prov:POPPY SANCHEZ DNP, FNP-BC 10/14/17 Blood-Glucose Meter (FREESTYLE LITE METER) 1 Each Kit, 1 [facility] ONCE, #1 Prov:POPPY SANCHEZ SARAH CORNELL 08/11/17 Diclofenac Sodium 1% Gel (VOLTAREN 1% GEL) 100 Gm Gel..gram., 1 DEMETRIS TOP QID PRN for PAIN, #1 TUBE 0 Refills Prov:POPPY SANCHEZ SARAH CORNELL 01/19/17 Reported Medications Insulin Glargine (LANTUS) 100 Unit/Ml Soln, 65 UNIT SUBQ BID, ML 11/13/17 Past Medical/Surgical History Patient has a past medical history of CVA, migraine, UT, angina, irregular heartbeat, DVT, hypertension, hyperlipidemia, asthma, pneumonia, pulmonary emboli, reflux, pancreatitis, cholecystitis, enlarged liver, frequent UTI, endometriosis, ovarian cyst, arthritis, fractures of back, hips, neck and collarbone, back pain, type 2 diabetes, hypothyroidism, anxiety, bipolar, thyroid cancer, uterine cancer, breast cancer, colon cancer. Patient has a surgical history of coronary stent 2, appendectomy, hysterectomy, colonoscopy, cystoscopy, lithotripsy, tubal ligation, surgery on right ankle, right wrist, nose, jaw, right knee, sinus surgery, thyroidectomy, tonsillectomy, eye surgery as a baby. Patient has a family medical history of cancer, CAD, stroke, diabetes. Reviewed Nurses Notes: Yes Hx Smoking: Yes Smoking Status: Former Smoker Exposure to Second Hand Smoke?: Yes Hx Substance Use Disorder: No ("Years ago") Hx Alcohol Use: No Constitutional Vital Sign - Last 24 Hours 10/30/18 10/30/18 10/30/18 10/30/18 10:40 10:41 11:01 12:38 Temp 98.0 Pulse 98 92 9 Resp 19 B/P (MAP) 125/88 (100) 125/88 122/87 (99) Pulse Ox 91 92 92 O2 Delivery Room Air Physical Exam General Appearance: The patient is alert, has no immediate need for airway protection and no current signs of toxicity. Respiratory: Chest is non tender, lungs are clear to auscultation. Cardiac: regular rate and rhythm Gastrointestinal: Abdomen is soft and non tender, no masses, bowel sounds normal. Musculoskeletal: Neck: Neck is supple and non tender. Extremities have full range of motion and are non tender. Patient has tenderness to the Achilles, tenderness to the heel. On palpation there is no m arked tenderness. Skin: No rashes or lesions. DIFFERENTIAL DIAGNOSIS: After history and physical exam differential diagnosis was considered for hip fracture, sprain, plantar fasciitis. Medical Decision Making EKG/Imaging Imaging FOOT 3 VIEWS RIGHT COMPARISON: None. HISTORY: right heel pain TECHNIQUE: 3 views of the right foot were obtained without weightbearing technique FINDINGS: BONES: No significant arthropathy, fracture, dislocation, or significant osseous lesion. Alignment is within normal limits for non-weightbearing technique. Metatarsal bases are appropriately aligned. Calcaneal height is preserved. Moderate-sized plantar, small posterior calcaneal enthesophyte. SOFT TISSUES: Negative. No visible soft tissue swelling. EFFUSION: None suggested. OTHER: Negative. IMPRESSION: No specific cause for right heel pain. No acute fracture or malalignment. Report Dictated By: Charanjit Rocha at 10/30/2018 12:08 PM Report E-Signed By: Charanjit Rocha at 10/30/2018 12:10 PM ED Course/Re-evaluation ED Course Patient was admitted to an exam room, history and physical were obtained. Differential diagnoses were considered. On examination lungs are clear, heart is regular, abdomen soft nontender. Patient had no obvious tenderness to the heel, slight tenderness to the Achilles tendon. An x-ray was done of the right foot. There is no acute abnormality noted. I discussed the findings with patient. His my belief that she likely has a planter fasciitis. We will go ahead and treat her with a limited supply of prednisone. She is to follow-up with her primary care provider with any worsening concerns. Patient verbalized understanding and agreement with plan. Decision to Disposition Date: October 30, 2018 Decision to Disposition Time: 12:22 Depart Departure Latest Vital Signs Vital Signs Date Time Temp Pulse Resp B/P (MAP) Pulse Ox O2 Delivery O2 Flow Rate FiO2 10/30/18 12:38 9 122/87 (99) 92 10/30/18 10:41 98.0 19 Room Air Core Temperature (Celsius): 36.73 Impression: Primary Impression: Plantar fasciitis of right foot Condition: Improved Disposition: HOME OR SELF-CARE Referrals: POPPY SANCHEZ DNP, [facility] (PCP) New Scripts Prednisone (PREDNISONE) 20 Mg Tablet 40 MG PO DAILY, #10 TAB Prov: DEISY DURBIN 10/30/18 Patient Instructions: Plantar Fasciitis (ED), Plantar Fasciitis Exercises (ED) Additional Instructions: Limit activity by pain. Ice the foot, freeze a water bottle and you can run your foot over that. Follow up with your primary care provider if condition worsens. Return to the ER if condition worsens. Get plenty of rest. DEISY DURBIN October 30, 2018 11:05
--- NOTE | 2018-10-30 12:13 | RADIOLOGY IMAGING REPORT ---
FAC[place] [facility] [place] NAME: Yesy Mccracken : 1970 MR: [id number] V: [id number] EXAM DATE: ORDERING PHYSICIAN: DEISY DURBIN TECHNOLOGIST: [facility] Patient: Yesy Mccracken : 1970 Visit/Account:[id number] Date of Sevice: 10/30/2018 FOOT 3 VIEWS RIGHT COMPARISON: None. HISTORY: right heel pain TECHNIQUE: 3 views of the right foot were obtained without weightbearing technique FINDINGS: BONES: No significant arthropathy, fracture, dislocation, or significant osseous lesion. Alignment is within normal limits for non-weightbearing technique. Metatarsal bases are appropriately aligned. Calcaneal height is preserved. Moderate-sized plantar, small posterior calcaneal enthesophyte. SOFT TISSUES: Negative. No visible soft tissue swelling. EFFUSION: None suggested. OTHER: Negative. IMPRESSION: No specific cause for right heel pain. No acute fracture or malalignment. Report Dictated By: Charanjit Rocha at 10/30/2018 12:08 PM Report E-Signed By: Charanjit Rocha at 10/30/2018 12:10 PM WSN:[id number]
[2018-10-30] MEDS ORDERED: PRED20TA6 PO (12:23)
[2018-10-30 12:38] VITALS: BP 122/87
== END 2018-10-30 12:25 | disposition home or self-care (01) ==
LOC: ER 11:18
DX: M72.2 Plantar fascial fibromatosis (principal)
CPT/HCPCS: 99283

== ENCOUNTER 2018-11-01 09:18 | Emergency (ER) | payer MEDICAID ==
[2017-04-17 12:41] VITALS: Wt 95.3 kg
--- NOTE | 2018-11-01 09:21 | ER Report ---
History and Physical Time Seen By MD: 09:21 HPI/ROS CHIEF COMPLAINT: Skin eruptions below the right eye, lower eyelid swelling, pain of the eye HISTORY OF PRESENT ILLNESS: Patient is a 47-year-old female here with complaints of small nonspecific skin eruptions below the eye which are pruritic, lower eyelid subjective swelling, pain in the right eye. Patient reports that symptoms started several days ago in seemingly have worsened. Denies visual changes. Patient reports that she is concerned that she may have shingles. Skin eruptions are isolated directly below the eye with no obvious signs of swelling to the eyelid to indicate glandular infection or mass. There is no scleral injection, tearing, obvious foreign body. Patient has been taking [id number] analgesics without relief. Patient also complains of right ear pain with drainage. REVIEW OF SYSTEMS: Constitutional: No fever, no chills. Eyes: Pain in the right eye, right lower eyelid Musculoskeletal: No facial swelling Skin: Small isolated skin eruptions pustular appearing without drainage Neurological: No cranial nerve deficits, pain in the right thigh and below the eye with pruritus Allergies: Coded Allergies: Nitrofurantoin Macrocrystal (Verified Allergy, Severe, HIVES, 11/01/18) aspirin (Verified Allergy, Severe, ANAPHYLAXIS, 11/01/18) chlorpromazine (Verified Allergy, Severe, ANAPHYLAXIS, 11/01/18) hydroxyzine (Verified Allergy, Severe, AIRWAY OBSTRUCTION, 11/01/18) varenicline (Verified Allergy, Severe, anxiety, 11/01/18) venom-wasp (Verified Allergy, Severe, ANAPHYLAXIS, 11/01/18) Sulfa (Sulfonamide Antibiotics) (Verified Allergy, Intermediate, HIVES, 11/01/18) albuterol (Verified Allergy, Intermediate, itching, hives, 11/01/18) cephalexin (Verified Allergy, Intermediate, HIVES, 11/01/18) ciprofloxacin (Verified Allergy, Intermediate, "feels like I'm going inasne", 11/01/18) droperidol (Verified Allergy, Intermediate, DELUSIONS, 11/01/18) Pt states her reaction as, "I become psychotic". latex (Verified Allergy, Intermediate, RASH, SWELLING, 11/01/18) ondansetron (Verified Adverse Reaction, Severe, TACHYCARDIA, 11/01/18) dexamethasone (Verified Adverse Reaction, Intermediate, ITCHING, 11/01/18) haloperidol (Verified Adverse Reaction, Intermediate, "MAKES ME JUMPY", 11/01/18) Uncoded Allergies: Inhaled medication propelant (Allergy, Intermediate, HIVES, 10/07/14) Home Meds Active Scripts Mupirocin Martir 2% Cream (MUPIROCIN 2% CREAM) 15 Gm Cream..g., 0 TP TID, #1 TUBE Prov:JESSICA REYEZ DO 11/01/18 Prednisone (PREDNISONE) 20 Mg Tablet, 40 MG PO DAILY, #10 TAB Prov:DEISY DURBINP 10/30/18 Ticagrelor (BRILINTA) 90 Mg Tablet, 90 MG PO BID, #180 TAB 1 Refill Prov:POPPY SANCHEZ DNP [facility] 10/20/18 Doxepin Hcl (DOXEPIN HCL) 25 Mg Capsule, 2 CAP PO BID PRN for ANXIETY, #120 CAPSULE 1 Refill Prov:POPPY SANCHEZ DNP [facility] 10/14/18 Buspirone Hcl (BUSPIRONE HCL) 30 Mg Tablet, 1 TAB PO BID, #60 TAB 1 Refill Prov:POPPY SANCHEZ DNP [facility] 10/14/18 Pregabalin (LYRICA) 150 Mg Capsule, 1 TAB PO BID, #60 CAPSULE 0 Refills Prov:POPPY SANCHEZ DNP [facility] 10/14/18 Lidocaine HCl VISCOUS 2% (Lidocaine Viscous) 2 % Solution, 15 ML PO Q2H PRN for PAIN, #450 ML 0 Refills Swish and spit 15 ml every 2 hours as needed for throat pain. Prov:POPPY SANCHEZ DNP [facility] 10/06/18 Promethazine Hcl (PROMETHAZINE HCL) 12.5 Mg Tablet, 1-2 TAB PO Q8H PRN for NAUSEA, #12 TAB 0 Refills Prov:POPPY SANCHEZ DNP [facility] 10/05/18 Apixaban (ELIQUIS) 5 Mg Tablet, 1 TAB PO BID, #60 TAB 5 Refills Prov:POPPY SANCHEZ DNP [facility] 09/28/18 Prazosin Hcl (PRAZOSIN HCL) 5 Mg Capsule, 1 CAP PO QHS, #30 CAPSULE 1 Refill Prov:POPPY SANCHEZ DNP [facility] 09/17/18 Aripiprazole (ABILIFY) 20 Mg Tablet, 1 TAB PO QDAY, #30 TAB 1 Refill Prov:POPPY SANCHEZ DNP [facility] 09/17/18 Zolpidem Tartrate (AMBIEN) 5 Mg Tablet, 1 TAB PO QHS PRN for INSOMNIA, #30 TAB 1 Refill Prov:[facility], [facility] 09/17/18 Baclofen (BACLOFEN) 10 Mg Tablet, 1 TAB PO TID PRN for MUSCLE SPASMS, #90 TAB 5 Refills Prov:POPPY SANCHEZ DNP, FNP-BC 09/17/18 Insulin Glargine 100 Un/Ml Pen (LANTUS SOLOSTAR PEN) 100 Unit/1 Ml Insuln.pen, 65 UNIT SQ BID, #1 BOX 3 Refills Prov:POPPY SANCHEZ DNP [facility]- 09/17/18 Ranitidine Hcl (RANITIDINE HCL) 150 Mg Capsule, 1 TAB PO BID, #180 CAPSULE 3 Refills Prov:POPPY SANCHEZ DNP [facility] 09/17/18 Lisinopril (LISINOPRIL) 40 Mg Tablet, 1 TAB PO QDAY for 90 Days, #90 TAB 1 Refill Prov:POPPY SANCHEZ DNP [facility] 09/17/18 Esomeprazole Magnesium (NEXIUM) 40 Mg Capsule.dr, 1 CAP PO BID, #180 CAP 3 Refills Prov:POPPY SANCHEZ DNP, FNP-BC 09/17/18 Insulin Lispro 100 Un/Ml Pen (HUMALOG 3 ML PEN) 100 Unit/1 Ml Insuln.pen, 5-8 UNIT SQ TID, #2 DIS.SYR 6 Refills Take per sliding scale. Prov:POPPY SANCHEZ DNP, FNP-BC 09/17/18 Lancets (Blood Lancets) 30 Gauge Each, [facility] EVERY 90 DAYS, #300 4 [facility]ills [facility] 09/17/18 Sumatriptan Succinate (SUMATRIPTAN SUCCINATE) 100 Mg Tablet, 1 TAB PO QDAY PRN for MIGRAINE, #9 TAB 6 Refills Prov:POPPY SANCHEZ DNP, FNP- 09/17/18 Sumatriptan Succinate (SUMATRIPTAN SUCCINATE) 6 Mg/0.5 Ml Pen.injctr, 6 MG SQ ON CE PRN for MIGRAINE, #1 BOX 6 Refills May repeat dose x1 after 1 hour, if needed. Do not exceed maximum of 12mg/24h. Prov:POPPY SANCHEZ DNP, FNP-BC 09/17/18 Blood Sugar Diagnostic (FREESTYLE LITE TEST STRIPS) 1 Each Strip, 500 EACH MC 5XD for 90 Days, #500 STRIP 2 Refills Prov:POPPY SANCHEZ DNP, FNP-BC 06/02/18 [place], Insulin Disposable (PEN NEEDLES) 1 Each Dis.needle, BOX MC QDAY, #1 9 Refills Prov:POPPY SANCHEZ DNP, FNP- 06/02/18 Albuterol Sulfate 90 Mcg/Act (PROAIR HFA 90 MCG/ACT) 8.5 Gm Hfa.aer.ad, 2 PUFF IH Q4-6H PRN for WHEEZING, #1 INHALER 0 Refills Prov:POPPY SANCHEZ DNP, FNP- 04/13/18 Atorvastatin (LIPITOR) 80 Mg Tab, 1 TAB PO QDAY for 90 Days, #90 TAB 1 Refill Prov:[facility]Z [facility], [facility] 04/13/18 Levothyroxine Sodium (LEVOTHYROXINE SODIUM) 50 Mcg Tablet, 1 TAB PO QDAY, #90 TAB 4 Refills Take along with 200mcg tablet for a total of 250mcg daily. Prov:POPPY SANCHEZ DNP, FNP-BC 03/09/18 Levothyroxine Sodium (LEVOTHYROXINE SODIUM) 200 Mcg Tablet, 200 MCG PO QDAY, #90 TAB 4 Refills Take with 50mcg tablet for a total of 250mcg daily Prov:POPPY SANCHEZ DNP, FNP- 03/09/18 Epinephrine (EPIPEN 2-TUCKER) 0.3 Mg/0.3 Ml Pen.injctr, 0.3 MG IM ONCE, #1 CART Prov:POPPY SANCHEZ DNP, FNP- 10/14/17 Blood-Glucose Meter (FREESTYLE LITE METER) 1 Each Kit, 1 [facility] ONCE, #1 Prov:POPPY SANCHEZ DNP, FNP-BC 08/11/17 Diclofenac Sodium 1% Gel (VOLTAREN 1% GEL) 100 Gm Gel..gram., 1 DEMETRIS TOP QID PRN for PAIN, #1 TUBE 0 Refills Prov:POPPY SANCHEZ DNP, FNP-BC 01/19/17 Reported Medications Insulin Glargine (LANTUS) 100 Unit/Ml Soln, 65 UNIT SUBQ BID, ML 11/13/17 Discontinued Scripts Hydrocodone Bit/Acetaminophen (NORCO 5-325 TABLET) 1 Each Tablet, 0.5 TAB PO Q6H PRN for PAIN for 3 Days, #6 TAB Prov:TAMIA LARKIN JR, MD 10/20/18 Hx Smoking: Yes Smoking Status: Former Smoker Exposure to Second Hand Smoke?: Yes Hx Substance Use Disorder: No ("Years ago") Hx Alcohol Use: No Constitutional Vital Sign - Last 24 Hours 11/01/18 09:23 Temp 98.1 Pulse 90 Resp 20 B/P (MAP) 125/85 Pulse Ox 93 O2 Delivery Nasal Cannula Physical Exam General Appearance: The patient is alert, has no immediate need for airway protection and no signs of toxicity. Uncomfortable appearing Eyes: No scleral injection, no signs of corneal abrasion on fluorescein stain, no tearing or obvious swelling or mass present under the eyelids, no skating sign, negative Juliana sign Neurological: No focal neurological findings, cranial nerves intact Skin: Small pustular nonspecific skin eruptions below the right eye with scratching around the area without drainage or erythema Musculoskeletal: Neck is supple non tender. No facial swelling DIFFERENTIAL DIAGNOSIS: After history and physical exam differential diagnosis was considered for impetigo, dry skin, foreign body, corneal abrasion, corneal ulcer, stye, chalazion Medical Decision Making ED Course/Re-evaluation ED Course Patient is a 47-year-old female here with complaints of pustular skin eruptions below the right eyelid, subjective swelling and "a bubble" on the interior aspect of the lower eyelid of the right eye, itching in the right eye. I examined the patient's interior eyelids which showed no signs of retained foreign body, I performed a fluorescein stain to the right eye with proparacaine for analgesia and there are no signs of trauma to the eye, no scate sign or Juliana sign. Patient's pustular eruptions appear to be either dry skin or a benign soft tissue infection. Patient advised to continue to take Tylenol for analgesia, she was prescribed mupirocin for treatment of superficial skin infection topically. Recommend close PCP follow-up. Return precautions were provided. Decision to Disposition Date: November 01, 2018 Decision to Disposition Time: 09:40 Depart Departure Latest Vital Signs Vital Signs Date Time Temp Pulse Resp B/P (MAP) Pulse Ox O2 Delivery O2 Flow Rate FiO2 11/01/18 09:23 98.1 90 20 125/85 93 Nasal Cannula Core Temperature (Celsius): 36.73 Impression: Primary Impression: Skin eruption Condition: Improved Disposition: HOME OR SELF-CARE Referrals: POPPY SANCHEZ DNP, [facility] (PCP) New Scripts Mupirocin Martir 2% Cream (MUPIROCIN 2% CREAM) 15 Gm Cream..g. 0 TP TID, #1 TUBE Prov: JESSICA REYEZ DO 11/01/18 Patient Instructions: Mupirocin (On the skin) Additional Instructions: Please apply a small amount of Skin to your skin eruptions 3 times daily until lesions have resolved. Please follow-up with your family doctor in the next 24-48 hours for reevaluation. Please return promptly if you develop worsening pain in the eye, blurry vision, swelling around the eye, pain with eye movement. You may apply warm compresses every 4-6 hours to the affected eyelid as needed. Currently there are no signs of corneal abrasions or trauma to the eye. You may take Tylenol as needed for pain control. JESSICA REYEZ DO November 01, 2018 09:21
[2018-11-01 09:23] VITALS: BP 125/85
[2018-11-01] MEDS ORDERED: FLUORESCEIN SOD 1 MG 1 EA STRP ONE (09:32)
[2018-11-01] MEDS ORDERED: PROPARACAINE 0.5% OP 15ML BTL ONE (09:33)
[2018-11-01] MEDS ORDERED: MUPI15CR2 TP (09:41)
== END 2018-11-01 09:47 | disposition home or self-care (01) ==
LOC: ER 09:24
DX: R21 Rash and other nonspecific skin eruption (principal)
CPT/HCPCS: 99283

== ENCOUNTER 2018-11-11 17:28 | Emergency (ER) | payer MEDICAID ==
[2017-04-17 12:41] VITALS: Wt 96.6 kg
[~2018-11-11 17:28] MED LIST changes: +MUPI15CR2 TP; -PROM12.556 PO; +PROM12.557 PO; -RANI-366 PO; +RANI-54 PO; -TRAZ50TA34 PO; +TRAZ50TA52 PO
--- NOTE | 2018-11-11 17:43 | ER Report ---
History and Physical Time Seen By MD: 17:42 Hx. of Stated Complaint: PT FELL OFF PORCH ONTO CEMENT PAD INJURING R KNEE LAST NIGHT. KNEE IS SWOLLEN AND PAINFUL (CONNIE SWENSON MD) Time Seen By MD: 18:03 (JESSICA REYEZ DO) HPI/ROS CHIEF COMPLAINT: Knee pain HISTORY OF PRESENT ILLNESS: 47-year-old female frequent visitor to the emergency department [facility] ED care plan for multiple pain complaints comes in today reportedly fell down some stairs onto her right knee and is having right knee pain. Patient states that she was to walk up the stairs loss of balance turn to catch her balance and landed on her right knee. Patient said this happened last evening she went to bed and woke up today spent all day and then decided to come to the emergency department. Patient has not had any trauma loss of consciousness or additional complaints localized pain only to the right knee medial aspect says it looks more swollen than normal. REVIEW OF SYSTEMS: Respiratory: No cough, no dyspnea. Cardiovascular: No chest pain, no palpitations. Gastrointestinal: No vomiting, no abdominal pain. Musculoskeletal: Right knee pain Remainder of the 14 system rev: Yes (CONNIE SWENSON MD) HPI/ROS Please see Dr. Gloria note (JESSICA REYEZ DO) Allergies: Coded Allergies: Nitrofurantoin Macrocrystal (Verified Allergy, Severe, HIVES, 11/01/18) aspirin (Verified Allergy, Severe, ANAPHYLAXIS, 11/01/18) chlorpromazine (Verified Allergy, Severe, ANAPHYLAXIS, 11/01/18) hydroxyzine (Verified Allergy, Severe, AIRWAY OBSTRUCTION, 11/01/18) varenicline (Verified Allergy, Severe, anxiety, 11/01/18) venom-wasp (Verified Allergy, Severe, ANAPHYLAXIS, 11/01/18) Sulfa (Sulfonamide Antibiotics) (Verified Allergy, Intermediate, HIVES, 11/01/18) albuterol (Verified Allergy, Intermediate, itching, hives, 11/01/18) cephalexin (Verified Allergy, Intermediate, HIVES, 11/01/18) ciprofloxacin (Verified Allergy, Intermediate, "feels like I'm going inasne", 11/01/18) droperidol (Verified Allergy, Intermediate, DELUSIONS, 11/01/18) Pt states her reaction as, "I become psychotic". latex (Verified Allergy, Intermediate, RASH, SWELLING, 11/01/18) ondansetron (Verified Adverse Reaction, Severe, TACHYCARDIA, 11/01/18) dexamethasone (Verified Adverse Reaction, Intermediate, ITCHING, 11/01/18) haloperidol (Verified Adverse Reaction, Intermediate, "MAKES ME JUMPY", 11/01/18) Uncoded Allergies: Inhaled medication propelant (Allergy, Intermediate, HIVES, 10/07/14) Home Meds Active Scripts Pregabalin (LYRICA) 150 Mg Capsule, 1 TAB PO BID, #60 CAPSULE 0 Refills Prov:POPPY SANCHEZ DNP [facility] 11/09/18 Zolpidem Tartrate (AMBIEN) 5 Mg Tablet, 1 TAB PO QHS PRN for INSOMNIA, #30 TAB 1 Refill Prov:POPPY SANCHEZ DNP [facility] 11/09/18 Mupirocin Martir 2% Cream (MUPIROCIN 2% CREAM) 15 Gm Cream..g., 0 TP TID, #1 TUBE Prov:JESSICA REYEZ DO 11/01/18 Prednisone (PREDNISONE) 20 Mg Tablet, 40 MG PO DAILY, #10 TAB Prov:DEISY DURBINP 10/30/18 Ticagrelor (BRILINTA) 90 Mg Tablet, 90 MG PO BID, #180 TAB 1 Refill Prov:POPPY SANCHEZ DNP [facility] 10/20/18 Doxepin Hcl (DOXEPIN HCL) 25 Mg Capsule, 2 CAP PO BID PRN for ANXIETY, #120 CAPSULE 1 Refill Prov:POPPY SANCHEZ DNP [facility] 10/14/18 Buspirone Hcl (BUSPIRONE HCL) 30 Mg Tablet, 1 TAB PO BID, #60 TAB 1 Refill Prov:POPPY SANCHEZ DNP [facility] 10/14/18 Lidocaine HCl VISCOUS 2% (Lidocaine Viscous) 2 % Solution, 15 ML PO Q2H PRN for PAIN, #450 ML 0 Refills Swish and spit 15 ml every 2 hours as needed for throat pain. Prov:POPPY SANCHEZ DNP [facility] 10/06/18 Promethazine Hcl (PROMETHAZINE HCL) 12.5 Mg Tablet, 1-2 TAB PO Q8H PRN for NAUSEA, #12 TAB 0 Refills Prov:POPPY SANCHEZ DNP, [facility] 10/05/18 Apixaban (ELIQUIS) 5 Mg Tablet, 1 TAB PO BID, #60 TAB 5 Refills Prov:POPPY SANCHEZ DNP [facility] 09/28/18 Prazosin Hcl (PRAZOSIN HCL) 5 Mg Capsule, 1 CAP PO QHS, #30 CAPSULE 1 Refill Prov:POPPY SANCHEZ DNP [facility] 09/17/18 Aripiprazole (ABILIFY) 20 Mg Tablet, 1 TAB PO QDAY, #30 TAB 1 Refill Prov:POPPY SANCHEZ DNP, [facility] 09/17/18 Baclofen (BACLOFEN) 10 Mg Tablet, 1 TAB PO TID PRN for MUSCLE SPASMS, #90 TAB 5 Refills Prov:POPPY SANCHEZ DNP, FNP-BC 09/17/18 Insulin Glargine 100 Un/Ml Pen (LANTUS SOLOSTAR PEN) 100 Unit/1 Ml Insuln.pen, 65 UNIT SQ BID, #1 BOX 3 Refills Prov:POPPY SANCHEZ DNP [facility] 09/17/18 Ranitidine Hcl (RANITIDINE HCL) 150 Mg Capsule, 1 TAB PO BID, #180 CAPSULE 3 Refills Prov:POPPY SANCHEZ DNP [facility] 09/17/18 Lisinopril (LISINOPRIL) 40 Mg Tablet, 1 TAB PO QDAY for 90 Days, #90 TAB 1 Refill Prov:POPPY SANCHEZ DNP [facility] 09/17/18 Esomeprazole Magnesium (NEXIUM) 40 Mg Capsule.dr, 1 CAP PO BID, #180 CAP 3 Refills Prov:POPPY SANCHEZ DNP [facility]- 09/17/18 Insulin Lispro 100 Un/Ml Pen (HUMALOG 3 ML PEN) 100 Unit/1 Ml Insuln.pen, 5-8 UNIT SQ TID, #2 DIS.SYR 6 Refills Take per sliding scale. Prov:POPPY SANCHEZ DNP, FNP- 09/17/18 Lancets (Blood Lancets) 30 Gauge Each, [facility] EVERY 90 DAYS, #300 4 Refills Prov:POPPY SANCHEZ DNP, FNP- 09/17/18 Sumatriptan Succinate (SUMATRIPTAN SUCCINATE) 100 Mg Tablet, 1 TAB PO QDAY PRN for MIGRAINE, #9 TAB 6 Refills Prov:LAURAPOPPYARASELI Young DNP 09/17/18 Sumatriptan Succinate (SUMATRIPTAN SUCCINATE) 6 Mg/0.5 Ml Pen.injctr, 6 MG SQ ONCE PRN for MIGRAINE, #1 BOX 6 Refills May repeat dose x1 after 1 hour, if needed. Do not exceed maximum of 12mg/24h. Prov:POPPY SANCHEZ DNP, FNP-BC 09/17/18 Blood Sugar Diagnostic (FREESTYLE LITE TEST STRIPS) 1 Each Strip, 500 EACH MC 5XD for 90 Days, #500 STRIP 2 Refills Prov:POPPY SANCHEZ DNP, FNP- 06/02/18 [place], Insulin Disposable (PEN NEEDLES) 1 Each Dis.needle, BOX QDAY, #1 9 Refills Prov:POPPY SANCHEZ DNP [facility] 06/02/18 Albuterol Sulfate 90 Mcg/Act (PROAIR HFA 90 MCG/ACT) 8.5 Gm Hfa.aer.ad, 2 PUFF IH Q4-6H PRN for WHEEZING, #1 INHALER 0 Refills Prov:POPPY SANCHEZ DNP, [facility] 04/13/18 Atorvastatin (LIPITOR) 80 Mg Tab, 1 TAB PO QDAY for 90 Days, #90 TAB 1 Refill Prov:POPPY SANCHEZ DNP, FNP- 04/13/18 Levothyroxine Sodium (LEVOTHYROXINE SODIUM) 50 Mcg Tablet, 1 TAB PO QDAY, #90 TAB 4 Refills Take along with 200mcg tablet for a total of 250mcg daily. Prov:POPPY SANCHEZ DNP, FNP- 03/09/18 Levothyroxine Sodium (LEVOTHYROXINE SODIUM) 200 Mcg Tablet, 200 MCG PO QDAY, #90 TAB 4 Refills Take with 50mcg tablet for a total of 250mcg daily Prov:POPPY SANCHEZ DNP [facility]- 03/09/18 Epinephrine (EPIPEN 2-TUCKER) 0.3 Mg/0.3 Ml Pen.injctr, 0.3 MG IM ONCE, #1 CART Prov:POPPY SANCHEZ DNP, FNP- 10/14/17 Blood-Glucose Meter (FREESTYLE LITE METER) 1 Each Kit, 1 [facility] ONCE, #1 Prov:PPOPY SANCHEZ DNP, FNP- 08/11/17 Diclofenac Sodium 1% Gel (VOLTAREN 1% GEL) 100 Gm Gel..gram., 1 DEMETRIS TOP QID PRN for PAIN, #1 TUBE 0 Refills Prov:POPPY SANCHEZ DNP [facility]- 01/19/17 Reported Medications Insulin Glargine (LANTUS) 100 Unit/Ml Soln, 65 UNIT SUBQ BID, ML 11/13/17 Reviewed Nurses Notes: Yes Old Medical Records Reviewed: Yes (CONNIE SWENSON MD) Hx Smoking: Yes Smoking Status: Former Smoker Exposure to Second Hand Smoke?: Yes Hx Substance Use Disorder: No ("Years ago") Hx Alcohol Use: No (CONNIE SWENSON MD) Constitutional Vital Sign - Last 24 Hours 11/11/18 11/11/18 17:33 17:57 Temp 100.0 Pulse 94 Resp 22 B/P (MAP) 130/80 Pulse Ox 87 O2 Delivery Room Air O2 Flow Rate 2.0 (JESSICA REYEZ DO) Physical Exam General appearance: Alert no distress. Respiratory: Chest is non tender, lungs are clear to auscultation. Cardiac: Regular rate and rhythm [ ] Knee right examination of the right knee neurovascularly intact she has an apparent effusion to the lateral aspect of the knee no obvious ecchymosis or bruising otherwise inability to bend or flex Yissel cooperate with exam difficult to determine drawer or Celia's test at this time DIFFERENTIAL DIAGNOSIS: After history and physical exam differential diagnosis was considered for knee contusion E fracture knee sprain (CONNIE SWENSON MD) Physical Exam Please see Dr. Gloria note (JESSICA REYEZ DO) Medical Decision Making EKG/Imaging Imaging PATIENT NAME: Yesy Mccracken : 1970 MR: [id number] V: [id number] EXAM DATE: ORDERING PHYSICIAN: CONNIE SWENSON TECHNOLOGIST: Location: [facility] Patient: Yesy Mccracken : 1970 Visit/Account:[id number] Date of Sevice: 11/11/2018 KNEE 3 VIEW RIGHT Indication: fall Comparison: None available Findings: 3 views right knee were obtained. No evidence of fracture, dislocation, or acute osseous abnormality of the right knee. Moderate to advanced medial tibiofemoral compartment joint space loss with subchondral sclerosis. Mild lateral tibiofemoral compartment joint space loss. Moderate tricompartmental osteophytosis. Moderate to large joint effusion. There is no focal soft tissue abnormality. No evidence of radiopaque foreign body. IMPRESSION: 1.No acute osseous abnormality of the right knee. 2. Moderate to large nonspecific joint effusion. 3. Degenerative changes within the knee, as above. (JESSICA REYEZ DO) ED Course/Re-evaluation ED Course I assumed patient care from Dr. Swenson at shift change at 1800. A large joint effusion was identified on x-ray imaging, no fracture was identified. I performed a joint aspiration and evacuated approximately 30 mL of kenji blood. Patient's knee was wrapped in Rao wrap to prevent reaccumulation. Patient was advised to continue her medications as prescribed. Return precautions were provided. Close PCP follow-up recommended. Procedure Joint aspiration: Patient's right knee medial aspect was palpated, cleaned with chlorhexidine, numbed using 5 mL of 1% lidocaine with epinephrine. Patient's joint was aspirated using an 18-gauge needle evacuating approximately 30 mL of kenji blood from the joint space of the right knee. Hemostasis was achieved, Rao wrap was applied directly following the aspiration. Patient tolerated procedure well. Decision to Disposition Date: Nov 11, 2018 Decision to Disposition Time: 19:07 (JESSICA REYEZ DO) Depart Departure Latest Vital Signs Vital Signs Date Time Temp Pulse Resp B/P (MAP) Pulse Ox O2 Delivery O2 Flow Rate FiO2 11/11/18 17:57 2.0 11/11/18 17:33 100.0 94 22 130/80 87 Room Air (JESSIAC REYEZ DO) Core Temperature (Celsius): 36.73 (CONNIE SWENSON MD) Impression: Primary Impression: Hemarthrosis Condition: Improved Disposition: HOME OR SELF-CARE Referrals: POPPY SANCHEZ DNP, [facility] (PCP) Patient Instructions: Contusion in Adults (ED) Additional Instructions: You were diagnosed with a hemarthrosis. This is typically an accumulation of blood in the joint space. Please keep the Rao wrap in place. Please follow-up with your family doctor in the next 24-48 hours. Please return promptly if you develop increased pain, rash, fever, inability move the joint. CONNIE SWENSON MD Nov 11, 2018 17:43 JESSICA REYEZ DO Nov 11, 2018 18:03
--- NOTE | 2018-11-11 18:22 | RADIOLOGY IMAGING REPORT ---
FACILITY: [facility] PATIENT NAME: Yesy Mccracken : 1970 MR: [id number] V: [id number] EXAM DATE: ORDERING PHYSICIAN: CONNIE SWENSON TECHNOLOGIST: Location: [facility] Patient: Yesy Mccracken : 1970 Visit/Account:[id number] Date of Sevice: 11/11/2018 KNEE 3 VIEW RIGHT Indication: fall Comparison: None available Findings: 3 views right knee were obtained. No evidence of fracture, dislocation, or acute osseous abnormality of the right knee. Moderate to advanced medial tibiofemoral compartment joint space loss with subchondral sclerosis. Mil d lateral tibiofemoral compartment joint space loss. Moderate tricompartmental osteophytosis. Moderate to large joint effusion. There is no focal soft tissue abnormality. No evidence of radiopaque foreign body. IMPRESSION: 1.No acute osseous abnormality of the right knee. 2. Moderate to large nonspecific joint effusion. 3. Degenerative changes within the knee, as above. Report Dictated By: Chan North MD at 11/11/2018 6:16 PM Report E-Signed By: Chan North MD at 11/11/2018 6:18 PM WSN:[id number]
[2018-11-11 19:00] VITALS: BP 133/54
[2018-11-12] MEDS ORDERED: KETO30CA16 IM (13:50)
[2018-11-12] MEDS ORDERED: TRAM-420 PO (14:04)
[2018-11-12] MEDS ORDERED: CLIN300C99 PO (16:59)
[2018-11-12] MEDS ORDERED: LOR5/325 PO (16:59)
[2018-11-15] MEDS ORDERED: ACET-3017 PO (12:44)
== END 2018-11-11 19:25 | disposition home or self-care (01) ==
LOC: ER 17:44
DX: S83.91XA Sprain of unspecified site of right knee, initial encounter (principal); W10.9XXA Fall (on) (from) unspecified stairs and steps, initial encounter
CPT/HCPCS: 99284

== ENCOUNTER 2018-11-12 13:44 | Emergency (ER) | payer MEDICAID ==
[2017-04-17 12:41] VITALS: Wt 101.6 kg
[2018-11-12 13:49] VITALS: BP 103/65
[2018-11-12] MEDS ORDERED: KETO30CA16 IM (13:50)
--- NOTE | 2018-11-12 13:58 | ER Report ---
History and Physical Time Seen By MD: 13:58 Hx. of Stated Complaint: right knee more red and swollen from yesterday HPI/ROS CHIEF COMPLAINT: Swollen right knee HISTORY OF PRESENT ILLNESS: 47 year old female presents to ED sent here from PCP. Two days ago, patient fell going up her stairs and hit her right knee on the step. Yesterday she presented to the ED for right swollen knee. The knee joint was aspirated and 30mL of blood was taken off. Knee started to swell again today, with redness, warmth, and pain. Patient went to follow-up with her PCP and was sent here. Patient rates right knee pain a 9.5 out of 10. Patient reports she had a temp of 100.7 this morning. She took some tylenol; it did not help the pain, but it did help the fever. REVIEW OF SYSTEMS: Constitutional: Reports fevers, no appetite. Respiratory: No cough, no dyspnea. Cardiovascular: No chest pain, no palpitations. Gastrointestinal: Reports nausea and vomiting that started last night. Musculoskeletal: No back pain. Right knee pain as noted above. Allergies: Coded Allergies: Nitrofurantoin Macrocrystal (Verified Allergy, Severe, HIVES, 11/01/18) aspirin (Verified Allergy, Severe, ANAPHYLAXIS, 11/01/18) chlorpromazine (Verified Allergy, Severe, ANAPHYLAXIS, 11/01/18) hydroxyzine (Verified Allergy, Severe, AIRWAY OBSTRUCTION, 11/01/18) varenicline (Verified Allergy, Severe, anxiety, 11/01/18) venom-wasp (Verified Allergy, Severe, ANAPHYLAXIS, 11/01/18) Sulfa (Sulfonamide Antibiotics) (Verified Allergy, Intermediate, HIVES, 11/01/18) albuterol (Verified Allergy, Intermediate, itching, hives, 11/01/18) cephalexin (Verified Allergy, Intermediate, HIVES, 11/01/18) ciprofloxacin (Verified Allergy, Intermediate, "feels like I'm going inasne", 11/01/18) droperidol (Verified Allergy, Intermediate, DELUSIONS, 11/01/18) Pt states her reaction as, "I become psychotic". latex (Verified Allergy, Intermediate, RASH, SWELLING, 11/01/18) ondansetron (Verified Adverse Reaction, Severe, TACHYCARDIA, 11/01/18) dexamethasone (Verified Adverse Reaction, Intermediate, ITCHING, 11/01/18) haloperidol (Verified Adverse Reaction, Intermediate, "MAKES ME JUMPY", 11/01/18) Uncoded Allergies: Inhaled medication propelant (Allergy, Intermediate, HIVES, 10/07/14) Home Meds Active Scripts Clindamycin Hcl (CLINDAMYCIN HCL) 300 Mg Capsule, 300 MG PO Q6H for 10 Days, #40 CAPSULE Prov:DEISY DURBIN [facility] 11/12/18 Hydrocodone Bit/Acetaminophen (HYDROCODON-ACETAMINOPHEN 5-325) 1 Each Tablet, 1 EACH PO Q4-6H PRN for PAIN, #6 TAB Prov:DEISY DURBIN [facility] 11/12/18 Tramadol Hcl (TRAMADOL HCL) 50 Mg Tablet, 1-2 TAB PO Q6H PRN for PAIN, #15 TAB 0 Refills Prov:POPPY SANCHEZ DNP, [facility] 11/12/18 Pregabalin (LYRICA) 150 Mg Capsule, 1 TAB PO BID, #60 CAPSULE 0 Refills Prov:POPPY SANCHEZ DNP [facility] 11/09/18 Zolpidem Tartrate (AMBIEN) 5 Mg Tablet, 1 TAB PO QHS PRN for INSOMNIA, #30 TAB 1 Refill Prov:POPPY SANCHEZ DNP [facility] 11/09/18 Mupirocin Martir 2% Cream (MUPIROCIN 2% CREAM) 15 Gm Cream..g., 0 TP TID, #1 TUBE Prov:JESSICA REYEZ DO 11/01/18 Prednisone (PREDNISONE) 20 Mg Tablet, 40 MG PO DAILY, #10 TAB Prov:DEISY DURBINP 10/30/18 Ticagrelor (BRILINTA) 90 Mg Tablet, 90 MG PO BID, #180 TAB 1 Refill Prov:POPPY SANCHEZ DNP [facility] 10/20/18 Doxepin Hcl (DOXEPIN HCL) 25 Mg Capsule, 2 CAP PO BID PRN for ANXIETY, #120 CAPSULE 1 Refill Prov:POPPY SANCHEZ DNP [facility] 10/14/18 Buspirone Hcl (BUSPIRONE HCL) 30 Mg Tablet, 1 TAB PO BID, #60 TAB 1 Refill Prov:POPPY SANCHEZ DNP [facility] 10/14/18 Lidocaine HCl VISCOUS 2% (Lidocaine Viscous) 2 % Solution, 15 ML PO Q2H PRN for PAIN, #450 ML 0 Refills Swish and spit 15 ml every 2 hours as needed for throat pain. Prov:POPPY SANCHEZ DNP [facility] 10/06/18 Promethazine Hcl (PROMETHAZINE HCL) 12.5 Mg Tablet, 1-2 TAB PO Q8H PRN for NAUSEA, #12 TAB 0 Refills Prov:POPPY SANCHEZ DNP [facility] 10/05/18 Apixaban (ELIQUIS) 5 Mg Tablet, 1 TAB PO BID, #60 TAB 5 Refills Prov:POPPY SANCHEZ DNP [facility] 09/28/18 Prazosin Hcl (PRAZOSIN HCL) 5 Mg Capsule, 1 CAP PO QHS, #30 CAPSULE 1 Refill Prov:POPPY SANCHEZ DNP [facility] 09/17/18 Aripiprazole (ABILIFY) 20 Mg Tablet, 1 TAB PO QDAY, #30 TAB 1 Refill Prov:POPPY SANCHEZ DNP [facility] 09/17/18 Baclofen (BACLOFEN) 10 Mg Tablet, 1 TAB PO TID PRN for MUSCLE SPASMS, #90 TAB 5 Refills Prov:POPPY SANCHEZ DNP [facility] 09/17/18 Insulin Glargine 100 Un/Ml Pen (LANTUS SOLOSTAR PEN) 100 Unit/1 Ml Insuln.pen, 65 UNIT SQ BID, #1 BOX 3 Refills Prov:POPPY SANCHEZ DNP [facility] 09/17/18 Ranitidine Hcl (RANITIDINE HCL) 150 Mg Capsule, 1 TAB PO BID, #180 CAPSULE 3 Refills Prov:POPPY SANCHEZ DNP [facility] 09/17/18 Lisinopril (LISINOPRIL) 40 Mg Tablet, 1 TAB PO QDAY for 90 Days, #90 TAB 1 Refill Prov:POPPY SANCHEZ DNP [facility] 09/17/18 Esomeprazole Magnesium (NEXIUM) 40 Mg Capsule.dr, 1 CAP PO BID, #180 CAP 3 Refills Prov:LAURAPOPPY CABEZAS DNP, FNP-BC 09/17/18 Insulin Lispro 100 Un/Ml Pen (HUMALOG 3 ML PEN) 100 Unit/1 Ml Insuln.pen, 5-8 UNIT SQ TID, #2 DIS.SYR 6 Refills Take per sliding scale. Prov:POPPY SANCHEZ DNP, FNP-BC 09/17/18 Lancets (Blood Lancets) 30 Gauge Each, EA MC EVERY 90 DAYS, #300 4 Refills Prov:POPPY SANCHEZ DNP, FNP-BC 09/17/18 Sumatriptan Succinate (SUMATRIPTAN SUCCINATE) 100 Mg Tablet, 1 TAB PO QDAY PRN for MIGRAINE, #9 TAB 6 Refills Prov:POPPY SANCHEZ DNP, FNP-BC 09/17/18 Sumatriptan Succinate (SUMATRIPTAN SUCCINATE) 6 Mg/0.5 Ml Pen.injctr, 6 MG SQ ONCE PRN for MIGRAINE, #1 BOX 6 Refills May repeat dose x1 after 1 hour, if needed. Do not exceed maximum of 12mg/24h. Prov:POPPY SANCHEZ DNP, FNP-BC 09/17/18 Blood Sugar Diagnostic (FREESTYLE LITE TEST STRIPS) 1 Each Strip, 500 EACH MC 5XD for 90 Days, #500 STRIP 2 Refills Prov:POPPY SANCHEZ DNP, FNP-BC 06/02/18 [place], Insulin Disposable (PEN NEEDLES) 1 Each Dis.needle, BOX MC QDAY, #1 9 Refills Prov:POPPY SANCHEZ DNP, FNP-BC 06/02/18 Albuterol Sulfate 90 Mcg/Act (PROAIR HFA 90 MCG/ACT) 8.5 Gm Hfa.aer.ad, 2 PUFF IH Q4-6H PRN for WHEEZING, #1 INHALER 0 Refills Prov:POPPY SANCHEZ DNP, FNP-BC 04/13/18 Atorvastatin (LIPITOR) 80 Mg Tab, 1 TAB PO QDAY for 90 Days, #90 TAB 1 Refill Prov:POPPY SANCHEZ DNP, FNP-BC 04/13/18 Levothyroxine Sodium (LEVOTHYROXINE SODIUM) 50 Mcg Tablet, 1 TAB PO QDAY, #90 TAB 4 Refills Take along with 200mcg tablet for a total of 250mcg daily. Prov:POPPY SANCHEZ DNP, FNP-BC 03/09/18 Levothyroxine Sodium (LEVOTHYROXINE SODIUM) 200 Mcg Tablet, 200 MCG PO QDAY, #90 TAB 4 Refills Take with 50mcg tablet for a total of 250mcg daily Prov:POPPY SANCHEZ DNP, FNP-BC 03/09/18 Epinephrine (EPIPEN 2-TUCKER) 0.3 Mg/0.3 Ml Pen.injctr, 0.3 MG IM ONCE, #1 CART Prov:POPPY SANCHEZ DNP, FNP-BC 10/14/17 Blood-Glucose Meter (FREESTYLE LITE METER) 1 Each Kit, 1 [place] [facility] ONCE, #1 Prov:POPPY SANCHEZ DNP, FNP-BC 08/11/17 Diclofenac Sodium 1% Gel (VOLTAREN 1% GEL) 100 Gm Gel..gram., 1 DEMETRIS TOP QID PRN for PAIN, #1 TUBE 0 Refills Prov:POPPY SANCHEZ DNP, FNP-BC 01/19/17 Reported Medications Insulin Glargine (LANTUS) 100 Unit/Ml Soln, 65 UNIT SUBQ BID, ML 11/13/17 Past Medical/Surgical History Patient has a past medical history of CVA, migraine, LA, angina, irregular heartbeat, DVT, hypertension, hyperlipidemia, asthma, pneumonia, pulmonary emboli, reflux, pancreatitis, cholecystitis, enlarged liver, frequent UTI, endometriosis, ovarian cyst, arthritis, fractures of back, hips, neck and collarbone, back pain, type 2 diabetes, hypothyroidism, anxiety, bipolar, thyroid cancer, uterine cancer, breast cancer, colon cancer. Patient has a surgical history of coronary stent 2, appendectomy, hysterectomy, colonoscopy, cystoscopy, lithotripsy, tubal ligation, surgery on right ankle, right wrist, nose, jaw, right knee, sinus surgery, thyroidectomy, tonsillectomy, eye surgery as a baby. Patient has a family medical history of cancer, CAD, stroke, diabetes. Reviewed Nurses Notes: Yes Hx Smoking: Yes Smoking Status: Former Smoker Exposure to Second Hand Smoke?: Yes Hx Substance Use Disorder: No ("Years ago") Hx Alcohol Use: No Constitutional Vital Sign - Last 24 Hours 6/7/19 11/12/18 11/12/18 11/12/18 13:49 14:00 14:30 15:00 Temp 98.2 Pulse 92 93 89 88 Resp 22 B/P (MAP) 103/65 Pulse Ox 95 93 95 90 O2 Delivery Room Air 11/12/18 15:30 Pulse Ox 88 Physical Exam General Appearance: The patient is alert, has no immediate need for airway protection and no current signs of toxicity. Eyes: Pupils equal and round no injection. Respiratory: Chest is non tender, lungs with wheezes to left upper lobe. Cardiac: regular rate and rhythm Gastrointestinal: Abdomen is soft and non tender, no masses, bowel sounds normal. Musculoskeletal: Neck: Neck is supple and non tender. Right knee with swelling, warmth to the touch, redness around medial aspect of knee where joint was aspirated yesterday. Bruising also around aspiration site. Limited ROM due to swelling. Right lower leg with non-pitting edema down to the toes. Skin: Bruise as noted above. DIFFERENTIAL DIAGNOSIS: After history and physical exam differential diagnosis was considered for hemoarthrosis, septic joint, cellulitis, gout. Medical Decision Making Data Points Laboratory Hematology Test 11/12/18 00:00 11/12/18 14:26 Body Fluid Type . Body Fluid Crystals Present Body Fluid WBC 4800 Body Fluid RBC [id number] Body Fluid Neutrophils 26 % Body Fluid Lymphocytes 44 % Body Fluid Monocytes 28 % Body Fluid Eosinophils 2 % Body Fluid Basophils 0 % Chemistry Test 11/12/18 00:00 11/12/18 14:26 Body Fluid Type . Body Fluid Crystals Present Body Fluid WBC 4800 Body Fluid RBC [id number] Body Fluid Neutrophils 26 % Body Fluid Lymphocytes 44 % Body Fluid Monocytes 28 % Body Fluid Eosinophils 2 % Body Fluid Basophils 0 % Microbiology Microbiology Date/Time Source Procedure Growth Status 11/12/18 14:26 Synovial Fluid Knee Gram Stain - Final Resulted 11/12/18 14:26 Synovial Fluid Knee Body Fluid Culture - Preliminary NO GROWTH AFTER 1 DAY, REINCUBATED Resulted 11/12/18 14:26 Synovial Fluid Knee Anaerobic Culture Pending Resulted ED Course/Re-evaluation ED Course Upon arrival to the ED, patient admitted to an exam room, hx and physical obtained, differentials considered. Patient presents to ED sent here from PCP. Two days ago, patient fell going up her stairs and hit her right knee on the step. Yesterday she presented to the ED for right swollen knee. The knee joint was aspirated and 30mL of blood was taken off. Knee started to swell again today, with redness, warmth, and pain. Patient went to follow-up with her PCP and was sent here. Patient rates right knee pain a 9.5 out of 10. Patient reports she had a temp of 100.7 this morning. Reports nausea and vomiting that started last night. On exam, right knee with swelling that is warm to the touch, there is redness around medial aspect of knee where joint was aspirated yesterday. Bruising also around aspiration site. Limited ROM due to swelling. Right lower leg with non-pitting edema down to the toes. Zofran 4mg ODT given for nausea. Procedure: Arthrocentesis. After verbal informed consent from patient explaining the risks including infection and bleeding a arthrocentesis was performed on the right knee. The arthrocentesis was performed after the patient was prepped and draped in the usual fashion. The joint was anesthetized with 1% lidocaine. Approximately 45ml of bloody fluid was obtained. There were no complications. The procedure was performed by Laura Olivas, [employer] student. Under my direct supervision. Body fluid culture and analysis ordered for the fluid. 4,800 WBC found in synovial fluid with 26% neutrophils and 44% lymphocytes. CPPD crystals found in fluid as well as rare gram positive cocci. Dr. Franco consulted with. He would like her to follow-up with him early next week at [facility]. Discussed results with patient and the importance of following up with orthopedics. Discussed with patient that she does not have a septic joint, but we still need to treat for infection due to elevated WBC. Patient agrees with plan of care. Decision to Disposition Date: Nov 12, 2018 Decision to Disposition Time: 16:57 Depart Departure Latest Vital Signs Vital Signs Date Time Temp Pulse Resp B/P (MAP) Pulse Ox O2 Delivery O2 Flow Rate FiO2 11/12/18 15:30 88 11/12/18 15:00 88 11/12/18 13:49 98.2 22 103/65 Room Air Core Temperature (Celsius): 36.73 Impression: Primary Impression: Cellulitis Additional Impression: Hemarthrosis Condition: Improved Disposition: HOME OR SELF-CARE Referrals: POPPY SANCHEZ DNP, [facility] (PCP) GUERAMY,FRANNIE C MD New Scripts Clindamycin Hcl (CLINDAMYCIN HCL) 300 Mg Capsule 300 MG PO Q6H for 10 Days, #40 CAPSULE Prov: DEISY DURBIN 11/12/18 Hydrocodone Bit/Acetaminophen (HYDROCODON-ACETAMINOPHEN 5-325) 1 Each Tablet 1 EACH PO Q4-6H PRN for PAIN, #6 TAB Prov: DEISY DURBIN 11/12/18 Patient Instructions: Hemarthrosis (ED) Additional Instructions: Please take antibiotics as prescribed. You may take 1 tab of lortab every 6 hours as needed for pain. Please drink plenty of water and get plenty of rest. Keep knee in MARGA wrap to provide compression. Please follow-up with Dr. Franco at [facility] early next week. Please return to the ED if your knee has increased swelling, redness, and pain, or you are unable to walk on the right leg. Return to the ER if you have difficulty breathing, chest pain, or any other concern. Problem Qualifiers Primary Impression: Cellulitis Site of cellulitis: extremity Site of cellulitis of extremity: lower extremity Laterality: right Qualified Codes: L03.115 - Cellulitis of right lower limb DEISY DURBIN Nov 12, 2018 13:58
[2018-11-12] MEDS ORDERED: TRAM-420 PO (14:04)
[2018-11-12] MEDS ORDERED: ONDANSETRON 4 MG ODT TABDP SL ONE (14:05)
[2018-11-12] MEDS ORDERED: CLINDAMYCIN 150 MG CAP PO ONE (15:35)
[2018-11-12] MEDS ORDERED: LOR5/325 PO (16:59)
[2018-11-12] MEDS ORDERED: CLIN300C99 PO (16:59)
[2018-11-15] MEDS ORDERED: ACET-3017 PO (12:44)
== END 2018-11-12 17:05 | disposition home or self-care (01) ==
LOC: ER 13:50
DX: L03.115 Cellulitis of right lower limb (principal); S83.91XA Sprain of unspecified site of right knee, initial encounter
CPT/HCPCS: 20610; 87071; 87073; 87205; 89050; 89060; 99284; S0119

== ENCOUNTER 2018-12-05 12:23 | Emergency (ER) | payer MEDICAID ==
[2017-04-17 12:41] VITALS: Wt 99.3 kg
[~2018-12-05 12:23] MED LIST changes: +CLIN300C99 PO
--- NOTE | 2018-12-05 12:25 | ER Report ---
History and Physical Time Seen By MD: 12:22 HPI/ROS CHIEF COMPLAINT: Lower abdominal pain HISTORY OF PRESENT ILLNESS: Patient is a 48-year-old female here with complaints of lower abdominal pain for the past day or 2 and has been intermittent for the past several months. Patient reports that starting yesterday she developed acutely worsening symptoms, nausea, vomiting, fevers and chills. Patient is hemodynamically stable at time of evaluation, afebrile. Patient does report passing bowel movements normally however has been unable to keep down food or fluids today including her Phenergan which she attempted to take shortly prior to arrival causing her to vomit. Denies chest pain, shortness breath. REVIEW OF SYSTEMS: Constitutional: + fever, + chills. Eyes: No discharge. ENT: No sore throat. Cardiovascular: No chest pain, no palpitations. Respiratory: No cough, no shortness of breath. Gastrointestinal: + Lower abdominal pain, + nausea/ vomiting. Genitourinary: No hematuria. Musculoskeletal: No back pain. Skin: No rashes. Neurological: + headache. Allergies: Coded Allergies: Nitrofurantoin Macrocrystal (Verified Allergy, Severe, HIVES, 11/01/18) aspirin (Verified Allergy, Severe, ANAPHYLAXIS, 11/01/18) chlorpromazine (Verified Allergy, Severe, ANAPHYLAXIS, 11/01/18) hydroxyzine (Verified Allergy, Severe, AIRWAY OBSTRUCTION, 11/01/18) varenicline (Verified Allergy, Severe, anxiety, 11/01/18) venom-wasp (Verified Allergy, Severe, ANAPHYLAXIS, 11/01/18) Sulfa (Sulfonamide Antibiotics) (Verified Allergy, Intermediate, HIVES, 11/01/18) albuterol (Verified Allergy, Intermediate, itching, hives, 11/01/18) cephalexin (Verified Allergy, Intermediate, HIVES, 11/01/18) ciprofloxacin (Verified Allergy, Intermediate, "feels like I'm going inasne", 11/01/18) droperidol (Verified Allergy, Intermediate, DELUSIONS, 11/01/18) Pt states her reaction as, "I become psychotic". latex (Verified Allergy, Intermediate, RASH, SWELLING, 11/01/18) tramadol (Verified Allergy, Mild, rash, 11/15/18) ondansetron (Verified Adverse Reaction, Severe, TACHYCARDIA, 11/01/18) dexamethasone (Verified Adverse Reaction, Intermediate, ITCHING, 11/01/18) haloperidol (Verified Adverse Reaction, Intermediate, "MAKES ME JUMPY", 11/01/18) Uncoded Allergies: Inhaled medication propelant (Allergy, Intermediate, HIVES, 10/07/14) Home Meds Active Scripts Oxycodone Hcl/Acetaminophen (PERCOCET 5-325 MG TABLET) 1 Each Tablet, 1 TAB PO Q6H, #20 TAB 0 Refills Prov:POPPY SANCHEZ DNP [facility] 11/26/18 Prazosin Hcl (PRAZOSIN HCL) 5 Mg Capsule, 1 CAP PO QHS, #30 CAPSULE 1 Refill Prov:POPPY SANCHEZ DNP [facility] 11/16/18 Clindamycin Hcl (CLINDAMYCIN HCL) 300 Mg Capsule, 300 MG PO Q6H for 10 Days, #40 CAPSULE Prov:DEISY DURBIN [facility] 11/12/18 Pregabalin (LYRICA) 150 Mg Capsule, 1 TAB PO BID, #60 CAPSULE 0 Refills Prov:POPPY SANCHEZ DNP [facility] 11/09/18 Zolpidem Tartrate (AMBIEN) 5 Mg Tablet, 1 TAB PO QHS PRN for INSOMNIA, #30 TAB 1 Refill Prov:POPPY SANCHEZ DNP [facility] 11/09/18 Mupirocin Martir 2% Cream (MUPIROCIN 2% CREAM) 15 Gm Cream..g., 0 TP TID, #1 TUBE Prov:JESSICA REYEZ DO 11/01/18 Prednisone (PREDNISONE) 20 Mg Tablet, 40 MG PO DAILY, #10 TAB Prov:DEISY DURBIN [facility] 10/30/18 Ticagrelor (BRILINTA) 90 Mg Tablet, 90 MG PO BID, #180 TAB 1 Refill Prov:POPPY SANCHEZ DNP [facility] 10/20/18 Doxepin Hcl (DOXEPIN HCL) 25 Mg Capsule, 2 CAP PO BID PRN for ANXIETY, #120 CAPSULE 1 Refill Prov:POPPY SANCHEZ DNP [facility] 10/14/18 Buspirone Hcl (BUSPIRONE HCL) 30 Mg Tablet, 1 TAB PO BID, #60 TAB 1 Refill Prov:POPPY SANCHEZ DNP [facility] 10/14/18 Lidocaine HCl VISCOUS 2% (Lidocaine Viscous) 2 % Solution, 15 ML PO Q2H PRN for PAIN, #450 ML 0 Refills Swish and spit 15 ml every 2 hours as needed for throat pain. Prov:POPPY SANCHEZ DNP [facility] 10/06/18 Promethazine Hcl (PROMETHAZINE HCL) 12.5 Mg Tablet, 1-2 TAB PO Q8H PRN for NAUSEA, #12 TAB 0 Refills Prov:POPPY SANCHEZ DNP [facility] 10/05/18 Apixaban (ELIQUIS) 5 Mg Tablet, 1 TAB PO BID, #60 TAB 5 Refills Prov:POPPY SANCHEZ DNP [facility] 09/28/18 Aripiprazole (ABILIFY) 20 Mg Tablet, 1 TAB PO QDAY, #30 TAB 1 Refill Prov:POPPY SANCHEZ DNP [facility] 09/17/18 Baclofen (BACLOFEN) 10 Mg Tablet, 1 TAB PO TID PRN for MUSCLE SPASMS, #90 TAB 5 Refills Prov:POPPY SANCHEZ DNP [facility] 09/17/18 Insulin Glargine 100 Un/Ml Pen (LANTUS SOLOSTAR PEN) 100 Unit/1 Ml Insuln.pen, 65 UNIT SQ BID, #1 BOX 3 Refills Prov:POPPY SANCHEZ DNP [facility] 09/17/18 Ranitidine Hcl (RANITIDINE HCL) 150 Mg Capsule, 1 TAB PO BID, #180 CAPSULE 3 Refills Prov:POPPY SANCHEZ DNP [facility] 09/17/18 Lisinopril (LISINOPRIL) 40 Mg Tablet, 1 TAB PO QDAY for 90 Days, #90 TAB 1 Refill Prov:POPPY SANCHEZ DNP [facility] 09/17/18 Esomeprazole Magnesium (NEXIUM) 40 Mg Capsule.dr, 1 CAP PO BID, #180 CAP 3 Refills Prov:POPPY SANCHEZ DNP [facility] 09/17/18 Insulin Lispro 100 Un/Ml Pen (HUMALOG 3 ML PEN) 100 Unit/1 Ml Insuln.pen, 5-8 UNIT SQ TID, #2 DIS.SYR 6 Refills Take per sliding scale. Prov:POPPY SANCHEZ DNP, FNP-BC 09/17/18 Lancets (Blood Lancets) 30 Gauge Each, EA EVERY 90 DAYS, #300 4 Refills Prov:POPPY SANCHEZ DNP, FNP-BC 09/17/18 Sumatriptan Succinate (SUMATRIPTAN SUCCINATE) 100 Mg Tablet, 1 TAB PO QDAY PRN for MIGRAINE, #9 TAB 6 Refills Prov:POPPY SANCHEZ DNP, FNP-BC 09/17/18 Sumatriptan Succinate (SUMATRIPTAN SUCCINATE) 6 Mg/0.5 Ml Pen.injctr, 6 MG SQ ONCE PRN for MIGRAINE, #1 BOX 6 Refills May repeat dose x1 after 1 hour, if needed. Do not exceed maximum of 12mg/24h. Prov:POPPY SANCHEZ DNP, FNP-BC 09/17/18 Blood Sugar Diagnostic (FREESTYLE LITE TEST STRIPS) 1 Each Strip, 500 EACH MC 5XD for 90 Days, #500 STRIP 2 Refills Prov:POPPY SANCHEZ DNP, FNP-BC 06/02/18 [place], Insulin Disposable (PEN NEEDLES) 1 Each Dis.needle, BOX MC QDAY, #1 9 Refills Prov:POPPY SANCHEZ DNP, FNPVANESSA 06/02/18 Albuterol Sulfate 90 Mcg/Act (PROAIR HFA 90 MCG/ACT) 8.5 Gm Hfa.aer.ad, 2 PUFF IH Q4-6H PRN for WHEEZING, #1 INHALER 0 Refills Prov:POPPY SANCHEZ DNP, FNP-BC 04/13/18 Atorvastatin (LIPITOR) 80 Mg Tab, 1 TAB PO QDAY for 90 Days, #90 TAB 1 Refill Prov:POPPY SANCHEZ DNP, FNP-BC 04/13/18 Levothyroxine Sodium (LEVOTHYROXINE SODIUM) 50 Mcg Tablet, 1 TAB PO QDAY, #90 TAB 4 Refills Take along with 200mcg tablet for a total of 250mcg daily. Prov:POPPY SANCHEZ DNP, FNP-BC 03/09/18 Levothyroxine Sodium (LEVOTHYROXINE SODIUM) 200 Mcg Tablet, 200 MCG PO QDAY, #90 TAB 4 Refills Take with 50mcg tablet for a total of 250mcg daily Prov:POPPY SANCHEZ DNP, FNP-BC 03/09/18 Epinephrine (EPIPEN 2-TUCKER) 0.3 Mg/0.3 Ml Pen.injctr, 0.3 MG IM ONCE, #1 CART Prov:POPPY SANCHEZ DNP, FNP-BC 10/14/17 Blood-Glucose Meter (FREESTYLE LITE METER) 1 Each Kit, 1 [facility] ONCE, #1 Prov:POPPY SANCHEZ DNP, FNP-BC 08/11/17 Diclofenac Sodium 1% Gel (VOLTAREN 1% GEL) 100 Gm Gel..gram., 1 DEMETRIS TOP QID PRN for PAIN, #1 TUBE 0 Refills Prov:POPPY SANCHEZ DNP, FNP-BC 01/19/17 Reported Medications Insulin Glargine (LANTUS) 100 Unit/Ml Soln, 65 UNIT SUBQ BID, ML 11/13/17 Hx Smoking: Yes Smoking Status: Former Smoker Exposure to Second Hand Smoke?: Yes Hx Substance Use Disorder: No ("Years ago") Hx Alcohol Use: No Constitutional Vital Sign - Last 24 Hours 12/05/18 12/05/18 12/05/18 12/05/18 12:27 12:29 12:30 12:53 Temp 98.5 Pulse 86 87 Resp 28 B/P (MAP) 154/86 (108) 154/86 167/95 (119) Pulse Ox 92 91 O2 Delivery Nasal Cannula 12/05/18 12/05/18 12/05/18 12/05/18 13:00 13:11 13:32 13:53 Pulse 88 B/P (MAP) 168/91 (116) 166/104 (124) 160/84 (109) Pulse Ox 90 12/05/18 12/05/18 12/05/18 12/05/18 14:00 14:15 14:30 15:00 Pulse ??? 85 83 B/P (MAP) ???/??? (1665) 146/90 (108) 161/97 (118) 178/92 (120) Pulse Ox 94 97 12/05/18 12/05/18 12/05/1830/19 15:30 15:35 16:00 16:05 Pulse 89 80 B/P (MAP) 184/112 (136) 170/92 (118) Pulse Ox 92 97 93 Physical Exam General Appearance: The patient is alert, has no immediate need for airway protection and no signs of toxicity. Uncomfortable appearing Eyes: Pupils equal and round no pallor or injection. ENT, Mouth: Mucous membranes are moist. Respiratory: There are no retractions, lungs are clear to auscultation. Cardiovascular: Regular rate and rhythm. Gastrointestinal: Tender on palpation of the lower abdomen bilaterally, no rebound or guarding or distention Neurological: No focal neurological deficits, alert and oriented Skin: Warm and dry, no rashes. Musculoskeletal: Neck is supple non tender. Extremities are nontender, nonswollen and have full range of motion. DIFFERENTIAL DIAGNOSIS: After history and physical exam differential diagnosis was considered for abdominal pain including but not limited to appendicitis, cholecystitis, gastritis and urinary tract infection. Medical Decision Making Data Points Result Diagram: 12/05/18 1330 12/05/18 1330 Laboratory Hematology Test 12/05/18 13:30 12/05/18 13:33 12/05/18 16:20 Red Blood Count 5.02 M/uL (4.17-5.56) Mean Corpuscular Volume 80.6 fL (80.0-96.0) Mean Corpuscular Hemoglobin 27.1 pg (26.0-33.0) Mean Corpuscular Hemoglobin Concent 33.6 g/dL (32.0-36.0) Red Cell Distribution Width 14.5 % (11.5-14.5) Mean Platelet Volume 8.3 fL (7.2-11.1) Neutrophils (%) (Auto) 79.4 % (39.4-72.5) Lymphocytes (%) (Auto) 14.5 % (17.6-49.6) Monocytes (%) (Auto) 4.9 % (4.1-12.4) Eosinophils (%) (Auto) 0.6 % (0.4-6.7) Basophils (%) (Auto) 0.6 % (0.3-1.4) Nucleated RBC Relative Count (auto) 0.0 /100WBC Neutrophils # (Auto) 8.5 K/uL (2.0-7.4) Lymphocytes # (Auto) 1.6 K/uL (1.3-3.6) Monocytes # (Auto) 0.5 K/uL (0.3-1.0) Eosinophils # (Auto) 0.1 K/uL (0.0-0.5) Basophils # (Auto) 0.1 K/uL (0.0-0.1) Nucleated RBC Absolute Count (auto) 0.00 K/uL Sodium Level 138 mmol/L (137-145) Potassium Level 3.5 mmol/L (3.5-5.0) Chloride Level 102 mmol/L (98-107) Carbon Dioxide Level 28 mmol/L (22-31) Blood Urea Nitrogen 3 mg/dl (7-18) Creatinine 0.60 mg/dl (0.52-1.04) Glomerular Filtration Rate Calc > 60.0 Random Glucose 222 mg/dl (75-110) Calcium Level 9.0 mg/dl (8.4-10.2) Total Bilirubin 0.6 mg/dl (0.2-1.3) Aspartate Amino Transf (AST/SGOT) 16 U/L (0-35) Alanine Aminotransferase (ALT/SGPT) 22 U/L (0-56) Alkaline Phosphatase 100 U/L (0-126) Total Protein 7.1 g/dl (6.3-8.2) Albumin 3.9 g/dl (3.5-5.0) Lipase 70 U/L (23-300) Urine Color Yellow Urine Clarity Clear Urine pH 8.0 pH (4.8-9.5) Urine Specific [place] 1.008 Urine Protein Negative mg/dL (NEGATIVE) Urine Glucose (UA) 50 mg/dL (NEGATIVE) Urine Ketones Negative mg/dL (NEGATIVE) Urine Blood Negative (NEGATIVE) Urine Nitrite Negative (NEGATIVE) Urine Bilirubin Negative (NEGATIVE) Urine Urobilinogen Negative mg/dL (0.2-1.9) Urine Leukocyte Esterase Negative (NEGATIVE) Urine RBC <1 /HPF (0-2/HPF) Urine WBC 1 /HPF (0-5/HPF) Urine Squamous Epithelial Cells Many /LPF (</=FEW) Urine Bacteria Few /HPF (NONE-FEW) Urine Mucus None /HPF (NONE-FEW) Lactate 1.7 mmol/L (0.7-2.1) Chemistry Test 12/05/18 13:30 12/05/18 13:33 12/05/18 16:20 White Blood Count 10.8 k/uL (4.5-11.0) Red Blood Count 5.02 M/uL (4.17-5.56) Hemoglobin 13.6 g/dL (12.0-16.0) Hematocrit 40.5 % (34.0-47.0) Mean Corpuscular Volume 80.6 fL (80.0-96.0) Mean Corpuscular Hemoglobin 27.1 pg (26.0-33.0) Mean Corpuscular Hemoglobin Concent 33.6 g/dL (32.0-36.0) Red Cell Distribution Width 14.5 % (11.5-14.5) Platelet Count 225 K/uL (150-450) Mean Platelet Volume 8.3 fL (7.2-11.1) Neutrophils (%) (Auto) 79.4 % (39.4-72.5) Lymphocytes (%) (Auto) 14.5 % (17.6-49.6) Monocytes (%) (Auto) 4.9 % (4.1-12.4) Eosinophils (%) (Auto) 0.6 % (0.4-6.7) Basophils (%) (Auto) 0.6 % (0.3-1.4) Nucleated RBC Relative Count (auto) 0.0 /100WBC Neutrophils # (Auto) 8.5 K/uL (2.0-7.4) Lymphocytes # (Auto) 1.6 K/uL (1.3-3.6) Monocytes # (Auto) 0.5 K/uL (0.3-1.0) Eosinophils # (Auto) 0.1 K/uL (0.0-0.5) Basophils # (Auto) 0.1 K/uL (0.0-0.1) Nucleated RBC Absolute Count (auto) 0.00 K/uL Glomerular Filtration Rate Calc > 60.0 Calcium Level 9.0 mg/dl (8.4-10.2) Total Bilirubin 0.6 mg/dl (0.2-1.3) Aspartate Amino Transf (AST/SGOT) 16 U/L (0-35) Alanine Aminotransferase (ALT/SGPT) 22 U/L (0-56) Alkaline Phosphatase 100 U/L (0-126) Total Protein 7.1 g/dl (6.3-8.2) Albumin 3.9 g/dl (3.5-5.0) Lipase 70 U/L (23-300) Urine Color Yellow Urine Clarity Clear Urine pH 8.0 pH (4.8-9.5) Urine Specific [place] 1.008 Urine Protein Negative mg/dL (NEGATIVE) Urine Glucose (UA) 50 mg/dL (NEGATIVE) Urine Ketones Negative mg/dL (NEGATIVE) Urine Blood Negative (NEGATIVE) Urine Nitrite Negative (NEGATIVE) Urine Bilirubin Negative (NEGATIVE) Urine Urobilinogen Negative mg/dL (0.2-1.9) Urine Leukocyte Esterase Negative (NEGATIVE) Urine RBC <1 /HPF (0-2/HPF) Urine WBC 1 /HPF (0-5/HPF) Urine Squamous Epithelial Cells Many /LPF (</=FEW) Urine Bacteria Few /HPF (NONE-FEW) Urine Mucus None /HPF (NONE-FEW) Lactate 1.7 mmol/L (0.7-2.1) Urinalysis Test 12/05/18 13:33 Urine Color Yellow Urine Clarity Clear Urine pH 8.0 pH (4.8-9.5) Urine Specific [place] 1.008 Urine Protein Negative mg/dL (NEGATIVE) Urine Glucose (UA) 50 mg/dL (NEGATIVE) Urine Ketones Negative mg/dL (NEGATIVE) Urine Blood Negative (NEGATIVE) Urine Nitrite Negative (NEGATIVE) Urine Bilirubin Negative (NEGATIVE) Urine Urobilinogen Negative mg/dL (0.2-1.9) Urine Leukocyte Esterase Negative (NEGATIVE) Urine RBC <1 /HPF (0-2/HPF) Urine WBC 1 /HPF (0-5/HPF) Urine Squamous Epithelial Cells Many /LPF (</=FEW) Urine Bacteria Few /HPF (NONE-FEW) Urine Mucus None /HPF (NONE-FEW) EKG/Imaging Imaging PATIENT NAME: Yesy Mccracken : 1970 MR: [id number] V: [id number] EXAM DATE: ORDERING PHYSICIAN: JESSICA REYEZ TECHNOLOGIST: [place] [facility] [place] Yesy Mccracken : 1970 Visit/Account:[id number] Date of Sevice: 12/05/2018 CT abdomen and pelvis with IV contrast Indication: Left abdominal pain. Nausea and vomiting. Comparison: 08/13/2017.. Technique: Axial CT images were obtained through the abdomen and pelvis during injection of nonionic iodinated intravenous contrast. Reformatted coronal and s agittal images were also obtained. One of the following dose optimization techniques was utilized in the performance of this exam: Automated exposure control; adjustment of the mA and/or kV according to the patient's size; or use of an iterative reconstruction technique. Specific details can be referenced in the facility's radiology CT exam operational policy. Contrast: 75 ml of Isovue-370 IV contrast. Findings: Lower lung perez: Limited views lower lung field are unremarkable. Liver: No focal parenchymal abnormality of the liver. Biliary: Gallbladder appears unremarkable as well as the intra and extra hepatic biliary system. Pancreas: Normal appearance. Spleen: Normal appearance. Adrenal glands: Unremarkable. Kidneys / retroperitoneum: Left kidney shows 3 tiny calcifications in the collecting system without hydronephrosis. Right kidney shows a single tiny stone in the collecting system. No hydronephrosis. Subcentimeter hypodensity in the left kidney is too small characterize and statistically tiny cyst and stable. No solid renal lesions. Bowel / peritoneum / mesenteries: Colon is decompressed and shows no focal abnormality. The appendix is not visualized. No secondary signs of appendicitis. Small bowel shows no focal normality or obstruction but the stomach is deco mpressed and grossly normal. No free air, free fluid, fluid collections or areas of inflammation. Lymph node assessment: No pathologic adenopathy identified. Pelvic structures: Uterus is not visualized may been surgically removed. The remaining pelvic structures visualized within normal limits. Vessels: No significant atherosclerotic calcifications seen throughout a nonaneurysmal abdominal aorta and branches. Musculoskeletal / Body wall: No acute or aggressive osseous abnormality. Mild degenerative changes spine. IMPRESSION: 1. No acute intra-abdominal abnormality 2. Tiny nonobstructing bilateral renal calculi. 3. Other chronic stable findings as above. ED Course/Re-evaluation ED Course Patient is a 48-year-old female here with complaints of recurrent episode of lower abdominal pain, nausea, vomiting, fevers, chills. Patient was given a liter normal saline, Reglan. CT abdomen and pelvis was completed, labs including lactate were resulted. CT of the abdomen and pelvis showed no acute findings. Labs were remarkable for mild elevation of lactate which was repeated after fluid administration and normalized. Patient had significant relief of symptoms with fluid administration, Phenergan and Reglan for nausea. Patient is given prescription for Phenergan suppositories, recommend close PCP follow-up. Return precautions provided. Decision to Disposition Date: Dec 05, 2018 Decision to Disposition Time: 16:39 Depart Departure Latest Vital Signs Vital Signs Date Time Temp Pulse Resp B/P (MAP) Pulse Ox O2 Delivery O2 Flow Rate FiO2 12/05/18 16:05 80 93 12/05/18 16:00 170/92 (118) 12/05/18 12:29 98.5 28 Nasal Cannula Core Temperature (Celsius): 36.73 Impression: Primary Impression: Abdominal pain Condition: Improved Disposition: HOME OR SELF-CARE Referrals: POPPY SANCHEZ DNP, [employer] MACHINE OPERATOR-BC (PCP) New Scripts Promethazine HCl (Phenergan) 25 Mg Supp.rect 1 SUPP.RECT ND Q8-12H PRN for NAUSEA/VOMITING, #20 SUPP.RECT Prov: JESSICA REYEZ DO 12/05/18 Patient Instructions: Abdominal Pain (ED) Additional Instructions: Please drink plenty of water. Please return promptly if you develop abdominal pain, nausea, vomiting, blood in the stools or urine, fevers or chills. You may take Phenergan orally or as a backup your given a prescription for Phenergan suppositories as needed. Please follow-up with your family doctor in the next 24-48 hours. JESSICA REYEZ DO Dec 05, 2018 12:25
[2018-12-05] MEDS ORDERED: NS(*) 0.9% 1000 ML BAG 1,000 ML IV ONE ×2 (12:37→14:00)
[2018-12-05] MEDS ORDERED: METOCLOPRAMIDE 10 MG/2 ML SDV IVP ONE (12:40)
[2018-12-05] MEDS ORDERED: IOPAMIDOL 76% 100 ML INFUS BTL 100 ML ONE (12:52)
[2018-12-05 13:53] LABS: PLATELET COUNT, AUTOMATED 225 K/uL (150-450)
--- NOTE | 2018-12-05 14:43 | RADIOLOGY IMAGING REPORT ---
FACILITY: [facility] PATIENT NAME: Yesy Mccracken : 1970 MR: [id number] V: [id number] EXAM DATE: ORDERING PHYSICIAN: JESSICA REYEZ TECHNOLOGIST: Location: [facility] - [place] Patient: Yesy Mccracken : 1970 Visit/Account:[id number] Date of Sevice: 12/05/2018 CT abdomen and pelvis with IV contrast Indication: Left abdominal pain. Nausea and vomiting. Comparison: 08/13/2017.. Technique: Axial CT images were obtained through the abdomen and pelvis during injection of nonioni c iodinated intravenous contrast. Reformatted coronal and sagittal images were also obtained. One of the following dose optimization techniques was utilized in the performance of this exam: Autom ated exposure control; adjustment of the mA and/or kV according to the patient's size; or use of an i terative reconstruction technique. Specific details can be referenced in the facility's radiology C T exam operational policy. Contrast: 75 ml of Isovue-370 IV contrast. Findings: Lower lung perez: Limited views lower lung field are unremarkable. Liver: No focal parenchymal abnormality of the liver. Biliary: Gallbladder appears unremarkable as well as the intra and extra hepatic biliary system. Pancreas: Normal appearance. Spleen: Normal appearance. Adrenal glands: Unremarkable. Kidneys / retroperitoneum: Left kidney shows 3 tiny calcifications in the collecting system without h ydronephrosis. Right kidney shows a single tiny stone in the collecting system. No hydronephrosis. Arreguin bcentimeter hypodensity in the left kidney is too small characterize and statistically tiny cyst and stable. No solid renal lesions. Bowel / peritoneum / mesenteries: Colon is decompressed and shows no focal abnormality. The appendix is not visualized. No secondary signs of appendicitis. Small bowel shows no focal normality or obstru ction but the stomach is decompressed and grossly normal. No free air, free fluid, fluid collections or areas of inflammation. Lymph node assessment: No pathologic adenopathy identified. Pelvic structures: Uterus is not visualized may been surgically removed. The remaining pelvic stru ctures visualized within normal limits. Vessels: No significant atherosclerotic calcifications seen throughout a nonaneurysmal abdominal aort a and branches. Musculoskeletal / Body wall: No acute or aggressive osseous abnormality. Mild degenerative changes sp ine. IMPRESSION: 1. No acute intra-abdominal abnormality 2. Tiny nonobstructing bilateral renal calculi. 3. Other chronic stable findings as above. Report Dictated By: Freddy Doss at 12/05/2018 2:28 PM Report E-Signed By: Freddy Doss at 12/05/2018 2:37 PM WSN:[id number]
[2018-12-05] MEDS ORDERED: PROMETHAZINE 25 MG/ML 1 ML AMP IVP ONE (15:50)
[2018-12-05 16:00] VITALS: BP 170/92
[2018-12-05] MEDS ORDERED: PROM25SU8 PR (16:44)
[2018-12-06] MEDS ORDERED: DOXE25CA45 PO (13:37)
[2018-12-14] MEDS ORDERED: IPRA3AMP10 IH ×2 (16:10→16:45)
[2018-12-14] MEDS ORDERED: BENZ200C15 PO (16:45)
[2018-12-14] MEDS ORDERED: AZIT-1 PO (16:45)
[2018-12-14] MEDS ORDERED: PRED20TA6 PO (16:45)
== END 2018-12-05 17:01 | disposition home or self-care (01) ==
LOC: ER 12:26
DX: R10.30 Lower abdominal pain, unspecified (principal)
CPT/HCPCS: 36415; 74177; 81001; 83605; 83690; 85025; 96361; 96374; 96375; 99284; J2550; J2765; J7030; Q9967; 82040; 82247; 82310; 82374; 82435; 82565; 82947; 84075; 84132; 84155; 84295; 84450; 84460; 84520

== ENCOUNTER 2018-12-11 19:56 | Emergency (ER) | payer MEDICAID ==
[2017-04-17 12:41] VITALS: Wt 86.2 kg
[~2018-12-11 19:56] MED LIST changes: +PROM25SU8 PR
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
[2018-12-11] MEDS ORDERED: PROMETHAZINE HCL 25 MG TAB PO ONE (20:30)
[2018-12-11 21:00] VITALS: BP 123/88
[2018-12-11] MEDS ORDERED: ACET/HYDROC 5/325MG TH ER ONLY 2 TAB/BOTTLE PO ONE (21:00)
[2018-12-11] MEDS ORDERED: LOR5/325 PO (21:02)
--- NOTE | 2018-12-11 21:22 | RADIOLOGY IMAGING REPORT ---
FACILITY: [facility] [place] PATIENT NAME: Yesy Mccracken : 1970 MR: [id number] V: [id number] EXAM DATE: ORDERING PHYSICIAN: RICARDO QUEZADA TECHNOLOGIST: Location: [facility] Patient: Yesy Mccracken : 1970 Visit/Account:[id number] Date of Sevice: 12/11/2018 FOOT 3 VIEWS RIGHT Indication: Pain after fall. Mainly third through fifth toes. Comparison: 10/30/2018. Findings: 3 views of the right foot were obtained. There is nondisplaced fracture the proximal first phalanx of the fifth toe. The first phalanx of the fourth toe does show a small avulsion fracture off the proximal medial corner. No other fracture. No dislocation, bony lesions or periosteal abnormality. No appreciable degenerative change. Soft tiss ues show mild edema. No evidence of radiopaque foreign body. IMPRESSION: 1. Fracture of the proximal phalanx of the fourth and fifth right toe as above. Report Dictated By: Freddy Doss at 12/11/2018 9:11 PM Report E-Signed By: Freddy Doss at 12/11/2018 9:16 PM WSN:[id number]
--- NOTE | 2018-12-11 21:26 | RADIOLOGY IMAGING REPORT ---
FACILITY: [facility] PATIENT NAME: Yesy Mccracken : 1970 MR: [id number] V: [id number] EXAM DATE: ORDERING PHYSICIAN: RICARDO QUEZADA TECHNOLOGIST: Location: [facility] [place] Patient: Yesy Mccracken : 1970 Visit/Account:[id number] Date of Sevice: 12/11/2018 KNEE 4 VIEW RIGHT Indication: Right knee pain after fall. Comparison: 11/11/2018. Findings: 3 views right knee were obtained. No acute fracture or dislocation. Small joint effusion. Moderate osteoarthritic changes are again pre sent including joint space narrowing, subchondral bony change and osteophytes. Slightly more prominen t on the medial compartment. No bony lesions. Soft tissues are otherwise unremarkable. IMPRESSION: 1.No acute osseous abnormality of the right knee 2. Small joint effusion. 3. Continued osteoarthritic changes. Report Dictated By: Freddy Doss at 12/11/2018 9:16 PM Report E-Signed By: Freddy Doss at 12/11/2018 9:20 PM WSN:[email or web address]
[2018-12-14] MEDS ORDERED: IPRA3AMP10 IH ×2 (16:10→16:45)
[2018-12-14] MEDS ORDERED: AZIT-1 PO (16:45)
[2018-12-14] MEDS ORDERED: BENZ200C15 PO (16:45)
[2018-12-14] MEDS ORDERED: PRED20TA6 PO (16:45)
== END 2018-12-11 21:12 | disposition home or self-care (01) ==
LOC: ER 20:04
DX: S92.514A Nondisplaced fracture of proximal phalanx of right lesser toe(s), initial encounter for closed fracture (principal); S83.91XA Sprain of unspecified site of right knee, initial encounter; R11.0 Nausea; E11.9 Type 2 diabetes mellitus without complications; E78.5 Hyperlipidemia, unspecified; I10 Essential (primary) hypertension; I25.10 Atherosclerotic heart disease of native coronary artery without angina pectoris; K21.9 Gastro-esophageal reflux disease without esophagitis; F31.9 Bipolar disorder, unspecified; W19.XXXA Unspecified fall, initial encounter; Z79.4 Long term (current) use of insulin; Z79.01 Long term (current) use of anticoagulants; Z79.899 Other long term (current) drug therapy
CPT/HCPCS: 73564; 73630; 99284; Q0169

== ENCOUNTER → 2018-12-14 | Outpatient (CLI) | payer MEDICAID ==
[2017-04-17 12:41] VITALS: BMI 34.0
[~2018-12-14] MED LIST changes: +IPRA3AMP10 IH; +PRED-1 PO
--- NOTE | 2018-12-14 16:28 | RADIOLOGY IMAGING REPORT ---
[place] [facility] [place] Yesy Mccracken : 1970 MR: [id number] V: [id number] EXAM DATE: ORDERING PHYSICIAN: POPPY SANCHEZ TECHNOLOGIST: Location: [facility] [place] Patient: Yesy Mccracken : 1970 Visit/Account:[id number] Date of Sevice: 12/14/2018 Chest 2 views: HISTORY: Shortness of breath, low oxygen saturation. COMPARISON: 07/24/2018 FINDINGS: Frontal and lateral chest: Heart is mildly enlarged and there is prominence of the central vasculature and interstitial markings. There is no consolidation or pleural effusion. No pneumothor ax. Mild degenerative changes present in the thoracic spine. IMPRESSION: 1. Mild cardiomegaly similar to previous. 2. Prominent interstitial markings. This could be indicative of interstitial edema or an infectious or inflammatory process, clinical correlation needed. Report Dictated By: Melisa León MD at 12/14/2018 4:19 PM Report E-Signed By: Melisa León MD at 12/14/2018 4:22 PM WSN:[email or web address]
== END ==
LOC: RAD 15:40
PROVIDERS: ATTEND Nurse Practitioner Primary Care
DX: I51.7 Cardiomegaly (principal); R05 Cough
CPT/HCPCS: 71046

== ENCOUNTER → 2018-12-23 | Outpatient (CLI) | payer MEDICAID ==
[2017-04-17 12:41] VITALS: BMI 34.0
[~2018-12-23] MED LIST changes: +AMOX1TAB9 PO; +FLUC150T40 PO; +FLUT1DIS28 INH; +FLUT9.9S IH; +LIDO15CR8 TOP
--- NOTE | 2018-12-23 15:43 | RADIOLOGY IMAGING REPORT ---
FACILITY: [facility] PATIENT NAME: Yesy Mccracken : 1970 MR: [id number] V: [id number] EXAM DATE: ORDERING PHYSICIAN: GALE QUEEN TECHNOLOGIST: Location: [facility] Patient: Yesy Mccracken : 1970 Visit/Account:[id number] Date of Sevice: 12/23/2018 CHEST PA LAT HISTORY: Cough. COMPARISON: 2018. FINDINGS: Cardiomediastinal contours: The heart size is normal. Lungs and pleura: There is no finding of an infiltrate, lymphadenopathy or pleural effusion. Bones/soft tissues: There are no findings of a fracture. IMPRESSION: Normal chest x-ray without findings of acute disease. Report Dictated By: Jd Gunter MD at 12/23/2018 3:37 PM Report E-Signed By: Jd Gunter MD at 12/23/2018 3:37 PM WSN:[email or web address]
== END ==
LOC: RAD 14:46
PROVIDERS: ATTEND Nurse Practitioner Family
DX: R05 Cough (principal)
CPT/HCPCS: 71046

== ENCOUNTER 2018-12-24 07:22 | Inpatient (IN) | payer MEDICAID ==
[2017-04-17 12:41] VITALS: Ht 157.5 cm; Wt 95.1 kg
[~2018-12-24] VITALS: Ht 157.5 cm; Wt 95.1 kg
[~2018-12-24 07:22] MED LIST changes: -AMOX1TAB9 PO; -FLUC150T40 PO; -FLUT1DIS28 INH; -LIDO15CR8 TOP
--- NOTE | 2018-12-24 07:27 | ER Report ---
History and Physical Time Seen By MD: 07:23 HPI/ROS CHIEF COMPLAINT: Abdominal pain, cough, hematemesis HISTORY OF PRESENT ILLNESS: Patient is a 48-year-old female here with complaints of several day history of abdominal pain, vomiting, hematemesis starting this morning, cough currently being treated with Augmentin. Patient reports that she is unable to keep down food or fluids, has persistent nausea and reportedly developed hematemesis this morning prompting ED evaluation. Patient was found to be 83% on 2 L nasal cannula. Patient is afebrile at time of evaluation. REVIEW OF SYSTEMS: Constitutional: No fever, + chills. Eyes: No discharge. ENT: No sore throat. Cardiovascular: No chest pain, no palpitations. Respiratory: + cough, no shortness of breath. Gastrointestinal: + diffuse abdominal pain, + nausea and vomiting, hematemesis Genitourinary: No hematuria. Musculoskeletal: No back pain. Skin: No rashes. Neurological: No headache. Allergies: Coded Allergies: Nitrofurantoin Macrocrystal (Verified Allergy, Severe, HIVES, 12/24/18) aspirin (Verified Allergy, Severe, ANAPHYLAXIS, 12/24/18) chlorpromazine (Verified Allergy, Severe, ANAPHYLAXIS, 12/24/18) hydroxyzine (Verified Allergy, Severe, AIRWAY OBSTRUCTION, 12/24/18) varenicline (Verified Allergy, Severe, anxiety, 12/24/18) venom-wasp (Verified Allergy, Severe, ANAPHYLAXIS, 12/24/18) Sulfa (Sulfonamide Antibiotics) (Verified Allergy, Intermediate, HIVES, 12/24/18) albuterol (Verified Allergy, Intermediate, itching, hives, 12/24/18) cephalexin (Verified Allergy, Intermediate, HIVES, 12/24/18) ciprofloxacin (Verified Allergy, Intermediate, "feels like I'm going inasne", 12/24/18) droperidol (Verified Allergy, Intermediate, DELUSIONS, 12/24/18) Pt states her reaction as, "I become psychotic". latex (Verified Allergy, Intermediate, RASH, SWELLING, 12/24/18) tramadol (Verified Allergy, Mild, rash, 12/24/18) ondansetron (Verified Adverse Reaction, Severe, TACHYCARDIA, 12/24/18) dexamethasone (Verified Adverse Reaction, Intermediate, ITCHING, 12/24/18) haloperidol (Verified Adverse Reaction, Intermediate, "MAKES ME JUMPY", 12/24/18) Uncoded Allergies: Inhaled medication propelant (Allergy, Intermediate, HIVES, 10/07/14) Home Meds Active Scripts Fluticasone Propionate (Flonase Allergy Relief) 9.9 Ml [place].susp, 2 EA IH DAILY, #1 BOTTLE 0 Refills Prov:GALE QUEEN APRN-C 12/23/18 Amoxicillin/Pot Clav 875-125 Mg Tab (AUGMENTIN 875-125 TABLET) 1 Each Tablet, 1 TAB PO Q12H, #20 TAB 0 Refills Prov:GALE QUEEN APRNP-C 12/23/18 Guaifenesin/Codeine Phosphate (Codeine-Guaifen 10-100 mg/5 ml) 120 Ml Liquid, 10 ML PO Q6H PRN for COUGH, #120 ML 0 Refills Prov:GALE QUEEN APRN-C 12/23/18 Pregabalin (LYRICA) 150 Mg Capsule, 1 TAB PO BID, #60 CAPSULE 0 Refills Prov:POPPY SANCHEZ DNP [employer]-BC 12/21/18 Benzonatate (BENZONATATE) 200 Mg Capsule, 1 CAP PO TID PRN for cough, #20 CAP 0 Refills Prov:POPPY SANCHEZ DNP, [employer]-BC 12/17/18 Ipratropium/Albuterol Sulfate (IPRAT-ALBUT 0.5-3(2.5) MG/3 ML) 3 Ml Ampul.neb, 3 ML IH 2-3XD PRN for WHEEZING, #1 BOX 0 Refills Prov:POPPY SANCHEZ DNP, [employer]-BC 12/14/18 Doxepin Hcl (DOXEPIN HCL) 25 Mg Capsule, 2 CAP PO BID PRN for ANXIETY, #120 CAPSULE 0 Refills Prov:POPPY SANCHEZ DNP, [employer]-BC 12/06/18 Promethazine HCl (Phenergan) 25 Mg Supp.rect, 1 SUPP.RECT MA Q8-12H PRN for NAUSEA/VOMITING, #20 SUPP.RECT Prov:JESSICA REYEZ DO 12/05/18 Prazosin Hcl (PRAZOSIN HCL) 5 Mg Capsule, 1 CAP PO QHS, #30 CAPSULE 1 Refill Prov:POPPY SANCHEZ DNP, [facility] 11/16/18 Zolpidem Tartrate (AMBIEN) 5 Mg Tablet, 1 TAB PO QHS PRN for INSOMNIA, #30 TAB 1 Refill Prov:[facility]OPPY SANCHEZ DNP, [facility] 11/09/18 Mupirocin Martir 2% Cream (MUPIROCIN 2% CREAM) 15 Gm Cream..g., 0 TP TID, #1 TUBE Prov:REYEZRADHA CROWLEYLAS Sander DO 11/01/18 Ticagrelor (BRILINTA) 90 Mg Tablet, 90 MG PO BID, #180 TAB 1 Refill Prov:POPPY SANCHEZ DNP, [facility] 10/20/18 Buspirone Hcl (BUSPIRONE HCL) 30 Mg Tablet, 1 TAB PO BID, #60 TAB 1 Refill Prov:POPPY SANCHEZ DNP, [facility] 10/14/18 Lidocaine HCl VISCOUS 2% (Lidocaine Viscous) 2 % Solution, 15 ML PO Q2H PRN for PAIN, #450 ML 0 Refills Swish and spit 15 ml every 2 hours as needed for throat pain. Prov:POPPY SANCHEZ DNP, [facility] 10/06/18 Promethazine Hcl (PROMETHAZINE HCL) 12.5 Mg Tablet, 1-2 TAB PO Q8H PRN for NA USEA, #12 TAB 0 Refills Prov:POPPY SANCHEZ DNP, [facility] 10/05/18 Apixaban (ELIQUIS) 5 Mg Tablet, 1 TAB PO BID, #60 TAB 5 Refills Prov:POPPY SANCHEZ DNP [facility] 09/28/18 Aripiprazole (ABILIFY) 20 Mg Tablet, 1 TAB PO QDAY, #30 TAB 1 Refill Prov:POPPY SANCHEZ DNP [facility] 09/17/18 Baclofen (BACLOFEN) 10 Mg Tablet, 1 TAB PO TID PRN for MUSCLE SPASMS, #90 TAB 5 Refills Prov:POPPY SANCHEZ DNP, [facility] 09/17/18 Insulin Glargine 100 Un/Ml Pen (LANTUS SOLOSTAR PEN) 100 Unit/1 Ml Insuln.pen, 65 UNIT SQ BID, #1 BOX 3 Refills Prov:POPPY SANCHEZ DNP, FNP-BC 09/17/18 Ranitidine Hcl (RANITIDINE HCL) 150 Mg Capsule, 1 TAB PO BID, #180 CAPSULE 3 Refills Prov:POPPY SANCHEZ DNP, FNP-BC 09/17/18 Lisinopril (LISINOPRIL) 40 Mg Tablet, 1 TAB PO QDAY for 90 Days, #90 TAB 1 Refill Prov:POPPY SANCHEZ DNP [facility] 09/17/18 Esomeprazole Magnesium (NEXIUM) 40 Mg Capsule.dr, 1 CAP PO BID, #180 CAP 3 Refills Prov:POPPY SANCHEZ DNP, FNP-BC 09/17/18 Insulin Lispro 100 Un/Ml Pen (HUMALOG 3 ML PEN) 100 Unit/1 Ml Insuln.pen, 5-8 UNIT SQ TID, #2 DIS.SYR 6 Refills Take per sliding scale. Prov:POPPY SANCHEZ DNP, FNP-BC 09/17/18 Lancets (Blood Lancets) 30 Gauge Each, EA MC EVERY 90 DAYS, #300 4 Refills Prov:POPPY SANCHEZ DNP, FNP-BC 09/17/18 Sumatriptan Succinate (SUMATRIPTAN SUCCINATE) 100 Mg Tablet, 1 TAB PO QDAY PRN for MIGRAINE, #9 TAB 6 Refills Prov:POPPY SANCHEZ DNP, FNP-BC 09/17/18 Sumatriptan Succinate (SUMATRIPTAN SUCCINATE) 6 Mg/0.5 Ml Pen.injctr, 6 MG SQ ONCE PRN for MIGRAINE, #1 BOX 6 Refills May repeat dose x1 after 1 hour, if needed. Do not exceed maximum of 12mg/24h. Prov:POPPY SANCHEZ DNP, FNP-BC 09/17/18 Blood Sugar Diagnostic (FREESTYLE LITE TEST STRIPS) 1 Each Strip, 500 EACH MC 5 XD for 90 Days, #500 STRIP 2 Refills Prov:POPPY SANCHEZ DNP, FNP-BC 06/02/18 [place], Insulin Disposable (PEN NEEDLES) 1 Each Dis.needle, BOX MC QDAY, #1 9 Refills Prov:POPPY SANCHEZ DNP, FNP-BC 06/02/18 Albuterol Sulfate 90 Mcg/Act (PROAIR HFA 90 MCG/ACT) 8.5 Gm Hfa.aer.ad, 2 PUFF IH Q4-6H PRN for WHEEZING, #1 INHALER 0 Refills Prov:POPPY SANCHEZ DNP, FNP-BC 04/13/18 Atorvastatin (LIPITOR) 80 Mg Tab, 1 TAB PO QDAY for 90 Days, #90 TAB 1 Refill Prov:POPPY SANCHEZ DNP, FNP-BC 04/13/18 Levothyroxine Sodium (LEVOTHYROXINE SODIUM) 50 Mcg Tablet, 1 TAB PO QDAY, #90 TAB 4 Refills Take along with 200mcg tablet for a total of 250mcg daily. Prov:POPPY SANCHEZ DNP, FNP-BC 03/09/18 Levothyroxine Sodium (LEVOTHYROXINE SODIUM) 200 Mcg Tablet, 200 MCG PO QDAY, #90 TAB 4 Refills Take with 50mcg tablet for a total of 250mcg daily Prov:POPPY SANCHEZ DNP, FNP-BC 03/09/18 Epinephrine (EPIPEN 2-TUCKER) 0.3 Mg/0.3 Ml Pen.injctr, 0.3 MG IM ONCE, #1 CART Prov:POPPY SANCHEZ DNP, FNP-BC 10/14/17 Blood-Glucose Meter (FREESTYLE LITE METER) 1 Each Kit, 1 [facility] ONCE, #1 Prov:POPPY SANCHEZ DNP, FNP-BC 08/11/17 Diclofenac Sodium 1% Gel (VOLTAREN 1% GEL) 100 Gm Gel..gram., 1 DEMETRIS TOP QID PRN for PAIN, #1 TUBE 0 Refills Prov:POPPY SANCHEZ DNP, FNP-BC 01/19/17 Reported Medications Insulin Glargine (LANTUS) 100 Unit/Ml Soln, 65 UNIT SUBQ BID, ML 11/13/17 Discontinued Scripts Prednisone 10 Mg Tab (PREDNISONE 10 MG TAB) 10 Mg Tablet, 10 MG PO QDAY for 6 Days, #9 TAB Take 2 pills by mouth x 3 days, then 1 pill x 3 days. Prov:POPPY SANCHEZ DNP, FNP-BC 12/17/18 Azithromycin (ZITHROMAX) 250 Mg Tablet, 0 PO QDAY, #6 TAB 0 Refills TAKE 2 TABLETS ON DAY 1 AND 1 TABLET ON DAYS 2-5 Prov:POPPY SANCHEZ DNP [facility] 12/14/18 Hydrocodone Bit/Acetaminophen (HYDROCODON-ACETAMINOPHEN 5-325) 1 Each Tablet, 1 EACH PO Q4-6H PRN for PAIN, #12 TAKE ONE TABLET BY MOUTH EVERY 4-6 HOURS NEEDED FOR PAIN Prov:RICARDO QUEZADA DO 12/11/18 Oxycodone Hcl/Acetaminophen (PERCOCET 5-325 MG TABLET) 1 Each Tablet, 1 TAB PO Q6H, #20 TAB 0 Refills Prov:POPPY SANCHEZ DNP [facility] 11/26/18 Prednisone (PREDNISONE) 20 Mg Tablet, 1 TAB PO BID for 5 Days, #10 TAB 0 Refills Prov:POPPY SANCHEZ DNP [facility] 12/14/18 Hx Smoking: Yes Smoking Status: Former Smoker Exposure to Second Hand Smoke?: Yes Hx Substance Use Disorder: No ("Years ago") Hx Alcohol Use: No Constitutional Vital Sign - Last 24 Hours 12/24/18 12/24/18 07:29 07:35 Temp 98.0 Pulse 101 Resp 20 B/P (MAP) 135/103 Pulse Ox 83 O2 Delivery Room Air O2 Flow Rate 2.0 Physical Exam General Appearance: The patient is alert, has no immediate need for airway protection and no signs of toxicity. Uncomfortable appearing Eyes: Pupils equal and round no pallor or injection. ENT, Mouth: Mucous membranes are moist. Respiratory: There are no retractions, lungs are clear to auscultation. Cardiovascular: Regular rate and rhythm. Gastrointestinal: Abdomen is soft and + diffusely tender in all quadrants, no masses, bowel sounds normal. Neurological: No focal neuro deficits Skin: Warm and dry, no rashes. Musculoskeletal: Neck is supple non tender. Extremities are nontender, nonswollen and have full range of motion. DIFFERENTIAL DIAGNOSIS: After history and physical exam differential diagnosis was considered for abdominal pain including but not limited to appendicitis, cholecystitis, gastritis and urinary tract infection, pneumonia, bronchitis, peptic ulcer disease, Radha-Casey tear Medical Decision Making Data Points Result Diagram: 12/24/18 07 12/24/18 0737 Laboratory Hematology Test 12/24/18 07:37 White Blood Count 10.2 k/uL (4.5-11.0) Red Blood Count 5.76 M/uL (4.17-5.56) H Hemoglobin 15.6 g/dL (12.0-16.0) Hematocrit 46.2 % (34.0-47.0) Mean Corpuscular Volume 80.1 fL (80.0-96.0) Mean Corpuscular Hemoglobin 27.0 pg (26.0-33.0) Mean Corpuscular Hemoglobin Concent 33.7 g/dL (32.0-36.0) Red Cell Distribution Width 15.0 % (11.5-14.5) H Platelet Count 257 K/uL (150-450) Mean Platelet Volume 9.1 fL (7.2-11.1) Neutrophils (%) (Auto) 72.6 % (39.4-72.5) H Lymphocytes (%) (Auto) 16.8 % (17.6-49.6) L Monocytes (%) (Auto) 8.6 % (4.1-12.4) Eosinophils (%) (Auto) 0.9 % (0.4-6.7) Basophils (%) (Auto) 1.1 % (0.3-1.4) Nucleated RBC Relative Count (auto) 0.1 /100WBC Neutrophils # (Auto) 7.4 K/uL (2.0-7.4) Lymphocytes # (Auto) 1.7 K/uL (1.3-3.6) Monocytes # (Auto) 0.9 K/uL (0.3-1.0) Eosinophils # (Auto) 0.1 K/uL (0.0-0.5) Basophils # (Auto) 0.1 K/uL (0.0-0.1) Nucleated RBC Absolute Count (auto) 0.01 K/uL Chemistry Test 12/24/18 07:37 Sodium Level 124 mmol/L (137-145) Potassium Level 3.2 mmol/L (3.5-5.0) Chloride Level 82 mmol/L (98-107) Carbon Dioxide Level 24 mmol/L (22-31) Blood Urea Nitrogen 9 mg/dl (7-18) Creatinine 0.60 mg/dl (0.52-1.04) Glomerular Filtration Rate Calc > 60.0 Random Glucose 745 mg/dl (75-110) Osmolality 301 mOSM/K (275-295) Lactate 1.8 mmol/L (0.7-2.1) Calcium Level 9.4 mg/dl (8.4-10.2) Total Bilirubin 1.1 mg/dl (0.2-1.3) Aspartate Amino Transf (AST/SGOT) 17 U/L (0-35) Alanine Aminotransferase (ALT/SGPT) 33 U/L (0-56) Alkaline Phosphatase 210 U/L (0-126) Total Protein 7.9 g/dl (6.3-8.2) Albumin 4.4 g/dl (3.5-5.0) Lipase 147 U/L (23-300) Coagulation Test 12/24/18 07:37 Prothrombin Time 12.7 seconds (12.0-14.4) Prothromb Time International Ratio 0.95 Activated Partial Thromboplast Time 22 seconds (23-35) Toxicology Test 12/24/18 07:37 Acetone, Qualitative Small Urinalysis Test 12/24/18 07:31 Urine Color Straw Urine Clarity Clear Urine pH 7.0 pH (4.8-9.5) Urine Specific [place] 1.031 Urine Protein Negative mg/dL (NEGATIVE) Urine Glucose (UA) 500 mg/dL (NEGATIVE) Urine Ketones 20 mg/dL (NEGATIVE) Urine Blood Negative (NEGATIVE) Urine Nitrite Negative (NEGATIVE) Urine Bilirubin Negative (NEGATIVE) Urine Urobilinogen Negative mg/dL (0.2-1.9) Urine Leukocyte Esterase Negative (NEGATIVE) Urine RBC 3 /HPF (0-2/HPF) Urine WBC 1 /HPF (0-5/HPF) Urine Squamous Epithelial Cells Few /LPF (</=FEW) Urine Bacteria Negative /HPF (NONE-FEW) Urine Mucus None /HPF (NONE-FEW) EKG/Imaging Imaging Please see official radiology report. ED Course/Re-evaluation ED Course Patient is a 48-year-old female here with complaints of diffuse abdominal pain, nausea and vomiting for several days, acute onset of hematemesis this morning, cough, shortness of breath currently being treated with Augmentin. Labs are significant for hyperglycemia with a glucose of 745, patient has been unable to keep down food or fluids. CT imaging was completed of the chest abdomen pelvis. Patient was given IV fluid bolus, insulin bolus, insulin infusion to close the gap. I discussed the patient with Dr. Gottlieb who admitted the patient to hospitalist service for further treatment and care. Patient was hemodynamically stable throughout course. Decision to Disposition Date: Dec 24, 2018 Decision to Disposition Time: 08:54 Depart Departure Latest Vital Signs Vital Signs Date Time Temp Pulse Resp B/P (MAP) Pulse Ox O2 Delivery O2 Flow Rate FiO2 12/24/18 07:35 2.0 12/24/18 07:29 98.0 101 20 135/103 83 Room Air Core Temperature (Celsius): 36.73 Impression: Primary Impression: Hyperglycemia Additional Impressions: Abdominal pain Pneumonia Condition: Improved Disposition: Admitted from ER Referrals: POPPY SANCHEZ DNP, VENDING MECHANIC-BC (PCP) Problem Qualifiers JESSICA REYEZ DO Dec 24, 2018 07:27
[2018-12-24] MEDS ORDERED: NS(*) 0.9% 1000 ML BAG 1,000 ML IV ONE ×2 (07:37→09:00)
[2018-12-24] MEDS ORDERED: PROMETHAZINE 25 MG/ML 1 ML AMP IVP ONE (07:40)
[2018-12-24] MEDS ORDERED: fentaNYL CITR 100 MCG/2 ML AMP IVP ONE (07:40)
[2018-12-24 07:49] LABS: PLATELET COUNT, AUTOMATED 257 K/uL (150-450)
[2018-12-24 07:58] LABS: INR 0.95
[2018-12-24] MEDS ORDERED: IOPAMIDOL 76% 100 ML INFUS BTL 100 ML ONE (08:11)
[2018-12-24] MEDS ORDERED: INSULIN ASPART 100 UN/ML VIAL SUBQ ONE (08:15)
[2018-12-24] MEDS ORDERED: INS HUM REG* 100 U/ML(ER ONLY) 100 UNIT in NS(*) 0.9% 100 ML BAG 99 ML IVPB ONE (08:55)
--- NOTE | 2018-12-24 09:12 | RADIOLOGY IMAGING REPORT ---
FACILITY: [facility] - [place] PATIENT NAME: Yesy Mccracken : 1970 MR: [id number] V: [id number] EXAM DATE: ORDERING PHYSICIAN: JESSICA REYEZ TECHNOLOGIST: Location: [facility] [place] Patient: Yesy Mccracken : 1970 Visit/Account:[id number] Date of Sevice: 12/24/2018 CT chest abdomen and pelvis with contrast INDICATION: Hematemesis. Short of breath. Right-sided abdominal pain. COMPARISON: Prior abdomen and pelvis CT 12/05/2018 is reviewed. A prior chest CT 08/10/2018 is reviewed . Technique: Axial CT images are obtained through the chest abdomen and pelvis after administration of 75 mL Isovue-370 IV contrast. Reformatted coronal and sagittal images were reviewed. One of the following dose optimization techniques was utilized in the performance of this exam: Autom ated exposure control; adjustment of the mA and/or kV according to the patient's size; or use of an i terative reconstruction technique. Specific details can be referenced in the facility's radiology C T exam operational policy. FINDINGS: CT Chest: There is no axillary adenopathy. A borderline pretracheal node on image 32 measures 10 mm in short a xis and is unchanged. No enlarged hilar or mediastinal nodes are identified. No pericardial effusion or pleural effusion. Scattered atherosclerosis is seen within the aortic arch. A stent is seen within the left anterior d escending coronary artery. No evidence of hiatal hernia. Examination of the lung windows demonstrates groundglass infiltrates with a jerez lobar distribution. These are most pronounced within the right upper lobe. Areas of septal line thickening are seen. Ad ditional patchy groundglass infiltrates are seen throughout the remaining portions of each lung. In the acute setting, differential would include infectious/inflammatory infiltrate, early pulmonary birgit ma or hemorrhage such as in the setting of underlying vasculitis. Clinical correlation is necessary. Mild degenerative changes are seen to involve the thoracic spine. No compression deformity. CT Abdomen and Pelvis: Liver: No focal parenchymal abnormality of the liver. Biliary: Gallbladder appears unremarkable as well as the intra and extra hepatic biliary system. Pancreas: Normal appearance. Spleen: Normal appearance. Adrenal glands: Unremarkable. Kidneys / retroperitoneum: On the left, there is a tiny nonobstructing midpole stone. There is a sim ple appearing left midpole cyst. Similar findings were seen on the prior study. Bowel / peritoneum / mesenteries: Moderate volume of stool is seen throughout the colon and rectum. No wall thickening or pericolonic inflammation. Appendix is not clearly seen and may have been previ ously removed. No small bowel dilatation or evidence of obstruction. No free air. No free fluid. Lymph node assessment: No pathologic adenopathy identified. Pelvic structures: There has been previous hysterectomy. Vessels: Scattered atherosclerotic calcifications seen throughout a nonaneurysmal abdominal aorta and branches. Musculoskeletal / Body wall: No acute or aggressive osseous abnormality. Degenerative changes involv e the low lumbar spine. IMPRESSION: 1. Patchy groundglass infiltrates throughout the lungs with a jerez lobar distribution. There are ass ociated areas of septal line thickening. In the acute setting, differential would include an infecti ous/inflammatory process, early pulmonary edema or areas of pulmonary hemorrhage such as in the setti ng of an underlying vasculitis. Clinical correlation is necessary. 2. No acute abnormality within the abdomen or pelvis. 3. Stable, borderline enlarged right pretracheal lymph node. 4. Nonobstructing left midpole renal stone. 5. Moderate volume of stool throughout the colon and rectum. Correlate clinically. Report Dictated By: Kane Price at 12/24/2018 8:48 AM Report E-Signed By: Kane Price at 12/24/2018 9:04 AM WSN:[email or web address]
[2018-12-24] MEDS ORDERED: LEVOFLOXACIN 750 MG TAB PO ONE (09:15)
[2018-12-24 11:23] VITALS: BP 157/95
[2018-12-24] MEDS ORDERED: INFLUENZA VIRUS VAC 0.5ML SYR IM ONLY ONE (11:55)
[2018-12-24] MEDS ORDERED: ACETAMINOPHEN 325 MG TAB PO PRN (11:55)
[2018-12-24] MEDS: KCL 2 MEQ/ML 20 MEQ/10 ML VIAL 40 MEQ in NS(*) 0.9% 1000 ML BAG 1,000 ML IV SCH ×2 (12:22→21:27)
[2018-12-24] MEDS: INSULIN GLARGINE 100 U/ML 3 ML PEN SUBQ SCH ×2 (12:23→22:01)
[2018-12-24] MEDS: PANTOPRAZOLE SOD 40 MG IV VIAL IVP SCH ×2 (12:23→21:27)
[2018-12-24] MEDS ORDERED: ALBUTEROL/IPRATROPIUM 3 ML NEB NEB PRN (12:45)
--- NOTE | 2018-12-24 12:48 | History & Physical ---
History of Present Illness Chief Complaint Abdominal pain, cough, hematemesis History of Present Illness She is a 48-year-old female who presented to the emergency department with complaints of 2 week history of abdominal pain, vomiting, hematemesis starting this morning, cough (bronchitis) currently being treated with Augmentin. Patient reports that she has been unable to keep down food or fluids, has persistent nausea and reportedly developed hematemesis this morning prompting ED evaluation. She reports she has not taken any diabetic medications for four days secondary to illness. Patient was found to be 83% on 2 L nasal cannula. Patient is afebrile at time of evaluation. She was found to have pneumonia by CT evaluation and hyperglycemia. She was recommended for admission. History Problems: (1) T2DM (type 2 diabetes mellitus) Status: Chronic (2) Hyperlipidemia Status: Chronic (3) Migraines Status: Chronic (4) Hyperglycemia due to type 2 diabetes mellitus Status: Acute (5) History of DVT (deep vein thrombosis) Status: Resolved (6) Coronary artery disease Status: Chronic (7) HTN (hypertension) Status: Chronic (8) Asthma Status: Chronic (9) Bipolar disorder Status: Chronic (10) PUD (peptic ulcer disease) Status: Chronic (11) Depression Status: Chronic Home Meds Active Scripts Fluticasone Propionate (Flonase Allergy Relief) 9.9 Ml [place].susp, 2 EA IH DAILY, #1 BOTTLE 0 Refills Prov:GALE QUEEN APRNP-C 12/23/18 Guaifenesin/Codeine Phosphate (Codeine-Guaifen 10-100 mg/5 ml) 120 Ml Liquid, 10 ML PO Q6H PRN for COUGH, #120 ML 0 Refills Prov:GALE QUEEN APRN REHAB CONSULTANT-C 12/23/18 Pregabalin (LYRICA) 150 Mg Capsule, 1 TAB PO BID, #60 CAPSULE 0 Refills Prov:POPPY SANCHEZ DNP REHAB CONSULTANT-BC 12/21/18 Benzonatate (BENZONATATE) 200 Mg Capsule, 1 CAP PO TID PRN for cough, #20 CAP 0 Refills Prov:POPPY SANCHEZ DNP, FNP-BC 12/17/18 Ipratropium/Albuterol Sulfate (IPRAT-ALBUT 0.5-3(2.5) MG/3 ML) 3 Ml Ampul.neb, 3 ML IH 2-3XD PRN for WHEEZING, #1 BOX 0 Refills Prov:POPPY SANCHEZ DNP [facility] 12/14/18 Doxepin Hcl (DOXEPIN HCL) 25 Mg Capsule, 2 CAP PO BID PRN for ANXIETY, #120 CAPSULE 0 Refills Prov:POPPY SANCHEZ DNP [facility] 12/06/18 Promethazine HCl (Phenergan) 25 Mg Supp.rect, 1 SUPP.RECT IA Q8-12H PRN for NAUSEA/VOMITING, #20 SUPP.RECT Prov:JESSICA REYEZ DO 12/05/18 Prazosin Hcl (PRAZOSIN HCL) 5 Mg Capsule, 1 CAP PO QHS, #30 CAPSULE 1 Refill Prov:POPPY SANCHEZ DNP [facility] 11/16/18 Zolpidem Tartrate (AMBIEN) 5 Mg Tablet, 1 TAB PO QHS PRN for INSOMNIA, #30 TAB 1 Refill Prov:POPPY SANCHEZ DNP [facility] 11/09/18 Mupirocin Martir 2% Cream (MUPIROCIN 2% CREAM) 15 Gm Cream..g., 0 TP TID, #1 TUBE Prov:JESSICA REYEZ DO 11/01/18 Ticagrelor (BRILINTA) 90 Mg Tablet, 90 MG PO BID, #180 TAB 1 Refill Prov:POPPY SANCHEZ DNP [facility] 10/20/18 Buspirone Hcl (BUSPIRONE HCL) 30 Mg Tablet, 1 TAB PO BID, #60 TAB 1 Refill Prov:POPPY SANCHEZ DNP [facility] 10/14/18 Promethazine Hcl (PROMETHAZINE HCL) 12.5 Mg Tablet, 1-2 TAB PO Q8H PRN for NAUSEA, #12 TAB 0 Refills Prov:POPPY SANCHEZ DNP [facility] 10/05/18 Apixaban (ELIQUIS) 5 Mg Tablet, 1 TAB PO BID, #60 TAB 5 Refills Prov:POPPY SANCHEZ DNP [facility] 09/28/18 Aripiprazole (ABILIFY) 20 Mg Tablet, 1 TAB PO QDAY, #30 TAB 1 Refill Prov:POPPY SANCHEZ DNP, FNP-BC 09/17/18 Insulin Glargine 100 Un/Ml Pen (LANTUS SOLOSTAR PEN) 100 Unit/1 Ml Insuln.pen, 65 UNIT SQ BID, #1 BOX 3 Refills Prov:POPPY SANCHEZ DNP, FNP-BC 09/17/18 Ranitidine Hcl (RANITIDINE HCL) 150 Mg Capsule, 1 TAB PO BID, #180 CAPSULE 3 Refills Prov:POPPY SANCHEZ DNP, FNP-BC 09/17/18 Lisinopril (LISINOPRIL) 40 Mg Tablet, 1 TAB PO QDAY for 90 Days, #90 TAB 1 Refill Prov:POPPY SANCHEZ DNP, FNP-BC 09/17/18 Esomeprazole Magnesium (NEXIUM) 40 Mg Capsule.dr, 1 CAP PO BID, #180 CAP 3 Refills Prov:POPPY SANCHEZ DNP, FNP-BC 09/17/18 Insulin Lispro 100 Un/Ml Pen (HUMALOG 3 ML PEN) 100 Unit/1 Ml Insuln.pen, 5-8 UNIT SQ TID, #2 DIS.SYR 6 Refills Take per sliding scale. Prov:POPPY SANCHEZ DNP, FNP-BC 09/17/18 Lancets (Blood Lancets) 30 Gauge Each, EA MC EVERY 90 DAYS, #300 4 Refills Prov:POPPY SANCHEZ DNP, FNP-BC 09/17/18 Sumatriptan Succinate (SUMATRIPTAN SUCCINATE) 100 Mg Tablet, 1 TAB PO QDAY PRN for MIGRAINE, #9 TAB 6 Refills Prov:POPPY SANCHEZ DNP, FNP-BC 09/17/18 Sumatriptan Succinate (SUMATRIPTAN SUCCINATE) 6 Mg/0.5 Ml Pen.injctr, 6 MG SQ ONCE PRN for MIGRAINE, #1 BOX 6 Refills May repeat dose x1 after 1 hour, if needed. Do not exceed maximum of 12mg/24h. Prov:POPPY SANCHEZ DNP, FNP-BC 09/17/18 Blood Sugar Diagnostic (FREESTYLE LITE TEST STRIPS) 1 Each Strip, 500 EACH MC 5XD for 90 Days, #500 STRIP 2 Refills Prov:POPPY SANCHEZ DNP, FNP-BC 06/02/18 [place], Insulin Disposable (PEN NEEDLES) 1 Each Dis.needle, BOX MC QDAY, #1 9 Refills Prov:POPPY SANCHEZ DNP, FNP-BC 06/02/18 Albuterol Sulfate 90 Mcg/Act (PROAIR HFA 90 MCG/ACT) 8.5 Gm Hfa.aer.ad, 2 PUFF IH Q4-6H PRN for WHEEZING, #1 INHALER 0 Refills Prov:POPPY SANCHEZ DNP, FNP-BC 04/13/18 Atorvastatin (LIPITOR) 80 Mg Tab, 1 TAB PO QDAY for 90 Days, #90 TAB 1 Refill Prov:POPPY SANCHEZ DNP, FNP-BC 04/13/18 Levothyroxine Sodium (LEVOTHYROXINE SODIUM) 50 Mcg Tablet, 1 TAB PO QDAY, #90 TAB 4 Refills Take along with 200mcg tablet for a total of 250mcg daily. Prov:POPPY SANCHEZ DNP, FNP-BC 03/09/18 Levothyroxine Sodium (LEVOTHYROXINE SODIUM) 200 Mcg Tablet, 200 MCG PO QDAY, #90 TAB 4 Refills Take with 50mcg tablet for a total of 250mcg daily Prov:POPPY SANCHEZ DNP, FNP-BC 03/09/18 Epinephrine (EPIPEN 2-TUCKER) 0.3 Mg/0.3 Ml Pen.injctr, 0.3 MG IM ONCE, #1 CART Prov:POPPY SANCHEZ DNP, FNP-BC 10/14/17 Blood-Glucose Meter (FREESTYLE LITE METER) 1 Each Kit, 1 [facility] MC ONCE, #1 Prov:POPPY SANCHEZ DNP, FNP-BC 08/11/17 Diclofenac Sodium 1% Gel (VOLTAREN 1% GEL) 100 Gm Gel..gram., 1 DEMETRIS TOP QID PRN for PAIN, #1 TUBE 0 Refills Prov:POPPY SANCHEZ DNP, FNP- 01/19/17 Reported Medications Insulin Glargine (LANTUS) 100 Unit/Ml Soln, 65 UNIT SUBQ BID, ML 11/13/17 Discontinued Scripts Amoxicillin/Pot Clav 875-125 Mg Tab (AUGMENTIN 875-125 TABLET) 1 Each Tablet, 1 TAB PO Q12H, #20 TAB 0 Refills Prov:GALE QUEEN APRN-C 12/23/18 Lidocaine HCl VISCOUS 2% (Lidocaine Viscous) 2 % Solution, 15 ML PO Q2H PRN for PAIN, #450 ML 0 Refills Swish and spit 15 ml every 2 hours as needed for throat pain. Prov:POPPY SANCHEZ DNP REHAB CONSULTANT- 10/06/18 Baclofen (BACLOFEN) 10 Mg Tablet, 1 TAB PO TID PRN for MUSCLE SPASMS, #90 TAB 5 Refills Prov:POPPY SANCHEZ DNP [facility]-BC 09/17/18 Prednisone 10 Mg Tab (PREDNISONE 10 MG TAB) 10 Mg Tablet, 10 MG PO QDAY for 6 Days, #9 TAB Take 2 pills by mouth x 3 days, then 1 pill x 3 days. Prov:POPPY SANCHEZ DNP [facility]- 12/17/18 Azithromycin (ZITHROMAX) 250 Mg Tablet, 0 PO QDAY, #6 TAB 0 Refills TAKE 2 TABLETS ON DAY 1 AND 1 TABLET ON DAYS 2-5 Prov:POPPY SANCHEZ DNP [facility]- 12/14/18 Hydrocodone Bit/Acetaminophen (HYDROCODON-ACETAMINOPHEN 5-325) 1 Each Tablet, 1 EACH PO Q4-6H PRN for PAIN, #12 TAKE ONE TABLET BY MOUTH EVERY 4-6 HOURS NEEDED FOR PAIN Prov:RICARDO QUEZADA DO 12/11/18 Oxycodone Hcl/Acetaminophen (PERCOCET 5-325 MG TABLET) 1 Each Tablet, 1 TAB PO Q6H, #20 TAB 0 Refills Prov:POPPY SANCHEZ DNP [facility]- 11/26/18 Prednisone (PREDNISONE) 20 Mg Tablet, 1 TAB PO BID for 5 Days, #10 TAB 0 Refills Prov:POPPY SANCHEZ DNP [facility]- 12/14/18 Allergies: Coded Allergies: Nitrofurantoin Macrocrystal (Verified Allergy, Severe, HIVES, 12/24/18) aspirin (Verified Allergy, Severe, ANAPHYLAXIS, 12/24/18) chlorpromazine (Verified Allergy, Severe, ANAPHYLAXIS, 12/24/18) hydroxyzine (Verified Allergy, Severe, AIRWAY OBSTRUCTION, 12/24/18) varenicline (Verified Allergy, Severe, anxiety, 12/24/18) venom-wasp (Verified Allergy, Severe, ANAPHYLAXIS, 12/24/18) Sulfa (Sulfonamide Antibiotics) (Verified Allergy, Intermediate, HIVES, ) albuterol (Verified Allergy, Intermediate, itching, hives, 12/24/18) cephalexin (Verified Allergy, Intermediate, HIVES, 12/24/18) ciprofloxacin (Verified Allergy, Intermediate, "feels like I'm going inasne", 12/24/18) droperidol (Verified Allergy, Intermediate, DELUSIONS, 12/24/18) Pt states her reaction as, "I become psychotic". latex (Verified Allergy, Intermediate, RASH, SWELLING, 12/24/18) tramadol (Verified Allergy, Mild, rash, 12/24/18) ondansetron (Verified Adverse Reaction, Severe, TACHYCARDIA, 12/24/18) dexamethasone (Verified Adverse Reaction, Intermediate, ITCHING, 12/24/18) haloperidol (Verified Adverse Reaction, Intermediate, "MAKES ME JUMPY", 12/24/18) Uncoded Allergies: Inhaled medication propelant (Allergy, Intermediate, HIVES, 10/07/14) Patient History: Anxiety disorder MOTHER FH: bipolar disorder FATHER BROTHER OR SISTER FH: depression MOTHER FH: diabetes mellitus MOTHER BROTHER OR SISTER FH: skin cancer FATHER FH: thyroid disease BROTHER OR SISTER Hx Smoking: Yes Smoking Status: Former Smoker Exposure to Second Hand Smoke?: Yes Caffeine Intake: Coffee, Tea, Soda Caffeine/Cups Per Day: Weekly Hx Alcohol Use: No Hx Substance Use Disorder: No ("Years ago") Social Drug Use: Former Social Drugs: Marijuana, Prescription Drugs Amount Of Social Drug/s Used: 2 YEARS OF DRUG USE Review of Systems All Systems Reviewed/Normal: Yes, Except as Noted Respiratory: Shortness of Breath, Cough Gastrointestinal: Nausea, Vomiting, Abdominal Pain Exam Vital Signs Vital Signs Date Time Temp Pulse Resp B/P (MAP) Pulse Ox O2 Delivery O2 Flow Rate FiO2 12/24/18 11:23 98.7 92 20 157/95 (115) 92 Nasal Cannula 1.0 General Appearance: Alert, Awake, No Acute Distress, Afebrile Neuro: No Gross deficits Cardiovascular: Regular Rate and Rhythm Respiratory: No Respiratory Distress, Other (bilateral bases diminished) GI: Other (tenderness to palpation to right upper and lower quadrants) : No CVA Tenderness Extremities: Warm, Perfused, Edema (nonpitting edema present bilateral lower extremities) Psych: Alert & Oriented X3, Appropriate Mood & Affect Medical Decision Making Data Points Result Diagram: 12/24/18 0737 12/24/18 1034 Magnesium 1.8 EKG / Imaging EKG Interpretation Ordered to assess QT for Levaquin. Imaging [place] [facility] [place] NAME: Yesy Mccracken : 1970 MR: [id number] V: [id number] EXAM DATE: [id number] ORDERING PHYSICIAN: JESSICA REYEZ TECHNOLOGIST: Location: [facility] Patient: Yesy Mccracken : 1970 Visit/Account:[id number] Date of Sevice: 12/24/2018 CT chest abdomen and pelvis with contrast INDICATION: Hematemesis. Short of breath. Right-sided abdominal pain. COMPARISON: Prior abdomen and pelvis CT 12/05/2018 is reviewed. A prior chest CT 08/10/2018 is reviewed. Technique: Axial CT images are obtained through the chest abdomen and pelvis after administration of 75 mL Isovue-370 IV contrast. Reformatted coronal and sagittal images were reviewed. One of the following dose optimization techniques was utilized in the per formance of this exam: Automated exposure control; adjustment of the mA and/or kV according to the patient's size; or use of an iterative reconstruction technique. Specific details can be referenced in the facility's radiology CT exam operational policy. FINDINGS: CT Chest: There is no axillary adenopathy. A borderline pretracheal node on image 32 measures 10 mm in short axis and is unchanged. No enlarged hilar or mediastinal nodes are identified. No pericardial effusion or pleural effusion. Scattered atherosclerosis is seen within the aortic arch. A stent is seen within the left anterior descending coronary artery. No evidence of hiatal hernia. Examination of the lung windows demonstrates groundglass infiltrates with a jerez lobar distribution. These are most pronounced within the right upper lobe. Areas of septal line thickening are seen. Additional patchy groundglass infiltrates are seen throughout the remaining portions of each lung. In the acute setting, differential would include infectious/inflammatory infiltrate, early pulmonary edema or hemorrhage such as in the setting of underlying vasculitis. Clinical correlation is necessary. Mild degenerative changes are seen to involve the thoracic spine. No compression deformity. CT Abdomen and Pelvis: Liver: No focal parenchymal abnormality of the liver. Biliary: Gallbladder appears unremarkable as well as the intra and extra hepatic biliary system. Pancreas: Normal appearance. Spleen: Normal appearance. Adrenal glands: Unremarkable. Kidneys / retroperitoneum: On the left, there is a tiny nonobstructing midpole stone. There is a simple appearing left midpole cyst. Similar findings were seen on the prior study. Bowel / peritoneum / mesenteries: Moderate volume of stool is seen throughout the colon and rectum. No wall thickening or pericolonic inflammation. Appendix is not clearly seen and may have been previously removed. No small bowel dilatation or evidence of obstruction. No free air. No free fluid. Lymph node assessment: No pathologic adenopathy identified. Pelvic structures: There has been previous hysterectomy. Vessels: Scattered atherosclerotic calcifications seen throughout a nonaneurysmal abdominal aorta and branches. Musculoskeletal / Body wall: No acute or aggressive osseous abnormality. Degenerative changes involve the low lumbar spine. IMPRESSION: 1. Patchy groundglass infiltrates throughout the lungs with a jerez lobar distribution. There are associated areas of septal line thickening. In the acute setting, differential would include an infectious/inflammatory process, early pulmonary edema or areas of pulmonary hemorrhage such as in the setting of an underlying vasculitis. Clinical correlation is necessary. 2. No acute abnormality within the abdomen or pelvis. 3. Stable, borderline enlarged right pretracheal lymph node. 4. Nonobstructing left midpole renal stone. 5. Moderate volume of stool throughout the colon and rectum. Correlate clinically. Report Dictated By: Kane Price at 12/24/2018 8:48 AM Report E-Signed By: Kane Price at 12/24/2018 9:04 AM WSN:[id number] Pre-Admit Course Medical Record Review: Yes Assessment and Plan Problems: (1) Pneumonia Status: Acute Assessment & Plan: She presented with cough, which has been treated as bronchitis as outpatient. She was found to have patchy ground-glass infiltrates throughout the lungs. She was placed on Levaquin in the emergency department. She has been on Clindamycin and Augmentin as an outpatient. Will get EKG to assess QT prior to continuation of antibiotics. (2) Hyperglycemia due to type 2 diabetes mellitus Status: Acute Assessment & Plan: She was found to have elevated anion gap and hyperglycemia upon admission. Repeat BMP shows improving anion gap. Will continue IV hydration, insulin to help lower glucose levels. (3) PUD (peptic ulcer disease) Status: Chronic Assessment & Plan: Continue chronic PPI. Will continue IV Protonix BID. Continue to monitor for hematemesis. (4) Hyperlipidemia Status: Chronic Assessment & Plan: Continue chronic Atorvastatin. (5) HTN (hypertension) Status: Chronic Assessment & Plan: Continue chronic Lisinopril with hold parameters. (6) Bipolar disorder Status: Chronic Assessment & Plan: Continue chronic Buspar and Abilify. (7) Asthma Status: Chronic Assessment & Plan: Continue Duoneb nebulizers. (8) Coronary artery disease Status: Chronic Assessment & Plan: She has history of two stents placed 08/2018. She is currently on Brilinta. Continue. (9) History of DVT (deep vein thrombosis) Status: Resolved Assessment & Plan: History of multiple DVT and PEs. Last DVT 08/2018. She is on treatment with Eliquis. Continue. (10) Hypothyroidism Status: Chronic Assessment & Plan: Continue chronic Levothyroxine. (11) Seizure disorder Status: Chronic Assessment & Plan: Continue chronic Lyrica. Venous Thromboembolism Antithrombotics Is Pt On Any Antithrombotics?: Yes Exam Sepsis Risk: No Definite Risk Problem Qualifiers (1) HTN (hypertension): Hypertension type: essential hypertension Qualified Codes: I10 - Essential (primary) hypertension EMILEE NIETO REHAB CONSULTANT Dec 24, 2018 12:48
[2018-12-24] MEDS: INSULIN HUM LISPRO 100 UN/ML 3 ML VIAL SUBQ PRN ×4 (13:36→20:13)
[2018-12-24] MEDS: PROMETHAZINE 25 MG/ML 1 ML AMP IVP PRN (15:05)
[2018-12-24 16:30] VITALS: BP 155/95
[2018-12-24] MEDS: POTASSIUM CHL 20 MEQ TABCR PO SCH (17:17)
[2018-12-24] MEDS: PIPERACILLIN/TAZO*3.375GM VIAL 3.375 GM in NS(*) 0.9% 100 ML MINI-BAG 100 ML IVPB SCH ×2 (17:17→23:51)
[2018-12-24 18:50] VITALS: BP 152/79
[2018-12-24] MEDS: DOXEPIN HCL 25 MG CAP PO PRN (20:04)
[2018-12-24] MEDS ORDERED: POTASSIUM CHL 10 MEQ TABCR PO ONE ×2 (20:45→23:30)
[2018-12-24] MEDS ORDERED: DOXYCYCLINE HYCL 100 MG VIAL 100 MG in NS(*) 0.9% 250 ML BAG 250 ML IV SCH (21:00)
[2018-12-24] MEDS ORDERED: TICAGRELOR 90 MG TABLET PO SCH (21:00)
[2018-12-24] MEDS: DOXYCYCLINE HYCL 100 MG VIAL 100 MG in NS(*) 0.9% 250 ML BAG 250 ML IV SCH (21:26)
[2018-12-24] MEDS: PRAZOSIN HCL 5 MG CAP PO SCH (21:36)
[2018-12-24] MEDS: APIXABAN 2.5 MG TABLET PO SCH (21:36)
[2018-12-24] MEDS: PREGABALIN 150 MG CAPSULE PO SCH (21:36)
[2018-12-24] MEDS: busPIRone HCL 5 MG TAB PO SCH (21:37)
[2018-12-24] MEDS ORDERED: INS GLAR 100 UN/ML (ER ONLY) 100 UNIT/ML SUBQ ONE (21:55)
[2018-12-24] MEDS: CLOPIDOGREL BISULFATE 75MG TAB PO SCH (22:35)
[2018-12-24 23:21] VITALS: BP 111/61
[2018-12-25 03:09] VITALS: BP 114/73
[2018-12-25 05:41] LABS: PLATELET COUNT, AUTOMATED 165 K/uL (150-450)
[2018-12-25] MEDS: PIPERACILLIN/TAZO*3.375GM VIAL 3.375 GM in NS(*) 0.9% 100 ML MINI-BAG 100 ML IVPB SCH ×4 (05:43→23:59)
[2018-12-25] MEDS: LEVOTHYROXINE SOD 0.05 MG TAB PO SCH (05:45)
[2018-12-25] MEDS: LEVOTHYROXINE SOD 0.1 MG TAB PO SCH (05:45)
[2018-12-25 06:50] VITALS: BP 169/83
[2018-12-25] MEDS: KCL 2 MEQ/ML 20 MEQ/10 ML VIAL 40 MEQ in NS(*) 0.9% 1000 ML BAG 1,000 ML IV SCH (07:43)
[2018-12-25] MEDS: INSULIN HUM LISPRO 100 UN/ML 3 ML VIAL SUBQ PRN ×4 (07:43→20:45)
[2018-12-25] MEDS: POTASSIUM CHL 20 MEQ TABCR PO SCH ×2 (08:49→16:54)
[2018-12-25] MEDS: ATORVASTATIN 40 MG TAB PO SCH (08:51)
[2018-12-25] MEDS: LISINOPRIL 20 MG TAB PO SCH (08:52)
[2018-12-25] MEDS: PREGABALIN 150 MG CAPSULE PO SCH ×2 (08:52→20:27)
[2018-12-25] MEDS: APIXABAN 2.5 MG TABLET PO SCH ×3 (08:52→20:27)
[2018-12-25] MEDS: PANTOPRAZOLE SOD 40 MG IV VIAL IVP SCH ×2 (08:53→20:28)
[2018-12-25] MEDS: ARIPiprazole 10 MG TAB PO SCH (08:53)
[2018-12-25] MEDS: busPIRone HCL 5 MG TAB PO SCH ×2 (08:53→20:27)
[2018-12-25] MEDS: DOXYCYCLINE HYCL 100 MG VIAL 100 MG in NS(*) 0.9% 250 ML BAG 250 ML IV SCH ×2 (09:00→20:46)
[2018-12-25] MEDS: INSULIN GLARGINE 100 U/ML 3 ML PEN SUBQ SCH ×2 (09:00→20:45)
[2018-12-25] MEDS ORDERED: LEVOFLOXACIN 750 MG TAB PO SCH (10:00)
--- NOTE | 2018-12-25 10:22 | Hospitalist Progress Note ---
Subjective Progress Notes Subjective She reports improvement in vomiting. She feels her cough has become more productive today. Patient Complains of: Cardiovascular: No: Chest Pain Respiratory: Cough; No: Shortness of Breath Physical Exam Vital Signs Date Time Temp Pulse Resp B/P (MAP) Pulse Ox O2 Delivery O2 Flow Rate FiO2 12/25/18 07:50 93 Nasal Cannula 3.0 12/25/18 06:50 97.3 104 15 169/83 (111) Intake and Output 12/25/18 01:03 Intake Total 3940 ml Balance 3940 ml Intake Oral 1700 ml IV Total 2240 ml # Voids 1 General Appearance: Alert, Awake, No Acute Distress, Afebrile Neuro: No Gross deficits Cardiovascular: Regular Rate and Rhythm Respiratory: No Respiratory Distress, Other (crackles noted to bilateral lung bases) Extremities: Warm, Perfused; No Edema Psych: Alert & Oriented X3, Appropriate Mood & Affect Result Diagram: 12/25/1852112/25/18521 Assessment and Plan Problems: (1) Pneumonia Status: Acute Assessment & Plan: She presented with cough, which has been treated as bronchitis as outpatient. She was found to have patchy ground-glass infiltrates throughout the lungs. She was placed on Levaquin in the emergency department, but was discontinued secondary to prolonged QTc. She has been on Clindamycin and Augmentin as an outpatient. She will be placed on IV Zosyn and Doxycycline. She will be placed on scheduled Duoneb treatments and flutter therapy. (2) Hyperglycemia due to type 2 diabetes mellitus Status: Acute Assessment & Plan: She was found to have elevated anion gap and hyperglycemia upon admission. Repeat BMP shows improved anion gap. She received IV hydration, insulin to help lower glucose levels. Continue chronic Lantus and SS insulin. (3) PUD (peptic ulcer disease) Status: Chronic Assessment & Plan: Continue chronic PPI. Will continue IV Protonix BID. Continue to monitor for hematemesis. (4) Hyperlipidemia Status: Chronic Assessment & Plan: Continue chronic Atorvastatin. (5) HTN (hypertension) Status: Chronic Assessment & Plan: Continue chronic Lisinopril with hold parameters. (6) Bipolar disorder Status: Chronic Assessment & Plan: Continue chronic Buspar and Abilify. (7) Asthma Status: Chronic Assessment & Plan: Continue Duoneb nebulizers. (8) Coronary artery disease Status: Chronic Assessment & Plan: She has history of two stents placed 08/2018. She is currently on Brilinta, but was placed on Plavix during admission secondary to Brilinta not on hospital formulary. (9) History of DVT (deep vein thrombosis) Status: Resolved Assessment & Plan: History of multiple DVT and PEs. Last DVT 08/2018. She is on treatment with Eliquis. Continue. (10) Hypothyroidism Status: Chronic Assessment & Plan: Continue chronic Levothyroxine. (11) Seizure disorder Status: Chronic Assessment & Plan: Continue chronic Lyrica. Exam Sepsis Risk: Sepsis Risk Problem Qualifiers (1) HTN (hypertension): Hypertension type: essential hypertension Qualified Codes: I10 - Essential (primary) hypertension EMILEE NIETO [employer] Dec 25, 2018 10:22
--- NOTE | 2018-12-25 10:35 | Medical Nutrition Therapy ---
Nutrition Anthropometrics Height (Inches): 62.00 Height (Calculated Centimeters: 157.729833 Weight (Pounds): 209 Weight (Calculated Kilograms): 95.141 Evan Nutrition Score: Adequate Evan Nutrition Risk Score: 21 Dietary Referral Nutrition Risk Factors: Nutrition Risk Comment: pt. states that she has lost 25 lbs. in the last 30 days Physical Findings Physical Appearance: Obese BMI 30-39 Skin Appearance Skin Appearance: Edema Edema Location Modifier: Both Edema Location: Lower Extremity Type of Edema: Degree of Edema: Gastrointestinal Symptoms GI Symtoms: Nausea Tube Present: Bowel Sounds: Recent Bowel Pattern: Diarrhea Stool Characteristics: Nutritional Diagnosis Nutritional Risk Acuity 2: Blood Glucose > 300mg/dl Nutritional Risk Acuity 3: Weight Loss Past Medical History: HX of narcotic abuse,Thyroid cancer, T2DM, asthma, GERD, bipolar disorder,anxiety, Seizure Disorder, hyperlipidemia, migranes, hyperglycemia, DVT, CAD, HTN, PUD, depression, hypothyroidism Nutritional Acuity: 2-Moderate Nutrition Diagnosis: Increased Nutrient Needs Nutrition Etiology: Physiological Causes Nutrition Problem/Etiology/Sym: Increased nutrient needs as related to physiological causes as evidenced by pneumonia and recent self-reported wt loss. Energy Requirement: 2013 (m st jez x 1.1 x1.2) Protein Requirement: 95 (1 g protein/kg) Fluid Requirement: 2013 (1mL/1kcal) Diet Type: Diabetic Nutrition Intervention: Cont diet as ordered, Encourage intake, Check glucose Additional Diet Restrictions: avoid: [place], garlic, ginseng, and grapefruit/related citrus Nutrition Monitoring & Eval Nutrition Goals: Eat 50-100% Meal Nutrition Follow-Up: Fair Intake RD Patient Assessment Time: [address] Assessment Type: RD Assessment Follow Up Date: Dec 27, 2018 Nutritional Comment: Pt admitted with abdominal pain, cough, and hematemesis. Dx with pneumonia. Pt has extensive medical hx. Pt reports recent wt loss of 30# and reports experiencing N/V. Currently on ADA diet with 50-100% intake. Pt medications include insulin and apixaban (avoid: [place], garlic, ginseng, and grapefruit/related citrus). Pt has non-pitting edema in BLE. Random gluose of 447 and whole blood glucose of 179-273 are elevated. Urinary ketones of 20 are elevated. Monitor for adequate intake and blood glucose levels. -SALOMÓN COY Dec 25, 2018 10:35
[2018-12-25] MEDS: ALBUTEROL/IPRATROPIUM 3 ML NEB NEB SCH ×2 (12:07→18:11)
[2018-12-25 14:43] VITALS: BP 138/72
[2018-12-25] MEDS: BACLOFEN 10 MG TAB PO SCH ×2 (14:43→20:27)
--- NOTE | 2018-12-25 15:33 | EKG ---
FACILITY: [facility] PATIENT NAME: DON LOUIS : [id number] MR: [id number] V: [id number] EXAM DATE: ORDERING PHYSICIAN: EMILEE NIETO TECHNOLOGIST: Test Reason : Blood Pressure : / mmHG Vent. Rate : 097 BPM Atrial Rate : 097 BPM P-R Int : 112 ms QRS Dur : 086 ms QT Int : 388 ms P-R-T Axes : 004 000 013 degrees QTc Int : 492 ms Normal sinus rhythm Minimal voltage criteria for LVH, may be normal variant Prolonged QT Abnormal ECG When compared with ECG of 13-SEP-2018 16:44, T wave inversion now evident in Inferior leads Confirmed by ANDER CASTAÑEDA ([id number]) on 12/25/2018 4:12:21 PM Referred By: Confirmed By:ANDER CASTAÑEDA
[2018-12-25 20:09] VITALS: BP 123/66
[2018-12-25] MEDS: CLOPIDOGREL BISULFATE 75MG TAB PO SCH (20:27)
[2018-12-25] MEDS: PRAZOSIN HCL 5 MG CAP PO SCH (20:27)
[2018-12-25] MEDS: DOXEPIN HCL 25 MG CAP PO PRN (20:28)
[2018-12-25] MEDS ORDERED: ZOLPIDEM TARTRATE 10 MG TAB PO ONE (21:15)
[2018-12-25 22:17] VITALS: BP 144/85
[2018-12-26 03:21] VITALS: BP 159/88
[2018-12-26] MEDS: PIPERACILLIN/TAZO*3.375GM VIAL 3.375 GM in NS(*) 0.9% 100 ML MINI-BAG 100 ML IVPB SCH ×2 (06:05→12:10)
[2018-12-26] MEDS: LEVOTHYROXINE SOD 0.1 MG TAB PO SCH (06:06)
[2018-12-26] MEDS: LEVOTHYROXINE SOD 0.05 MG TAB PO SCH (06:06)
[2018-12-26] MEDS: PROMETHAZINE 25 MG/ML 1 ML AMP IVP PRN (07:29)
[2018-12-26] MEDS: POTASSIUM CHL 20 MEQ TABCR PO SCH (08:00)
[2018-12-26 08:47] VITALS: BP 108/60
[2018-12-26] MEDS: INSULIN HUM LISPRO 100 UN/ML 3 ML VIAL SUBQ PRN ×4 (08:55→21:22)
[2018-12-26] MEDS: PANTOPRAZOLE SOD 40 MG IV VIAL IVP SCH (08:56)
[2018-12-26] MEDS: INSULIN GLARGINE 100 U/ML 3 ML PEN SUBQ SCH ×2 (08:57→21:23)
[2018-12-26] MEDS: ALBUTEROL/IPRATROPIUM 3 ML NEB NEB SCH (09:00)
[2018-12-26] MEDS: DOXYCYCLINE HYCL 100 MG VIAL 100 MG in NS(*) 0.9% 250 ML BAG 250 ML IV SCH (09:03)
[2018-12-26] MEDS: BACLOFEN 10 MG TAB PO SCH ×3 (09:06→21:26)
[2018-12-26] MEDS: busPIRone HCL 5 MG TAB PO SCH ×2 (09:06→21:27)
[2018-12-26] MEDS: PREGABALIN 150 MG CAPSULE PO SCH ×2 (09:07→21:25)
[2018-12-26] MEDS: LISINOPRIL 20 MG TAB PO SCH (09:07)
[2018-12-26] MEDS: ATORVASTATIN 40 MG TAB PO SCH (09:07)
[2018-12-26] MEDS: APIXABAN 2.5 MG TABLET PO SCH ×2 (09:07→21:26)
[2018-12-26] MEDS: ARIPiprazole 10 MG TAB PO SCH (09:08)
[2018-12-26] MEDS: PANTOPRAZOLE SOD 40 MG TABEC PO SCH (09:15)
[2018-12-26] MEDS: SALMETEROL/FLUTIC 250/50 1 INH INH SCH ×2 (09:16→17:40)
--- NOTE | 2018-12-26 09:38 | Hospitalist Progress Note ---
Subjective Progress Notes Subjective She was admitted with pneumonia and hyperglycemia. Her glucose levels have continued to be elevated. She still has a cough. Patient Complains of: Cardiovascular: No: Chest Pain Respiratory: Cough; No: Shortness of Breath Physical Exam Vital Signs Date Time Temp Pulse Resp B/P (MAP) Pulse Ox O2 Delivery O2 Flow Rate FiO2 12/26/18 08:47 97.9 106 20 108/60 (76) 88 Nasal Cannula 2.0 Intake and Output 12/26/18 01:03 Intake Total 1260 ml Balance 1260 ml Intake Oral 1060 ml IV Total 200 ml # Voids 3 General Appearance: Alert, Awake, No Acute Distress, Afebrile Neuro: No Gross deficits Cardiovascular: Regular Rate and Rhythm Respiratory: No Respiratory Distress, Other (cough present throughout exam, no wheezes heard, some crackles present to bilateral bases) GI: Soft and Non-Tender Psych: Alert & Oriented X3, Appropriate Mood & Affect Result Diagram: 12/25/1852112/25/18521 Assessment and Plan Problems: (1) Pneumonia Status: Acute Assessment & Plan: She presented with cough, which has been treated as bronchitis as outpatient. She was found to have patchy ground-glass infiltrates throughout the lungs. She was placed on Levaquin in the emergency department, but was discontinued secondary to prolonged QTc. She has been on Clindamycin and Augmentin as an outpatient. She will be placed on IV Zosyn and Doxycycline. She was placed on nebulizer treatments and flutter therapy. Will start Advair today to see if improvement in lung symptoms. (2) Hyperglycemia due to type 2 diabetes mellitus Status: Acute Assessment & Plan: She was found to have elevated anion gap and hyperglycemia upon admission. Repeat BMP shows improved anion gap. She received IV hydration, insulin to help lower glucose levels. Continue chronic Lantus and SS insulin. Will increase sliding scale insulin #3. (3) PUD (peptic ulcer disease) Status: Chronic Assessment & Plan: Continue chronic PPI. She was initially placed on IV Prot trino BID, but will decrease to oral Protonix once daily. Continue to monitor for hematemesis. (4) Hyperlipidemia Status: Chronic Assessment & Plan: Continue chronic Atorvastatin. (5) HTN (hypertension) Status: Chronic Assessment & Plan: Continue chronic Lisinopril with hold parameters. (6) Bipolar disorder Status: Chronic Assessment & Plan: Continue chronic Buspar and Abilify. (7) Asthma Status: Chronic Assessment & Plan: Continue nebulizers. Start Advair. (8) Coronary artery disease Status: Chronic Assessment & Plan: She has history of two stents placed 08/2018. She is currently on Brilinta, but was placed on Plavix during admission secondary to Brilinta not on hospital formulary. (9) History of DVT (deep vein thrombosis) Status: Resolved Assessment & Plan: History of multiple DVT and PEs. Last DVT 08/2018. She is on treatment with Eliquis. Continue. (10) Hypothyroidism Status: Chronic Assessment & Plan: Continue chronic Levothyroxine. (11) Seizure disorder Status: Chronic Assessment & Plan: Continue chronic Lyrica. Exam Sepsis Risk: No Definite Risk Problem Qualifiers (1) HTN (hypertension): Hypertension type: essential hypertension Qualified Codes: I10 - Essential (primary) hypertension EMILEE NIETO [employer] Dec 26, 2018 09:38
[2018-12-26 09:56] LABS: PLATELET COUNT, AUTOMATED 155 K/uL (150-450)
[2018-12-26] MEDS ORDERED: LEVALBUTEROL 1.25 MG/3 ML NEB NEB SCH (10:00)
[2018-12-26] MEDS ORDERED: LEVALBUTEROL 1.25 MG/3 ML NEB NEB PRN (10:20)
[2018-12-26] MEDS ORDERED: NS(*) 0.9% 250 ML BAG 250 ML IVPB PRN (10:35)
--- NOTE | 2018-12-26 10:37 | Antimicrobial Stewardship ---
Antimicrobial Time Out Antimicrobial Stewardship MD Service: Hospitalist Indications: CAP Antimicrobial Used Outpatinet tx with Clindamycin/Augmentin and one dose of Levaquin in the ER. Doxycycline and Zosyn started on 12/24. Culture Results: N/A Comments Comments Treat for at least 5 days. EVELINA ARMAS Dec 26, 2018 10:37
[2018-12-26] MEDS ORDERED: INSULIN GLARGINE 100 U/ML 3 ML PEN SUBQ ONE (11:35)
[2018-12-26 12:00] VITALS: BP 147/79
[2018-12-26] MEDS ORDERED: PROMETHAZINE HCL 25 MG TAB PO PRN (14:40)
[2018-12-26 15:45] VITALS: BP 155/92
[2018-12-26] MEDS: AMOX/CLAV 875 MG TAB PO SCH (17:06)
[2018-12-26] MEDS: DOXEPIN HCL 25 MG CAP PO PRN (19:35)
[2018-12-26] MEDS: DOXYCYCLINE HYCL 100 MG TAB PO SCH (21:25)
[2018-12-26] MEDS: CLOPIDOGREL BISULFATE 75MG TAB PO SCH (21:26)
[2018-12-26] MEDS: PRAZOSIN HCL 5 MG CAP PO SCH (21:27)
[2018-12-26 21:31] VITALS: BP 168/91
[2018-12-26] MEDS ORDERED: ZOLPIDEM TARTRATE 5 MG TAB PO ONE (21:40)
[2018-12-26 23:09] VITALS: BP 143/81
[2018-12-27 03:23] VITALS: BP 173/86
[2018-12-27] MEDS: LEVOTHYROXINE SOD 0.05 MG TAB PO SCH (05:37)
[2018-12-27] MEDS: LEVOTHYROXINE SOD 0.1 MG TAB PO SCH (05:37)
[2018-12-27] MEDS: SALMETEROL/FLUTIC 250/50 1 INH INH SCH (05:46)
[2018-12-27 06:14] LABS: PLATELET COUNT, AUTOMATED 162 K/uL (150-450)
[2018-12-27 06:49] VITALS: BP 168/101
[2018-12-27] MEDS: INSULIN HUM LISPRO 100 UN/ML 3 ML VIAL SUBQ PRN (07:58)
[2018-12-27] MEDS: PREGABALIN 150 MG CAPSULE PO SCH (08:00)
[2018-12-27] MEDS: AMOX/CLAV 875 MG TAB PO SCH (08:00)
[2018-12-27] MEDS: DOXYCYCLINE HYCL 100 MG TAB PO SCH (08:00)
[2018-12-27] MEDS: BACLOFEN 10 MG TAB PO SCH (08:00)
[2018-12-27] MEDS: busPIRone HCL 5 MG TAB PO SCH (08:01)
[2018-12-27] MEDS: LISINOPRIL 20 MG TAB PO SCH (08:01)
[2018-12-27] MEDS: APIXABAN 2.5 MG TABLET PO SCH (08:01)
[2018-12-27] MEDS: ATORVASTATIN 40 MG TAB PO SCH (08:01)
[2018-12-27] MEDS: PANTOPRAZOLE SOD 40 MG TABEC PO SCH (08:02)
[2018-12-27] MEDS: ARIPiprazole 10 MG TAB PO SCH (08:07)
[2018-12-27] MEDS ORDERED: POTASSIUM CHL 20 MEQ TABCR PO ONE (09:00)
[2018-12-27] MEDS: INSULIN GLARGINE 100 U/ML 3 ML PEN SUBQ SCH (09:15)
[2018-12-27] MEDS ORDERED: FLUC150T40 PO (09:19)
[2018-12-27] MEDS ORDERED: INSU100I30 SQ (09:19)
[2018-12-27] MEDS ORDERED: FLUT1DIS28 INH (09:19)
[2018-12-27] MEDS ORDERED: AMOX1TAB9 PO (09:19)
[2018-12-27] MEDS ORDERED: DOXY-179 PO (09:19)
--- NOTE | 2018-12-27 09:25 | Hospitalist Depart ---
Discharge Summary Reason for Hosp/Final Diag: (1) Pneumonia Status: Acute Hospital Course & Plan: She presented with cough, which has been treated as bronchitis as outpatient. She was found to have patchy ground-glass infiltrates throughout the lungs. She was placed on Levaquin in the emergency department, but was discontinued secondary to prolonged QTc. She has been on Clindamycin and Augmentin as an outpatient. She was placed on IV Zosyn and Doxycycline and now transitioned to oral doxycycline and Augmentin. She was placed on prn nebulizer treatments and flutter therapy. She will continue Advair at home as she felt it helped her lung symptoms, she will follow up with PCP in one week. (2) Hyperglycemia due to type 2 diabetes mellitus Status: Acute Hospital Course & Plan: She was found to have elevated anion gap and hyperglycemia upon admission. Repeat BMP shows improved anion gap. She received IV hydration, insulin to help lower glucose levels. Continue chronic Lantus and SS insulin. She was placed on sliding scale insulin #3 during admission. Her Lantus was increased to 70units BID. (3) PUD (peptic ulcer disease) Status: Chronic Hospital Course & Plan: Continue chronic PPI. She was initially placed on IV Protonix BID, but will decrease to oral Protonix once daily. She had no episodes of hematemesis during admission. (4) Hyperlipidemia Status: Chronic Hospital Course & Plan: Continue chronic Atorvastatin. (5) HTN (hypertension) Status: Chronic Hospital Course & Plan: Continue chronic Lisinopril with hold parameters. (6) Bipolar disorder Status: Chronic Hospital Course & Plan: Continue chronic Buspar and Abilify. (7) Asthma Status: Chronic Hospital Course & Plan: Continue nebulizers. Start Advair. (8) Coronary artery disease Status: Chronic Hospital Course & Plan: She has history of two stents placed 08/2018. She is currently on Brilinta, but was placed on Plavix during admission secondary to Brilinta not on hospital formulary. (9) History of DVT (deep vein thrombosis) Status: Resolved Hospital Course & Plan: History of multiple DVT and PEs. Last DVT 08/2018. She is on treatment with Eliquis. Continue. (10) Hypothyroidism Status: Chronic Hospital Course & Plan: Continue chronic Levothyroxine. (11) Seizure disorder Status: Chronic Hospital Course & Plan: Continue chronic Lyrica. Departure Latest Vital Signs Vital Signs 12/27/18 06:49 Temp 98.2 Pulse 107 Resp 16 B/P (MAP) 168/101 (123) Pulse Ox 93 O2 Delivery Oxy Mask O2 Flow Rate 2.0 Weight (Pounds): 209 Weight (Ounces): 12.0 Result Diagram: 12/27/1855712/27/18557 Condition: Improved Discharge: Home, Self Care Discharge Instructions Home Meds Active Scripts Fluconazole (DIFLUCAN) 150 Mg Tablet, 150 MG PO QDAY, #2 TAB Take one tablet now, then repeat another tablet in 3 days Prov:EMILEE NIETO [facility] 12/27/18 Fluticasone/Salmeterol (ADVAIR 250-50 DISKUS) 1 Each Disk.w.dev, 1 PUFF INH BIDR, #1 INH Prov:EMILEE NIETO [facility] 12/27/18 Doxycycline Hyclate (DOXYCYCLINE HYCLATE) 100 Mg Tablet, 100 MG PO BID for 5 Days, #10 TAB Prov:EMILEE NIETO [facility] 12/27/18 Amoxicillin/Potassium Clav (AMOX TR-K CLV 875-125 MG TAB) 1 Each Tablet, 875 MG PO BIDBS for 5 Days, #10 TAB Prov:EMILEE NIETO [facility] 12/27/18 Insulin Glargine 100 Un/Ml Pen (LANTUS SOLOSTAR PEN) 100 Unit/1 Ml Insuln.pen, 70 UNIT SQ BID, #1 BOX 0 Refills Prov:EMILEE NIETO [facility] 12/27/18 Fluticasone Propionate (Flonase Allergy Relief) 9.[address]susp, 2 EA IH DAILY , #1 BOTTLE 0 Refills Prov:GALE QUEEN APRNP-C 12/23/18 Guaifenesin/Codeine Phosphate (Codeine-Guaifen 10-100 mg/5 ml) 120 Ml Liquid, 10 ML PO Q6H PRN for COUGH, #120 ML 0 Refills Prov:GALE QUEEN APRN [employer]-C 12/23/18 Pregabalin (LYRICA) 150 Mg Capsule, 1 TAB PO BID, #60 CAPSULE 0 Refills Prov:POPPY SANCHEZ DNP, [employer]-BC 12/21/18 Benzonatate (BENZONATATE) 200 Mg Capsule, 1 CAP PO TID PRN for cough, #20 CAP 0 Refills Prov:POPPY SANCHEZ DNP [facility] 12/17/18 Doxepin Hcl (DOXEPIN HCL) 25 Mg Capsule, 2 CAP PO BID PRN for ANXIETY, #120 CAPSULE 0 [facility]ills [facility] 12/06/18 Promethazine HCl (Phenergan) 25 Mg Supp.rect, 1 SUPP.RECT MI Q8-12H PRN for NAUSEA/VOMITING, #20 SUPP.RECT Prov:REYEZJESSICA Sander DO 12/05/18 Prazosin Hcl (PRAZOSIN HCL) 5 Mg Capsule, 1 CAP PO QHS, #30 CAPSULE 1 Refill Prov:POPPY SANCHEZ DNP [facility] 11/16/18 Zolpidem Tartrate (AMBIEN) 5 Mg Tablet, 1 TAB PO QHS PRN for INSOMNIA, #30 TAB 1 Refill Prov:POPPY SANCHEZ DNP [facility] 11/09/18 Mupirocin Martir 2% Cream (MUPIROCIN 2% CREAM) 15 Gm Cream..g., 0 TP TID, #1 TUBE Prov:REYEZ,JESSICA Sander DO 11/01/18 Ticagrelor (BRILINTA) 90 Mg Tablet, 90 MG PO BID, #180 TAB 1 Refill Prov:POPPY SANCHEZ DNP [facility] 10/20/18 Buspirone Hcl (BUSPIRONE HCL) 30 Mg Tablet, 1 TAB PO BID, #60 TAB 1 Refill Prov:POPPY SANCHEZ DNP [facility] 10/14/18 Promethazine Hcl (PROMETHAZINE HCL) 12.5 Mg Tablet, 1-2 TAB PO Q8H PRN for NAUSEA, #12 TAB 0 Refills Prov:POPPY SANCHEZ DNP [facility] 10/05/18 Apixaban (ELIQUIS) 5 Mg Tablet, 1 TAB PO BID, #60 TAB 5 Refills Prov[facility] 09/28/18 Aripiprazole (ABILIFY) 20 Mg Tablet, 1 TAB PO QDAY, #30 TAB 1 Refill Prov:POPPY SANCHEZ SARAH Carty DNP 09/17/18 Ranitidine Hcl (RANITIDINE HCL) 150 Mg Capsule, 1 TAB PO BID, #180 CAPSULE 3 Refills Prov:POPPY SANCHEZ SARAH CORNELL 09/17/18 Lisinopril (LISINOPRIL) 40 Mg Tablet, 1 TAB PO QDAY for 90 Days, #90 TAB 1 Refill Prov:LAURA,POPPYSARAH THOMPSON DNP 09/17/18 Esomeprazole Magnesium (NEXIUM) 40 Mg Capsule.dr, 1 CAP PO BID, #180 CAP 3 Refills Prov:LAURASHUBHAMPOPPYSARAH THOMPSON DNP 09/17/18 Insulin Lispro 100 Un/Ml Pen (HUMALOG 3 ML PEN) 100 Unit/1 Ml Insuln.pen, 5-8 UNIT SQ TID, #2 DIS.SYR 6 Refills Take per sliding scale. Prov:POPPY SANCHEZ DNP, FNP-BC 09/17/18 Lancets (Blood Lancets) 30 Gauge Each, EA MC EVERY 90 DAYS, #300 4 Refills Prov:SHUBHAM SANCHEZSEA SARAH Carty DNP 09/17/18 Sumatriptan Succinate (SUMATRIPTAN SUCCINATE) 100 Mg Tablet, 1 TAB PO QDAY PRN for MIGRAINE, #9 TAB 6 Refills Prov:POPPY SANCHEZ SARAH Carty DNP 09/17/18 Sumatriptan Succinate (SUMATRIPTAN SUCCINATE) 6 Mg/0.5 Ml Pen.injctr, 6 MG SQ ONCE PRN for MIGRAINE, #1 BOX 6 Refills May repeat dose x1 after 1 hour, if needed. Do not exceed maximum of 12mg/24h. Prov:POPPY SANCHEZ DNP, FNP-BC 09/17/18 Blood Sugar Diagnostic (FREESTYLE LITE TEST STRIPS) 1 Each Strip, 500 EACH MC 5XD for 90 Days, #500 STRIP 2 Refills Prov:LAURAPOPPY CABEZAS DNP, FNP-BC 06/02/18 [place], Insulin Disposable (PEN NEEDLES) 1 Each Dis.needle, BOX MC QDAY, #1 9 Refills Prov:POPPY SANCHEZ DNP, FNP-BC 06/02/18 Albuterol Sulfate 90 Mcg/Act (PROAIR HFA 90 MCG/ACT) 8.5 Gm Hfa.aer.ad, 2 PUFF IH Q4-6H PRN for WHEEZING, #1 INHALER 0 Refills Prov:POPPY SANCHEZ DNP, FNP-BC 04/13/18 Atorvastatin (LIPITOR) 80 Mg Tab, 1 TAB PO QDAY for 90 Days, #90 TAB 1 Refill Prov:POPPY SANCHEZ DNP, FNP-BC 04/13/18 Levothyroxine Sodium (LEVOTHYROXINE SODIUM) 50 Mcg Tablet, 1 TAB PO QDAY, #90 TAB 4 Refills Take along with 200mcg tablet for a total of 250mcg daily. Prov:POPPY SANCHEZ DNP, FNP-BC 03/09/18 Levothyroxine Sodium (LEVOTHYROXINE SODIUM) 200 Mcg Tablet, 200 MCG PO QDAY, #90 TAB 4 Refills Take with 50mcg tablet for a total of 250mcg daily Prov:POPPY SANCHEZ DNP, FNP-BC 03/09/18 Epinephrine (EPIPEN 2-TUCKER) 0.3 Mg/0.3 Ml Pen.injctr, 0.3 MG IM ONCE, #1 CART Prov:POPPY SANCHEZ DNP, FNP-BC 10/14/17 Blood-Glucose Meter (FREESTYLE LITE METER) 1 Each Kit, 1 [facility] MC ONCE, #1 Prov:POPPY SANCHEZ DNP, FNP-BC 08/11/17 Diclofenac Sodium 1% Gel (VOLTAREN 1% GEL) 100 Gm Gel..gram., 1 DEMETRIS TOP QID PRN for PAIN, #1 TUBE 0 Refills Prov:POPPY SANCHEZ DNP, FNP-BC 01/19/17 Discontinued Reported Medications Insulin Glargine (LANTUS) 100 Unit/Ml Soln, 65 UNIT SUBQ BID, ML 11/13/17 Discontinued Scripts Ipratropium/Albuterol Sulfate (IPRAT-ALBUT 0.5-3(2.5) MG/3 ML) 3 Ml Ampul.neb, 3 ML IH 2-3XD PRN for WHEEZING, #1 BOX 0 Refills Prov:POPPY SANCHEZ DNP, FNP-BC 12/14/18 Amoxicillin/Pot Clav 875-125 Mg Tab (AUGMENTIN 875-125 TABLET) 1 Each Tablet, 1 TAB PO Q12H, #20 TAB 0 Refills Prov:GALE QUEEN APRNP-C 12/23/18 Lidocaine HCl VISCOUS 2% (Lidocaine Viscous) 2 % Solution, 15 ML PO Q2H PRN for PAIN, #450 ML 0 Refills Swish and spit 15 ml every 2 hours as needed for throat pain. Prov:POPPY SANCHEZ DNP [facility]- 10/06/18 Baclofen (BACLOFEN) 10 Mg Tablet, 1 TAB PO TID PRN for MUSCLE SPASMS, #90 TAB 5 Refills Prov:POPPY SANCHEZ DNP, FNP-BC 09/17/18 Prednisone 10 Mg Tab (PREDNISONE 10 MG TAB) 10 Mg Tablet, 10 MG PO QDAY for 6 Days, #9 TAB Take 2 pills by mouth x 3 days, then 1 pill x 3 days. Prov:POPPY SANCHEZ DNP [employer]- 12/17/18 Azithromycin (ZITHROMAX) 250 Mg Tablet, 0 PO QDAY, #6 TAB 0 Refills TAKE 2 TABLETS ON DAY 1 AND 1 TABLET ON DAYS 2-5 Prov:POPPY SANCHEZ DNP [facility]-BC 12/14/18 Hydrocodone Bit/Acetaminophen (HYDROCODON-ACETAMINOPHEN 5-325) 1 Each Tablet, 1 EACH PO Q4-6H PRN for PAIN, #12 TAKE ONE TABLET BY MOUTH EVERY 4-6 HOURS NEEDED FOR PAIN Prov:RICARDO QUEZADA DO 12/11/18 Oxycodone Hcl/Acetaminophen (PERCOCET 5-325 MG TABLET) 1 Each Tablet, 1 TAB PO Q6H, #20 TAB 0 Refills Prov:POPPY SANCHEZ DNP [employer] 11/26/18 Diet: Diabetic Activity: As Tolerated Special Instructions: Follow up with Primary Care Provider in one week. Take Advair one puff twice daily. Take Augmentin and Doxycycline antibiotics until gone. Continue to monitor glucose levels. Follow a diabetic diet. Copies to: POPPY SANCHEZ DNP, [facility]- ; Venous Thromboembolism Antithrombotics Is Pt On Any Antithrombotics?: Yes Problem Qualifiers (1) HTN (hypertension): Hypertension type: essential hypertension Qualified Codes: I10 - Essential (primary) hypertension EMILEE NIETO [facility] Dec 27, 2018 09:25
--- NOTE | 2018-12-27 12:51 | Medical Nutrition Therapy ---
Nutrition Anthropometrics Height (Inches): 62.00 Height (Calculated Centimeters: 157.945202 Weight (Pounds): 209 Weight (Calculated Kilograms): 95.141 BMI: 38.4 Evan Nutrition Score: Adequate Evan Nutrition Risk Score: 20 Dietary Referral Nutrition Risk Factors: Nutrition Risk Comment: pt. states that she has lost 25 lbs. in the last 30 days Physical Findings Physical Appearance: Obese BMI 30-39 Skin Appearance Skin Appearance: Edema Edema Location Modifier: Both Edema Location: Lower Extremity Type of Edema: Degree of Edema: Gastrointestinal Symptoms GI Symtoms: Nausea Tube Present: Bowel Sounds: Recent Bowel Pattern: Diarrhea Stool Characteristics: Nutritional Diagnosis Nutritional Risk Acuity 2: Blood Glucose > 300mg/dl Nutritional Risk Acuity 3: Weight Loss Past Medical History: HX of narcotic abuse,Thyroid cancer, T2DM, asthma, GERD, bipolar disorder,anxiety, Seizure Disorder, hyperlipidemia, migranes, hyperglycemia, DVT, CAD, HTN, PUD, depression, hypothyroidism Nutritional Acuity: 2-Moderate Nutrition Diagnosis: Increased Nutrient Needs Nutrition Etiology: Physiological Causes Nutrition Problem/Etiology/Sym: Increased nutrient needs as related to physiological causes as evidenced by pneumonia and recent self-reported wt loss. Energy Requirement: 2013 (m [address] jez x 1.1 x1.2) Protein Requirement: 95 (1 g protein/kg) Fluid Requirement: 2013 (1mL/1kcal) Diet Type: Diabetic Nutrition Intervention: Cont diet as ordered, Encourage intake, Check glucose Additional Diet Restrictions: avoid: [place], garlic, ginseng, and grapefruit/related citrus Nutrition Monitoring & Eval Nutrition Goals: Eat 75-100% Meal Nutrition Follow-Up: Good Intake Nutrition Monitoring: Monitor BGs, weight, intake RD Patient Assessment Time: [address] Assessment Type: RD Re-Assessment Patient Nutrition Acuity: 2-Moderate Follow Up Date: Dec 31, 2018 Nutritional Comment: Pt admitted with abdominal pain, cough, and hematemesis. Dx with pneumonia. Pt has extensive medical hx. Pt reports recent wt loss of 30# and reports experiencing N/V. Currently on ADA diet with 50-100% intake. Pt medications include insulin and apixaban (avoid: [place], garlic, ginseng, and grapefruit/related citrus). Pt has non-pitting edema in BLE. Random gluose of 447 and whole blood glucose of 179-273 are elevated. Urinary ketones of 20 are elevated. Monitor for adequate intake and blood glucose levels. -AKG 12/27/18-Pt eating well 100% x last 3 meals. Pt not in room when attempted visit. No new weight since last assess. Blood glucose still running high 264-291 recently. AIC was >14. K+ slighlty low at 3.4. Will continue to monitor intakes, BG, weight. Will provide diabetic diet education as needed.KAREN RAMOS Dec 27, 2018 12:51
[2018-12-28] MEDS ORDERED: LIDO700A19 TOP (15:25)
[2018-12-28] MEDS ORDERED: LIDO15CR8 TOP (16:32)
== END 2018-12-27 10:52 | disposition home or self-care (01) | DRG 194 ==
LOC: ER 07:28 → MED 09:41
PROVIDERS: ADMIT Internal Medicine; ATTEND Internal Medicine
DX: J18.9 Pneumonia, unspecified organism (principal); G40.802 Other epilepsy, not intractable, without status epilepticus; E11.65 Type 2 diabetes mellitus with hyperglycemia; I10 Essential (primary) hypertension; I45.81 Long QT syndrome; I25.10 Atherosclerotic heart disease of native coronary artery without angina pectoris; K27.7 Chronic peptic ulcer, site unspecified, without hemorrhage or perforation; E78.5 Hyperlipidemia, unspecified; F31.9 Bipolar disorder, unspecified; J45.909 Unspecified asthma, uncomplicated; E03.9 Hypothyroidism, unspecified; Z86.718 Personal history of other venous thrombosis and embolism; Z86.711 Personal history of pulmonary embolism; Z79.4 Long term (current) use of insulin; Z95.1 Presence of aortocoronary bypass graft
CPT/HCPCS: 36415; 36416; 71260; 74177; 81001; 82009; 82040; 82247; 82310; 82374; 82435; 82565; 82803; 82947; 82948; 83036; 83605; 83690; 83735; 83930; 84075; 84132; 84155; 84295; 84450; 84460; 84520; 85025; 85610; 85730; 93005; 94640; 96361; 96372; 96374; 96375; 99282; C9113; J1815; J2543; J2550; J3010; J3480; J3490; J7030; J7050; Q0169; Q9967

== ENCOUNTER → 2018-12-28 | Outpatient (CLI) | payer MEDICAID ==
[2017-04-17 12:41] VITALS: BMI 34.0
[~2018-12-28] MED LIST changes: +AMOX1TAB9 PO; +FLUC150T40 PO; +FLUT1DIS28 INH; +LIDO15CR8 TOP
--- NOTE | 2018-12-28 14:44 | RADIOLOGY IMAGING REPORT ---
FACILITY: [facility] [place]IENT NAME: Yesy Mccracken : 1970 MR: [id number] V: [id number] EXAM DATE: ORDERING PHYSICIAN: POPPY SANCHEZ TECHNOLOGIST: Location: [facility] - [place] Patient: Yesy Mccracken : 1970 Visit/Account:[id number] Date of Sevice: 12/28/2018 FOOT 3 VIEWS RIGHT Indication: Right foot pain after reinjury. Comparison: 12/11/2018. Findings: 3 views of the right foot were obtained. No acute fracture or dislocation. The previously seen proximal first phalanx fracture the fourth fift h toe is less evident than on the previous exam. No displacement. No bony lesions or periosteal abnor mality. Soft tissues are unremarkable. IMPRESSION: 1.No acute osseous abnormality of the right foot 2. The previous fractures of the proximal phalanx of the fourth fifth toe are less evident. There is no distraction. Report Dictated By: Freddy Doss at 12/28/2018 2:33 PM Report E-Signed By: Freddy Doss at 12/28/2018 2:37 PM WSN:[id number]
== END ==
LOC: RAD 13:56
PROVIDERS: ATTEND Nurse Practitioner Primary Care
DX: M79.671 Pain in right foot (principal)

== ENCOUNTER → 2019-01-27 | Outpatient (CLI) | payer MEDICAID ==
[2017-04-17 12:41] VITALS: BMI 34.0
[2019-01-27 12:58] LABS: PLATELET COUNT, AUTOMATED 227 K/uL (150-450)
== END ==
LOC: LAB 11:05
PROVIDERS: ATTEND Nurse Practitioner Primary Care
DX: M62.838 Other muscle spasm (principal); R23.8 Other skin changes
CPT/HCPCS: 36415; 82040; 82247; 82310; 82374; 82435; 82565; 82947; 83735; 84075; 84132; 84155; 84295; 84443; 84450; 84460; 84520; 85025